=== PATIENT | male | born 1955 | race Caucasian/White ===

== ENCOUNTER → 2024-10-18 | Outpatient (BNVA) | payer OTHER, MEDICAID, SELFPAY | END | disposition home or self-care (01) | PROVIDERS: PCP Family Medicine; Referring Provider Family Medicine; Visit Provider Urology | DX: N40.1 Benign prostatic hyperplasia with lower urinary tract symptoms (principal); N13.8 Other obstructive and reflux uropathy; N20.1 Calculus of ureter; I10 Essential (primary) hypertension; J44.9 Chronic obstructive pulmonary disease, unspecified; F32.A Depression, unspecified; E78.00 Pure hypercholesterolemia, unspecified | CPT/HCPCS: 99212; G0463 ==

== ENCOUNTER → 2024-12-15 | Outpatient (CLI) | payer MEDICARE, MEDICAID, SELFPAY ==
--- NOTE | 2024-12-15 14:06 | XR_ITS ---
Examination: CT chest, without intravenous contrast. Sagittal and coronal 2-D reconstructions. Exam date and time: December 15, 2024 1428 hours INDICATIONS: CT chest January 26, 2024, COPD, bilateral pulmonary nodules including 10 mm pulmonary nodule right lower lobe CTDI:vol (mGy) 1.9 DLP: (mGycm) 439 Technique: Multiple 3.0 mm axial sections of the chest to been obtained. Bone and lung density settings are obtained. Sagittal and coronal 2-D reconstructions have been obtained. Low dose protocols were performed. One or more of the following dose reduction techniques were used; automated exposure control, adjustment of the mA and/or KV according to patient size, use of iterative reconstruction technique. Findings: No thoracic aortic aneurysm dilatation No paratracheal tracheobronchial or bronchopulmonary adenopathy Again noted bilateral pulmonary nodules New soft nodule in the left lower lobe 21 mm No interval pneumonia or pulmonary edema No visualized liver or splenic lesion No gallstones Partial visualization right ureteral stent IMPRESSION: New pulmonary nodule in the left lower lobe, 21 mm, recommend continued 6 month follow-up CT chest without contrast
== END | disposition home or self-care (01) ==
PROVIDERS: PCP Specialist; Referring Provider Specialist; Visit Provider Specialist
DX: R91.1 Solitary pulmonary nodule (principal)
CPT/HCPCS: 71250

== ENCOUNTER → 2024-12-21 | Outpatient (CLI) | payer MEDICARE, MEDICAID, SELFPAY ==
--- NOTE | 2024-12-21 12:40 | XR_ITS ---
Examination: Retroperitoneal ultrasound, complete Technique: Multiple high resolution grayscale images of the retroperitoneum obtained, including kidneys and bladder. Exam date and time:December 21 2024 1356 hours INDICATIONS: History bilateral flank pain 4 months FINDINGS: Right kidney 10.4 x 5.2 x 5.1 cm cortex 1.2 cm Renal calculi, the largest 13 x 8 x 10 mm Left kidney 10.0 x 5.0 x 5.2 cm cortex 1.3 cm Moderate bilateral renal parenchymal scar formation No bladder mass, contracted urinary bladder 26 cc IMPRESSION: Right renal calculi, the largest 13 mm No hydronephrosis
[2024-12-21 14:29] LABS: Collection Type, Urine Clean Catch; Squamous Epithelial Cell,Urine 0 /hpf (0-5)
[2024-12-21 14:55] LABS: Basophils # (Auto) 0.1 Thou/mm3 (0.0-0.2); Basophils % (Auto) 1 % (0-2.5); Eosinophils # (Auto) 0.4 Thou/mm3 (0.0-0.5); Eosinophils % (Auto) 3 % (0-10); Hematocrit 44.6 % (41.0-53.0); Hemoglobin 14.6 g/dL (13.5-16.0); Immature Granulocytes % (Auto) 0 % (0-0); Immature Granulocytes Auto 0.04 Thou/mm3 (0.00-0.00); Lymphocytes # (Auto) 1.6 Thou/mm3 (1.0-4.8); Lymphocytes % (Auto) 14 % (10-50); Mean Corpuscular HGB Conc 32.7 g/dl (31.0-37.0); Mean Corpuscular Hemoglobin 31.7 pg (25.0-35.0); Mean Corpuscular Volume 97 fL (80-100); Monocytes # (Auto) 1.1 Thou/mm3 (0.0-0.8); Monocytes % (Auto) 10 % (0-12); Neutrophils # (Auto) 7.9 Thou/mm3 (1.8-7.7); Neutrophils % (Auto) 72 % (37-80); Nucleated Red Blood Cell % 0 /100 WBC (0); Platelet Count 237 Thou/mm3 (140-440)
[2024-12-21 15:08] LABS: Bilirubin,Urine Negative (Negative); Blood,Urine 3+ (Negative); Clarity,Urine Clear (Clear/Hazy); Color,Urine Lt-Yellow (Lt Yel-Yel); Glucose, Urine Negative (Negative); Ketones,Urine Negative (Negative); Leukocyte Esterase,Urine Positive (Negative); Nitrite,Urine Negative (Negative); PH,Urine 6.5 (5.0-7.0); Protein,Urine Trace (Neg - Trace); RBC,Urine 101 /hpf (0-3); Specific Gravity,Urine 1.011 (1.001-1.035); Urobilinogen,Urine Negative mg/dL (0.0-1.0); WBC,Urine 15 /hpf (0-5)
[2024-12-21 15:19] LABS: Culture Indicated,Urine Yes
[2024-12-21 15:22] LABS: Anion Gap 8 (7-16); BUN/Creatinine Ratio 15 Ratio (12-20); Blood Urea Nitrogen 17 mg/dL (9-23); Calcium 9.3 mg/dL (8.3-10.6); Carbon Dioxide 33.3 mMol/L (20.0-31.0); Chloride 97 mMol/L (98-107); Creatinine (Component) 1.1 mg/dL (0.6-1.3); Glucose 70 mg/dL (74-106); Osmolality,Calculated 275 (275-295); Potassium 4.3 mMol/L (3.4-5.1); Sodium 138 mMol/L (136-145); eGFR > 60 See Note
== END | disposition home or self-care (01) ==
LOC: CDIM 12:25 → COPL 13:49
PROVIDERS: Referring Provider Nurse Practitioner Family; Visit Provider Radiology Diagnostic Radiology
DX: N20.0 Calculus of kidney (principal)
CPT/HCPCS: 36415; 76770; 80048; 80053; 81001; 85025; 87086

== ENCOUNTER 2024-12-25 21:17 | Emergency (ER) | payer MEDICARE, MEDICAID, SELFPAY ==
[2024-12-25 21:24] VITALS: BP 136/87; PULSE 104; RESP 22; TEMP 37; O2SAT 93
--- NOTE | 2024-12-25 21:37 | XR_ITS ---
Examination: PA lateral chest 2 views Technique: Upright PA lateral chest 2 views Exam date and time: December 25, 2024 2137 hrs. Indications: Onset chest pain today. Findings: Bibasilar opacity consistent with pneumonia Significant hyperexpansion Prominent central pulmonary arteries Moderate osteopenia Impression: COPD Pulmonary artery hypertension Bibasilar pneumonia
--- NOTE | 2024-12-25 21:37 | EKG_ITS ---
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) Order Number: [id number] Reading MD: Dino Willson ([facility]) Measurements Intervals [place] Rate: 103 P: 81 DC: 120 QRS: 68 QRSD: 93 T: 61 QT: 315 QTc: 414 Interpretive Statements SINUS TACHYCARDIA ABNORMAL RHYTHM ECG Compared to ECG 02/21/2024 17:19:26 Sinus rhythm no longer present Ventricular premature complex(es) no longer present T-wave abnormality no longer present /store/S0/[id number]/[id number].pdf
--- NOTE | 2024-12-25 21:38 | PD.EDRME ---
Rapid Medical Screening Exam E Arrival date/time: 12/25/24 21:17 69-year-old male past medical history of COPD on 2 L nasal cannula home O2, UTI, and kidney stones presents emergency department complaining of chest pain with shortness of breath. Chief Complaint: Shortness of Breath/Dyspnea Time Seen by Provider: 12/25/24 21:28 Vital signs: Vital Signs Temperature 98.6 F 12/25/24 21:24 Pulse Rate 104 H 12/25/24 21:24 Respiratory Rate 22 H 12/25/24 21:24 Blood Pressure 136/87 H 12/25/24 21:24 Pulse Oximetry (%) 93 L 12/25/24 21:24 Oxygen Delivery Method Nasal Cannula 12/25/24 21:24 Oxygen Flow Rate 4 12/25/24 21:24 Vital signs reviewed by provider: Yes
--- NOTE | 2024-12-25 22:21 | PD.EDSOB ---
ED SOB =RME/HPI General Chief Complaint: Shortness of Breath/Dyspnea Stated Complaint: DIFF BREATHING Time Seen by Provider: 12/25/24 21:28 Arrival date/time: 12/25/24 21:17 RME / HPI RME / HPI Narrative: 12/25/24 21:17 69-year-old male past medical history of COPD on 2 L nasal cannula home O2, UTI, and kidney stones presents emergency department complaining of chest pain with shortness of breath. ----- Dr. Briseno?s Main ED Evaluation: 69yo male with a history of dementia, COPD, HTN, kidney stones s/p right stent placement presents to the ED for a chief complaint of worsening chronic back pain. Patient states he was diagnosed with kidney stones in 08/2024, reporting he's been told he was supposed to have a lithotripsy, but has not been scheduled to have it done. He states his pain has gotten significantly worse over the last 1-2 days, reporting he's had increasing shortness of breath due to the pain, so he came in for evaluation. He has been taking his hydrocodone without any improvement of symptoms. Denies any fever, chills, N/V or any other associated symptoms. No known allergies. Patient states he saw his PCP on Thursday and was prescribed Bactrim for UTI, which he has been taking. Related Data Home Medications ?Medication ?Instructions ?Recorded ?Confirmed losartan 100 mg tablet 50 mg PO QDAY 12/13/19 10/18/24 fluticasone fur. 100 mcg-umeclid 1 ea inhalation QDAY 10/29/23 10/18/24 62.5 mcg-vilant 25 mcg inhalat.powder (Trelegy Ellipta) omeprazole 20 mg capsule,delayed 20 mg PO QDAY 10/29/23 10/18/24 release tamsulosin 0.4 mg capsule 0.4 mg PO QHS 04/05/24 10/18/24 prednisone 10 mg tablets in a dose 5 mg PO QDAY 09/08/24 10/18/24 pack vortioxetine 10 mg tablet 10 mg PO QDAY 09/08/24 10/18/24 (Trintellix) donepezil 10 mg tablet 10 mg PO QDAY 10/18/24 10/18/24 Previous Rx's ?Medication ?Instructions ?Recorded albuterol sulfate 90 mcg/actuation 1 inh inhalation QID PRN shortness 11/24/23 aerosol inhaler of breath or wheezing #6.7 grams albuterol sulfate 90 mcg/actuation 2 puff inhalation QID PRN 12/26/24 aerosol inhaler shortness of breath or wheezing #8.5 grams doxycycline monohydrate 100 mg 100 mg PO BID 10 days #20 caps 12/26/24 capsule prednisone 50 mg tablet 50 mg PO QDAY 5 days #5 tabs 12/26/24 Allergies Allergy/AdvReac Type Severity Reaction Status Date / Time No Known Allergies Allergy Verified 12/25/24 22:40 Review of Systems Review of Systems Systems Reviewed: All systems reviewed, normal except as documented Past Medical History Past Medical History NEUROLOGIC: Positive Neurological Disorders and Dementia (vascular dementia sees Dr Laws); Negative Seizures CARDIAC: Positive Cardiac Disorders, Hypercholesterolemia and Hypertension; Negative Congestive Heart Failure or Edema RESPIRATORY: Positive Chronic Obstructive Pulmonary Disease (COPD), Bronchitis and Pneumonia GASTROINTESTINAL: Positive Hepatitis (was treated); Negative Gastrointestinal Disorders GENITOURINARY: Positive Genitourinary Disorders, Kidney Stones and Benign Prostatic Hyperplasia; Negative Renal Disease MUSCULOSKELETAL: Positive Musculoskeletal Disorders, Arthritis, Degenerative Disk Disease and Degenerative Joint Disease ENT: Positive Macular Degeneration (gets injections in the eyes) ENDOCRINE: Negative Endocrine Disorders, Diabetes Mellitus Type 1 or Diabetes Mellitus Type 2 HEMATOLOGIC: Negative Blood Disorders PSYCHO/SOCIAL: Positive Depression and Anxiety OTHER HISTORY: Positive Hospitalization, Shingles and Chicken Pox; Negative Autoimmune Disease, Blood Transfusions, Blood Transfusion Reaction, Anesthesia Reactions or Cancer Family History FAMILY HISTORY: Positive Family Cardiac Disorders, Family Cancer and Family Surgery; Negative Family Psychiatric Problems, Family Respiratory Disorders, Family Gastrointestinal Problems or Family Anesthesia Reaction Surgical History SURGICAL: Positive Joint Replacement and Arthroscopy (bilateral knees) Social History SMOKING STATUS: Former smoker SECOND HAND EXPOSURE: No SUBSTANCE USE: marijuana ED Exam Narrative Physical exam: GENERAL APPEARANCE: alert and oriented x 4, well-developed, well-nourished, no acute distress VITALS: All vitals were reviewed and the pulse ox is 93% on 4L/NC, which is slightly abnormal according to my interpretation. HEENT: Normocephalic, atraumatic; pupils equal, round, reactive to light; EOMI; mucous membranes pink, moist; oropharynx clear NECK: Supple LUNGS: CTABL; no wheezes, no rales, no rhonchi HEART: Regular rate, regular rhythm; normal S1, S2; no murmurs ABDOMEN: non distended; normal BS; soft, no tenderness, no guarding, no rebound; no masses, no organomegaly, no hernia BACK: no CVA tenderness EXTREMITIES: atraumatic; no edema NEUROLOGIC: awake; alert and oriented x4; cranial nerves II-XII grossly intact; no focal sensory or motor deficits PSYCHIATRIC: appropriate mood and affect SKIN: warm, dry, normal color; no rashes Course Course Course Narrative: CXR ordered for determining the etiology of shortness of breath. 2221: Sepsis alert initiated. Orders made at this time are congruent with ED Adult Sepsis Order List. Re-evaluation is to be completed. No IVF given due to the patient being clinically stable. No indication for IVF hydration at this time. Quality Measures none Orders Category Date Time Status Battery Starter STAT Care 12/25/24 22:21 Completed Continuous Pulse Oximetry STAT Care 12/25/24 22:21 Completed EKG (ED ONLY) *Do not use* NOW Care 12/25/24 21:37 Completed EKG (ED ONLY) *Do not use* NOW Care 12/25/24 22:24 Completed In and Out Catheter X1PRN Care 12/25/24 22:21 Completed Insert IV NOW Care 12/25/24 22:21 Completed NPO STAT Care 12/25/24 22:21 Completed Strict Intake and Output Routine Care 12/25/24 22:[address] abdomen pelvis wo con Stat Exams 12/25/24 22:50 Completed EKG (ED Only) Stat Exams 12/25/24 21:37 Draft EKG (ED Only) Stat Exams 12/25/24 22:24 Draft XR chest 2V Stat Exams 12/25/24 21:37 Completed B-Type Natriuretic Peptide Stat Lab 12/25/24 21:55 Completed Blood Culture (Lab) Stat Lab 12/25/24 23:00 Received CBC Stat Lab 12/25/24 21:55 Completed Comprehensive Metabolic Panel Stat Lab 12/25/24 21:55 Completed Drug Screen,Urine Stat Lab 12/25/24 22:25 Completed LDH (Lactate Dehydrogenase) Stat Lab 12/25/24 23:00 Completed Lactate (Lactic Acid) Stat Lab 12/25/24 23:00 Completed Lipase Stat Lab 12/25/24 23:00 Completed Magnesium Stat Lab 12/25/24 21:55 Completed Partial Thromboplastin Time Stat Lab 12/25/24 23:00 Completed Phosphorous Stat Lab 12/25/24 23:00 Completed Procalcitonin Stat Lab 12/25/24 23:00 Completed Prothrombin Time with INR Stat Lab 12/25/24 23:00 Completed Troponin I Stat Lab 12/25/24 21:55 Completed Urinalysis Stat Lab 12/25/24 22:25 Completed Urine Culture Stat Lab 12/25/24 22:25 Received ALBUTEROL RT 0.5ml [Proventil Rt 0.5ml] Med 12/25/24 21:37 Discontinued 5 mg INH X1 ONE Azithromycin Inj [Zithromax Inj] 500 mg Med 12/25/24 22:25 Discontinued Sodium Chloride 0.9% 250 ml [Ns] 250 ml IV X1 HYDROmorphone INJ [Dilaudid Inj] Med 12/25/24 22:51 Discontinued 0.5 mg IVP X1 ONE Ipratropium Chester Rt Sonia [Atrovent Rt Sonia] Med 12/25/24 21:37 Discontinued 0.5 mg INH X1 ONE Ondansetron Inj [Zofran Inj] Med 12/25/24 22:51 Discontinued 4 mg IV X1 ONE Ondansetron Inj [Zofran Inj] Med 12/25/24 22:51 Discontinued 4 mg IV X1 ONE Sodium Chloride Rt Sonia 0.9% [NS Rt Sonia 0.9%] Med 12/25/24 21:37 Discontinued 3 ml INH PRN PRN cefTRIAXone [Rocephin] 1,000 mg Med 12/25/24 22:21 Discontinued Sodium Chloride 0.9% (P) [Ns 0.9% (P)] 50 ml IV X1 predniSONE Med 12/25/24 21:37 Discontinued 60 mg PO X1 ONE Oxygen Delivery NOW RT 12/25/24 22:21 Completed Reevaluation(s) Reevaluation #1: Patient states he feels significantly better. He notes his resting HR at baseline is between 106-110. Patient is stable to be discharged home. Time: 00:55 Vital Signs Vital signs: Vital Signs Temperature 98.6 F 12/25/24 21:24 Pulse Rate 104 H 12/25/24 21:24 Respiratory Rate 22 H 12/25/24 21:24 Blood Pressure 136/87 H 12/25/24 21:24 Pulse Oximetry (%) 93 L 12/25/24 21:24 Oxygen Delivery Method Nasal Cannula 12/25/24 21:24 Oxygen Flow Rate 4 12/25/24 21:24 Shortness of Breath / Dyspnea MDM Narrative MDM Narrative:: Scribe Attestation: 12/25/24 Marbella Mcclendon am scribing for and in the presence of Dr. Briseno. Patient data External records reviewed:: [facility] previous records (Per chart review, patient was admitted here on 02/15/24 for acute febrile illness.) Clinical information provided by:: patient Social determinants that could affect healthcare access:: none Patient has the following chronic illnesses:: COPD, HTN, HLD, BPH, kidney stones How is presenting disease/condition affected by chronic disease/condition?: exacerbated by Evaluation data The following diagnostics were reviewed and interpreted by me:: lab results, radiology exam(s) and EKG tracing(s) Lab and/or radiology exams considered but not ordered:: none Interpretation Summary: CBC is normal, CMP is normal, Lactic Acid is normal, troponin is normal, BNP is normal, Procalcitonin is within normal limits, UA shows hematuria, according to my interpretation. EKG done at 2142, sinus tachycardia, rate of 103, normal axis, no ectopy, no acute ischemia, according to my interpretation. Repeat EKG done at 2234, sinus tachycardia, rate of 102, left axis deviation, no ectopy, no acute ischemia, according to my interpreatation. ------ [place] [facility] Report Signed Patient: MIRIAN IVORY [facility]. Record#: [id number] Birthdate: 1955 Age/Sex: 69 / M Location: [facility] Attending Dr: Ordering Physician: Ale ROGER)Dino Date of Service: 12/25/24 Procedure(s): XR chest 2V Accession Number(s): [id number] cc: Tk Bedoya MD; Ale ROGER)Dino~ Examination: PA lateral chest 2 views Technique: Upright PA lateral chest 2 views Exam date and time: December 25, 2024 2137 hrs. Indications: Onset chest pain today. Findings: Bibasilar opacity consistent with pneumonia Significant hyperexpansion Prominent central pulmonary arteries Moderate osteopenia Impression: COPD Pulmonary artery hypertension Bibasilar pneumonia Dictated By: Tk Bedoya MD Signed By: <Electronically signed by Tk Bedoya MD in OV> 12/25/24 2259 [place] [facility] Report Signed Patient: MIRIAN IVORY. Record#: [id number] Birthdate: 1955 Age/Sex: 69 / M Location: [facility] Attending Dr: Ordering Physician: Lukasz Briseno MD Date of Service: 12/25/24 Procedure(s): CT abdomen pelvis wo con Accession Number(s): [id number] cc: Tk Bedoya MD; Lukazs Briseno MD~ Examination: CT abdomen and pelvis without contrast. Coronal 3-D reconstructions. Sagittal 2-D reconstructions. Date and time of exam:December 25, 2024 1106 hrs. Indications: Right flank pain today, history kidney stones ureteral stent CTDI: vol (mGy): 8.45 DLP: (mGycm): 508 Technique: Axial images of the abdomen have been obtained, 3 mm slice thickness Intravenous contrast material has not been administered. Low dose protocols were performed. One or more of the following dose reduction techniques were used; automated exposure control, adjustment of the mA and/or KV according to patient size, use of iterative reconstruction technique. Findings: Atelectasis versus mild pneumonia right base No focal liver or splenic lesions No gallstones No pancreatic mass Mild right hydronephrosis with lower pole right renal calculi, the largest 13 mm Bilateral perinephric stranding No bowel obstruction Normal appendix Colonic diverticulosis No bladder calculi Transverse prostate dimension 5.2 cm Prominent osteopenia Transpedicular lumbar stabilization L5-S1 Cortical bone erosions inferior margin L2 sagittal image 120 Impression: Atelectasis versus mild pneumonia right base Right renal calculi Mild right hydronephrosis Right ureteral stent satisfactory position, no right ureteral calculi Moderate prostatomegaly Cortical erosion inferior endplate L2, consider discitis osteomyelitis, recommend elective MRI lumbar spine follow-up pre and postcontrast Dictated By: Tk Bedoya MD Signed By: <Electronically signed by Tk Bedoya MD in OV> 12/25/24 2050 Medications / Prescriptions Medications or Prescriptions considered but not ordered:: none Medication administrations:: Medication Administration History Discontinued Medications Albuterol (Albuterol Rt 2.5 Mg/0.5 Ml Nebu) 5 mg INH X1 ONE Stop: 12/25/24 21:38 Last Admin: 12/26/24 00:11 Dose: 5 mg Documented By: AURELIO Hydromorphone HCl (Hydromorphone Inj 2 Mg/Ml Vial) 0.5 mg IVP X1 ONE Stop: 12/25/24 22:52 Last Admin: 12/25/24 23:23 Dose: 0.5 mg Documented By: VICENTA Ceftriaxone Sodium 1,000 mg/ (Sodium Chloride) 50 mls @ 100 mls/hr IV X1 ONE Stop: 12/25/24 22:50 Last Admin: 12/25/24 23:18 Dose: 100 mls/hr Documented By: VICENTA Azithromycin 500 mg/ Sodium (Chloride) 250 mls @ 250 mls/hr IV X1 ONE Stop: 12/25/24 23:24 Last Admin: 12/25/24 23:25 Dose: 250 mls/hr Documented By: VICENTA Ipratropium [place] (Ipratropium Rt 0.5 Mg/ 2.5 Ml Nebu) 0.5 mg INH X1 ONE Stop: 12/25/24 21:38 Last Admin: 12/26/24 00:10 Dose: 0.5 mg Documented By: AURELIO Ondansetron HCl (Ondansetron Inj 2 Mg/Ml Inj 2 Ml) 4 mg IV X1 ONE; Protocol Stop: 12/25/24 22:52 Last Admin: 12/26/24 00:49 Dose: Not Given Documented By: DOUGLAS Non-Admin Reason: Discontinued Ondansetron HCl (Ondansetron Inj 2 Mg/Ml Inj 2 Ml) 4 mg IV X1 ONE; Protocol Stop: 12/25/24 22:52 Last Admin: 12/25/24 23:23 Dose: 4 mg Documented By: VICENTA Prednisone (Prednisone 20 Mg Tablet) 60 mg PO X1 ONE Stop: 12/25/24 21:38 Last Admin: 12/25/24 22:22 Dose: 60 mg Documented By: NELLY Sodium Chloride (Sodium Chloride Rt Sonia 0.9% 3 Ml Nebu) 3 ml INH PRN PRN PRN Reason: SOLN Stop: 01/24/25 21:36 see above Consultations Consultation(s) initiated? (list below): No Diagnosis Shortness of Breath Differential Diagnosis: other (renal colic, infected renal stone, ureteral stent migration, musculoskeletal strain) Most likely diagnosis given after review of the tests above:: see below Admission Indicated Admission indicated?: not indicated Admission Request Was there a request for admission?: No Disposition Plan Disposition Plan: Discharge Discharge Attestation Discharge Attestation: The patient and all family members were given an opportunity to ask questions and understood the discharge instructions. Discharge instructions specifically effects, indications for sooner follow up or return to the emergency department, and the expected course of current diagnosis. Patient condition: Stable Discharge Plan Plan Patient Disposition: HOME (Self Care) Disposition Comment: Stable for discharge Patient condition on transfer: Stable Prescriptions/Referrals Prescriptions/Med Rec: New doxycycline monohydrate 100 mg capsule 100 mg PO BID 10 Days Qty: 20 0RF prednisone 50 mg tablet 50 mg PO QDAY 5 Days Qty: 5 0RF albuterol sulfate 90 mcg/actuation HFA aerosol inhaler 2 puff inhalation QID PRN (Reason: shortness of breath or wheezing) Qty: 8.5 0RF No Action tamsulosin 0.4 mg capsule 0.4 mg PO QHS donepezil 10 mg tablet 10 mg PO QDAY losartan 100 mg Tablet 50 mg PO QDAY omeprazole 20 mg capsule,delayed release(DR/EC) 20 mg PO QDAY Trelegy Ellipta 100-62.5-25 mcg blister with device 1 ea INHALATION QDAY albuterol sulfate 90 mcg/actuation HFA aerosol inhaler 1 inh inhalation QID PRN (Reason: shortness of breath or wheezing) Qty: 6.7 0RF Trintellix 10 mg Tablet 10 mg PO QDAY prednisone 10 mg tablets,dose pack 5 mg PO QDAY Rx Instructions: 10 more days Referrals: [facility] [Outside] - In 1 week Problem List Clinical Impression: COPD with acute exacerbation, Community acquired pneumonia Patient/Caregiver Discharge Instructions Discharge Activity: activity as tolerated Education Materials: COPD: Chronic Coughing, Asthma and COPD, Chronic Lung Disease Avoiding ..., COPD Meds, ED Pneumonia (Adult) Additional Instructions: Please return to the emergency department for any worsening or any further medical problems. Otherwise you should follow-up with your primary care doctor within the next several days. Print Language: Romansh Stand Alone Forms: Karen Award Info., Patient Portal Info Letter
[2024-12-25] MEDS: predniSONE 20 MG TABLET 60 MG PO (22:22)
[2024-12-25 22:24] LABS: Basophils % (Auto) 0 % (0-2.5); Eosinophils # (Auto) 0.2 Thou/mm3 (0.0-0.5); Eosinophils % (Auto) 3 % (0-10); Hematocrit 42.2 % (41.0-53.0); Hemoglobin 13.4 g/dL (13.5-16.0); Immature Granulocytes % (Auto) 1 % (0-0); Immature Granulocytes Auto 0.05 Thou/mm3 (0.00-0.00); Lymphocytes # (Auto) 0.7 Thou/mm3 (1.0-4.8); Lymphocytes % (Auto) 10 % (10-50); Mean Corpuscular HGB Conc 31.8 g/dl (31.0-37.0); Mean Corpuscular Hemoglobin 31.8 pg (25.0-35.0); Mean Corpuscular Volume 100 fL (80-100); Monocytes # (Auto) 1.1 Thou/mm3 (0.0-0.8); Monocytes % (Auto) 16 % (0-12); Neutrophils # (Auto) 5.1 Thou/mm3 (1.8-7.7); Neutrophils % (Auto) 70 % (37-80); Nucleated Red Blood Cell % 0 /100 WBC (0); Platelet Count 203 Thou/mm3 (140-440); RDW Standard Deviation 50.2 fL (35.1-43.9); Red Blood Count 4.21 Miln/mm3 (4.50-5.90); White Blood Count 7.2 Thou/mm3 (3.8-10.6)
--- NOTE | 2024-12-25 22:24 | EKG_ITS ---
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
[2024-12-25 22:31] LABS: Collection Type, Urine Clean Catch; Squamous Epithelial Cell,Urine 0 /hpf (0-5)
[2024-12-25 22:32] VITALS: BMI 24.5
[2024-12-25 22:36] VITALS: PULSE 105
[2024-12-25 22:43] VITALS: BP 131/85; PULSE 105; RESP 19; TEMP 37.5; O2SAT 95
[2024-12-25 22:48] LABS: Bilirubin,Urine Negative (Negative); Blood,Urine 3+ (Negative); Clarity,Urine Turbid (Clear/Hazy); Glucose, Urine Negative (Negative); Ketones,Urine Trace (Negative); Leukocyte Esterase,Urine Positive (Negative); Nitrite,Urine Negative (Negative); PH,Urine 6.5 (5.0-7.0); Protein,Urine 2+ (Neg - Trace); RBC,Urine 3272 /hpf (0-3); Specific Gravity,Urine 1.028 (1.001-1.035); WBC,Urine 110 /hpf (0-5)
[2024-12-25 22:50] LABS: Color,Urine Amber (Lt Yel-Yel)
--- NOTE | 2024-12-25 22:50 | XR_ITS ---
Examination: CT abdomen and pelvis without contrast. Coronal 3-D reconstructions. Sagittal 2-D reconstructions. Date and time of exam:December 25, 2024 1106 hrs. Indications: Right flank pain today, history kidney stones ureteral stent CTDI: vol (mGy): 8.45 DLP: (mGycm): 508 Technique: Axial images of the abdomen have been obtained, 3 mm slice thickness Intravenous contrast material has not been administered. Low dose protocols were performed. One or more of the following dose reduction techniques were used; automated exposure control, adjustment of the mA and/or KV according to patient size, use of iterative reconstruction technique. Findings: Atelectasis versus mild pneumonia right base No focal liver or splenic lesions No gallstones No pancreatic mass Mild right hydronephrosis with lower pole right renal calculi, the largest 13 mm Bilateral perinephric stranding No bowel obstruction Normal appendix Colonic diverticulosis No bladder calculi Transverse prostate dimension 5.2 cm Prominent osteopenia Transpedicular lumbar stabilization L5-S1 Cortical bone erosions inferior margin L2 sagittal image 120 Impression: Atelectasis versus mild pneumonia right base Right renal calculi Mild right hydronephrosis Right ureteral stent satisfactory position, no right ureteral calculi Moderate prostatomegaly Cortical erosion inferior endplate L2, consider discitis osteomyelitis, recommend elective MRI lumbar spine follow-up pre and postcontrast
[2024-12-25 22:58] LABS: Amphetamine/Methamp Scrn,U Negative (Negative); Barbiturate Screen,Urine Negative (Negative); Benzodiazepines Screen,Urine Negative (Negative); Benzoylecgonine Screen, Ur Negative (Negative); Fentanyl Screen,Urine Negative (Negative); Opiate Screen,Urine Positive (Negative); THC Screen,Urine Negative (Negative)
[2024-12-25 23:02] LABS: B-Type Natriuretic Peptide 56 pg/mL (0-100)
[2024-12-25 23:11] LABS: Alanine Aminotransferase 8 U/L (10-49); Albumin, Serum 4.1 gm/dL (3.4-4.8); Albumin/Globulin Ratio 1.5 (1.2-2.2); Alkaline Phosphatase 176 U/L (46-116); Anion Gap 5 (7-16); Aspartate Amino Transferase 11 U/L (0-34); BUN/Creatinine Ratio 12 Ratio (12-20); Bilirubin,Total 0.2 mg/dL (0.3-1.2); Blood Urea Nitrogen 15 mg/dL (9-23); Calcium 9.4 mg/dL (8.3-10.6); Calcium (Corrected) 9.4 mg/dL (8.5-10.1); Carbon Dioxide 32.9 mMol/L (20.0-31.0); Chloride 100 mMol/L (98-107); Creatinine (Component) 1.3 mg/dL (0.6-1.3); Estimated Creatinine Clearance 56.9 mL/min (>60); Globulin 2.7 gm/dL (2.3-3.5); Glucose 94 mg/dL (74-106); Osmolality,Calculated 276 (275-295); Potassium 4.2 mMol/L (3.4-5.1); Sodium 138 mMol/L (136-145); Total Protein 6.8 gm/dL (5.7-8.2); Troponin I < 0.020 ng/mL (0.0-0.045); eGFR > 60 See Note
[2024-12-25 23:13] LABS: Lactate (Lactic Acid) 1.9 mMol/L (0.4-2.0)
[2024-12-25] MEDS: cefTRIAXone 1,000 MG in SODIUM CHLORIDE 0.9% (P) 50 ML 100 MG IV (23:18)
[2024-12-25] MEDS: ONDANSETRON INJ 2 MG/ML INJ 2 ML 4 MG IV (23:23)
[2024-12-25] MEDS: HYDROmorphone INJ 2 MG/ML VIAL 0.5 MG IVP (23:23)
[2024-12-25] MEDS: AZITHROMYCIN INJ 500 MG in SODIUM CHLORIDE 0.9% 250 ML 250 ML 250 MG IV (23:25)
[2024-12-25 23:47] LABS: Partial Thromboplastin Time 32.6 Seconds (22.0-36.0); Prothrombin Time 10.8 Seconds (9.0-12.2)
[2024-12-25 23:48] LABS: LDH (Lactate Dehydrogenase) 155 U/L (120-246); Lipase 36 U/L (12-53); Phosphorous 2.5 mg/dL (2.4-5.1); Procalcitonin 0.29 ng/ml (0.0-0.49)
[2024-12-26] MEDS: IPRATROPIUM RT 0.5 MG/ 2.5 ML NEBU INH (00:10)
[2024-12-26 00:11] VITALS: PULSE 111
[2024-12-26] MEDS: ALBUTEROL RT 2.5 MG/0.5 ML NEBU 5 MG INH (00:11)
[2024-12-26 00:15] VITALS: PULSE 108; PULSE 120; RESP 18; RESP 22; O2SAT 96
[2024-12-26 00:45] VITALS: BP 121/81; PULSE 121; RESP 17; O2SAT 95
[2024-12-26 01:11] VITALS: BP 125/92; PULSE 111; RESP 22; O2SAT 94
== END 2024-12-26 01:14 | disposition home or self-care (01) ==
PROVIDERS: Emergency Provider Emergency Medicine; PCP Nurse Practitioner Family
DX: J44.1 Chronic obstructive pulmonary disease with (acute) exacerbation (principal); J44.0 Chronic obstructive pulmonary disease with (acute) lower respiratory infection; J18.9 Pneumonia, unspecified organism; Z99.81 Dependence on supplemental oxygen; Z87.442 Personal history of urinary calculi; Z87.440 Personal history of urinary (tract) infections; R07.9 Chest pain, unspecified
CPT/HCPCS: 36415; 71046; 74176; 80053; 80307; 81001; 83605; 83615; 83690; 83735; 83880; 84100; 84145; 84484; 85025; 85610; 85730; 87040; 87086; 93005; 94640; 96374; 96375; 99284; J0456; J0696; J2405; J3490; J7050; J7512

== ENCOUNTER 2025-01-12 07:55 | Day surgery (SDC) | payer OTHER, SELFPAY ==
[2025-01-11 10:51] VITALS: BMI 24.7
[2025-01-11 13:49] LABS: Alanine Aminotransferase 12 U/L (10-49); Albumin, Serum 4.1 gm/dL (3.4-4.8); Albumin/Globulin Ratio 1.4 (1.2-2.2); Alkaline Phosphatase 158 U/L (46-116); Anion Gap 7 (7-16); Aspartate Amino Transferase 17 U/L (0-34); BUN/Creatinine Ratio 17 Ratio (12-20); Bilirubin,Total 0.7 mg/dL (0.3-1.2); Blood Urea Nitrogen 19 mg/dL (9-23); Calcium 9.8 mg/dL (8.3-10.6); Calcium (Corrected) 9.8 mg/dL (8.5-10.1); Carbon Dioxide 34.7 mMol/L (20.0-31.0); Chloride 98 mMol/L (98-107); Creatinine (Component) 1.1 mg/dL (0.6-1.3); Estimated Creatinine Clearance 67.3 mL/min (>60); Globulin 2.9 gm/dL (2.3-3.5); Glucose 88 mg/dL (74-106); Osmolality,Calculated 280 (275-295); Potassium 4.5 mMol/L (3.4-5.1); Sodium 140 mMol/L (136-145); eGFR > 60 See Note
--- NOTE | 2025-01-11 14:50 | SUR.PREOP ---
COPD history reviewed with Dr Roberto. Pt uses O2 ATC at 2L. Cardiac records reviewed with Dr Roberto.
[2025-01-12] VITALS (8 sets, daily range): BP systolic 137–181; BP diastolic 80–112; PULSE 81–90; RESP 12–20; TEMP 36.2–36.8; O2SAT 95–100; BMI 24.3
--- NOTE | 2025-01-12 07:15 | XR_ITS ---
Examination: Right retrograde pyelogram with without KUB Fluoroscopy AP abdomen 3 views Exam date and time: January 12, 2025 1300 hrs. Indications: Right flank pain beginning December 25, 2024 right mild hydronephrosis right ureteral stent satisfactory position on CT stone study December 25, 2024 Technique And Findings: 3 spot fluoroscopic abdomen films Visualization minimally dilated right renal pelvis and calyces Fluoroscopy 1.4 minute radiation dose 4.59 milligray Impression: Right retrograde pyelogram as above
--- NOTE | 2025-01-12 12:50 | SUR.PHASEI ---
1250: Pt. AAOx4, vitals stable, breathing unlabored, no complaint of pain or nausea, no dressing in place, no active bleed noted, report received from MD Barriga and Augusto RAMIREZ.
[2025-01-12] MEDS: fentaNYL CIT INJ 50 mCg/ML AMP 2ML 25 MCG IV ×4 (13:00→13:24)
--- NOTE | 2025-01-12 13:25 | CTCCONSULT_ITS ---
RE: MIRIAN IVORY : 1955 DATE OF CONSULTATION: 01/12/2025 PREPROCEDURE DIAGNOSES: 1. An 18-mm ureteropelvic junction stone, right. 2. An 8 mm and 6 mm lower pole stones, right. 3. Indwelling ureteral stent, right. POSTPROCEDURE DIAGNOSIS: Status post retrograde intrarenal surgery, right. PROCEDURE PERFORMED: Fluoroscopic imaging of upper urinary tract; cystoscopy; retrograde pyelogram under fluoroscopic control, right; retrograde intrarenal surgery with laser stone fragmentation and vaporization, right; stone basketing; and placement of indwelling ureteral stent, right. SURGEON: Dandy Ayala MD TECHNICAL OPERATIONS MANAGER SURGEON: Moni Desai MD ANESTHESIA: General. INDICATIONS: This patient is a 69-year-old gentleman with complex right renal stone disease, maybe 18, 6, and 8 mm stones in the right renal collecting system. The patient previously underwent an attempted stone treatment in a retrograde fashion; however, the ureter was too tight for safe access to the kidney. Therefore, an indwelling ureteral stent was placed to allow for passive dilation of the ureter over time. The patient now comes for a planned second- stage procedure. The indication for treatment along with risks, benefits, and alternatives were discussed with the patient in detail and appropriate consent is obtained. DESCRIPTION OF FINDINGS: Fluoroscopically, a faint stone shadow is seen overlying the medial aspect of the right kidney. The stents in the ureter is incorrect position. Endoscopically, the urethra is unremarkable. Prostate is moderately enlarged. The bladder shows mild bladder trabeculation. The stent is seen protruding from the ureteral orifice. After placement of a safety wire, the stent is removed. Endoscopic surgery is performed in the kidney with laser stone fragmentation and vaporization as the stones vaporize very efficiently. The stones are completely vaporized and some stone material is removed with basketing to allow for chemical analysis. A stent is placed. DESCRIPTION OF PROCEDURE: Prior to initiation of anesthesia, the patient is appropriately identified by the surgeon and operating room personnel. Indications for surgery, site, and scope of surgery are reconfirmed with the patient. The patient received perioperative antibiotics intravenously. After induction of general anesthesia, the patient was positioned on the endoscopy table in lithotomy position. The outer genitalia was prepped and draped in sterile fashion. Cystoscopy was performed using a 21-Guyanese instrument showing the aforementioned findings. A 5-Guyanese angiographic catheter was introduced into the right ureteral orifice over a guidewire under fluoroscopic control. The guidewire can be advanced up into the kidney to serve as a safety wire. At this point, the patient received 20 mg of Lasix intravenously to induce diuresis and reduce the risk of pyelovenous reflux and infectious complications. The indwelling stent was then removed and checked for completeness. Following this, a flexible digital ureteroscope was advanced into the ureter alongside the safety wire. The course of the ureter was traversed under endoscopic control and easy access to the kidney was established. The renal pelvic stone is first identified. Then selective visualization of all calyces is performed, identifying two additional stones in lower calyces measuring 8 and 6 mm respectively. Next, a ureteral access sheath was placed and stone fragmentation and vaporization was performed starting with the larger stone at the renal pelvis. This responds very well to the vaporization energy and can be completely vaporized. Next, the lower pole stones are treated in the same fashion. The lower most stone is repositioned with a basket in a more suitable location for fragmentation and is also fragmented and vaporized. Following this, multiple passages with stone baskets were performed to clear out slightly larger stone pieces to be used for chemical analysis and then all areas of stone materials are continued with the vaporization energy to reduce all stone material to a size smaller than the 1 mm safety wire. To conclude the procedure, a contrast was again injected confirming the integrity of the right upper urinary tract and showing mild to moderate chronic distention of the renal collecting system. An indwelling stent was placed over the safety wire and under fluoroscopic and endoscopic control position correctly in kidney and bladder. Bladder is emptied. The patient is awakened and returned to recovery where he arrived in satisfactory condition. DISPOSITION: The patient will be discharged home from the outpatient surgical area who will return to Dr. Desai's office within two weeks for renal ultrasound examination and possible removal of the indwelling ureteral stent in the office setting under local anesthesia. DT: 12:44:19 TT: 13:25:00 Ref: [id number] - TID: [id number]
--- NOTE | 2025-01-12 13:45 | SUR.PHASEII ---
1345: Pt. AAOx4, vitals stable, breathing unlabored, no complaint of pain or nausea, no dressing in place, pt. voided hematuria, pt. tolerated bites of ice chips well, pt. ambulated to wheelchair with steady gait and no assist, no complications. Gave discharge instructions to the pt. and his ride, both verbalized understanding and had no further questions. Pt. left with all personal belongings.
== END 2025-01-12 13:45 | disposition home or self-care (01) ==
PROVIDERS: Anesthesiology; PCP Family Medicine; Referring Provider Specialist; Visit Provider Urology
PROC: 0TJB8ZZ Inspection of Bladder, Via Natural or Artificial Opening Endoscopic (ICD-10-PCS; CPT 52000; principal; 2025-01-12 10:00)
DX: N20.0 Calculus of kidney (principal); N40.0 Benign prostatic hyperplasia without lower urinary tract symptoms; J44.9 Chronic obstructive pulmonary disease, unspecified; I10 Essential (primary) hypertension
CPT/HCPCS: 52356; 36415; 74420; 80053; 82365; A4217; A4649; C1769; C1889; C1894; C2617; J1100; J1580; J1940; J2250; J2405; J2704; J3010; J3370; J3490; A9270; C1893

== ENCOUNTER → 2025-01-30 | Outpatient (CLI) | payer MEDICARE, SELFPAY ==
--- NOTE | 2025-01-30 15:23 | XR_ITS ---
Examination: PA lateral chest 2 views TECHNIQUE: Upright PA lateral chest 2 views Exam date and time: January 30, 2025 1432 hours INDICATIONS: Coughing shortness of breath beginning one week ago. FINDINGS: Moderate hyperexpansion Pneumonia at the lung bases and in the lingular segment left upper lobe No pulmonary edema Prominent osteopenia IMPRESSION: COPD Bibasilar and lingular segment left upper lobe pneumonia
--- NOTE | 2025-01-30 15:24 | XR_ITS ---
Examination: Lumbar spine, 5 views Technique: Lumbar spine AP, lateral, coned lateral lower lumbar spine, bilateral obliques 5 views Exam date and time: January 30, 2025 1428 hours INDICATIONS: Low back pain several months FINDINGS: Lumbar dextroscoliosis 20 degrees Prominent osteopenia Right ureteral stent satisfactory position Interval transpedicular lumbar fusion L5-S1 compared with April 04, 2010 Moderate lumbar spondylosis Prominent osteopenia Mild to moderate lumbar degenerative disc disease above the fusion site IMPRESSION: Mild to moderate lumbar degenerative disc disease above the fusion site
== END | disposition home or self-care (01) ==
LOC: SDIM 14:58
PROVIDERS: PCP Nurse Practitioner Family; Referring Provider Nurse Practitioner Family; Visit Provider Nurse Practitioner Family
DX: M51.369 Other intervertebral disc degeneration, lumbar region without mention of lumbar back pain or lower extremity pain (principal); M43.26 Fusion of spine, lumbar region; J44.9 Chronic obstructive pulmonary disease, unspecified; J18.9 Pneumonia, unspecified organism
CPT/HCPCS: 71046; 72110

== ENCOUNTER → 2025-02-03 | Outpatient (BNVA) | payer OTHER, SELFPAY | END | disposition home or self-care (01) | PROVIDERS: PCP Family Medicine; Referring Provider Family Medicine; Visit Provider Urology | DX: N32.89 Other specified disorders of bladder (principal); Z96.0 Presence of urogenital implants; N40.1 Benign prostatic hyperplasia with lower urinary tract symptoms; N13.8 Other obstructive and reflux uropathy; I10 Essential (primary) hypertension; E78.00 Pure hypercholesterolemia, unspecified | CPT/HCPCS: 52310; 81003; 96372; A4217; A4649; C1894; J1580; A9270 ==

== ENCOUNTER 2025-02-17 15:17 | Observation (INO) | payer OTHER, MEDICAID, SELFPAY ==
[2025-02-17] VITALS (7 sets, daily range): BP systolic 108–159; BP diastolic 71–113; PULSE 80–103; RESP 18–24; TEMP 36.8–37.1; O2SAT 96–907; BMI 24.5
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
--- NOTE | 2025-02-17 15:56 | PD.EDABDPN ---
ED Abdominal Pain RME/HPI General Chief Complaint: Abdominal Pain Stated complaint: ABDOMINAL PAIN Time seen by provider: 02/17/25 15:50 Arrival date/time: 02/17/25 15:17 RME / HPI RME / HPI narrative: DR. GARCIA MAIN ED EVALUATION: 69 year old male with past medical history significant for dementia, COPD, HTN, kidney stones s/p right stent placement presents to the Emergency Department BIBA with complaint of abdominal pain, diffuse but he states it is mainly in her lower abdominal area. He denies any nausea or vomiting. He states that he had 2 bowel movement today, normal, and has been passing gas. Related Data Home Medications ?Medication ?Instructions ?Recorded ?Confirmed fluticasone fur. 100 mcg-umeclid 1 ea inhalation QDAY 10/29/23 02/03/25 62.5 mcg-vilant 25 mcg inhalat.powder (Trelegy Ellipta) omeprazole 20 mg capsule,delayed 20 mg PO QDAY 10/29/23 02/03/25 release tamsulosin 0.4 mg capsule 0.4 mg PO QHS 04/05/24 02/03/25 donepezil 10 mg tablet 10 mg PO QDAY 10/18/24 02/03/25 hydrocodone 5 mg-acetaminophen 325 1 tab PO Q8H PRN pain 01/11/25 02/03/25 mg tablet ipratropium 0.5 mg-albuterol 3 mg 3 ml inhalation Q4H PRN shortness 01/11/25 02/03/25 (2.5 mg base)/3 mL nebulization of breath soln sertraline 50 mg tablet (Zoloft) 50 mg PO QDAY 01/11/25 02/03/25 tizanidine 2 mg capsule (Zanaflex) 2 mg PO TID PRN muscle spasticity 01/11/25 02/03/25 sodium bicarbonate 325 mg tablet 325 mg PO QDAY 02/03/25 02/03/25 Previous Rx's ?Medication ?Instructions ?Recorded albuterol sulfate 90 mcg/actuation 1 inh inhalation QID PRN shortness 11/24/23 aerosol inhaler of breath or wheezing #6.7 grams hydrocodone 5 mg-acetaminophen 325 1 tab PO Q8H PRN pain #20 tabs 01/12/25 mg tablet Allergies Allergy/AdvReac Type Severity Reaction Status Date / Time levofloxacin (From Levaquin) Allergy Intermediate MUSCLE Verified 02/03/25 14:15 SPASMS Review of Systems Review of Systems Systems Reviewed: All systems reviewed, normal except as documented Past Medical History Past Medical History NEUROLOGIC: Positive Neurological Disorders and Dementia CARDIAC: Positive Cardiac Disorders, Hypercholesterolemia and Hypertension (not taking med per Dr) RESPIRATORY: Positive Chronic Obstructive Pulmonary Disease (COPD), Bronchitis and Pneumonia GASTROINTESTINAL: Positive Hepatitis (C treated) GENITOURINARY: Positive Genitourinary Disorders, Kidney Stones and Benign Prostatic Hyperplasia MUSCULOSKELETAL: Positive Musculoskeletal Disorders, Arthritis, Degenerative Disk Disease and Degenerative Joint Disease ENT: Positive Macular Degeneration PSYCHO/SOCIAL: Positive Depression and Anxiety OTHER HISTORY: Positive Hospitalization, Shingles and Chicken Pox Family History FAMILY HISTORY: Positive Family Cardiac Disorders, Family Cancer and Family Surgery Surgical History SURGICAL: Positive Joint Replacement and Arthroscopy (bilateral knee) Social History SMOKING STATUS: Former smoker SECOND HAND EXPOSURE: No SUBSTANCE USE: marijuana ED Exam Narrative Physical exam: GENERAL APPEARANCE: AxOx4, generally well-appearing, no acute distress. HEENT: NC, AT. MMM. EOMI, clear conjunctiva, oropharynx clear. NECK: Supple without lymphadenopathy. No stiffness or restricted ROM. HEART: Normal rate and regular rhythm, normal S1/S1, no m/r/g LUNGS: CTAB, moving air well. No crackles or wheezes are heard. ABDOMEN: Abdomen is distended, left lower quadrant tenderness and rebound, reducible umbilical hernia; good bowel sounds heard. BACK: No midline C/T/L spine pain or deformity, No CVAT, no obvious deformity. EXTREMITIES: Without cyanosis, clubbing or edema. MUSCULOSKELETAL: FROM of all major joints, no chest tenderness NEUROLOGICAL: Grossly nonfocal. Alert and oriented, moving all 4 extremities. CN not formally tested but appear grossly intact. Observed to ambulate with normal gait. Skin: Warm and dry without any rash. Course Quality Measures none Orders Category Date Time Status CT Screening NOW Care 02/17/25 17:18 Active NPO NOW Care 02/17/25 16:07 Active Diet NPO (NOW) Diet 02/17/25 16:[address] abdomen pelvis w con Stat Exams 02/17/25 17:18 Completed CBC Stat Lab 02/17/25 16:20 Completed CMP [Comprehensive Metabolic Panel] Stat Lab 02/17/25 16:20 Completed Lactate (Lactic Acid) Stat Lab 02/17/25 16:20 Completed Lipase Stat Lab 02/17/25 16:20 Completed Partial Thromboplastin Time Stat Lab 02/17/25 16:20 Completed Prothrombin Time with INR Stat Lab 02/17/25 16:20 Completed HYDROmorphone INJ [Dilaudid Inj] Med 02/17/25 19:43 Discontinued 1 mg IVP X1 ONE Morphine Inj Med 02/17/25 16:05 Discontinued 6 mg IVP X1 ONE Ondansetron Inj [Zofran Inj] Med 02/17/25 19:43 Discontinued 4 mg IV X1 ONE Sodium Chloride 0.9% 1000 ml [Ns] 1,000 ml Med 02/17/25 16:05 Discontinued IV 999 mls/hr Vital Signs Vital signs: Vital Signs Temperature 98.4 F 02/17/25 15:46 Pulse Rate 92 02/17/25 15:46 Respiratory Rate 23 H 02/17/25 15:46 Blood Pressure 159/113 H 02/17/25 15:46 Pulse Oximetry (%) 97 02/17/25 15:46 Oxygen Delivery Method Nasal Cannula 02/17/25 15:46 Oxygen Flow Rate 2 02/17/25 15:46 Abdominal Pain MDM MDM Narrative MDM Narrative:: I, Izabela Stone am scribing for and in the presence of Dr. Garcia. Patient data External records reviewed:: [facility] previous records (Reviewed last urology note by Dr. Desai, dated 02/03/25.) and EMS form Clinical information provided by:: patient and EMS Social determinants that could affect healthcare access:: none Patient has the following chronic illnesses:: dementia, COPD, HTN, kidney stones s/p right stent placement How is presenting disease/condition affected by chronic disease/condition?: exacerbated by Evaluation data The following diagnostics were reviewed and interpreted by me:: lab results Lab and/or radiology exams considered but not ordered:: none Interpretation Summary: Pending diagnostic tests. Medications / Prescriptions Medications or Prescriptions considered but not ordered:: none Medication administrations:: Medication Administration History Discontinued Medications Hydromorphone HCl (Hydromorphone Inj 2 Mg/Ml Vial) 1 mg IVP X1 ONE Stop: 02/17/25 19:44 Sodium Chloride (Ns) 1,000 mls @ 999 mls/hr IV .Q1H1M ONE Stop: 02/17/25 17:05 Last Infusion: 02/17/25 17:54 Dose: Infused Documented By: Admin: 02/17/25 16:53 Dose: 999 mls/hr Documented By: TM Morphine Sulfate (Morphine Sulf Inj 10 Mg/Ml Vial) 6 mg IVP X1 ONE Stop: 02/17/25 16:06 Last Admin: 02/17/25 16:53 Dose: 6 mg Documented By: TM Ondansetron HCl (Ondansetron Inj 2 Mg/Ml Inj 2 Ml) 4 mg IV X1 ONE; Protocol Stop: 02/17/25 19:44 see above Consultations Consultation(s) initiated? (list below): No Diagnosis Differential diagnosis abdominal pain: abdominal pain, acute appendicitis, diverticulitis and other (umbilical hernia) Most likely diagnosis given after review of the tests above:: No official diagnoses at this time, still pending diagnostic tests. Patient signout to the manager shift provider. Admission Indicated Admission indicated?: not indicated Explain why admission is indicated or not indicated:: No final disposition plan at this time, still pending diagnostic tests. Patient signout to the manager shift provider. Admission Request Was there a request for admission?: No Disposition Plan Disposition Plan: other (specify) (Patient signed out to manager shift provider, Dr. Briseno, pending diagnostic tests and final disposition.) Discharge Plan Plan Patient Disposition: Admit Acute Care w/in Hospital Prescriptions/Referrals Prescriptions/Med Rec: No Action sodium bicarbonate 325 mg tablet 325 mg PO QDAY tamsulosin 0.4 mg capsule 0.4 mg PO QHS donepezil 10 mg tablet 10 mg PO QDAY hydrocodone-acetaminophen 5-325 mg tablet 1 tab PO Q8H PRN (Reason: pain) Patient Comments: TAKE 1 TABLET BY MOUTH EVERY 8 HOURS NEEDED FOR SEVERE PAIN FOR 7 DAYS sertraline [Zoloft] 50 mg tablet 50 mg PO QDAY tizanidine [Zanaflex] 2 mg capsule 2 mg PO TID PRN (Reason: muscle spasticity) ipratropium-albuterol 0.5 mg-3 mg(2.5 mg base)/3 mL solution for nebulization 3 ml inhalation Q4H PRN (Reason: shortness of breath) hydrocodone-acetaminophen 5-325 mg tablet 1 tab PO Q8H MDD 3 PRN (Reason: pain) Qty: 20 0RF omeprazole 20 mg capsule,delayed release(DR/EC) 20 mg PO QDAY Trelegy Ellipta 100-62.5-25 mcg blister with device 1 ea INHALATION QDAY albuterol sulfate 90 mcg/actuation HFA aerosol inhaler 1 inh inhalation QID PRN (Reason: shortness of breath or wheezing) Qty: 6.7 0RF Referrals: Kishan Covington MD [Primary Care Provider] - In 1 week Problem List Clinical Impression: Acute diverticulitis Patient/Caregiver Discharge Instructions Print Language: Kenyan Stand Alone Forms: Karen Award Info., Patient Portal Info Letter
[2025-02-17 16:28] LABS: Basophils # (Auto) 0.1 Thou/mm3 (0.0-0.2); Basophils % (Auto) 0 % (0-2.5); Eosinophils # (Auto) 0.2 Thou/mm3 (0.0-0.5); Eosinophils % (Auto) 1 % (0-10); Hematocrit 39.1 % (41.0-53.0); Hemoglobin 12.6 g/dL (13.5-16.0); Immature Granulocytes % (Auto) 0 % (0-0); Immature Granulocytes Auto 0.06 Thou/mm3 (0.00-0.00); Lactate (Lactic Acid) 0.6 mMol/L (0.4-2.0); Lymphocytes # (Auto) 1.2 Thou/mm3 (1.0-4.8); Lymphocytes % (Auto) 8 % (10-50); Mean Corpuscular HGB Conc 32.2 g/dl (31.0-37.0); Mean Corpuscular Hemoglobin 30.9 pg (25.0-35.0); Mean Corpuscular Volume 96 fL (80-100); Monocytes # (Auto) 1.1 Thou/mm3 (0.0-0.8); Monocytes % (Auto) 7 % (0-12); Neutrophils # (Auto) 11.9 Thou/mm3 (1.8-7.7); Neutrophils % (Auto) 83 % (37-80); Nucleated Red Blood Cell % 0 /100 WBC (0); Platelet Count 232 Thou/mm3 (140-440); RDW Standard Deviation 45.6 fL (35.1-43.9); Red Blood Count 4.08 Miln/mm3 (4.50-5.90); White Blood Count 14.4 Thou/mm3 (3.8-10.6)
[2025-02-17 16:46] LABS: Partial Thromboplastin Time 28.6 Seconds (22.0-36.0); Prothrombin Time 10.6 Seconds (9.0-12.2)
[2025-02-17] MEDS: SODIUM CHLORIDE 0.9% 1000 ML 1,000 ML 999 ML IV (16:53)
[2025-02-17] MEDS: MORPHINE SULF INJ 10 MG/ML VIAL 6 MG IVP (16:53)
[2025-02-17 16:55] LABS: Alanine Aminotransferase 12 U/L (10-49); Albumin, Serum 3.9 gm/dL (3.4-4.8); Albumin/Globulin Ratio 1.5 (1.2-2.2); Alkaline Phosphatase 137 U/L (46-116); Anion Gap 4 (7-16); Aspartate Amino Transferase 14 U/L (0-34); BUN/Creatinine Ratio 13 Ratio (12-20); Bilirubin,Total 0.6 mg/dL (0.3-1.2); Blood Urea Nitrogen 13 mg/dL (9-23); Calcium 9.3 mg/dL (8.3-10.6); Calcium (Corrected) 9.4 mg/dL (8.5-10.1); Carbon Dioxide 36.3 mMol/L (20.0-31.0); Chloride 99 mMol/L (98-107); Globulin 2.6 gm/dL (2.3-3.5); Glucose 98 mg/dL (74-106); Lipase 104 U/L (12-53); Osmolality,Calculated 277 (275-295); Potassium 4.5 mMol/L (3.4-5.1); Sodium 139 mMol/L (136-145); Total Protein 6.5 gm/dL (5.7-8.2); eGFR > 60 See Note
--- NOTE | 2025-02-17 17:18 | XR_ITS ---
Examination: CT abdomen with intravenous contrast CT pelvis with intravenous contrast 2-D coronal reconstructions 2-D sagittal reconstructions Date and time of exam:February 17, 2025 1835 hours Comparison December 25, 2024 INDICATIONS: Left lower abdominal pain beginning today. CTDI: vol (mGy) 8.44 DLP: (mGycm) 518 Technique: Multiple axial sections of the abdomen and pelvis have been obtained. 64 slice high-resolution scanner used. 3 mm axial sections have been obtained, post intravenous injection of 60 cc Isovue 370 2-D sagittal, coronal reconstructions obtained. Low dose protocols were performed. One or more of the following dose reduction techniques were used; automated exposure control, adjustment of the mA and/or KV according to patient size, use of iterative reconstruction technique. Findings: No focal liver lesions Spleen is not enlarged No gallstones No pancreatic or adrenal mass. No renal or ureteral calculi Mild perinephric stranding Abdominal aortic calcification no aneurysmal dilatation Normal appendix Colonic diverticulosis Acute diverticulitis sigmoid colon no peridiverticular abscess Urinary bladder wall thickening up to 6 mm Tiny fat-containing above the ngoc is Transverse prostate dimension 4.5 cm Severe osteopenia Transpedicular lumbar fusion L5-S1 Stable cortical erosions inferior endplate L2 superior endplate L3 T11 vertebral body is diffusely mildly sclerotic IMPRESSION: Acute diverticulitis sigmoid colon, no peridiverticular abscess Mildly diffusely sclerotic T11 vertebral body, consider elective MRI lumbar spine follow-up pre and postcontrast
--- NOTE | 2025-02-17 18:02 | PD.EDADDENDU ---
Emergency Room Addendum Addendum Narrative: 1800: Care assumed from Dr. Diaz the previous shift emergency physician. Past medical, surgical, social and family history reviewed. Vitals and home medications reviewed. Results and treatment plan discussed. I will assume the care of the patient at this time and will follow the patient, pending CT abdomen pelvis. Please refer to the emergency department record for history and examination from initial visit. Patient complains of having LLQ pain for the last one day. He states he's been eating popcorn more frequently for the last 2-3 days. He denies any N/V, fever or chills. On exam, patient has LLQ tenderness, no rebound, no rigidity. Discussed results with the patient at bedside. He is agreeable to be admitted. 2014: Discussed case with the resident physician, attending Dr. Rod from Hospitalist service regarding admission. Discussed patients ED course, exam findings, labs, and radiology results. The Hospitalist [agrees] to accept the patient for admission. Diagnoses: acute diverticulitis RADIOLOGY RESULTS: [facility] Report Signed Patient: MIRIAN IVORY [facility]. Record#: [id number] Birthdate: 1955 Age/Sex: 69 / M [facility] Attending Dr: Ordering Physician: Ari Diaz MD Date of Service: 02/17/25 Procedure(s): CT abdomen pelvis w con Accession Number(s): [id number] cc: Ari Diaz MD; Tk Bedoya MD; Kishan Covington MD~ Examination: CT abdomen with intravenous contrast CT pelvis with intravenous contrast 2-D coronal reconstructions 2-D sagittal reconstructions Date and time of exam:February 17, 2025 1835 hours Comparison December 25, 2024 INDICATIONS: Left lower abdominal pain beginning today. CTDI: vol (mGy) 8.44 DLP: (mGycm) 518 Technique: Multiple axial sections of the abdomen and pelvis have been obtained. 64 slice high-resolution scanner used. 3 mm axial sections have been obtained, post intravenous injection of 60 cc Isovue 370 2-D sagittal, coronal reconstructions obtained. Low dose protocols were performed. One or more of the following dose reduction techniques were used; automated exposure control, adjustment of the mA and/or KV according to patient size, use of iterative reconstruction technique. Findings: No focal liver lesions Spleen is not enlarged No gallstones No pancreatic or adrenal mass. No renal or ureteral calculi Mild perinephric stranding Abdominal aortic calcification no aneurysmal dilatation Normal appendix Colonic diverticulosis Acute diverticulitis sigmoid colon no peridiverticular abscess Urinary bladder wall thickening up to 6 mm Tiny fat-containing above the ngoc is Transverse prostate dimension 4.5 cm Severe osteopenia Transpedicular lumbar fusion L5-S1 Stable cortical erosions inferior endplate L2 superior endplate L3 T11 vertebral body is diffusely mildly sclerotic IMPRESSION: Acute diverticulitis sigmoid colon, no peridiverticular abscess Mildly diffusely sclerotic T11 vertebral body, consider elective MRI lumbar spine follow-up pre and postcontrast Dictated By: Tk Bedoya MD Signed By: <Electronically signed by Tk Bedoya MD in [place]> 02/17/25 [id number]
--- NOTE | 2025-02-17 20:05 | PC.NURSE ---
Called pharmacy to verified meds.
[2025-02-17] MEDS: ONDANSETRON INJ 2 MG/ML INJ 2 ML 4 MG IV (20:13)
[2025-02-17] MEDS: HYDROmorphone INJ 2 MG/ML VIAL 1 MG IVP ×2 (20:15→22:23)
[2025-02-17] MEDS: ACETAMINOPHEN IVPB 1,000 MG/100 ML VIAL 250 MG IV (20:45)
[2025-02-17] MEDS: PIPER/TAZO INJ 4.5 GM in SODIUM CHLORIDE 0.9% (POP) 100 ML IV (20:45)
[2025-02-17] MEDS: DOXYCYCLINE INJ 100 MG in SODIUM CHLORIDE 0.9% (POP) 100 ML IV (20:45)
--- NOTE | 2025-02-17 21:06 | PD.RESHP ---
Documentation for date of: 02/17/25 HPI History of Present Illness Chief complaint: Abdominal pain, constipation History of present illness: HPI: Patient is a 69-year-old male with an extensive past medical history including primary hypertension, hyperlipidemia, COPD on 2L home O2, BPH, recurrent nephrolithiasis, macular degeneration and diverticulitis 6 years ago, follows up with Washing Machine Striper Dr. Che, presenting today with a chief complaint of abdominal pain and constipation. Patient stated that his abdominal pain started this morning after waking up. He said it was in his left lower quadrant, described as a 10/10 in intensity, no radiation, aggravated by movement and no relief from hydrocodone 5 Mg. Patient says it was also associated with constipation, although he had 2 bowel movements he described it as having to strain. Denies any nausea, vomiting, fever, change in diet, sick contacts and recent travel. Upon review patient also denies any chest pain/pressure, palpitations, headache, double/blurry vision, syncope and leg swelling. Of note patient states that 2 weeks ago he burned his nose from his home oxygen use and was Prescribed a 2-week course of Augmentin. Approximately 5 days ago patient began to experience diarrhea and went to visit his PCP who told him this was an expected side effect of the antibiotic and to complete the course. Incidentally patient was diagnosed with a 21 mm lung nodule 2 months ago which is still pending further investigation. ED course: BP 159/113, pulse 92, RR 23, T98.4F, SpO2 97% on 2L O2 via NC. Labs significant for WBC 14.4, CO2 36.3, BUN 13, CR 1. Lipase 104, ALP 137. CT abdomen pelvis showed acute sigmoid diverticulitis, no signs of abscess. In the ED patient received morphine 6 Mg IV x 1, hydromorphone 1 Mg IV x 1, acetaminophen 1 g IV x 1, ondansetron 4 Mg IV x 1, doxycycline 200 Mg IV x 1 and Zosyn 4.5 g IV x 1. Patient will be admitted to observation for treatment and management of intractable abdominal pain secondary to acute sigmoid diverticulitis. Review of Systems Review of Systems Narrative Review of Systems: GENERAL: Denies fever/chills or diaphoresis. HEENT: Denies headaches or visual changes. Denies discharge. Neuro: Denies unusual weakness or difficulty speaking. CARDIO: Denies chest pain or palpitations. PULM: Denies SOB, coughing or wheezing. GI: As above URO: Denies burning/itching/pain/urinary changes. MSK/EXT/SKIN: Denies joint/skeletal/muscle pain, issues/changes in upper or lower extremities, itchiness, or superficial pain. PSYCH: Cooperative, pleasant mood & affect. The rest of the review of systems is otherwise negative. Past Medical History Past Medical History Comments PMH COMMENT: Past medical history: Diverticulitis 6 years ago Dementia Depression Anxiety Hyperlipidemia Primary hypertension COPD on 2L home O2 Hepatitis C [treated] BPH History of recurrent nephrolithiasis Macular degeneration of both eyes [right >left] Medication list: Trelegy 1 puff twice daily DuoNebs Q6 hourly daily Tamsulosin 0.4 Mg p.o. at bedtime Donepezil 10 Mg p.o. at bedtime Sertraline 50 Mg p.o. 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 Currently Tobacco use: Quit November 2023. [id number] history ETHO use: Approximately 2 drinks per week. 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 Elderly male on 2L O2 via NC HEENT Vision grossly intact. Patent nares. Trachea midline Respiratory Chest normal on inspection and decreased air entry in all lung mcnulty bilaterally. Cardiovascular S1 and S2 audible, RRR. No murmurs carotid bruit. No gross JVD. Abdominal Mildly distended, umbilical hernia, left lower quadrant pain to light palpation. No signs of rebound tenderness or guarding. BS + Genitourinary No bladder tenderness, no flank pain. Normal to palpation Musculoskeletal Extremities tone within normal limits. No LE edema. Neurological CN II - XII grossly intact. Extremity motor and sensation grossly intact. Skin Warm, dry and intact. No apparent lesions. Psychiatric Patient has good affect, is cooperative Results: Labs 02/18/25 04:29 02/18/25 04:29 Labs: Short CBC 02/17/25 Range/Units 16:20 WBC 14.4 H (3.8-10.6) Thou/mm3 Hgb 12.6 L (13.5-16.0) g/dL Hct 39.1 L (41.0-53.0) % Plt Count 232 (140-440) Thou/mm3 BMP 02/17/25 16:20 Sodium 139 Potassium 4.5 Chloride 99 Carbon Dioxide 36.3 H BUN 13 Creatinine 1.0 Glucose 98 Calcium 9.3 Liver Function 02/17/25 Range/Units 16:20 Total Bilirubin 0.6 (0.3-1.2) mg/dL AST 14 (0-34) U/L ALT 12 (10-49) U/L Alkaline Phosphatase 137 H (46-116) U/L Albumin 3.9 (3.4-4.8) gm/dL Quality Measures Quality Measures none Advance care planning discussed with:: patient Medications Home Medications and Allergies Home Medications ?Medication ?Instructions ?Recorded ?Confirmed ?Type fluticasone fur. 100 mcg-umeclid 1 ea inhalation QDAY 10/29/23 02/17/25 History 62.5 mcg-vilant 25 mcg inhalat.powder (Trelegy Ellipta) omeprazole 20 mg capsule,delayed 20 mg PO QDAY 10/29/23 02/17/25 History release tamsulosin 0.4 mg capsule 0.4 mg PO QHS 04/05/24 02/17/25 History donepezil 10 mg tablet 10 mg PO QDAY 10/18/24 02/17/25 History hydrocodone 5 mg-acetaminophen 325 1 tab PO Q8H PRN pain 01/11/25 02/17/25 History mg tablet ipratropium 0.5 mg-albuterol 3 mg 3 ml inhalation Q4H PRN shortness 01/11/25 02/17/25 History (2.5 mg base)/3 mL nebulization of breath soln sertraline 50 mg tablet (Zoloft) 50 mg PO QDAY 01/11/25 02/17/25 History sodium bicarbonate 325 mg tablet 325 mg PO QDAY 02/03/25 02/17/25 History Held on 02/17/25. Instructions: new order Allergies Allergy/AdvReac Type Severity Reaction Status Date / Time levofloxacin (From [facility]) Allergy Intermediate MUSCLE Verified 02/03/25 14:15 SPASMS Visit Medications Acetaminophen (Acetaminophen 325 Mg Tablet) 650 mg PO Q6H PRN PRN Reason: Fever >100.3 or pain 1-3 Stop: 03/19/25 20:55 Hydrocodone Bitart/Acetaminophen (Hydrocodone/Apap 10/325 Tab) 1 tab PO Q4H PRN PRN Reason: PAIN SCALE 4-6 (Moderate Stop: 02/22/25 21:00 Albuterol/Ipratropium (Albuterol/Ipratropium (Duoneb) Rt Sonia 3 Ml Nebu) 3 ml INH Q6HRRT RACHAEL Stop: 03/19/25 20:59 Enoxaparin Sodium (Enoxaparin Sod Inj 40 Mg/0.4 Ml Syringe) 40 mg SC QDAY RACHAEL Stop: 03/03/25 21:04 Hydromorphone HCl (Hydromorphone Inj 2 Mg/Ml Vial) 0.5 mg IVP Q30MIN PRN PRN Reason: PAIN Hydromorphone HCl (Hydromorphone Inj 2 Mg/Ml Vial) 1 mg IVP Q4H PRN PRN Reason: BREAKTHROUGH PAIN Stop: 02/22/25 21:00 Doxycycline Hyclate 100 mg/ (Sodium Chloride) 100 mls @ 100 mls/hr IV X1 ONE Stop: 02/17/25 21:13 Last Admin: 02/17/25 20:45 Dose: 100 mls/hr Piperacillin/Tazobactam/Dextrose (Zosyn) 50 mls @ 100 mls/hr IV Q6HR RACHAEL Stop: 02/25/25 05:59 Morphine Sulfate (Morphine Sulf Inj 10 Mg/Ml Vial) 2 mg IVP Q4H PRN PRN Reason: PAIN SCALE 7-10 (Severe Stop: 02/22/25 21:00 Ondansetron HCl (Ondansetron Inj 2 Mg/Ml Inj 2 Ml) 4 mg IV Q6H PRN; Protocol PRN Reason: NAUSEA OR VOMITING Stop: 03/19/25 21:00 Pantoprazole Sodium (Pantoprazole Inj 40 Mg Vial) 40 mg IVP QDAY [facility] Stop: 03/19/25 21:04 Fluticasone/Salmeterol (Fluticasone/Salmeterol 100/50 14 Dose Inh) 1 puff INH BIDRT RACHAEL Stop: 03/19/25 20:59 Discontinued Medications Hydromorphone HCl (Hydromorphone Inj 2 Mg/Ml Vial) 1 mg IVP X1 ONE Stop: 02/17/25 19:44 Last Admin: 02/17/25 20:15 Dose: 1 mg Sodium Chloride (Ns) 1,000 mls @ 999 mls/hr IV .Q1H1M ONE Stop: 02/17/25 17:05 Last Infusion: 02/17/25 17:54 Dose: Infused Piperacillin Sod/Tazobactam (Sod 4.5 gm/ Sodium Chloride) 100 mls @ 200 mls/hr IV X1 ONE Stop: 02/17/25 20:43 Last Admin: 02/17/25 20:45 Dose: 200 mls/hr Acetaminophen (Ofirmev Inj) 1,000 mg in 100 mls @ 250 mls/hr IV X1 ONE Stop: 02/17/25 20:42 Last Admin: 02/17/25 20:45 Dose: 250 mls/hr Morphine Sulfate (Morphine Sulf Inj 10 Mg/Ml Vial) 6 mg IVP X1 ONE Stop: 02/17/25 16:06 Last Admin: 02/17/25 16:53 Dose: 6 mg Ondansetron HCl (Ondansetron Inj 2 Mg/Ml Inj 2 Ml) 4 mg IV X1 ONE; Protocol Stop: 02/17/25 19:44 Last Admin: 02/17/25 20:13 Dose: 4 mg Assessment & Plan Plan Patient is a 69-year-old male with an extensive past medical history including primary hypertension, hyperlipidemia, COPD on 2L home O2, BPH, recurrent nephrolithiasis, macular degeneration and diverticulitis 6 years ago presenting today with a chief complaint of abdominal pain and constipation. Patient will be admitted to observation for treatment and management of intractable abdominal pain secondary to acute sigmoid diverticulitis. Intractable abdominal pain Acute diverticulitis This morning patient began to experience 10/10 left lower quadrant pain. On exam patient was tender to palpation left lower quadrant. No guarding or rebound tenderness. CT abdomen pelvis showed acute sigmoid diverticulitis, no signs of abscess or perforation. Plan: ? Clear liquid diet ? Hydrocodone 10 Mg p.o. every 4 hourly as needed for pain 4?6 ? Morphine 2 Mg IV every 4 hourly as needed for pain 7?10 ? Hydromorphone 1 Mg IV every 4 hourly as needed for breakthrough pain ? Zosyn 3.375 g IV Q6 hourly started on [44? Primary hypertension Hyperlipidemia On admission BP 159/113 Patient states that he does not take any home medication for hypertension or cholesterol. Plan: ? Trend blood pressure and the team to decide on initiating antihypertensive. ? Lipid panel ordered COPD Chronic Metabolic Alkalosis Patient is on 2L home O2. Home medication DuoNebs 4 times daily and Trelegy inhaler 1 puff twice daily He can usually mow his lawn and carry out daily activities without any significant impairment while he is using his oxygen On admission bicarb 36.3 Plan: ? DuoNebs every 6 hourly scheduled ? Fluticasone/salmeterol inhaler 1 puff twice daily BPH Recurrent Nephrolithiasis Home medication Flomax 0.4 Mg p.o. daily and sodium bicarbonate 325 mg p.o. daily which is on hold by his urologist. Plan: ? Resume home medication Flomax 0.4 Mg p.o. daily Macular Degeneration Patient follows up with ophthalmology as outpatient Depression Anxiety Dementia Home medication donepezil 10 Mg p.o. at bedtime, sertraline 50 Mg p.o. at bedtime Plan: ? Resume home medication donepezil 10 Mg p.o. at bedtime ? Resume home medication sertraline 50 Mg p.o. at bedtime Lung Nodule for Investigation Patient states that his pusher operator is monitoring him for a 21 mm pulmonary nodule. He still has not scheduled a biopsy date. Plan: ? Continue outpatient follow-up Health maintenance: Disposition: IV pain control Diet: Clear Liquid Lines: pIVs GI Prophylaxis: Pantoprazole IV Thrombo Prophylaxis: Enoxaparin Code status: FULL CODE Plan of care discussed with Attending Dr. Viloa Neal MD PGY 1 Attending Provider Attestation/Addendum I attest that I was physically present for the evaluation, physical examination, lab and imaging review of the patient with the residents. I discussed the case with the residents and agree with the findings and plans of care as documented above. Patient is a 69 years old male with past medical history of hypertension, hyperlipidemia, COPD on home oxygen, BPH, recurrent nephrolithiasis, macular degeneration and diverticulitis who presented to the ED with complaint of abdominal pain. In the ED, was found to have acute sigmoid diverticulitis without abscess on CT abdomen/pelvis. His WBC count is 14.4, CO2 36.3. Saturating well on 2 L nasal cannula. We will admit the patient for management of intractable abdominal pain and acute diverticulitis. We will start him on IV Zosyn and analgesic regimen along with antiemetics as needed. Miri Rod MD
[2025-02-17] MEDS: ALBUTEROL/IPRATROPIUM (Duoneb) RT SOL 3 ML NEBU INH (21:54)
[2025-02-17] MEDS: PANTOPRAZOLE INJ 40 MG VIAL IVP (22:23)
--- NOTE | 2025-02-17 22:23 | PC.NURSE ---
REPORT GIVEN TO ZACHARY BLOUNT AT THIS TIME.
[2025-02-17] MEDS: ENOXAPARIN SOD INJ 40 MG/0.4 ML SYRINGE SC (22:59)
[2025-02-18] VITALS (10 sets, daily range): BP systolic 91–118; BP diastolic 69–86; PULSE 73–88; RESP 18–20; TEMP 36.7–37.2; O2SAT 93–99; BMI 24.6
[2025-02-18] MEDS: ALBUTEROL/IPRATROPIUM (Duoneb) RT SOL 3 ML NEBU INH ×4 (01:33→18:39)
[2025-02-18] MEDS: MORPHINE SULF INJ 10 MG/ML VIAL 2 MG IVP ×3 (04:11→21:43)
[2025-02-18 05:28] LABS: Basophils % (Auto) 0 % (0-2.5); Eosinophils # (Auto) 0.2 Thou/mm3 (0.0-0.5); Eosinophils % (Auto) 2 % (0-10); Hematocrit 37.4 % (41.0-53.0); Hemoglobin 11.7 g/dL (13.5-16.0); Immature Granulocytes % (Auto) 0 % (0-0); Immature Granulocytes Auto 0.05 Thou/mm3 (0.00-0.00); Lymphocytes # (Auto) 1.5 Thou/mm3 (1.0-4.8); Lymphocytes % (Auto) 13 % (10-50); Mean Corpuscular HGB Conc 31.3 g/dl (31.0-37.0); Mean Corpuscular Hemoglobin 30.6 pg (25.0-35.0); Mean Corpuscular Volume 98 fL (80-100); Monocytes # (Auto) 1.2 Thou/mm3 (0.0-0.8); Monocytes % (Auto) 10 % (0-12); Neutrophils # (Auto) 8.6 Thou/mm3 (1.8-7.7); Neutrophils % (Auto) 75 % (37-80); Nucleated Red Blood Cell % 0 /100 WBC (0); Platelet Count 211 Thou/mm3 (140-440); RDW Standard Deviation 46.2 fL (35.1-43.9); Red Blood Count 3.82 Miln/mm3 (4.50-5.90); White Blood Count 11.5 Thou/mm3 (3.8-10.6)
[2025-02-18] MEDS: PIPER/TAZO 3.375 GM PREMIX 3.375 G/50 ML BAG IV ×4 (05:31→23:50)
[2025-02-18 06:36] LABS: Alanine Aminotransferase 12 U/L (10-49); Albumin, Serum 3.8 gm/dL (3.4-4.8); Albumin/Globulin Ratio 1.5 (1.2-2.2); Alkaline Phosphatase 131 U/L (46-116); Anion Gap 5 (7-16); Aspartate Amino Transferase 12 U/L (0-34); BUN/Creatinine Ratio 13 Ratio (12-20); Bilirubin,Total 0.8 mg/dL (0.3-1.2); Blood Urea Nitrogen 15 mg/dL (9-23); Calcium 9.1 mg/dL (8.3-10.6); Calcium (Corrected) 9.3 mg/dL (8.5-10.1); Carbon Dioxide 35.2 mMol/L (20.0-31.0); Cardiac Risk Estimate 2.9 RATIO (4.0-6.7); Chloride 100 mMol/L (98-107); Cholesterol 172 mg/dL (132-200); Creatinine (Component) 1.2 mg/dL (0.6-1.3); Estimated Creatinine Clearance 61.7 mL/min (>60); Globulin 2.5 gm/dL (2.3-3.5); Glucose 96 mg/dL (74-106); HDL Cholesterol 60 mg/dL (40-60); LDL Cholesterol,Calculated 93 mg/dL (0-130); Osmolality,Calculated 280 (275-295); Potassium 4.4 mMol/L (3.4-5.1); Sodium 140 mMol/L (136-145); Thyroid Stimulating Hormone 1.49 uIU/mL (0.55-4.78); Total Protein 6.3 gm/dL (5.7-8.2); Triglycerides 94 mg/dL (30-150); eGFR > 60 See Note
[2025-02-18] MEDS: ENOXAPARIN SOD INJ 40 MG/0.4 ML SYRINGE SC (08:08)
[2025-02-18] MEDS: TAMSULOSIN HCL 0.4 MG CAPSULE PO (08:08)
[2025-02-18] MEDS: PANTOPRAZOLE INJ 40 MG VIAL IVP (08:08)
[2025-02-18] MEDS: HYDROmorphone INJ 2 MG/ML VIAL 1 MG IVP ×3 (08:18→22:46)
--- NOTE | 2025-02-18 10:47 | ESPR_ITS ---
<Statement entered by Stevo Cardenas MD - 02/18/25 12:11> Senior Resident Attestation: I supervised/discussed management plan with internet retailer physician Dr. Lares, and was involved in the care of this patient. I personally saw and examined the patient and discussed the assessment and plan with the entire medicine team, including my attending. I agree with the assessment and plan as documented. Patient's care was discussed with attending physician, Dr. Collins. Stevo Cardenas MD PGY-2. Documentation for date of: 02/18/25 Subjective Subjective Interval history: Seen and examined at bedside, on 3 L nasal cannula states that baseline is 3 L nasal cannula due to COPD history. Patient states that he continues to have significant abdominal pain. Rates it a 10/10 without pain medications and 6/10 with. Currently on clear liquid diet and tolerating well without any abdominal pain, nausea, or vomiting and will advance as tolerated. Denies fever, chills, sweats. Exam Vital Signs Temp Pulse Resp BP Pulse Ox O2 Del Method O2 Flow Rate 98.2 F 88 20 109/84 98 Nasal Cannula 2 02/18/25 07:18 02/18/25 07:19 02/18/25 07:19 02/18/25 07:18 02/18/25 07:19 02/18/25 07:18 02/18/25 07:19 Narrative Exam General: Pleasant, on 3 L NC breathing comfortably, AOx3, no acute distress, able to speak full sentences HEENT: NC/AT, mucous membranes moist, bilateral sclera anicteric Cardiovascular: regular rate and rhythm, S1/S2 present, no murmurs appreciated Pulmonary: Decreased lung sounds bilaterally Abdominal: tender to palpation in epigastrium and left side of abdomen with some guarding, soft, non-distended Musculoskeletal: normal ROM, no peripheral edema Skin: warm and dry, intact, no rashes Neuro: CN II-XII intact, no focal deficits Objective Labs 02/18/25 04:29 02/18/25 04:29 Labs: Laboratory Results - last 24 hr 02/17/25 02/18/25 16:20 04:29 WBC 14.4 H 11.5 H RBC 4.08 L 3.82 L Hgb 12.6 L 11.7 L Hct 39.1 L 37.4 L MCV 96 98 MCH 30.9 30.6 MCHC 32.2 31.3 RDW Std Deviation 45.6 H 46.2 H Plt Count 232 211 Neut % (Auto) 83 H 75 Lymph % (Auto) 8 L 13 [place] % (Auto) 7 10 Eos % (Auto) 1 2 Baso % (Auto) 0 0 Neut # (Auto) 11.9 H 8.6 H Lymph # (Auto) 1.2 1.5 [place] # (Auto) 1.1 H 1.2 H Eos # (Auto) 0.2 0.2 Baso # (Auto) 0.1 0.0 Immature Gran # (Auto) 0.06 H 0.05 H Absolute Nucleated RBC 0.00 0.00 Immature Gran % 0 0 Nucleated RBC % 0 0 PT 10.6 INR 1.0 APTT 28.6 Sodium 139 140 Potassium 4.5 4.4 Chloride 99 100 Carbon Dioxide 36.3 H 35.2 H Anion Gap 4 L 5 L BUN 13 15 Creatinine 1.0 1.2 Estim Creat Clear Calc 74.0 61.7 eGFR > 60 > 60 BUN/Creatinine Ratio 13 13 Glucose 98 96 Calculated Osmolality 277 280 Lactic Acid 0.6 Calcium 9.3 9.1 Corrected Calcium 9.4 9.3 Phosphorus 3.0 Magnesium 2.0 Total Bilirubin 0.6 0.8 AST 14 12 ALT 12 12 Alkaline Phosphatase 137 H 131 H Total Protein 6.5 6.3 Albumin 3.9 3.8 Globulin 2.6 2.5 Albumin/Globulin Ratio 1.5 1.5 Triglycerides 94 Cholesterol 172 LDL Cholesterol, Calc 93 HDL Cholesterol 60 Cholesterol/HDL Ratio 2.9 L Lipase 104 H TSH 1.49 Quality Measures Quality Measures none Advance care planning discussed with:: patient Assessment & Plan Assessment Current Active Medications: Generic Name Dose Route Start Last Admin Trade Name Freq PRN Reason Stop Dose Admin Acetaminophen 650 mg 02/17/25 20:56 Acetaminophen 325 Mg Tablet PO 03/19/25 20:55 Q6H PRN Fever >100.3 or pain 1-3 Hydrocodone Bitart/Acetaminophen 1 tab 02/17/25 21:01 Hydrocodone/Apap 10/325 Tab PO 02/22/25 21:00 Q4H PRN PAIN SCALE 4-6 (Moderate Albuterol/Ipratropium 3 ml 02/17/25 21:00 02/18/25 07:17 Albuterol/Ipratropium (Duoneb) Rt Sonia 3 Ml Nebu INH 03/19/25 20:59 3 ml Q6HRRT RACHAEL Administration Donepezil HCl 10 mg 02/17/25 21:05 02/18/25 00:35 Donepezil Hcl 5 Mg Tablet PO 03/19/25 21:04 Not Given HS RACHAEL Enoxaparin Sodium 40 mg 02/17/25 21:05 02/18/25 08:08 Enoxaparin Sod Inj 40 Mg/0.4 Ml Syringe SC 03/03/25 21:04 40 mg QDAY RACHAEL Administration Hydromorphone HCl 1 mg 02/17/25 21:01 02/18/25 08:18 Hydromorphone Inj 2 Mg/Ml Vial IVP 02/22/25 21:00 1 mg Q4H PRN Administration BREAKTHROUGH PAIN Protocol Piperacillin/Tazobactam/Dextrose 3.375 g in 50 mls @ 100 mls/hr 02/18/25 06:00 02/18/25 05:31 Zosyn IV 02/25/25 05:59 100 mls/hr Q6HR RACHAEL Administration Morphine Sulfate 2 mg 02/17/25 21:01 02/18/25 04:11 Morphine Sulf Inj 10 Mg/Ml Vial IVP 02/22/25 21:00 2 mg Q4H PRN Administration PAIN SCALE 7-10 (Severe Ondansetron HCl 4 mg 02/17/25 21:01 Ondansetron Inj 2 Mg/Ml Inj 2 Ml IV 03/19/25 21:00 Q6H PRN NAUSEA OR VOMITING Protocol Pantoprazole Sodium 40 mg 02/17/25 21:05 02/18/25 08:08 Pantoprazole Inj 40 Mg Vial IVP 03/19/25 21:04 40 mg QDAY RACHAEL Administration Fluticasone/Salmeterol 1 puff 02/17/25 21:00 02/17/25 21:55 Fluticasone/Salmeterol 100/50 14 Dose Inh INH 03/19/25 20:59 Not Given BIDRT RACHAEL Sertraline HCl 50 mg 02/17/25 21:05 02/18/25 00:35 Sertraline Hcl 25 Mg Tablet PO 03/19/25 21:04 Not Given HS RACHAEL Tamsulosin HCl 0.4 mg 02/18/25 09:00 02/18/25 08:08 Tamsulosin Hcl 0.4 Mg Capsule PO 03/20/25 08:59 0.4 mg QDAY RACHAEL Administration Plan Dario Metz is a 69-year-old male with PMHx of primary hypertension, hyperlipidemia, COPD on 2L home O2, BPH, recurrent nephrolithiasis, macular degeneration and diverticulitis 6 years ago who presented on 02/17 with abdominal pain and constipation. Imaging revealed acute sigmoid diverticulitis without abscess formation and admitted for treatment/management of the same. #Acute diverticulitis #Intractable abdominal pain In morning prior to admission, patient began to experience 10/10 left lower quadrant pain. On exam patient was tender to palpation left lower quadrant with some guarding. CT abdomen pelvis showed acute sigmoid diverticulitis, no signs of abscess or perforation. ? Zosyn 3.375 g IV Q6 hourly started on (02/17-) ? Blood culture 02/17: pending ? Clear liquid diet, advance as tolerated ? Pain regimen: hydrocodone 10, morphine 2 mg, dilaudid 1 mg Primary hypertension Hyperlipidemia On admission BP 159/113 States that he does not take any home medication for hypertension or cholesterol. LDL 93, HDL 60, TGL 94. cholesterol 172. ? Trend blood pressure and the team to decide on initiating antihypertensive. ? Recommend starting on statin prior to discharge #COPD #Chronic metabolic alkalosis On home O2 of 2 L. Home DuoNebs QID and Trelegy inhaler 1 puff twice daily. He can usually mow his lawn and carry out daily activities without any significant impairment while he is using his oxygen ? DuoNebs every 6 hourly scheduled ? Fluticasone/salmeterol inhaler 1 puff twice daily #BPH #Recurrent nephrolithiasis Home medication Flomax 0.4 Mg p.o. daily and sodium bicarbonate 325 mg p.o. daily which is on hold by his urologist. ? Resume home Flomax 0.4 mg p.o. daily #Macular Degeneration Patient follows up with ophthalmology as outpatient #Depression #Anxiety #Dementia Home medication donepezil 10 Mg p.o. at bedtime, sertraline 50 Mg p.o. at bedtime ? Resume home medication donepezil 10 mg p.o. at bedtime ? Resume home medication sertraline 50 mg p.o. at bedtime #Lung nodule for investigation Patient states that his design teacher is monitoring him for a 21 mm pulmonary nodule that he follows outpatient design teacher for. ? Continue outpatient follow-up Hospital management: Disposition: pain management for acute diverticulitis, IV antibiotics, cultures Fluids: not indicated Diet: clear liquids, advancing as tolerated Lines: PIV DVT prophylaxis: enoxaprin 40 mg daily GI prophylaxis: pantoprazole 40 mg IV daily CODE STATUS: full code ----- Plan discussed with attending physician Dr. Collins and senior resident physician Dr. Ronald Lares MD PGY-1 Internal Medicine Attending Provider Attestation/Addendum Face to face evaluation was performed by me. I have personally seen and examined the patient. I discussed the assessment and plan with the entire medicine team. I reviewed available medical records, imaging studies, laboratory results. I agree with the above subjective data, objective findings, assessment and plan except as corrected by me or noted below Left lower quadrant abdominal pain, due to below Acute diverticulitis BPH Continue with empiric antibiotics Zosyn, patient is allergic to levofloxacin. Continue to monitor clinical course and cultures closely. Plan to advance diet as well, if continues to improve tomorrow can be discharged with p.o. antibiotic?maybe Augmentin. He says that he had colonoscopy less than 1 year ago and was told by GI Dr. Gonzalez is good for 5 years. He should follow-up with PCP and GI after discharge-to see if he needs another colonoscopy after diverticulitis episode.. - More than > 30 minutes spent on the encounter
--- NOTE | 2025-02-18 10:47 | PC.SS ---
SS met with patient who states he's alert/oriented. He was able to verify demographics. Patient was admitted for abdominal pain. He states he resides with his . Patient has IHSS. His daughter takes those hours and assists in care as needed. Patient PCP: Dr. Sin [place]. Last appointment was last week. Patient follows with: Dr. Che, Dr. Pena, and Dr. Laws (Dementia). Patient plans on discharging home. He is still complaining of abdominal pain. Patient's is alt medical decision maker. Transportation assistance is from family. Pharmacy: [facility]. No further d/c needs. Possible d/c home today or tomorrow. Alt medical decision maker: , Den[place], transportation: family
[2025-02-18] MEDS: FLUTICASONE/SALMETEROL 100/50 14 DOSE INH 1 PUFF INH (18:40)
[2025-02-18] MEDS: DONEPEZIL HCL 5 MG TABLET 10 MG PO (20:21)
[2025-02-18] MEDS: SERTRALINE HCL 25 MG TABLET 50 MG PO (20:21)
[2025-02-19] VITALS (7 sets, daily range): BP systolic 102–118; BP diastolic 63–77; PULSE 72–94; RESP 17–20; TEMP 36.4–37.1; O2SAT 95–99
[2025-02-19] MEDS: ALBUTEROL/IPRATROPIUM (Duoneb) RT SOL 3 ML NEBU INH ×2 (01:07→06:35)
[2025-02-19 05:35] LABS: Basophils % (Auto) 1 % (0-2.5); Eosinophils # (Auto) 0.2 Thou/mm3 (0.0-0.5); Eosinophils % (Auto) 2 % (0-10); Hematocrit 34.5 % (41.0-53.0); Hemoglobin 10.8 g/dL (13.5-16.0); Immature Granulocytes % (Auto) 0 % (0-0); Immature Granulocytes Auto 0.03 Thou/mm3 (0.00-0.00); Lymphocytes # (Auto) 1.5 Thou/mm3 (1.0-4.8); Lymphocytes % (Auto) 18 % (10-50); Mean Corpuscular HGB Conc 31.3 g/dl (31.0-37.0); Mean Corpuscular Hemoglobin 30.9 pg (25.0-35.0); Mean Corpuscular Volume 99 fL (80-100); Monocytes # (Auto) 0.9 Thou/mm3 (0.0-0.8); Monocytes % (Auto) 10 % (0-12); Neutrophils # (Auto) 6.1 Thou/mm3 (1.8-7.7); Neutrophils % (Auto) 69 % (37-80); Nucleated Red Blood Cell % 0 /100 WBC (0); Platelet Count 193 Thou/mm3 (140-440); White Blood Count 8.8 Thou/mm3 (3.8-10.6)
[2025-02-19] MEDS: PIPER/TAZO 3.375 GM PREMIX 3.375 G/50 ML BAG IV ×2 (05:44→12:13)
[2025-02-19 06:08] LABS: Alanine Aminotransferase 9 U/L (10-49); Albumin, Serum 3.5 gm/dL (3.4-4.8); Albumin/Globulin Ratio 1.4 (1.2-2.2); Alkaline Phosphatase 111 U/L (46-116); Anion Gap 9 (7-16); Aspartate Amino Transferase 13 U/L (0-34); BUN/Creatinine Ratio 10 Ratio (12-20); Bilirubin,Total 0.7 mg/dL (0.3-1.2); Blood Urea Nitrogen 13 mg/dL (9-23); Calcium 8.9 mg/dL (8.3-10.6); Calcium (Corrected) 9.3 mg/dL (8.5-10.1); Chloride 99 mMol/L (98-107); Creatinine (Component) 1.3 mg/dL (0.6-1.3); Estimated Creatinine Clearance 56.9 mL/min (>60); Globulin 2.5 gm/dL (2.3-3.5); Glucose 86 mg/dL (74-106); Magnesium 1.8 mg/dL (1.6-2.6); Osmolality,Calculated 276 (275-295); Phosphorous 3.2 mg/dL (2.4-5.1); Potassium 4.1 mMol/L (3.4-5.1); Sodium 139 mMol/L (136-145); eGFR > 60 See Note
[2025-02-19] MEDS: FLUTICASONE/SALMETEROL 100/50 14 DOSE INH 1 PUFF INH (06:57)
[2025-02-19] MEDS: PANTOPRAZOLE INJ 40 MG VIAL IVP (08:07)
[2025-02-19] MEDS: TAMSULOSIN HCL 0.4 MG CAPSULE PO (08:07)
[2025-02-19] MEDS: ENOXAPARIN SOD INJ 40 MG/0.4 ML SYRINGE SC (08:07)
[2025-02-19] MEDS: HYDROmorphone INJ 2 MG/ML VIAL 1 MG IVP (08:14)
--- NOTE | 2025-02-19 12:23 | ESDS_ITS ---
<Statement entered by Sergey Worthington MD - 02/21/25 14:54> Patient seen and examined at bedside with resident, agree with assessment and plan as dictated below. Patient cleared for discharge to complete 7 days of abx. Advised to fu with PCP within 1-2 weeks. Diet modifications discussed. Sergey Worthington MD Planned Discharge Date 02/19/25 DS: Providers Provider Date of admission: 02/17/25 20:56 Primary care physician: Kishan Covington MD Admitting Provider: Miri Rod MD Attending Provider on Admission: Miri Rod MD Attending Provider on DC: Poonam Rowan MD Discharging Provider: Poonam Rowan MD DS: Diagnosis Problem List Completed Was Problem List Reviewed/Reconciled?: Yes Hospital Course Hospital Course Hospital course: Mr. Metz is a 69-year-old male with past medical history significant for hypertension, hyperlipidemia, COPD on 2L home O2, BPH, recurrent nephrolithiasis, macular degeneration and diverticulitis 6 years ago presented to [facility] ED on 02/17/25 complaining of abdominal pain and constipation. CT of abdomen/pelvis revealed Acute diverticulitis sigmoid colon, no peridiverticular abscess. Pt was started on clear liquid diet, pain control and zosyn. Pt is hemodynamically stable, continues to saturate above 92% on 2L oxygen which is his baseline, able to tolerate oral diet and has a regular bowel movement as well as significant improvement of his pain to be discharged home to selfcare. Discharge Recommendations -Follow up with your primary care physician within 1 week -You have been prescribed antibiotics for additional 8 days, please take as prescribed -Take all your medications as prescribed -Continue high fiber diet -If your symptoms return or worsen, return to the ED promptly Hospitalization Diagnosis #Acute diverticulitis #Intractable abdominal pain #Primary hypertension #Hyperlipidemia #COPD #Chronic metabolic alkalosis #BPH #Recurrent nephrolithiasis #Macular Degeneration #Depression #Anxiety #Dementia #Lung nodule for investigation Assessment and plan discussed with my attending physician Dr. Ander Rowan (PGY-1)- Internal medicine resident Time Spent with Patient Time attestation: Total time spent providing and/or coordinating discharge services: Time spent: Greater than 30 minutes Exam Vital Signs Temp Pulse Resp BP Pulse Ox O2 Del Method O2 Flow Rate 97.6 F 94 18 118/66 97 Nasal Cannula 2 02/19/25 11:40 02/19/25 11:40 02/19/25 11:40 02/19/25 11:40 02/19/25 11:40 02/19/25 11:40 02/19/25 11:40 Narrative Exam GENERAL: A&Ox3 . Awake, Not in acute distress NEURO: no focal neurological deficits HEENT: Atraumatic, Normocephalic. mucous membranes moist. Eyes open, symmetrical, & clear HEART: Normal Heart Sounds LUNGS: Clear to auscultation with no wheezing or crackles. ABDOMEN: soft, non-distended, non-tender, bowel sounds heard, no guarding or rebound tenderness SKIN: No Rash or ecchymoses EXTREMITIES: No edema, tenderness, able to move all 4 extremities, pedal pulses palpated Discharge Plan Plan Patient Disposition: HOME (Self Care) Care Plan Goals: -Follow up with your primary care physician within 1 week -You have been prescribed antibiotics for additional 8 days, please take as prescribed -Take all your medications as prescribed -Continue high fiber diet -If your symptoms return or worsen, return to the ED promptly Prescriptions/Referrals Prescriptions/Med Rec: New amoxicillin-pot clavulanate 875-125 mg tablet 1 tab PO BID 8 Days Qty: 16 0RF Continued tamsulosin 0.4 mg capsule 0.4 mg PO QHS donepezil 10 mg tablet 10 mg PO QDAY hydrocodone-acetaminophen 5-325 mg tablet 1 tab PO Q8H PRN (Reason: pain) Patient Comments: TAKE 1 TABLET BY MOUTH EVERY 8 HOURS NEEDED FOR SEVERE PAIN FOR 7 DAYS sertraline [Zoloft] 50 mg tablet 50 mg PO QDAY ipratropium-albuterol 0.5 mg-3 mg(2.5 mg base)/3 mL solution for nebulization 3 ml inhalation Q4H PRN (Reason: shortness of breath) omeprazole 20 mg capsule,delayed release(DR/EC) 20 mg PO QDAY Trelegy Ellipta 100-62.5-25 mcg blister with device 1 ea INHALATION QDAY albuterol sulfate 90 mcg/actuation HFA aerosol inhaler 1 inh inhalation QID PRN (Reason: shortness of breath or wheezing) Qty: 6.7 0RF Discontinued sodium bicarbonate 325 mg tablet 325 mg PO QDAY Referrals: Kishan Covington MD [Primary Care Provider] - Patient/Caregiver Discharge Instructions Education Materials: Diverticulosis Diverticulitis Print Language: Mongolian Stand Alone Forms: Karen Award Info., Patient Portal Info Letter, Work/Release Restrictions Discharge Order Discharge Orders: Discharge (Routine); Ordered 02/19/25 Ordered By: Poonam Rowan Quality Discharge Quality Measures VTE prophylaxis
== END 2025-02-19 13:20 | disposition home or self-care (01) ==
LOC: SERX 20:17 → S3NX 02-19 10:26 → SERHOLD 02-20 10:46
PROVIDERS: Emergency Medicine; Admitting Provider Student in an Organized Health Care Education/Training Program; Emergency Provider Emergency Medicine; PCP Family Medicine; Visit Provider Student in an Organized Health Care Education/Training Program
DX: K57.32 Diverticulitis of large intestine without perforation or abscess without bleeding (principal); J44.9 Chronic obstructive pulmonary disease, unspecified; I10 Essential (primary) hypertension; H35.30 Unspecified macular degeneration; F32.A Depression, unspecified; F03.94 Unspecified dementia, unspecified severity, with anxiety; E87.3 Alkalosis; E78.00 Pure hypercholesterolemia, unspecified; M19.90 Unspecified osteoarthritis, unspecified site; N20.0 Calculus of kidney; N40.0 Benign prostatic hyperplasia without lower urinary tract symptoms; F41.9 Anxiety disorder, unspecified; R91.1 Solitary pulmonary nodule
CPT/HCPCS: 36415; 74177; 80053; 80061; 83605; 83690; 83735; 84100; 84443; 85025; 85610; 85730; 87040; 87811; 94640; 96361; 96365; 96366; 96368; 96372; 96375; 96376; 99285; A4649; A9270; G0378; J0131; J1650; J2270; J2405; J2470; J2543; J3490; J7030; Q9967

== ENCOUNTER 2025-03-10 09:46 | Emergency (ER) | payer OTHER, MEDICAID, SELFPAY ==
[2025-03-10 10:17] VITALS: BP 167/93; PULSE 111; RESP 24; TEMP 37; O2SAT 95
[2025-03-10 10:36] VITALS: PULSE 145; O2SAT 82; BMI 24.3
--- NOTE | 2025-03-10 10:48 | EKG_ITS ---
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
--- NOTE | 2025-03-10 10:49 | XR_ITS ---
Examination: AP chest single view TECHNIQUE: AP portable upright chest single view Exam date and time: March 10, 2025 1123 hours Comparison January 30, 2025 INDICATIONS: Chest pain shortness of breath wheezing beginning one week ago. FINDINGS: Early bibasilar pneumonia Normal heart size Prominent osteopenia IMPRESSION: Early bibasilar pneumonia
[2025-03-10 11:26] LABS: Basophils # (Auto) 0.1 Thou/mm3 (0.0-0.2); Basophils % (Auto) 1 % (0-2.5); Eosinophils # (Auto) 0.3 Thou/mm3 (0.0-0.5); Eosinophils % (Auto) 2 % (0-10); Hematocrit 42.3 % (41.0-53.0); Hemoglobin 13.3 g/dL (13.5-16.0); Immature Granulocytes % (Auto) 1 % (0-0); Immature Granulocytes Auto 0.09 Thou/mm3 (0.00-0.00); Lymphocytes # (Auto) 1.4 Thou/mm3 (1.0-4.8); Lymphocytes % (Auto) 10 % (10-50); Mean Corpuscular HGB Conc 31.4 g/dl (31.0-37.0); Mean Corpuscular Volume 95 fL (80-100); Monocytes # (Auto) 1.4 Thou/mm3 (0.0-0.8); Monocytes % (Auto) 10 % (0-12); Neutrophils # (Auto) 9.9 Thou/mm3 (1.8-7.7); Neutrophils % (Auto) 76 % (37-80); Nucleated Red Blood Cell % 0 /100 WBC (0); Platelet Count 400 Thou/mm3 (140-440); RDW Standard Deviation 46.5 fL (35.1-43.9); Red Blood Count 4.44 Miln/mm3 (4.50-5.90); White Blood Count 13.1 Thou/mm3 (3.8-10.6)
[2025-03-10 11:38] LABS: Partial Thromboplastin Time 25.9 Seconds (22.0-36.0); Prothrombin Time 10.7 Seconds (9.0-12.2)
--- NOTE | 2025-03-10 11:42 | EDNOTE_ITS ---
<Statement entered by Anahi Bae MD - 03/11/25 14:28> As co-signing physician, I was present and available for consult prn. I concur with the plan and care as documented by the midlevel provider. ED SOB =RME/HPI General Chief Complaint: Shortness of Breath/Dyspnea Stated Complaint: SOB Time Seen by Provider: 03/10/25 11:23 Arrival date/time: 03/10/25 09:46 RME / HPI RME / HPI Narrative: 69-year-old male with past medical history significant for hypertension, hyperlipidemia, COPD on 2L home O2, BPH was brought in by EMS for evaluation regarding palpitation. Patient just had albuterol breathing treatment, and noticed heart rate of 130s. Patient is also having shortness of breath. Severity moderate. Patient is worried that he might be having pneumonia again. He was just started on prednisone by his PCP yesterday. Patient was given albuterol on the way to the emergency room by EMS. On my initial evaluation patient is denying any complaints. He denies any chest pain. Related Data Home Medications ?Medication ?Instructions ?Recorded ?Confirmed fluticasone fur. 100 mcg-umeclid 1 ea inhalation QDAY 10/29/23 02/17/25 62.5 mcg-vilant 25 mcg inhalat.powder (Trelegy Ellipta) omeprazole 20 mg capsule,delayed 20 mg PO QDAY 3 02/17/25 release tamsulosin 0.4 mg capsule 0.4 mg PO QHS 04/05/2402/17 donepezil 10 mg tablet 10 mg PO QDAY 10/18/2402/17 hydrocodone 5 mg-acetaminophen 325 1 tab PO Q8H PRN pa in 01/11/25 02/17/25 mg tablet ipratropium 0.5 mg-albuterol 3 mg 3 ml inhalation Q4H PRN shortness 01/11/25 02/17/25 (2.5 mg base)/3 mL nebulization of breath soln sertraline 50 mg tablet (Zoloft) 50 mg PO QDAY 5 02/17/25 Previous Rx's ?Medication ?Instructions ?Recorded albuterol sulfate 90 mcg/actuation 1 inh inhalation QI D PRN shortness 11/24/23 aerosol inhaler of breath or wheezing #6.7 g tonya azithromycin 250 mg tablet 250 mg PO QDAY 4 days #4 ta bs 03/10/25 (Zithromax Z-Singh) cefuroxime axetil 500 mg tablet 500 mg PO BID #14 tabs 03/10/25 Allergies Allergy/AdvReac Type Severity Reaction Status Date / Time levofloxacin (From Levaquin) Allergy Intermediate MUSCLE Verified 02/03/25 14:15 SPASMS Review of Systems Review of Systems Narrative Review of Systems: Review of system reviewed and within normal limits except mentioned in HPI ED Exam Narrative Physical exam: VITAL SIGNS: Reviewed. GENERAL APPEARANCE: Alert and interactive, follows commands, no acute distress, HEAD AND FACE: Non-traumatic. ENT: PERRL, pink conjunctivitis, eyelid no trauma, Mucous membrane moist. NECK: Supple, nontender, no nuchal rigidity. CHEST: No tenderness, no crepitus, no paradoxical movement, no retractions. LUNGS: Clear, well ventilated, symmetric, no rales, no wheezing, no ronchi, no stridor, good breath sounds bilaterally. HEART: Regular rate, regular rhythm, no murmur, no gallops. ABDOMEN: Soft, positive bowel sounds, nondistended, no guarding, nontender, no rebound, no masses, RECTAL: Deferred. GENITAL: Deferred. NEUROLOGICAL: Gross motor function intact sensory function intact, Appropriate for age. MUSCULOSKELETAL: low back nontender, full range of motion. EXTREMITIES: Nontender, full range of motion. SKIN: Color pink, dry, no rash, no lacerations, no abrasions, no contusions. LYMPHATICS: Deferred. Course Quality Measures none Orders Category Date Time Status EKG (ED ONLY) *Do not use* NOW Care 03/10/25 10:48 Completed EKG (ED Only) Stat Exams 03/10/25 10:48 Draft XR chest 1V Stat Exams 03/10/25 10:49 Completed B-Type Natriuretic Peptide Stat Lab 03/10/25 11:11 Completed CBC Stat Lab 03/10/25 11:11 Completed Comprehensive Metabolic Panel Stat Lab 03/10/25 11:11 Completed Magnesium Stat Lab 03/10/25 11:11 Completed Partial Thromboplastin Time Stat Lab 03/10/25 11:11 Completed Prothrombin Time with INR Stat Lab 03/10/25 11:11 Completed Troponin I Stat Lab 03/10/25 11:11 Completed Azithromycin Inj [Zithromax Inj] 500 mg Med 03/10/25 12:13 Discontinued Sodium Chloride 0.9% 250 ml [Ns] 250 ml IV X1 cefTRIAXone/D5w 1gm IV premix [Rocephin/D5w 1gm IV Med 03/10/25 12:13 Discontinued premix] 1 gm in 50 ml IV X1 Vital Signs Vital signs: Vital Signs Temperature 98.6 F 03/10/25 10:17 Pulse Rate 111 H 03/10/25 10:17 Respiratory Rate 24 H 03/10/25 10:17 Blood Pressure 167/93 H 03/10/25 10:17 Pulse Oximetry (%) 95 03/10/25 10:17 Oxygen Delivery Method Nasal Cannula 03/10/25 10:17 Oxygen Flow Rate 4 03/10/25 10:17 Shortness of Breath / Dyspnea MDM Narrative MDM Narrative:: 69-year-old male with past medical history significant for hypertension, hyperlipidemia, COPD on 2L home O2, BPH was brought in by EMS for evaluation regarding palpitation. Patient just had albuterol breathing treatment, and noticed heart rate of 130s. Patient is also having shortness of breath. Severity moderate. Patient is worried that he might be having pneumonia again. He was just started on prednisone by his PCP yesterday. Patient was given albuterol on the way to the emergency room by EMS. On my initial evaluation patient is denying any complaints. He denies any chest pain. EKG as interpreted by me shows sinus rhythm, ventricular rate of 77 bpm, no ST segment elevation depression noted. Patient laboratory workup showed slight leukocytosis of 13.1 the rest of the labs unremarkable. I was highly concerned with the patient's initial history/complaints and presentation, but after multiple re examinations, Normal neurological and localized swelling of the thigh ,fluctuant most likely abscess ready for I and D. I and D done after verbal consent , see procedure notes.Treatments with Bactrim DS and Keflex .Pt showed reassuring clinical improvement and stable vital signs . Stable for D/C. Chest x-ray pneumonia patient was noted to be satting 95% on 2 L nasal cannula. Patient received ceftriaxone IV and Zithromax IV. Plan of care discussed with the patient and family and they are ready to go home. Patient appears nontoxic and hemodynamically stable. Patient discharged home and instructed to follow-up with primary care provider in 24 to 48 hours. Instructed to return to the emergency department immediately if worsening of symptoms Patient data External records reviewed:: None Clinical information provided by:: patient Social determinants that could affect healthcare access:: none Patient has the following chronic illnesses:: COPD How is presenting disease/condition affected by chronic disease/condition?: exacerbated by Evaluation data The following diagnostics were reviewed and interpreted by me:: lab results, radiology exam(s) and EKG tracing(s) Lab and/or radiology exams considered but not ordered:: None Interpretation Summary: See results in [facility] Medications / Prescriptions Medications or Prescriptions considered but not ordered:: None Medication administrations:: Medication Administration History Discontinued Medications Ceftriaxone Sodium/Dextrose (Rocephin/D5w 1gm Iv Premix) 1 gm in 50 mls @ 100 mls/hr IV X1 ONE Stop: 03/10/25 12:42 Last Infusion: 03/10/25 13:00 Dose: Infused Documented By: Admin: 03/10/25 12:25 Dose: 100 mls/hr Documented By: KAREEM Azithromycin 500 mg/ Sodium (Chloride) 250 mls @ 250 mls/hr IV X1 ONE Stop: 03/10/25 13:12 Last Admin: 03/10/25 12:25 Dose: 250 mls/hr Documented By: KAREEM Ceftriaxone and Zithromax Consultations Consultation(s) initiated? (list below): No Diagnosis Shortness of Breath Differential Diagnosis: acute exacerbation of chronic obstructive airways disease, community acquired pneumonia and asthma with exacerbation Most likely diagnosis given after review of the tests above:: COPD, pneumonia Admission Indicated Admission indicated?: not indicated Admission Request Was there a request for admission?: No Disposition Plan Disposition Plan: Discharge Discharge Attestation Discharge Attestation: The patient and all family members were given an opportunity to ask questions and understood the discharge instructions. Discharge instructions specifically effects, indications for sooner follow up or return to the emergency department, and the expected course of current diagnosis. Patient condition: Stable Discharge Plan Plan Patient Disposition: HOME (Self Care) Disposition Comment: stable Prescriptions/Referrals Prescriptions/Med Rec: New azithromycin [Zithromax Z-Singh] 250 mg tablet 250 mg PO QDAY 4 Days Qty: 4 0RF Rx Instructions: start on day 2 of therapy cefuroxime axetil 500 mg tablet 500 mg PO BID Qty: 14 0RF No Action tamsulosin 0.4 mg capsule 0.4 mg PO QHS donepezil 10 mg tablet 10 mg PO QDAY hydrocodone-acetaminophen 5-325 mg tablet 1 tab PO Q8H PRN (Reason: pain) Patient Comments: TAKE 1 TABLET BY MOUTH EVERY 8 HOURS NEEDED FOR SEVERE PAIN FOR 7 DAYS sertraline [Zoloft] 50 mg tablet 50 mg PO QDAY ipratropium-albuterol 0.5 mg-3 mg(2.5 mg base)/3 mL solution for nebulization 3 ml inhalation Q4H PRN (Reason: shortness of breath) omeprazole 20 mg capsule,delayed release(DR/EC) 20 mg PO QDAY Trelegy Ellipta 100-62.5-25 mcg blister with device 1 ea INHALATION QDAY albuterol sulfate 90 mcg/actuation HFA aerosol inhaler 1 inh inhalation QID PRN (Reason: shortness of breath or wheezing) Qty: 6.7 0RF Referrals: William Covington MD [Primary Care Provider] - In 1 week Problem List Clinical Impression: PNA (pneumonia), COPD exacerbation Patient/Caregiver Discharge Instructions Discharge Activity: activity as tolerated Education Materials: Treating Pneumonia Additional Instructions: Thank you for the opportunity for serving you today. You are stable for discharged . You are advised to: Follow-up with your PCP in 1 to 2 days Return to ED for worsening of symptoms Increase oral fluids Take medication as prescribed Print Language: Turkmen Stand Alone Forms: Karen Award Info., Patient Portal Info Letter PA/MARINA Supervising Physician KERI/MARINA Supervising Physician: MD Donita
[2025-03-10 11:53] LABS: Alanine Aminotransferase < 7 U/L (10-49); Albumin, Serum 4.5 gm/dL (3.4-4.8); Albumin/Globulin Ratio 1.6 (1.2-2.2); Alkaline Phosphatase 149 U/L (46-116); Anion Gap 7 (7-16); Aspartate Amino Transferase 15 U/L (0-34); BUN/Creatinine Ratio 14 Ratio (12-20); Bilirubin,Total 0.5 mg/dL (0.3-1.2); Blood Urea Nitrogen 17 mg/dL (9-23); Carbon Dioxide 34.8 mMol/L (20.0-31.0); Chloride 105 mMol/L (98-107); Creatinine (Component) 1.2 mg/dL (0.6-1.3); Estimated Creatinine Clearance 61.7 mL/min (>60); Globulin 2.9 gm/dL (2.3-3.5); Glucose 89 mg/dL (74-106); Magnesium 1.8 mg/dL (1.6-2.6); Osmolality,Calculated 292 (275-295); Potassium 3.7 mMol/L (3.4-5.1); Sodium 147 mMol/L (136-145); Total Protein 7.4 gm/dL (5.7-8.2); Troponin I < 0.020 ng/mL (0.0-0.045); eGFR > 60 See Note
[2025-03-10 12:24] LABS: B-Type Natriuretic Peptide 57 pg/mL (0-100)
[2025-03-10] MEDS: AZITHROMYCIN INJ 500 MG in SODIUM CHLORIDE 0.9% 250 ML 250 ML 250 MG IV (12:25)
[2025-03-10] MEDS: cefTRIAXone/D5w 1gm IV premix 1 GM/50 ML BAG IV (12:25)
[2025-03-10 15:19] VITALS: PULSE 87; RESP 18; O2SAT 100
[2025-03-10] MEDS: ALBUTEROL/IPRATROPIUM (Duoneb) RT SOL 3 ML NEBU INH (15:19)
[2025-03-10] MEDS: DEXAMETHASONE SOD PHOS INJ 10 MG/ML VIAL IM (15:29)
== END 2025-03-10 16:02 | disposition home or self-care (01) ==
PROVIDERS: Emergency Provider Emergency Medicine; PCP Family Medicine
DX: J18.9 Pneumonia, unspecified organism (principal); J44.1 Chronic obstructive pulmonary disease with (acute) exacerbation; J44.0 Chronic obstructive pulmonary disease with (acute) lower respiratory infection; Z99.81 Dependence on supplemental oxygen; I10 Essential (primary) hypertension; E78.5 Hyperlipidemia, unspecified; N40.0 Benign prostatic hyperplasia without lower urinary tract symptoms
CPT/HCPCS: 36415; 71045; 80053; 83735; 83880; 84484; 85025; 85610; 85730; 93005; 94640; 99284; A9270; J0456; J0696; J1100; J7050

== ENCOUNTER 2025-03-13 00:25 | Inpatient (IN) | payer MEDICARE, MEDICAID, SELFPAY ==
[2025-03-13] VITALS (20 sets, daily range): BP systolic 115–199; BP diastolic 76–127; PULSE 71–114; RESP 18–29; TEMP 35.9–36.6; O2SAT 84–100; BMI 24.0
--- NOTE | 2025-03-13 00:28 | EKG_ITS ---
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
--- NOTE | 2025-03-13 00:30 | PD.EDSOB ---
ED SOB =RME/HPI General Chief Complaint: Shortness of Breath/Dyspnea Stated Complaint: SHORTNESS OF BREATH Time Seen by Provider: 03/13/25 00:28 Arrival date/time: 03/13/25 00:25 Limitations: no limitations RME / HPI RME / HPI Narrative: DR. CEBALLOS MAIN ED EVALUATION: 69-year-old male with history of COPD and recent hospitalization for pneumonia presents to the Emergency Department [facility] with complaint of shortness of breath right prior to arrival. The history is obtained from EMS. The patient is brought in from home. By report he had not O2 sat of 86% and placed on 15L. Patient had tight wheezing bilaterally, currently history of COPD on antibiotics. Prior to arrival the patient was given 5 mg of albuterol and placed on CPAP. Related Data Home Medications ?Medication ?Instructions ?Recorded ?Confirmed fluticasone fur. 100 mcg-umeclid 1 ea inhalation QDAY 10/29/23 03/13/25 62.5 mcg-vilant 25 mcg inhalat.powder (Trelegy Ellipta) omeprazole 20 mg capsule,delayed 20 mg PO QDAY 10/29/23 03/13/25 release tamsulosin 0.4 mg capsule 0.4 mg PO QHS 04/05/24 03/13/25 donepezil 10 mg tablet 10 mg PO QDAY 10/18/24 03/13/25 hydrocodone 5 mg-acetaminophen 325 1 tab PO Q8H PRN pain 01/11/25 03/13/25 mg tablet ipratropium 0.5 mg-albuterol 3 mg 3 ml inhalation Q4H PRN shortness 01/11/25 03/13/25 (2.5 mg base)/3 mL nebulization of breath soln sertraline 50 mg tablet (Zoloft) 50 mg PO QDAY 01/11/25 03/13/25 brexpiprazole 0.5 mg tablet 0.5 mg PO QDAY 03/13/25 03/13/25 (Rexulti) Previous Rx's ?Medication ?Instructions ?Recorded albuterol sulfate 90 mcg/actuation 1 inh inhalation QID PRN shortness 11/24/23 aerosol inhaler of breath or wheezing #6.7 grams azithromycin 250 mg tablet 250 mg PO QDAY 4 days #4 tabs 04/25/25 (Zithromax Z-Singh) cefuroxime axetil 500 mg tablet 500 mg PO BID #14 tabs 03/10/25 prednisone 50 mg tablet 50 mg PO QDAY #5 tabs 03/10/25 Allergies Allergy/AdvReac Type Severity Reaction Status Date / Time levofloxacin (From Levaquin) Allergy Intermediate MUSCLE Verified 02/03/25 14:15 SPASMS Review of Systems Review of Systems ROS Unobtainable: unobtainable due to medical condition Past Medical History Past Medical History NEUROLOGIC: Positive Neurological Disorders and Dementia CARDIAC: Positive Hypercholesterolemia and Hypertension RESPIRATORY: Positive Chronic Obstructive Pulmonary Disease (COPD), Asthma, Bronchitis and Pneumonia GASTROINTESTINAL: Positive Gastrointestinal Disorders, Hepatitis and Gastroesophageal Reflux Disease GENITOURINARY: Positive Genitourinary Disorders, Kidney Stones, Inguinal Hernia and Benign Prostatic Hyperplasia MUSCULOSKELETAL: Positive Musculoskeletal Disorders, Arthritis, Degenerative Disk Disease and Degenerative Joint Disease ENT: Positive Macular Degeneration PSYCHO/SOCIAL: Positive Depression and Anxiety OTHER HISTORY: Positive Hospitalization, Shingles and Chicken Pox Family History FAMILY HISTORY: Positive Family Cardiac Disorders, Family Cancer and Family Surgery Surgical History SURGICAL: Positive Joint Replacement and Arthroscopy Social History SMOKING STATUS: Never smoker SECOND HAND EXPOSURE: No SUBSTANCE USE: marijuana ED Exam General Limitations: Present no limitations General appearance: Present alert Head Head exam: Present atraumatic, normocephalic and normal inspection Eye Eye exam: Present normal appearance, PERRL and EOMI ENT ENT exam: Present normal exam, normal oropharynx and mucous membranes moist Neck Neck exam: Present normal inspection, full ROM and trachea midline Chest Chest inspection: Present normal inspection and symmetric chest wall rise Respiratory Respiratory exam: Present respiratory distress, wheezes and other (Crackles throughout the lung field, mild rhonchi throughout the lung field) Cardiovascular Cardiovascular exam: Present regular rate, normal rhythm and normal heart sounds Abdominal Exam Abdominal exam: Present soft and normal bowel sounds Extremities Exam Extremities exam: Present normal inspection and full ROM Back Exam Back exam: Present normal inspection and full ROM Neurological Exam Neurological exam: Present alert, oriented X3 and CN II-XII intact Psychiatric Psychiatric exam: Present normal affect and normal mood Skin Skin exam: Present warm, dry, intact and normal color Course Course Course Narrative: Sepsis alert initiated 0030. Orders made at this time are congruent with ED Adult Sepsis Order List. Re-evaluation is to be completed following the administration of IV fluids and antibiotics. SIRS Criteria: 69 yo male/female w/ PMHX COPD WITH RECENT PNEUMONIA BIBA or presented to ED with c/c with acute respiratory distress.. Sepsis labs ordered after initial CBC showed ()white count. Patient meets the following SIRS criteria; Tachycardic (/min), Tachypnic (RR) and has an elevated white count. Sepsis reassessment performed @ () consisting of lab review, vitals, physical exam including auscultation of heart, lungs, and visual evaluation of capillary refills, mucosal membranes and extremities. Patient has been given 1L normal saline. () Zosyn IV has been ordered and will be administered pending (RADS). Pertinent lab results include; WBC- Lactic- Procalcitonin- < Pt has the following organ dysfunction criteria; Lactate > 2.0 * Blood cultures drawn PRIOR to antibiotic administration. Culture(s) pending. Quality Measures Current suspected stage: sepsis Possible source: pulmonary Blood cultures ordered: yes Antibiotic ordered: Yes Pertinent labs: 03/13/25 00:32 Lactic Acid 1.2 mMol/L (0.4-2.0) Procalcitonin 0.17 ng/ml (0.0-0.49) sepsis Orders Category Date Time Status COVID-19 Screening Questionnaire NOW Care 03/13/25 03:[address] Screening NOW Care 03/13/25 03:18 Completed Vehicle Refinisher STAT Care 03/13/25 00:28 Completed Continuous Pulse Oximetry STAT Care 03/13/25 00:28 Completed Decision to Admit X1 Care 03/13/25 03:19 Completed EKG (ED ONLY) *Do not use* NOW Care 03/13/25 00:28 Completed In and Out Catheter X1PRN Care 03/13/25 00:28 Completed Insert IV NOW Care 03/13/25 00:28 Completed NPO STAT Care 03/13/25 00:28 Completed Strict Intake and Output Routine Care 03/13/25 00:[address] angio chest Stat Exams 03/13/25 03:18 Completed EKG (ED Only) Stat Exams 03/13/25 00:28 Draft XR chest 1V SEPSIS PROTOCOL Stat Exams 03/13/25 00:29 Completed ABG [Arterial Blood Gas] Stat Lab 03/13/25 02:56 Completed Arterial Blood Gas Stat Lab 03/13/25 00:45 Completed B-Type Natriuretic Peptide Stat Lab 03/13/25 00:32 Completed Blood Culture (Lab) Stat Lab 03/13/25 00:30 Results CBC Stat Lab 03/13/25 00:59 Completed Comprehensive Metabolic Panel Stat Lab 03/13/25 00:32 Completed Drug Screen,Urine Stat Lab 03/13/25 04:59 Completed LDH (Lactate Dehydrogenase) Stat Lab 03/13/25 00:32 Completed Lactate (Lactic Acid) Stat Lab 03/13/25 00:32 Completed Lipase Stat Lab 03/13/25 00:32 Completed Magnesium Stat Lab 03/13/25 00:32 Completed Partial Thromboplastin Time Stat Lab 03/13/25 00:32 Completed Phosphorous Stat Lab 03/13/25 00:32 Completed Procalcitonin Stat Lab 03/13/25 00:32 Completed Prothrombin Time with INR Stat Lab 03/13/25 00:32 Completed Troponin I Stat Lab 03/13/25 00:32 Completed Urinalysis Stat Lab 03/13/25 04:59 Completed Urine Culture Stat Lab 03/13/25 04:59 Completed Albuterol/Ipratr Rt Sonia [Duoneb Rt Sonia] Med 03/13/25 00:37 Discontinued 3 ml INH X1 ONE Cefepime Inj [Maxipime Inj] 2 gm Med 03/13/25 06:00 Discontinued SODIUM CHLORIDE 0.9% (Popper) [Ns 0.9% (P)] 50 ml IV Q8H Doxycycline Inj [Vibramycin Inj] 100 mg Med 03/13/25 21:00 Discontinued Sodium Chloride 0.9% (Pop) [NS 0.9% mini bag] 100 ml IV Q12HR Magnesium Sulfate 2 GM Ivpb [Magnesium Sulfate Ivpb] Med 03/13/25 00:29 Discontinued 2 gm in 50 ml IV X1 MethylPREDNISolone. [SoluMEDROL Inj] Med 03/13/25 21:00 Discontinued 40 mg IVP HS MethylPREDNISolone.* [SoluMEDROL Inj] Med 03/13/25 00:29 Discontinued 125 mg IVP X1 ONE Piper/Tazo 3.375 gm Premix [Zosyn] Med 03/13/25 00:28 Discontinued 3.375 gm in 50 ml IV X1 BiPAP / CPAP NOW RT 03/13/25 01:09 Active Oxygen Delivery NOW RT 03/13/25 00:28 Active Vital Signs Vital signs: Vital Signs Temperature 96.7 F L 03/13/25 00:27 Pulse Rate 114 H 03/13/25 00:27 Respiratory Rate 24 H 03/13/25 00:27 Blood Pressure 199/127 H 03/13/25 00:27 Pulse Oximetry (%) 84 L 03/13/25 00:27 Oxygen Delivery Method CPAP 03/13/25 00:27 Procedures -ED EKG Interpretation #1: Date of EK03/15/25 Time of EK:25 Rate: 74 Interpretation: Interpreted by me Additional EKG comment: sinus rhythm, rate 74, QTc 416 Shortness of Breath / Dyspnea MDM Narrative MDM Narrative:: Patient is 72 and placed in room 1 at 0030. 0033: Magnesium and Solu-Medrol are given. The patient is awake without cyanosis however the patient is using accessory muscles to breathe. IV is placed the emergency department since it was not obtained by EMS. EKG is obtained which does not show ST elevation CT. EKG done at 0031 with heart rate of 110 sinus tachycardia. Poor baseline but no ST elevation CT. QTc is 386. Patient data External records reviewed:: EMS form Clinical information provided by:: EMS Social determinants that could affect healthcare access:: other (specify) (Former smoker) Patient has the following chronic illnesses:: COPD and recent hospitalization for pneumonia How is presenting disease/condition affected by chronic disease/condition?: caused by Evaluation data The following diagnostics were reviewed and interpreted by me:: lab results, radiology exam(s) and EKG tracing(s) Lab and/or radiology exams considered but not ordered:: none Interpretation Summary: Procedure(s): XR chest 1V SEPSIS PROTOCOL Accession Number(s): [id number] cc: Ellie Fountain NP; Tk Bedoya MD; Maranda Ceballos MD~ Examination: AP chest single view TECHNIQUE: AP portable upright chest single view Examination time: March 13, 2025 at 0046 hours Comparison March 10, 2025 INDICATIONS: Sepsis alert today FINDINGS: Normal heart size Moderate hyperexpansion Mild central vascular congestion. Accentuation basilar bronchovascular markings No pulmonary edema Prominent osteopenia IMPRESSION: COPD Basilar bronchitis pattern Dictated By: Tk Bedoya MD Procedure(s): CT angio chest Accession Number(s): [id number] cc: Ellie Fountain NP; Tk Bedoya MD; Maranda Ceballos MD~ Examination: CTA chest with intravenous contrast 2-D reconstructions 3-D reconstructions, vascular Date and time of exam: March 13, 2025 0547 hours INDICATIONS: Shortness of breath chest pain beginning 2 days ago CTDI: vol (mGy) 07/05/1998 DLP: (mGycm) 357 Technique: Multiple axial sections of the thorax have been obtained. 3 mm slice thickness, from below the hemidiaphragms to above the apices of the lungs. Mediastinal and lung density settings have been obtained. 2-D sagittal and coronal reconstructions. 3-D angiographic renderings, 3-D volume renderings, 3D post processing, vascular maximum intensity projections obtained. Contrast administered is 100 cc Isovue-370. Low dose protocols were performed. One or more of the following dose reduction techniques were used; automated exposure control, adjustment of the mA and/or KV according to patient size, use of iterative reconstruction technique. Findings: No thoracic aortic aneurysmal dilatation or dissection Main pulmonary artery segment 33 mm No pulmonary artery filling defects Mild enlargement cardiac contour Minor bibasilar atelectasis Mild left base pneumonia with minimal left pleural disease No visualized liver splenic lesion No gallstones No pancreatic or adrenal mass Kidneys partially visualized and no hydronephrosis Visualized abdominal aorta is not enlarged Severe osteopenia with chronic osteoporotic compressions multiple thoracic vertebral bodies IMPRESSION: No thoracic aortic aneurysmal dilatation or dissection Negative for pulmonary artery emboli Mild left base pneumonia Dictated By: Tk Bedoya MD Medications / Prescriptions Medications or Prescriptions considered but not ordered:: none Medication administrations:: Medication Administration History Acetaminophen (Acetaminophen 325 Mg Tablet) 650 mg PO Q6H PRN PRN Reason: Fever >101.5 Stop: 04/12/25 03:57 Last Admin: 03/13/25 11:03 Dose: 650 mg Documented By: KAREEM Acetaminophen (Acetaminophen 325 Mg Tablet) 650 mg PO Q6H PRN PRN Reason: PAIN SCALE 1-3 (mild Stop: 04/12/25 03:57 Hydrocodone Bitart/Acetaminophen (Hydrocodone/Apap 5/325 Tablet) 1 tab PO Q6H PRN PRN Reason: Pain 4-10 Stop: 03/18/25 04:58 Last Admin: 03/15/25 14:07 Dose: 1 tab Documented By: Admin: 03/15/25 07:53 Dose: 1 tab Documented By: Admin: 03/14/25 19:03 Dose: 1 tab Documented By: Admin: 03/14/25 13:17 Dose: 1 tab Documented By: Admin: 03/14/25 04:26 Dose: 1 tab Documented By: Admin: 03/13/25 17:46 Dose: 1 tab Documented By: Admin: 03/13/25 05:13 Dose: 1 tab Documented By: DIYA Albuterol/Ipratropium (Albuterol/Ipratropium (Duoneb) Rt Sonia 3 Ml Nebu) 3 ml INH Q4HRRT RACHAEL Stop: 04/12/25 03:59 Last Admin: 03/15/25 15:10 Dose: 3 ml Documented By: Admin: 03/15/25 10:44 Dose: 3 ml Documented By: Admin: 03/15/25 07:16 Dose: 3 ml Documented By: Admin: 03/15/25 02:51 Dose: 3 ml Documented By: Admin: 03/14/25 22:49 Dose: 3 ml Documented By: Admin: 03/14/25 18:10 Dose: 3 ml Documented By: Admin: 03/14/25 13:47 Dose: 3 ml Documented By: Admin: 03/14/25 10:17 Dose: 3 ml Documented By: Admin: 03/14/25 06:08 Dose: 3 ml Documented By: Admin: 03/14/25 03:20 Dose: 3 ml Documented By: Admin: 03/13/25 22:05 Dose: 3 ml Documented By: Admin: 03/13/25 18:50 Dose: 3 ml Documented By: Admin: 03/13/25 14:52 Dose: 3 ml Documented By: JFreedom Admin: 03/13/25 10:37 Dose: 3 ml Documented By: SinV Admin: 03/13/25 06:18 Dose: 3 ml Documented By: KERA Diphenhydramine HCl (Diphenhydramine 25 Mg Capsule) 25 mg PO HS RACHAEL Stop: 04/13/25 20:59 Last Admin: 03/14/25 23:27 Dose: 25 mg Documented By: Admin: 03/14/25 21:19 Dose: Not Given Documented By: CTF Non-Admin Reason: Patient Asleep Comments: bipap on. Donepezil HCl (Donepezil Hcl 5 Mg Tablet) 10 mg PO QDAY RACHAEL Stop: 04/13/25 08:59 Last Admin: 03/15/25 09:35 Dose: 10 mg Documented By: Admin: 03/14/25 09:22 Dose: 10 mg Documented By: MARIBEL Enoxaparin Sodium (Enoxaparin Sod Inj 40 Mg/0.4 Ml Syringe) 40 mg SC QDAY RACHAEL Stop: 03/27/25 08:59 Last Admin: 03/15/25 09:34 Dose: 40 mg Documented By: Admin: 03/14/25 09:23 Dose: 40 mg Documented By: Admin: 03/13/25 08:30 Dose: Not Given Documented By: KAREEM Non-Admin Reason: Patient Refused Guaifenesin (Guaifenesin Syrup 200 Mg/10 Ml Udc) 100 mg PO QID PRN; Protocol PRN Reason: COUGH Stop: 04/13/25 04:06 Last Admin: 03/15/25 07:52 Dose: 100 mg Documented By: Admin: 03/14/25 17:05 Dose: 100 mg Documented By: Admin: 03/14/25 09:40 Dose: 100 mg Documented By: Admin: 03/14/25 04:20 Dose: 100 mg Documented By: LISA Ceftriaxone Sodium/Dextrose (Rocephin/D5w 1gm Iv Premix) 1 gm in 50 mls @ 100 mls/hr IV QDAY RACHAEL Stop: 03/20/25 11:05 Last Admin: 03/15/25 09:34 Dose: 100 mls/hr Documented By: Infusion: 03/14/25 09:52 Dose: Infused Documented By: Admin: 03/14/25 09:22 Dose: 100 mls/hr Documented By: Infusion: 03/13/25 15:22 Dose: Infused Documented By: Admin: 03/13/25 14:52 Dose: 100 mls/hr Documented By: KAREEM Azithromycin 500 mg/ Sodium (Chloride) 250 mls @ 250 mls/hr IV QDAY RACHAEL Stop: 03/20/25 11:06 Last Admin: 03/15/25 09:34 Dose: 250 mls/hr Documented By: Infusion: 03/14/25 10:22 Dose: Infused Documented By: Admin: 03/14/25 09:22 Dose: 250 mls/hr Documented By: Infusion: 03/13/25 15:52 Dose: Infused Documented By: Admin: 03/13/25 14:52 Dose: 250 mls/hr Documented By: KAREEM Methylprednisolone Sodium Succinate (Methylprednisolone Sod Succ 40 Mg Vial) 60 mg IVP TID RACHAEL Stop: 03/21/25 13:59 Last Admin: 03/15/25 13:16 Dose: 60 mg Documented By: Admin: 03/15/25 05:17 Dose: 60 mg Documented By: Admin: 03/14/25 21:12 Dose: 60 mg Documented By: Admin: 03/14/25 13:05 Dose: 60 mg Documented By: MARIBEL Pantoprazole Sodium (Pantoprazole Inj 40 Mg Vial) 40 mg IVP QDAY RACHAEL Stop: 04/13/25 10:29 Last Admin: 03/15/25 09:35 Dose: 40 mg Documented By: Admin: 03/14/25 10:42 Dose: 40 mg Documented By: MARIBEL Sertraline HCl (Sertraline Hcl 25 Mg Tablet) 50 mg PO QDAY RACHAEL Stop: 04/12/25 08:59 Last Admin: 03/15/25 09:35 Dose: 50 mg Documented By: Admin: 03/14/25 04:20 Dose: 50 mg Documented By: Admin: 03/13/25 08:30 Dose: Not Given Documented By: KAREEM Non-Admin Reason: NPO Tamsulosin HCl (Tamsulosin Hcl 0.4 Mg Capsule) 0.4 mg PO QDAY RACHAEL Stop: 04/12/25 08:59 Last Admin: 03/15/25 09:34 Dose: 0.4 mg Documented By: Admin: 03/14/25 09:23 Dose: 0.4 mg Documented By: Admin: 03/13/25 08:30 Dose: Not Given Documented By: KAREEM Non-Admin Reason: NPO Discontinued Medications Albuterol/Ipratropium (Albuterol/Ipratropium (Duoneb) Rt Sonia 3 Ml Nebu) 3 ml INH X1 ONE Stop: 03/13/25 00:38 Last Admin: 03/13/25 01:08 Dose: 3 ml Documented By: CRAIG Alprazolam (Alprazolam 0.25 Mg Tablet) 0.25 mg PO X1 ONE Stop: 03/13/25 05:00 Last Admin: 03/13/25 05:13 Dose: 0.25 mg Documented By: DIYA Diphenhydramine HCl (Diphenhydramine 25 Mg Capsule) 25 mg PO X1 ONE Stop: 03/14/25 18:50 Last Admin: 03/14/25 19:03 Dose: 25 mg Documented By: MARIBEL Donepezil HCl (Donepezil Hcl 5 Mg Tablet) 10 mg PO QDAY RACHAEL Stop: 04/12/25 08:59 Last Admin: 03/13/25 08:30 Dose: Not Given Documented By: KAREEM Non-Admin Reason: NPO Hydroxyzine HCl (Hydroxyzine Hcl 25 Mg Tablet) 25 mg PO X1 ONE Stop: 03/13/25 10:32 Last Admin: 03/13/25 11:03 Dose: 25 mg Documented By: KAREEM Hydroxyzine HCl (Hydroxyzine Hcl 25 Mg Tablet) 25 mg PO X1 ONE Stop: 03/13/25 23:23 Last Admin: 03/14/25 02:52 Dose: 25 mg Documented By: LISA Piperacillin/Tazobactam/Dextrose (Zosyn) 3.375 gm in 50 mls @ 100 mls/hr IV X1 ONE Stop: 03/13/25 00:57 Last Infusion: 03/13/25 01:37 Dose: Infused Documented By: Admin: 03/13/25 01:01 Dose: 100 mls/hr Documented By: DIYA Magnesium Sulfate (Magnesium Sulfate Ivpb) 2 gm in 50 mls @ 25 mls/hr IV X1 ONE Stop: 03/13/25 02:28 Last Infusion: 03/13/25 02:49 Dose: Infused Documented By: Admin: 03/13/25 01:05 Dose: 25 mls/hr Documented By: DIYA Doxycycline Hyclate 100 mg/ (Sodium Chloride) 100 mls @ 100 mls/hr IV Q12HR RACHAEL Stop: 03/20/25 20:59 Cefepime HCl 2 gm/ Sodium (Chloride) 50 mls @ 100 mls/hr IV Q8H RACHAEL Stop: 03/20/25 05:59 Last Infusion: 03/13/25 06:52 Dose: Infused Documented By: Admin: 03/13/25 06:18 Dose: 100 mls/hr Documented By: DIYA Doxycycline Hyclate 100 mg/ (Sodium Chloride) 100 mls @ 100 mls/hr IV X1 ONE Stop: 03/13/25 04:59 Last Infusion: 03/13/25 05:20 Dose: Infused Documented By: Admin: 03/13/25 04:16 Dose: 100 mls/hr Documented By: DIYA Lactated Ringer's (Lactated Ringers) 1,000 mls @ 999 mls/hr IV .Q1H1M ONE Stop: 03/13/25 05:51 Last Infusion: 03/13/25 06:15 Dose: Infused Documented By: Admin: 03/13/25 05:12 Dose: 999 mls/hr Documented By: DIYA Lorazepam (Lorazepam 0.5 Mg Tablet) 0.25 mg PO X1 ONE Stop: 03/13/25 15:39 Last Admin: 03/13/25 17:45 Dose: 0.25 mg Documented By: KAREEM Lorazepam (Lorazepam 0.5 Mg Tablet) 0.5 mg PO X1 ONE Stop: 03/14/25 10:04 Last Admin: 03/14/25 10:11 Dose: 0.5 mg Documented By: MARIBEL Lorazepam (Lorazepam 2 Mg/Ml Vial) 0.5 mg IVP X1 ONE Stop: 03/14/25 18:50 Last Admin: 03/14/25 19:03 Dose: 0.5 mg Documented By: MARIBEL Lorazepam (Lorazepam 0.5 Mg Tablet) 0.5 mg PO X1 ONE Stop: 03/15/25 14:18 Last Admin: 03/15/25 14:26 Dose: 0.5 mg Documented By: WADE Methylprednisolone Sodium Succinate (Methylprednisolone Sod Succ 62.5 Mg/Ml 2ml Vial) 125 mg IVP X1 ONE Stop: 03/13/25 00:30 Last Admin: 03/13/25 01:01 Dose: 125 mg Documented By: RC Methylprednisolone Sodium Succinate (Methylprednisolone Sod Succ 40 Mg Vial) 40 mg IVP HS RACHAEL Stop: 03/20/25 20:59 Last Admin: 03/13/25 20:43 Dose: 40 mg Documented By: CP Sodium Chloride (Sodium Chloride Rt 10% 15 Ml Nebu) 5 ml INH X1 ONE Stop: 03/13/25 03:59 see above Consultations Consultation(s) initiated? (list below): Yes Consultation #1 (Physician, Specialty, Details): Discussed test HPI, PMHx, lab, radiology results and/or management with hospitalist. Will admit for further evaluation and management. Accepts patient for admission. Time: 03:58 Diagnosis Shortness of Breath Differential Diagnosis: acute exacerbation of chronic obstructive airways disease, congestive heart failure, community acquired pneumonia and pulmonary embolism Most likely diagnosis given after review of the tests above:: Acute hypoxic respiratory failure Admission Indicated Admission indicated?: indicated Admission Request Was there a request for admission?: Yes Admission Attestation Admission request attestation: Discussed case with [] from Hospitalist service regarding admission. Discussed patients ED course, exam findings, labs, and radiology results. The Hospitalist [agrees,declines] to accept the patient for admission. Disposition Plan Disposition Plan: Admit Discharge Plan Plan Patient Disposition: Admit Acute Care w/in Hospital Problem List Clinical Impression: Acute hypoxic respiratory failure
[2025-03-13 00:42] LABS: Lactate (Lactic Acid) 1.2 mMol/L (0.4-2.0)
[2025-03-13 00:49] LABS: Base Excess 5 (-3-3); HCO3 37 mEq/L (20-26); Inspired Oxygen, FIO2 21 %; O2 Saturation 100 % (91-98); PCO2 97 mmHg (32.0-48.0); PO2 154 mmHg (83-108)
[2025-03-13 00:50] LABS: Allen Test Performed/OK; Puncture Site Left Radial
[2025-03-13 00:51] LABS: pH, Arterial 7.19 (7.35-7.45)
--- NOTE | 2025-03-13 01:00 | PC.NURSE ---
pt brought into er by ambulance from home for complaints of shortness of breath that started x1 hour prior to arrival. per ems pt was satting 87% on 15 liters placed by fire on scene. pt recently diagnosed with pna and is taking antibiotics. pt given breathing treatment in route by ems and placed on cpap.
[2025-03-13] MEDS: MethylPREDNISolone SOD SUCC 62.5 MG/ML 2ML VIAL 125 MG IVP (01:01)
[2025-03-13] MEDS: PIPER/TAZO 3.375 GM PREMIX 3.375 GM/50 ML BAG IV (01:01)
[2025-03-13 01:04] LABS: Prothrombin Time 10.6 Seconds (9.0-12.2)
[2025-03-13 01:05] LABS: Basophils % (Auto) 0 % (0-2.5); Eosinophils % (Auto) 0 % (0-10); Hematocrit 41.7 % (41.0-53.0); Hemoglobin 12.7 g/dL (13.5-16.0); Immature Granulocytes % (Auto) 2 % (0-0); Immature Granulocytes Auto 0.18 Thou/mm3 (0.00-0.00); Lymphocytes # (Auto) 0.4 Thou/mm3 (1.0-4.8); Lymphocytes % (Auto) 5 % (10-50); Mean Corpuscular HGB Conc 30.5 g/dl (31.0-37.0); Mean Corpuscular Hemoglobin 30.7 pg (25.0-35.0); Mean Corpuscular Volume 101 fL (80-100); Monocytes # (Auto) 0.4 Thou/mm3 (0.0-0.8); Monocytes % (Auto) 5 % (0-12); Neutrophils # (Auto) 6.8 Thou/mm3 (1.8-7.7); Neutrophils % (Auto) 87 % (37-80); Nucleated Red Blood Cell % 0 /100 WBC (0); Platelet Count 316 Thou/mm3 (140-440); RDW Standard Deviation 48.7 fL (35.1-43.9); Red Blood Count 4.14 Miln/mm3 (4.50-5.90); White Blood Count 7.9 Thou/mm3 (3.8-10.6)
[2025-03-13] MEDS: Magnesium Sulfate 2 GM Ivpb 2 GM/50 ML BAG IV (01:05)
[2025-03-13] MEDS: ALBUTEROL/IPRATROPIUM (Duoneb) RT SOL 3 ML NEBU INH ×6 (01:08→22:05)
[2025-03-13 01:23] LABS: Alanine Aminotransferase 12 U/L (10-49); Albumin, Serum 4.8 gm/dL (3.4-4.8); Albumin/Globulin Ratio 1.7 (1.2-2.2); Alkaline Phosphatase 155 U/L (46-116); Anion Gap 7 (7-16); Aspartate Amino Transferase 21 U/L (0-34); BUN/Creatinine Ratio 18 Ratio (12-20); Bilirubin,Total 0.3 mg/dL (0.3-1.2); Blood Urea Nitrogen 20 mg/dL (9-23); Calcium 9.6 mg/dL (8.3-10.6); Calcium (Corrected) 9.6 mg/dL (8.5-10.1); Carbon Dioxide 31.2 mMol/L (20.0-31.0); Chloride 105 mMol/L (98-107); Creatinine (Component) 1.1 mg/dL (0.6-1.3); Estimated Creatinine Clearance 67.3 mL/min (>60); Globulin 2.9 gm/dL (2.3-3.5); Glucose 171 mg/dL (74-106); LDH (Lactate Dehydrogenase) 263 U/L (120-246); Lipase 28 U/L (12-53); Osmolality,Calculated 291 (275-295); Phosphorous 4.8 mg/dL (2.4-5.1); Potassium 5.1 mMol/L (3.4-5.1); Procalcitonin 0.17 ng/ml (0.0-0.49); Sodium 143 mMol/L (136-145); Total Protein 7.7 gm/dL (5.7-8.2); Troponin I < 0.020 ng/mL (0.0-0.045); eGFR > 60 See Note
[2025-03-13 01:51] LABS: B-Type Natriuretic Peptide 190 pg/mL (0-100)
[2025-03-13 03:02] LABS: Allen Test Performed/OK; Base Excess 8 (-3-3); HCO3 39 mEq/L (20-26); Inspired Oxygen, FIO2 4 %; O2 Saturation 100 % (91-98); PCO2 95 mmHg (32.0-48.0); PO2 133 mmHg (83-108); Puncture Site Right Radial; pH, Arterial 7.22 (7.35-7.45)
--- NOTE | 2025-03-13 03:18 | XR_ITS ---
Examination: CTA chest with intravenous contrast 2-D reconstructions 3-D reconstructions, vascular Date and time of exam: March 13, 2025 0547 hours INDICATIONS: Shortness of breath chest pain beginning 2 days ago CTDI: vol (mGy) 07/05/1998 DLP: (mGycm) 357 Technique: Multiple axial sections of the thorax have been obtained. 3 mm slice thickness, from below the hemidiaphragms to above the apices of the lungs. Mediastinal and lung density settings have been obtained. 2-D sagittal and coronal reconstructions. 3-D angiographic renderings, 3-D volume renderings, 3D post processing, vascular maximum intensity projections obtained. Contrast administered is 100 cc Isovue-370. Low dose protocols were performed. One or more of the following dose reduction techniques were used; automated exposure control, adjustment of the mA and/or KV according to patient size, use of iterative reconstruction technique. Findings: No thoracic aortic aneurysmal dilatation or dissection Main pulmonary artery segment 33 mm No pulmonary artery filling defects Mild enlargement cardiac contour Minor bibasilar atelectasis Mild left base pneumonia with minimal left pleural disease No visualized liver splenic lesion No gallstones No pancreatic or adrenal mass Kidneys partially visualized and no hydronephrosis Visualized abdominal aorta is not enlarged Severe osteopenia with chronic osteoporotic compressions multiple thoracic vertebral bodies IMPRESSION: No thoracic aortic aneurysmal dilatation or dissection Negative for pulmonary artery emboli Mild left base pneumonia
--- NOTE | 2025-03-13 04:15 | ESHP_ITS ---
Documentation for date of: 03/13/25 [facility] History of Present Illness History of present illness: The patient is a 69-year-old male with significant past medical history of COPD on 2 L home oxygen, Hypertension, hyperlipidemia, BPH, recurrent nephrolithiasis, macular degeneration and diverticulitis presented to ED on 03/13/2025 with chief complaint of worsening of SOB for 1 day. The patient reported that he was in [place] area yesterday, had a good time and came back when he was already developing SOB. After waking up in the morning he is SOB was worsening, but again slept and when woke up around 11:30 AM it was really difficult for him to breathe. Later, he decided to come to call EMS. EMS reported that he was not on any O2, and was saturating 86%; and was placed on 15 L of oxygen. EMS placed him on CPAP and 5 mg of albuterol was given. His last ED visit was on 03/10/2025 with COPD exacerbation, and was discharged on cefuroxime and azithromycin from ED. He reported associated mild subjective fever, but denied any headache, lightheadedness, sick contact, chest pain, abdominal pain, any changes in bowel or bladder habits or leg swelling. In the ED his vitals were significant for blood pressure 199/127, pulse 114, RR 24, saturating 84% on CPAP. Labs were significant for hemoglobin 12.7, WBC 7.9, MCV 101, ABG initially revealed pH of 7.19, pCO2 97 and bicarb 37 that slightly improved to pH 7.22, pCO2 97 and bicarb of 39 after about an hour of BiPAP placement. Labs revealed sodium 143, potassium 5.1, bicarb 31.2, blood sugar 171, ALP 155, LDH 263, BNP 190, and chest x-ray as interpreted by me was significant for increased cardiac silhouette. CT angio chest pending, ordered at ED. PMH: As mentioned above SHX: Right ureteric stent placement and ESWL right kidney December 2024, L4 fusion 14 years ago, right shoulder arthroscopy, bilateral knee arthroscopy, left inguinal hernia repair 1979 Social history: Smoked for 50 years, 1 pack/year, denies alcohol or any illicit drug use Medications: Trelegy, sertraline, tamsulosin, prednisone, omeprazole, donepezil, [place], azithromycin and cefuroxime. To be reconciled. Allergies: Levofloxacin; muscle spasm Sepsis alert was called at the ED, and patient received Zosyn 3.375 g IV x 1. Patient was admitted to telemetry unit for further management of acute on chronic hypoxic hypercarbic respiratory failure secondary to COPD exacerbation. Review of Systems Review of Systems Systems Reviewed: All systems reviewed, normal except as documented Exam Vital Signs Temp Pulse Resp BP Pulse Ox O2 Del Method O2 Flow Rate 97.8 F 82 22 H 145/89 H 95 Nasal Cannula 4 03/13/25 02:58 03/13/25 04:09 03/13/25 04:09 03/13/25 02:58 03/13/25 04:09 03/13/25 02:58 03/13/25 02:58 FiO2 30 03/13/25 04:09 Narrative Exam General: Elderly, cooperative, well-nourished gentleman, no acute distress, Alert and Oriented x 3 but somnolent HEENT: Mildly dry mucous membranes, oropharynx clear Neck: Supple, No masses, No JVD CVS: S1S2 Regular rate and rhythm, No murmurs, rubs or gallops Lungs: Crackles and wheezing throughout the lung field, mild rhonchi throughout the lung field Abd: Soft, NT/ND, +BS, no organomegaly Ext: No edema, warm and well perfused Skin: No rash Psych: Somnolent Results: Labs 03/13/25 00:59 03/13/25 00:32 Labs: Short CBC 03/13/25 Range/Units 00:59 WBC 7.9 D (3.8-10.6) Thou/mm3 Hgb 12.7 L (13.5-16.0) g/dL Hct 41.7 (41.0-53.0) % Plt Count 316 D (140-440) Thou/mm3 BMP 03/13/25 00:32 Sodium 143 Potassium 5.1 D Chloride 105 Carbon Dioxide 31.2 H BUN 20 Creatinine 1.1 Glucose 171 H D Calcium 9.6 Cardiac Enzymes 03/13/25 Range/Units 00:32 Troponin I < 0.020 (0.0-0.045) ng/mL Liver Function 03/13/25 Range/Units 00:32 Total Bilirubin 0.3 (0.3-1.2) mg/dL AST 21 (0-34) U/L ALT 12 (10-49) U/L Alkaline Phosphatase 155 H (46-116) U/L Albumin 4.8 (3.4-4.8) gm/dL ABG Interpretation ABG results: 03/13/25 03/13/25 00:45 02:56 ABG pH 7.19 L* 7.22 L ABG pCO2 97 H* 95 H* ABG pO2 154 H 133 H D ABG HCO3 37 H 39 H ABG O2 Saturation 100 H 100 H ABG Base Excess 5 H 8 H Quality Measures Quality Measures none (See MDM ED course.) Advance care planning discussed with:: patient Medications Home Medications and Allergies Home Medications ?Medication ?Instructions ?Recorded ?Confirmed ?Type fluticasone fur. 100 mcg-umeclid 1 ea inhalation QDAY 10/29/23 02/17/25 History 62.5 mcg-vilant 25 mcg inhalat.powder (Trelegy Ellipta) omeprazole 20 mg capsule,delayed 20 mg PO QDAY 3 02/17/25 History release tamsulosin 0.4 mg capsule 0.4 mg PO QHS 04/05/2402/17 History donepezil 10 mg tablet 10 mg PO QDAY 10/18/2402/17 History hydrocodone 5 mg-acetaminophen 325 1 tab PO Q8H PRN pa in 01/11/25 02/17/25 History mg tablet ipratropium 0.5 mg-albuterol 3 mg 3 ml inhalation Q4H PRN shortness 01/11/25 02/17/25 History (2.5 mg base)/3 mL nebulization of breath soln sertraline 50 mg tablet (Zoloft) 50 mg PO QDAY 5 02/17/25 History Allergies Allergy/AdvReac Type Severity Reaction Status Date / Time levofloxacin (From Levaquin) Allergy Intermediate MUSCLE Verified 02/03/25 14:15 SPASMS Visit Medications Acetaminophen (Acetaminophen 325 Mg Tablet) 650 mg PO Q6H PRN PRN Reason: Fever >101.5 Stop: 04/12/25 03:57 Acetaminophen (Acetaminophen 325 Mg Tablet) 650 mg PO Q6H PRN PRN Reason: PAIN SCALE 1-3 (mild Stop: 04/12/25 03:57 Albuterol/Ipratropium (Albuterol/Ipratropium (Duoneb) Rt Sonia 3 Ml Nebu) 3 ml INH Q4HRRT RACHAEL Stop: 04/12/25 03:59 Donepezil HCl (Donepezil Hcl 5 Mg Tablet) 10 mg PO QDAY RACHAEL Stop: 04/12/25 08:59 Enoxaparin Sodium (Enoxaparin Sod Inj 40 Mg/0.4 Ml Syringe) 40 mg SC QDAY RACHAEL Stop: 03/27/25 08:59 Doxycycline Hyclate 100 mg/ (Sodium Chloride) 100 mls @ 100 mls/hr IV Q12H RACHAEL Stop: 03/20/25 03:59 Cefepime HCl 2 gm/ Sodium (Chloride) 50 mls @ 100 mls/hr IV Q8H RACHAEL Stop: 03/20/25 05:59 Doxycycline Hyclate 100 mg/ (Sodium Chloride) 100 mls @ 100 mls/hr IV X1 ONE Stop: 03/13/25 04:59 Methylprednisolone Sodium Succinate (Methylprednisolone Sod Succ 40 Mg Vial) 40 mg IVP HS [facility] Stop: 03/20/25 20:59 Sertraline HCl (Sertraline Hcl 25 Mg Tablet) 50 mg PO QDAY [facility] Stop: 04/12/25 08:59 Tamsulosin HCl (Tamsulosin Hcl 0.4 Mg Capsule) 0.4 mg PO QDAY [facility] Stop: 04/12/25 08:59 Discontinued Medications Albuterol/Ipratropium (Albuterol/Ipratropium (Duoneb) Rt Sonia 3 Ml Nebu) 3 ml INH X1 ONE Stop: 03/13/25 00:38 Last Admin: 03/13/25 01:08 Dose: 3 ml Piperacillin/Tazobactam/Dextrose (Zosyn) 3.375 gm in 50 mls @ 100 mls/hr IV X1 ONE Stop: 03/13/25 00:57 Last Infusion: 03/13/25 01:37 Dose: Infused Magnesium Sulfate (Magnesium Sulfate Ivpb) 2 gm in 50 mls @ 25 mls/hr IV X1 ONE Stop: 03/13/25 02:28 Last Infusion: 03/13/25 02:49 Dose: Infused Methylprednisolone Sodium Succinate (Methylprednisolone Sod Succ 62.5 Mg/Ml 2ml Vial) 125 mg IVP X1 ONE Stop: 03/13/25 00:30 Last Admin: 03/13/25 01:01 Dose: 125 mg Sodium Chloride (Sodium Chloride Rt 10% 15 Ml Nebu) 5 ml INH X1 ONE Stop: 03/13/25 03:59 Assessment & Plan Plan The patient is a 69-year-old male with significant past medical history of COPD on 2 L home oxygen, Hypertension, hyperlipidemia, BPH, recurrent nephrolithiasis, macular degeneration and diverticulitis presented to ED on 03/13/2025 with chief complaint of worsening of SOB for 1 day. Sepsis alert was called at the ED, and patient received Zosyn 3.375 g IV x 1. Patient was admitted to telemetry unit for further management of acute on chronic hypoxic hypercarbic respiratory failure secondary to COPD exacerbation. #Acute on chronic hypoxic hypercapnic respiratory failure #COPD exacerbation #Sepsis secondary to pneumonia #Respiratory acidosis partially compensated by metabolic alkalosis Patient presented with worsening of SOB for 1 day, was recently discharged from ED on 03/10/2025 with cefuroxime and azithromycin, likely failed the oral treatment. Patient met 2/4 SIRS criteria with tachycardia and tachypnea, and possible source of infection pneumonia. Chest x-ray as interpreted by me was only significant for increased cardiac silhouette. CTA chest pending. ABG initially revealed pH of 7.19, pCO2 97 and bicarb 37 - Patient received only 1 L of LR, as patient was having severe crackles, likely respiratory crackles, may assess the patient again and if needed can be given 30 cc/kg bolus IV fluid. - Admitted to telemetry unit - Started on cefepime and doxycycline - Blood, urine and sputum culture ordered - DuoNeb every 4 hourly scheduled - Received 1 dose of methylprednisone 125 Mg IV x 1, and started on methylprednisone 40 Mg IV daily - Currently on BiPAP, and oxygen as needed - Received 2 g magnesium sulfate IV x 1 - Repeat ABG - Daily a.m. labs for CBC, CMP and electrolytes #Hypertensive urgency #History of hypertension DDx hypertensive emergency if we consider acute hypoxic respiratory failure as endorgan failure, but unlikely as patient's current condition is likely secondary to as above. Presented with blood pressure of 199/127, that improved to 145/89 on its own - Continue to monitor for now, and patient is not on any home antihypertensive #BPH - Started on tamsulosin 0.4 Mg daily #Hyperlipidemia - Lipid panel ordered, may consider adding statins Health maintenance: Dispo: Patient admitted to telemetry unit for further management of acute on chronic hypoxic hypercapnic respiratory failure secondary to sepsis and COPD exacerbation secondary to possible pneumonia Diet: N.p.o. for now, currently on BiPAP DVT prophylaxis: Subcu enoxaparin CODE STATUS: Full code The patient's management plan was discussed with my attending physician MD En Rosas MD, PGY2 Attending Provider Attestation/Addendum I attest that I was physically present for the evaluation, physical examination, lab and imaging review of the patient with the residents. I discussed the case with the residents and agree with the findings and plans of care as documented above. Patient is a 69 years old male with past medical history of COPD on home oxygen, hypertension, hyperlipidemia, BPH, recurrent nephrolithiasis, macular degeneration and diverticulitis who presented to the ED with complaint of worsening shortness of breath. Patient was recently here on 03/10/2025 for palpitation and shortness of breath. He was discharged on azithromycin and cefuroxime from the ED. He was feeling better but started having shortness of breath again since yesterday. Patient has been not able to get good sleep and becoming sleepy throughout the day. In the ED, his blood pressure was 199/127, pulse 114, respiratory rate 24, saturating at 84% despite being on 15 L oxygen. Lab results were significant for potassium of 5.1, blood glucose 171, bicarbonate 31.2, ALP 155, LDH 263, BNP 190. ABG was obtained, which shows pH of 7.19, pCO2 97. Chest x-ray shows by basilar pneumonia. On exam, he has bilateral wheezing, he is somnolent but wakes up on calling and able to answer questions and follow commands appropriately. We will admit the patient for management of acute on chronic hypoxic hypercapnic respiratory failure, sepsis secondary to pneumonia, COPD exacerbation. We will start him on broad-spectrum antibiotic with cefepime and doxycycline. We will obtain CTA chest. Patient has been started on BiPAP. We will obtain culture results, received IV fluid bolus. Started on steroids, DuoNebs. We will obtain follow-up labs and ABGs. Patient's blood pressure has improved without intervention for now, we will continue to monitor his blood pressure. Miri Rod MD
[2025-03-13] MEDS: DOXYCYCLINE INJ 100 MG in SODIUM CHLORIDE 0.9% (POP) 100 ML IV (04:16)
[2025-03-13 05:05] LABS: Collection Type, Urine Clean Catch
[2025-03-13] MEDS: RINGERS LACTATED 1000 ML 1,000 ML 999 ML IV (05:12)
[2025-03-13] MEDS: HYDROcodone/APAP 5/325 TABLET 1 TAB PO ×2 (05:13→17:46)
[2025-03-13] MEDS: ALPRazoLAM 0.25 MG TABLET PO (05:13)
[2025-03-13 05:18] LABS: Bilirubin,Urine Negative (Negative); Blood,Urine Negative (Negative); Clarity,Urine Turbid (Clear/Hazy); Color,Urine Lt-Yellow (Lt Yel-Yel); Glucose, Urine Negative (Negative); Hyaline Casts,Urine < 1 /hpf (0-1); Ketones,Urine Negative (Negative); Leukocyte Esterase,Urine Negative (Negative); Nitrite,Urine Negative (Negative); Protein,Urine 1+ (Neg - Trace); RBC,Urine 3 /hpf (0-3); Specific Gravity,Urine 1.028 (1.001-1.035); Squamous Epithelial Cell,Urine < 1 /hpf (0-5); Urobilinogen,Urine Negative mg/dL (0.0-1.0); WBC,Urine 3 /hpf (0-5)
[2025-03-13 05:40] LABS: Basophils % (Auto) 0 % (0-2.5); Eosinophils % (Auto) 0 % (0-10); Hematocrit 39.8 % (41.0-53.0); Hemoglobin 12.2 g/dL (13.5-16.0); Immature Granulocytes % (Auto) 1 % (0-0); Immature Granulocytes Auto 0.11 Thou/mm3 (0.00-0.00); Lymphocytes # (Auto) 0.3 Thou/mm3 (1.0-4.8); Lymphocytes % (Auto) 3 % (10-50); Mean Corpuscular HGB Conc 30.7 g/dl (31.0-37.0); Mean Corpuscular Hemoglobin 30.5 pg (25.0-35.0); Mean Corpuscular Volume 100 fL (80-100); Monocytes # (Auto) 0.2 Thou/mm3 (0.0-0.8); Monocytes % (Auto) 2 % (0-12); Neutrophils # (Auto) 8.2 Thou/mm3 (1.8-7.7); Neutrophils % (Auto) 93 % (37-80); Nucleated Red Blood Cell % 0 /100 WBC (0); Platelet Count 321 Thou/mm3 (140-440); RDW Standard Deviation 47.8 fL (35.1-43.9); White Blood Count 8.8 Thou/mm3 (3.8-10.6)
[2025-03-13 06:05] LABS: Amphetamine/Methamp Scrn,U Negative (Negative); Barbiturate Screen,Urine Negative (Negative); Benzodiazepines Screen,Urine Negative (Negative); Benzoylecgonine Screen, Ur Negative (Negative); Fentanyl Screen,Urine Negative (Negative); Opiate Screen,Urine Positive (Negative); THC Screen,Urine Positive (Negative)
[2025-03-13] MEDS: CEFEPIME INJ 2 GM in SODIUM CHLORIDE 0.9% (Popper) 50 ML IV (06:18)
[2025-03-13 06:22] LABS: Alanine Aminotransferase 11 U/L (10-49); Albumin, Serum 4.2 gm/dL (3.4-4.8); Albumin/Globulin Ratio 1.5 (1.2-2.2); Alkaline Phosphatase 136 U/L (46-116); Anion Gap 5 (7-16); Aspartate Amino Transferase 14 U/L (0-34); BUN/Creatinine Ratio 23 Ratio (12-20); Bilirubin,Total 0.4 mg/dL (0.3-1.2); Blood Urea Nitrogen 23 mg/dL (9-23); Calcium 9.6 mg/dL (8.3-10.6); Calcium (Corrected) 9.6 mg/dL (8.5-10.1); Carbon Dioxide 36.2 mMol/L (20.0-31.0); Cardiac Risk Estimate 2.4 RATIO (4.0-6.7); Chloride 103 mMol/L (98-107); Cholesterol 193 mg/dL (132-200); Globulin 2.8 gm/dL (2.3-3.5); Glucose 140 mg/dL (74-106); HDL Cholesterol 80 mg/dL (40-60); LDL Cholesterol,Calculated 100 mg/dL (0-130); Magnesium 2.3 mg/dL (1.6-2.6); Osmolality,Calculated 292 (275-295); Potassium 4.5 mMol/L (3.4-5.1); Sodium 144 mMol/L (136-145); Triglycerides 65 mg/dL (30-150); eGFR > 60 See Note
[2025-03-13 06:49] LABS: Base Excess 10 (-3-3); HCO3 41 mEq/L (20-26); Inspired Oxygen, FIO2 3 %; PCO2 102 mmHg (32.0-48.0); pH, Arterial 7.21 (7.35-7.45)
[2025-03-13 06:55] LABS: PO2 24 mmHg (83-108)
[2025-03-13 06:56] LABS: Allen Test Performed/OK; O2 Saturation 41 % (91-98); Puncture Site Right Radial
--- NOTE | 2025-03-13 07:35 | PC.NURSE ---
REPORT CALLED TO LEONIE RAMIREZ FOR ROOM #350. PT RESTING COMFORTABLE IN BED. NO SOB, DYSPNEA OR DISTRESS NOTED. PT TALKING W/O DIFFICULTY; VERY PLEASANT AND COOPERATIVE. VSS. PREPARING TO TRANSFER PT VIA GURNEY TO ROOM #350 ON [facility]. TELE BOX ASSIGNED #[id number].
[2025-03-13 09:09] LABS: Base Excess 10 (-3-3); HCO3 40 mEq/L (20-26); Inspired Oxygen, FIO2 3 %; O2 Saturation 99 % (91-98); PCO2 86 mmHg (32.0-48.0); PO2 118 mmHg (83-108); pH, Arterial 7.28 (7.35-7.45)
[2025-03-13 09:10] LABS: Allen Test Performed/OK; Puncture Site Right Radial
[2025-03-13] MEDS: ACETAMINOPHEN 325 MG TABLET 650 MG PO (11:03)
[2025-03-13] MEDS: hydrOXYzine HCL 25 MG TABLET PO (11:03)
[2025-03-13] MEDS: AZITHROMYCIN INJ 500 MG in SODIUM CHLORIDE 0.9% 250 ML 250 ML 250 MG IV (14:52)
[2025-03-13] MEDS: cefTRIAXone/D5w 1gm IV premix 1 GM/50 ML BAG IV (14:52)
--- NOTE | 2025-03-13 16:47 | ESPR_ITS ---
<Statement entered by Jovanni Hollingsworth MD - 03/17/25 08:13> I reviewed above note and agree with findings and plans. I have also personally examined the patient with medicine team and went over assessment and plan with medical team including internal consultant and resident physician. <Statement entered by Vasiliy Castillo MD - 03/14/25 09:54> Patient seen and assessed at bedside. Patient continues on BIPAP, will order ABG and reevaluate O2 demand. Will continue with antibiotics. Case discussed with team. Vasiliy Castillo MD PGY3. Documentation for date of: 03/13/25 Subjective Subjective Interval history: Patient is seen and examined at bedside Admitted overnight. Reported that he is feeling better and denies any other complaints ABG showed severe respiratory acidosis with PCO2 of 102 for which patient was started on BiPAP and continued to 4 PM. Later it was discontinued Labs significant for bicarb 36.2, TSH 0.30 Will continue adjust BiPAP/CPAP and antibiotics for now Exam Vital Signs Temp Pulse Resp BP Pulse Ox O2 Del Method O2 Flow Rate 97.2 F 85 20 152/99 H 99 Nasal Cannula 4 03/13/25 16:00 03/13/25 16:00 03/13/25 16:00 03/13/25 16:00 03/13/25 16:00 03/13/25 16:00 03/13/25 16:00 FiO2 30 03/13/25 10:38 Narrative Exam General: Awake. HEENT: Normocephalic, atraumatic, mucous membranes moist. Heart: Regular rate and rhythm, no murmurs. Lungs: Bilateral diffuse expiratory wheeze heard Abdomen: Soft, nondistended, nontender, positive bowel sounds. ?No guarding or rebound tenderness. Neurologic: Alert and oriented x3, no gross neurological deficit, and patient able to move all 4 extremities. Extremities: No edema. Skin: No rash or ecchymoses. Objective Labs 03/13/25 04:26 03/13/25 04:26 Labs: Laboratory Results - last 24 hr 03/13/25 03/13/25 03/13/25 00:32 00:45 00:59 WBC 7.9 D RBC 4.14 L Hgb 12.7 L Hct 41.7 MCV 101 H MCH 30.7 MCHC 30.5 L RDW Std Deviation 48.7 H Plt Count 316 D Neut % (Auto) 87 H Lymph % (Auto) 5 L [place] % (Auto) 5 Eos % (Auto) 0 Baso % (Auto) 0 Neut # (Auto) 6.8 Lymph # (Auto) 0.4 L [place] # (Auto) 0.4 Eos # (Auto) 0.0 Baso # (Auto) 0.0 Immature Gran # (Auto) 0.18 H Absolute Nucleated RBC 0.00 Immature Gran % 2 H Nucleated RBC % 0 PT 10.6 INR 1.0 APTT 20.0 L Puncture Site Left Radial ABG pH 7.19 L* ABG pCO2 97 H* ABG pO2 154 H ABG HCO3 37 H ABG O2 Saturation 100 H ABG Base Excess 5 H FiO2 21 Sodium 143 Potassium 5.1 D Chloride 105 Carbon Dioxide 31.2 H Anion Gap 7 BUN 20 Creatinine 1.1 Estim Creat Clear Calc 67.3 eGFR > 60 BUN/Creatinine Ratio 18 Glucose 171 H D Calculated Osmolality 291 Lactic Acid 1.2 Calcium 9.6 Corrected Calcium 9.6 Phosphorus 4.8 Magnesium 2.0 Total Bilirubin 0.3 AST 21 ALT 12 Alkaline Phosphatase 155 H Lactate Dehydrogenase 263 H Troponin I < 0.020 B-Natriuretic Peptide 190 H Total Protein 7.7 Albumin 4.8 Globulin 2.9 Albumin/Globulin Ratio 1.7 Triglycerides Cholesterol LDL Cholesterol, Calc HDL Cholesterol Cholesterol/HDL Ratio Lipase 28 Procalcitonin 0.17 TSH Ur Collection Type Urine Color Urine Clarity Urine pH Ur Specific [place] Urine Protein Urine Glucose (UA) Urine Ketones Urine Blood Urine Nitrite Urine Bilirubin Urine Urobilinogen (Auto) Ur Leukocyte Esterase Urine RBC Urine WBC Ur Squamous Epith Cells Urine Bacteria Hyaline Casts Urine Opiates Screen Urine Fentanyl Screen Ur Barbiturates Screen U Amphetamin/Meth Scrn U Benzodiazepines Scrn U Cocaine Metab Screen U Marijuana (THC) Screen 03/13/25 03/13/25 03/13/25 02:56 04:26 04:59 WBC 8.8 RBC 4.00 L Hgb 12.2 L Hct 39.8 L MCV 100 MCH 30.5 MCHC 30.7 L RDW Std Deviation 47.8 H Plt Count 321 Neut % (Auto) 93 H Lymph % (Auto) 3 L [place] % (Auto) 2 Eos % (Auto) 0 Baso % (Auto) 0 Neut # (Auto) 8.2 H Lymph # (Auto) 0.3 L [place] # (Auto) 0.2 Eos # (Auto) 0.0 Baso # (Auto) 0.0 Immature Gran # (Auto) 0.11 H Absolute Nucleated RBC 0.00 Immature Gran % 1 H Nucleated RBC % 0 PT INR APTT Puncture Site Right Radial ABG pH 7.22 L ABG pCO2 95 H* ABG pO2 133 H D ABG HCO3 39 H ABG O2 Saturation 100 H ABG Base Excess 8 H FiO2 4 Sodium 144 Potassium 4.5 D Chloride 103 Carbon Dioxide 36.2 H Anion Gap 5 L BUN 23 Creatinine 1.0 Estim Creat Clear Calc 74.0 eGFR > 60 BUN/Creatinine Ratio 23 H Glucose 140 H Calculated Osmolality 292 Lactic Acid Calcium 9.6 Corrected Calcium 9.6 Phosphorus Magnesium 2.3 Total Bilirubin 0.4 AST 14 ALT 11 Alkaline Phosphatase 136 H Lactate Dehydrogenase Troponin I B-Natriuretic Peptide Total Protein 7.0 Albumin 4.2 D Globulin 2.8 Albumin/Globulin Ratio 1.5 Triglycerides 65 Cholesterol 193 LDL Cholesterol, Calc 100 HDL Cholesterol 80 H Cholesterol/HDL Ratio 2.4 L Lipase Procalcitonin TSH 0.30 L Ur Collection Type Clean Catch Urine Color Lt-Yellow Urine Clarity Turbid A Urine pH 6.0 Ur Specific [place] 1.028 Urine Protein 1+ A Urine Glucose (UA) Negative Urine Ketones Negative Urine Blood Negative Urine Nitrite Negative Urine Bilirubin Negative Urine Urobilinogen (Auto) Negative Ur Leukocyte Esterase Negative Urine RBC 3 Urine WBC 3 Ur Squamous Epith Cells < 1 Urine Bacteria None Hyaline Casts < 1 Urine Opiates Screen Positive A Urine Fentanyl Screen Negative Ur Barbiturates Screen Negative U Amphetamin/Meth Scrn Negative U Benzodiazepines Scrn Negative U Cocaine Metab Screen Negative U Marijuana (THC) Screen Positive A 03/13/25 03/13/25 06:37 09:04 WBC RBC Hgb Hct MCV MCH MCHC RDW Std Deviation Plt Count Neut % (Auto) Lymph % (Auto) [place] % (Auto) Eos % (Auto) Baso % (Auto) Neut # (Auto) Lymph # (Auto) [place] # (Auto) Eos # (Auto) Baso # (Auto) Immature Gran # (Auto) Absolute Nucleated RBC Immature Gran % Nucleated RBC % PT INR APTT Puncture Site Right Radial Right Radial ABG pH 7.21 L 7.28 L ABG pCO2 102 H* 86 H* D ABG pO2 24 L* D 118 H D ABG HCO3 41 H 40 H ABG O2 Saturation 41 L 99 H ABG Base Excess 10 H 10 H FiO2 3 3 Sodium Potassium Chloride Carbon Dioxide Anion Gap BUN Creatinine Estim Creat Clear Calc eGFR BUN/Creatinine Ratio Glucose Calculated Osmolality Lactic Acid Calcium Corrected Calcium Phosphorus Magnesium Total Bilirubin AST ALT Alkaline Phosphatase Lactate Dehydrogenase Troponin I B-Natriuretic Peptide Total Protein Albumin Globulin Albumin/Globulin Ratio Triglycerides Cholesterol LDL Cholesterol, Calc HDL Cholesterol Cholesterol/HDL Ratio Lipase Procalcitonin TSH Ur Collection Type Urine Color Urine Clarity Urine pH Ur Specific [place] Urine Protein Urine Glucose (UA) Urine Ketones Urine Blood Urine Nitrite Urine Bilirubin Urine Urobilinogen (Auto) Ur Leukocyte Esterase Urine RBC Urine WBC Ur Squamous Epith Cells Urine Bacteria Hyaline Casts Urine Opiates Screen Urine Fentanyl Screen Ur Barbiturates Screen U Amphetamin/Meth Scrn U Benzodiazepines Scrn U Cocaine Metab Screen U Marijuana (THC) Screen ABG Interpretation ABG results: 03/13/25 03/13/25 03/13/25 00:45 02:56 06:37 ABG pH 7.19 L* 7.22 L 7.21 L ABG pCO2 97 H* 95 H* 102 H* ABG pO2 154 H 133 H D 24 L* D ABG HCO3 37 H 39 H 41 H ABG O2 Saturation 100 H 100 H 41 L ABG Base Excess 5 H 8 H 10 H 03/13/25 09:04 ABG pH 7.28 L ABG pCO2 86 H* D ABG pO2 118 H D ABG HCO3 40 H ABG O2 Saturation 99 H ABG Base Excess 10 H Quality Measures Quality Measures none (See MDM ED course.) Advance care planning discussed with:: patient Assessment & Plan Assessment Current Active Medications: Generic Name Dose Route Start Last Admin Trade Name Freq PRN Reason Stop Dose Admin Acetaminophen 650 mg 03/13/25 03:58 03/13/25 11:03 Acetaminophen 325 Mg Tablet PO 04/12/25 03:57 650 mg Q6H PRN Administration Fever >101.5 Acetaminophen 650 mg 03/13/25 03:58 Acetaminophen 325 Mg Tablet PO 04/12/25 03:57 Q6H PRN PAIN SCALE 1-3 (mild Hydrocodone Bitart/Acetaminophen 1 tab 03/13/25 04:59 03/13/25 05:13 Hydrocodone/Apap 5/325 Tablet PO 03/18/25 04:58 1 tab Q6H PRN Administration Pain 4-10 Albuterol/Ipratropium 3 ml 03/13/25 04:00 03/13/25 14:52 Albuterol/Ipratropium (Duoneb) Rt Sonia 3 Ml Nebu INH 04/12/25 03:59 3 ml Q4HRRT RACHAEL Administration Donepezil HCl 10 mg 03/13/25 09:00 03/13/25 08:30 Donepezil Hcl 5 Mg Tablet PO 04/12/25 08:59 Not Given QDAY RACHAEL Enoxaparin Sodium 40 mg 03/13/25 09:00 03/13/25 08:30 Enoxaparin Sod Inj 40 Mg/0.4 Ml Syringe SC 03/27/25 08:59 Not Given QDAY RACHAEL Ceftriaxone Sodium/Dextrose 1 gm in 50 mls @ 100 mls/hr 03/13/25 11:06 03/13/25 14:52 Rocephin/D5w 1gm Iv Premix IV 03/20/25 11:05 100 mls/hr QDAY RACHAEL Administration Azithromycin 500 mg/ Sodium 250 mls @ 250 mls/hr 03/13/25 11:07 03/13/25 14:52 Chloride IV 03/20/25 11:06 250 mls/hr QDAY RACHAEL Administration Methylprednisolone Sodium Succinate 40 mg 03/13/25 21:00 Methylprednisolone Sod Succ 40 Mg Vial IVP 03/20/25 20:59 RACHAEL Sertraline HCl 50 mg 03/13/25 09:00 03/13/25 08:30 Sertraline Hcl 25 Mg Tablet PO 04/12/25 08:59 Not Given QDAY RACHAEL Tamsulosin HCl 0.4 mg 03/13/25 09:00 03/13/25 08:30 Tamsulosin Hcl 0.4 Mg Capsule PO 04/12/25 08:59 Not Given QDAY RACHAEL Plan The patient is a 69-year-old male with significant past medical history of COPD on 2 L home oxygen, Hypertension, hyperlipidemia, BPH, recurrent nephrolithiasis, macular degeneration and diverticulitis presented to ED on 03/13/2025 with chief complaint of worsening of SOB for 1 day. Sepsis alert was called at the ED, and patient received Zosyn 3.375 g IV x 1. Patient was admitted to telemetry unit for further management of acute on chronic hypoxic hypercarbic respiratory failure secondary to COPD exacerbation. #Acute on chronic hypoxic hypercapnic respiratory failure #COPD exacerbation #Sepsis secondary to pneumonia #Respiratory acidosis partially compensated by metabolic alkalosis Patient presented with worsening of SOB for 1 day, was recently discharged from ED on 03/10/2025 with cefuroxime and azithromycin, likely failed the oral treatment. Chest x-ray did not show any infiltrates. CT angio chest is negative for pulmonary emboli ABG initially revealed pH of 7.19, pCO2 97 and bicarb 37 - Blood, urine and sputum culture ordered, pending Plan - Admitted to telemetry unit - Started on ceftriaxone and azithromycin [03/13- - DuoNeb every 4 hourly scheduled - Started on methylprednisone 40 Mg IV daily - HS BiPAP/CPAP, and oxygen as needed #History of hypertension Presented with blood pressure of 199/127, that improved to 145/89 on its own Continue to monitor for now, and patient is not on any home antihypertensive #BPH - Started on tamsulosin 0.4 Mg daily #Hyperlipidemia - Lipid panel ordered, Within normal limits Health maintenance: Dispo: Tele Diet: low sodium diet DVT prophylaxis: Subcu enoxaparin CODE STATUS: Full code Patient plan of care was discussed with the attending physician, Dr. Hollingsworth and senior resident Dr. Dr. Jonathan Garcia, PGY1
[2025-03-13] MEDS: LORazepam 0.5 MG TABLET 0.25 MG PO (17:45)
[2025-03-13 18:46] LABS: Base Excess 10 (-3-3); HCO3 39 mEq/L (20-26); Inspired Oxygen, FIO2 21 %; O2 Saturation 99 % (91-98); PCO2 76 mmHg (32.0-48.0); PO2 102 mmHg (83-108); pH, Arterial 7.32 (7.35-7.45)
[2025-03-13 18:49] LABS: Allen Test Performed/OK; Puncture Site Right Radial
[2025-03-14] VITALS (19 sets, daily range): BP systolic 141–155; BP diastolic 84–101; PULSE 69–105; RESP 18–30; TEMP 36.1–36.4; O2SAT 95–100; BMI 24.7
[2025-03-14] MEDS: hydrOXYzine HCL 25 MG TABLET PO (02:52)
[2025-03-14] MEDS: ALBUTEROL/IPRATROPIUM (Duoneb) RT SOL 3 ML NEBU INH ×6 (03:20→22:49)
[2025-03-14 04:05] LABS: Influenza A Ag Negative; Influenza B Ag Negative
[2025-03-14] MEDS: guaiFENesin SYRUP 200 MG/10 ML UDC 100 MG PO ×3 (04:20→17:05)
[2025-03-14] MEDS: SERTRALINE HCL 25 MG TABLET 50 MG PO (04:20)
[2025-03-14] MEDS: HYDROcodone/APAP 5/325 TABLET 1 TAB PO ×3 (04:26→19:03)
[2025-03-14 05:45] LABS: Basophils % (Auto) 0 % (0-2.5); Eosinophils % (Auto) 0 % (0-10); Hematocrit 41.8 % (41.0-53.0); Hemoglobin 12.8 g/dL (13.5-16.0); Immature Granulocytes % (Auto) 1 % (0-0); Immature Granulocytes Auto 0.08 Thou/mm3 (0.00-0.00); Lymphocytes # (Auto) 0.7 Thou/mm3 (1.0-4.8); Lymphocytes % (Auto) 7 % (10-50); Mean Corpuscular HGB Conc 30.6 g/dl (31.0-37.0); Mean Corpuscular Hemoglobin 30.3 pg (25.0-35.0); Mean Corpuscular Volume 99 fL (80-100); Monocytes # (Auto) 0.6 Thou/mm3 (0.0-0.8); Monocytes % (Auto) 6 % (0-12); Neutrophils # (Auto) 8.9 Thou/mm3 (1.8-7.7); Neutrophils % (Auto) 87 % (37-80); Nucleated Red Blood Cell % 0 /100 WBC (0); Platelet Count 272 Thou/mm3 (140-440); RDW Standard Deviation 47.2 fL (35.1-43.9); Red Blood Count 4.23 Miln/mm3 (4.50-5.90); White Blood Count 10.3 Thou/mm3 (3.8-10.6)
[2025-03-14 06:25] LABS: Alanine Aminotransferase 10 U/L (10-49); Albumin, Serum 4.2 gm/dL (3.4-4.8); Albumin/Globulin Ratio 1.6 (1.2-2.2); Alkaline Phosphatase 122 U/L (46-116); Anion Gap 4 (7-16); Aspartate Amino Transferase 16 U/L (0-34); BUN/Creatinine Ratio 22 Ratio (12-20); Bilirubin,Total 0.4 mg/dL (0.3-1.2); Blood Urea Nitrogen 22 mg/dL (9-23); Calcium 9.8 mg/dL (8.3-10.6); Calcium (Corrected) 9.8 mg/dL (8.5-10.1); Carbon Dioxide 37.4 mMol/L (20.0-31.0); Chloride 102 mMol/L (98-107); Globulin 2.6 gm/dL (2.3-3.5); Glucose 111 mg/dL (74-106); Osmolality,Calculated 289 (275-295); Phosphorous 2.9 mg/dL (2.4-5.1); Potassium 5.1 mMol/L (3.4-5.1); Sodium 143 mMol/L (136-145); Total Protein 6.8 gm/dL (5.7-8.2); eGFR > 60 See Note
[2025-03-14 08:57] LABS: Free T4 (Free Thyroxine) 1.47 ng/dL (0.89-1.76)
[2025-03-14 09:03] LABS: Base Excess 13 (-3-3); HCO3 42 mEq/L (20-26); Inspired O2, VO2 Liters 3 L/min; O2 Saturation 99 % (91-98); PCO2 82 mmHg (32.0-48.0); PO2 122 mmHg (83-108); pH, Arterial 7.32 (7.35-7.45)
[2025-03-14 09:05] LABS: Puncture Site Left Radial
[2025-03-14 09:06] LABS: Allen Test Performed/OK
[2025-03-14] MEDS: cefTRIAXone/D5w 1gm IV premix 1 GM/50 ML BAG IV (09:22)
[2025-03-14] MEDS: AZITHROMYCIN INJ 500 MG in SODIUM CHLORIDE 0.9% 250 ML 250 ML 250 MG IV (09:22)
[2025-03-14] MEDS: DONEPEZIL HCL 5 MG TABLET 10 MG PO (09:22)
[2025-03-14] MEDS: ENOXAPARIN SOD INJ 40 MG/0.4 ML SYRINGE SC (09:23)
[2025-03-14] MEDS: TAMSULOSIN HCL 0.4 MG CAPSULE PO (09:23)
[2025-03-14] MEDS: LORazepam 0.5 MG TABLET PO (10:11)
[2025-03-14] MEDS: PANTOPRAZOLE INJ 40 MG VIAL IVP (10:42)
[2025-03-14 12:18] LABS: Cocci Serology, IgM Negative (Negative)
--- NOTE | 2025-03-14 12:37 | PC.NURSE ---
took patient off Bipap. On for 2 hours. Will have lunch. 02 sats 99% on 3 liters pr.
--- NOTE | 2025-03-14 16:03 | PC.SS ---
SS follow up note; SS was informed During rounding that patient will need Trilogy before discharge. SS sent Trilogy referral through [employer].
--- NOTE | 2025-03-14 16:43 | PC.SS ---
AIRAM Brady completed a face to face biopsychosocial assessment with the pt at bedside. Pt was AOX4 , but was on a BiPap so this typewriter assembler could not verbally complete the assessment with the pt; typewriter assembler completed the assessment with the pts daughter named Celeste [phone]. Per Celeste, pts demographics are correct as well as his insurance information. Pt resides with his , Denisse and Celeste is the designated caregiver. Celeste reported that pt does not cook or clean on his own, and reports she cooks and cleans for the pt when the pts spouse is not available. Celeste reported that prior to the pt being admitted, the pt was ambulating with the use of a walker (rollator). Pt does not use any other DME at home besides the walker. Pt is unable to cook on his own. Pt bathes on his own, but requires assistance getting in and out of the shower. Pt currently is on a BiPap and SS will request a BiPap for home, as Attending Dr. Hollingsworth has requested. Elviawinifred reported the pts PCP is Ellie Fountain at Dr. Mary Lou Kilgore's office and pts specialist is Olga treating the vascular dementia dx. Per pts daughter, pt is a Full Code, but limited. Per Celeste, pt is currently suffering from anxiety with the Bipap on and is was refusing the machine. However, pt is now cooperative. Pt's pharmacy is [facility] in [place]. Needs: Pt is needing DME Trilogy. SS has requested via [facility], pending approval. No current SS concerns at this time. Next of Kin: Denisse Metz [phone] Hair Specialist: Celeste Sosa [phone] D/c plan: Plan is to d/c home, per daughter Celeste.
--- NOTE | 2025-03-14 17:21 | ESPR_ITS ---
<Statement entered by Jovanni Hollingsworth MD - 03/19/25 08:35> I reviewed above note and agree with findings and plans. I have also personally examined the patient with medicine team and went over assessment and plan with medical team including internal investigator and resident physician. <Statement entered by Stevo Cardenas MD - 03/19/25 08:32> Senior Resident Attestation: I supervised/discussed management plan with internal investigator physician Dr. Garcia, and was involved in the care of this patient. I personally saw and examined the patient and discussed the assessment and plan with the entire medicine team, including my attending. I agree with the assessment and plan as documented. Patient's care was discussed with attending physician, Dr. Hollingsworth. Stevo Cardenas MD PGY-2. Documentation for date of: 03/14/25 Subjective Subjective Interval history: Patient is seen and examined at bedside. No acute overnight events. Patient did not keep BiPAP overnight but patient is doing well this morning. Vitals are stable. On physical examination, bilateral wheeze heard. ABG done this morning showed pH 7.32, pCO2 82. Increased dose of methylprednisolone from 40mg to 60mg thrice daily Will continue HS CPAP/BiPAP Exam Vital Signs Temp Pulse Resp BP Pulse Ox O2 Del Method O2 Flow Rate 97.1 F 86 19 149/84 H 98 Nasal Cannula 4 03/14/25 15:44 03/14/25 16:00 03/14/25 15:44 03/14/25 15:44 03/14/25 15:44 03/14/25 15:44 03/14/25 15:44 FiO2 30 03/14/25 10:21 Narrative Exam General: Awake. HEENT: Normocephalic, atraumatic, mucous membranes moist. Heart: Regular rate and rhythm, no murmurs. Lungs: B/L diffuse expiratory wheeze heard. Abdomen: Soft, nondistended, nontender, positive bowel sounds. ?No guarding or rebound tenderness. Neurologic: Alert and oriented x3, no gross neurological deficit, and patient able to move all 4 extremities. Extremities: No edema. Skin: No rash or ecchymoses. Objective Labs 03/14/25 05:05 03/14/25 05:05 Labs: Laboratory Results - last 24 hr 03/13/25 03/14/25 03/14/25 18:38 03:00 05:05 WBC 10.3 RBC 4.23 L Hgb 12.8 L Hct 41.8 MCV 99 MCH 30.3 MCHC 30.6 L RDW Std Deviation 47.2 H Plt Count 272 D Neut % (Auto) 87 H Lymph % (Auto) 7 L [place] % (Auto) 6 Eos % (Auto) 0 Baso % (Auto) 0 Neut # (Auto) 8.9 H Lymph # (Auto) 0.7 L [place] # (Auto) 0.6 Eos # (Auto) 0.0 Baso # (Auto) 0.0 Immature Gran # (Auto) 0.08 H Absolute Nucleated RBC 0.00 Immature Gran % 1 H Nucleated RBC % 0 Puncture Site Right Radial ABG pH 7.32 L ABG pCO2 76 H* D ABG pO2 102 ABG HCO3 39 H ABG O2 Saturation 99 H ABG Base Excess 10 H Oxygen Liter Flow FiO2 21 Sodium 143 Potassium 5.1 D Chloride 102 Carbon Dioxide 37.4 H Anion Gap 4 L BUN 22 Creatinine 1.0 Estim Creat Clear Calc 74.0 eGFR > 60 BUN/Creatinine Ratio 22 H Glucose 111 H Calculated Osmolality 289 Calcium 9.8 Corrected Calcium 9.8 Phosphorus 2.9 Magnesium 2.0 Total Bilirubin 0.4 AST 16 ALT 10 Alkaline Phosphatase 122 H Total Protein 6.8 Albumin 4.2 Globulin 2.6 Albumin/Globulin Ratio 1.6 Free T4 1.47 Coccidioides IgM Ab Negative Influenza A (Rapid) Negative Influenza B (Rapid) Negative 03/14/25 08:55 WBC RBC Hgb Hct MCV MCH MCHC RDW Std Deviation Plt Count Neut % (Auto) Lymph % (Auto) [place] % (Auto) Eos % (Auto) Baso % (Auto) Neut # (Auto) Lymph # (Auto) [place] # (Auto) Eos # (Auto) Baso # (Auto) Immature Gran # (Auto) Absolute Nucleated RBC Immature Gran % Nucleated RBC % Puncture Site Left Radial ABG pH 7.32 L ABG pCO2 82 H* ABG pO2 122 H D ABG HCO3 42 H ABG O2 Saturation 99 H ABG Base Excess 13 H Oxygen Liter Flow 3 FiO2 Sodium Potassium Chloride Carbon Dioxide Anion Gap BUN Creatinine Estim Creat Clear Calc eGFR BUN/Creatinine Ratio Glucose Calculated Osmolality Calcium Corrected Calcium Phosphorus Magnesium Total Bilirubin AST ALT Alkaline Phosphatase Total Protein Albumin Globulin Albumin/Globulin Ratio Free T4 Coccidioides IgM Ab Influenza A (Rapid) Influenza B (Rapid) ABG Interpretation ABG results: 03/13/25 03/13/25 03/13/25 00:45 02:56 06:37 ABG pH 7.19 L* 7.22 L 7.21 L ABG pCO2 97 H* 95 H* 102 H* ABG pO2 154 H 133 H D 24 L* D ABG HCO3 37 H 39 H 41 H ABG O2 Saturation 100 H 100 H 41 L ABG Base Excess 5 H 8 H 10 H 03/13/25 03/13/25 03/14/25 09:04 18:38 08:55 ABG pH 7.28 L 7.32 L 7.32 L ABG pCO2 86 H* D 76 H* D 82 H* ABG pO2 118 H D 102 122 H D ABG HCO3 40 H 39 H 42 H ABG O2 Saturation 99 H 99 H 99 H ABG Base Excess 10 H 10 H 13 H Quality Measures Quality Measures none (See MDM ED course.) Advance care planning discussed with:: patient Assessment & Plan Assessment Current Active Medications: Generic Name Dose Route Start Last Admin Trade Name Freq PRN Reason Stop Dose Admin Acetaminophen 650 mg 03/13/25 03:58 03/13/25 11:03 Acetaminophen 325 Mg Tablet PO 04/12/25 03:57 650 mg Q6H PRN Administration Fever >101.5 Acetaminophen 650 mg 03/13/25 03:58 Acetaminophen 325 Mg Tablet PO 04/12/25 03:57 Q6H PRN PAIN SCALE 1-3 (mild Hydrocodone Bitart/Acetaminophen 1 tab 03/13/25 04:59 03/14/25 13:17 Hydrocodone/Apap 5/325 Tablet PO 03/18/25 04:58 1 tab Q6H PRN Administration Pain 4-10 Albuterol/Ipratropium 3 ml 03/13/25 04:00 03/14/25 13:47 Albuterol/Ipratropium (Duoneb) Rt Sonia 3 Ml Nebu INH 04/12/25 03:59 3 ml Q4HRRT RACHAEL Administration Donepezil HCl 10 mg 03/14/25 09:00 03/14/25 09:22 Donepezil Hcl 5 Mg Tablet PO 04/13/25 08:59 10 mg QDAY RACHAEL Administration Enoxaparin Sodium 40 mg 03/13/25 09:00 03/14/25 09:23 Enoxaparin Sod Inj 40 Mg/0.4 Ml Syringe SC 03/27/25 08:59 40 mg QDAY RACHAEL Administration Guaifenesin 100 mg 03/14/25 04:07 03/14/25 17:05 Guaifenesin Syrup 200 Mg/10 Ml Udc PO 04/13/25 04:06 100 mg QID PRN Administration COUGH Protocol Ceftriaxone Sodium/Dextrose 1 gm in 50 mls @ 100 mls/hr 03/13/25 11:06 03/14/25 09:22 Rocephin/D5w 1gm Iv Premix IV 03/20/25 11:05 100 mls/hr QDAY RACHAEL Administration Azithromycin 500 mg/ Sodium 250 mls @ 250 mls/hr 03/13/25 11:07 03/14/25 09:22 Chloride IV 03/20/25 11:06 250 mls/hr QDAY RACHAEL Administration Methylprednisolone Sodium Succinate 60 mg 03/14/25 14:00 03/14/25 13:05 Methylprednisolone Sod Succ 40 Mg Vial IVP 03/21/25 13:59 60 mg TID RACHAEL Administration Pantoprazole Sodium 40 mg 03/14/25 10:30 03/14/25 10:42 Pantoprazole Inj 40 Mg Vial IVP 04/13/25 10:29 40 mg QDAY RACHAEL Administration Sertraline HCl 50 mg 03/13/25 09:00 03/14/25 04:20 Sertraline Hcl 25 Mg Tablet PO 04/12/25 08:59 50 mg QDAY RACHAEL Administration Tamsulosin HCl 0.4 mg 03/13/25 09:00 03/14/25 09:23 Tamsulosin Hcl 0.4 Mg Capsule PO 04/12/25 08:59 0.4 mg QDAY RACHAEL Administration Plan The patient is a 69-year-old male with significant past medical history of COPD on 2 L home oxygen, Hypertension, hyperlipidemia, BPH, recurrent nephrolithiasis, macular degeneration and diverticulitis presented to ED on 03/13/2025 with chief complaint of worsening of SOB for 1 day. Sepsis alert was called at the ED, and patient received Zosyn 3.375 g IV x 1. Patient was admitted to telemetry unit for further management of acute on chronic hypoxic hypercarbic respiratory failure secondary to COPD exacerbation. #Acute on chronic hypoxic hypercapnic respiratory failure #COPD exacerbation #Sepsis secondary to pneumonia #Respiratory acidosis partially compensated by metabolic alkalosis Patient presented with worsening of SOB for 1 day, was recently discharged from ED on 03/10/2025 with cefuroxime and azithromycin, likely failed the oral treatment. Chest x-ray did not show any infiltrates. CT angio chest is negative for pulmonary emboli ABG initially revealed pH of 7.19, pCO2 97 and bicarb 37 - Blood, urine and sputum culture ordered, pending Plan - Admitted to telemetry unit - Started on ceftriaxone and azithromycin [03/13- - DuoNeb every 4 hourly scheduled - Methylprednisolone 60 Mg IV 3 times daily - HS BiPAP/CPAP, and oxygen as needed #History of hypertension Presented with blood pressure of 199/127, that improved to 145/89 on its own Continue to monitor for now, and patient is not on any home antihypertensive #BPH - Started on tamsulosin 0.4 Mg daily #Hyperlipidemia - Lipid panel ordered, Within normal limits Health maintenance: Dispo: Tele Diet: low sodium diet DVT prophylaxis: Subcu enoxaparin CODE STATUS: Full code Patient plan of care was discussed with the attending physician, Dr. Hollingsworth and senior resident Dr. Ronald Garcia, PGY1
--- NOTE | 2025-03-14 18:25 | PC.RT ---
sputum obtained at 18:22, pt expectorated thin yellow sent to lab at this time.
--- NOTE | 2025-03-14 18:53 | PC.NURSE ---
Notified Dr. Garcia of patients condition. Patient anxious, flushed 02 sats 83% on 4 liters nc. Notified Daughter Celeste per patient request. On oximask at 7liters.
[2025-03-14] MEDS: LORazepam 2 MG/ML VIAL 0.5 MG IVP (19:03)
[2025-03-14] MEDS: DiphenhydrAMINE 25 MG CAPSULE PO ×2 (19:03→23:27)
--- NOTE | 2025-03-14 23:55 | PC.NURSE ---
pt request to remove bipap and switched to nasal cannula- Removed bipap and applied O2 inh at 3L/min/nc. RT made aware.
[2025-03-15] VITALS (15 sets, daily range): BP systolic 130–166; BP diastolic 80–105; PULSE 71–94; RESP 13–21; TEMP 36.3–36.9; O2SAT 95–100; BMI 24.7
[2025-03-15] MEDS: ALBUTEROL/IPRATROPIUM (Duoneb) RT SOL 3 ML NEBU INH ×6 (02:51→22:09)
[2025-03-15 05:32] LABS: Basophils % (Auto) 0 % (0-2.5); Eosinophils % (Auto) 0 % (0-10); Hemoglobin 12.5 g/dL (13.5-16.0); Immature Granulocytes % (Auto) 1 % (0-0); Immature Granulocytes Auto 0.04 Thou/mm3 (0.00-0.00); Nucleated Red Blood Cell % 0 /100 WBC (0)
[2025-03-15 05:37] LABS: Hematocrit 39.8 % (41.0-53.0); Lymphocytes # (Auto) 0.5 Thou/mm3 (1.0-4.8); Lymphocytes % (Auto) 8 % (10-50); Mean Corpuscular HGB Conc 31.4 g/dl (31.0-37.0); Mean Corpuscular Hemoglobin 30.4 pg (25.0-35.0); Mean Corpuscular Volume 97 fL (80-100); Monocytes # (Auto) 0.3 Thou/mm3 (0.0-0.8); Monocytes % (Auto) 5 % (0-12); Neutrophils # (Auto) 5.3 Thou/mm3 (1.8-7.7); Neutrophils % (Auto) 86 % (37-80); Platelet Count 313 Thou/mm3 (140-440); RDW Standard Deviation 46.4 fL (35.1-43.9); Red Blood Count 4.11 Miln/mm3 (4.50-5.90); White Blood Count 6.2 Thou/mm3 (3.8-10.6)
[2025-03-15 06:04] LABS: Alanine Aminotransferase 8 U/L (10-49); Albumin, Serum 3.9 gm/dL (3.4-4.8); Albumin/Globulin Ratio 1.5 (1.2-2.2); Alkaline Phosphatase 111 U/L (46-116); Anion Gap 4 (7-16); Aspartate Amino Transferase 10 U/L (0-34); BUN/Creatinine Ratio 26 Ratio (12-20); Bilirubin,Total 0.5 mg/dL (0.3-1.2); Blood Urea Nitrogen 26 mg/dL (9-23); Calcium 9.4 mg/dL (8.3-10.6); Calcium (Corrected) 9.5 mg/dL (8.5-10.1); Carbon Dioxide 39.6 mMol/L (20.0-31.0); Chloride 98 mMol/L (98-107); Globulin 2.6 gm/dL (2.3-3.5); Glucose 121 mg/dL (74-106); Magnesium 1.9 mg/dL (1.6-2.6); Osmolality,Calculated 288 (275-295); Phosphorous 2.6 mg/dL (2.4-5.1); Potassium 4.7 mMol/L (3.4-5.1); Sodium 142 mMol/L (136-145); Total Protein 6.5 gm/dL (5.7-8.2); eGFR > 60 See Note
[2025-03-15] MEDS: guaiFENesin SYRUP 200 MG/10 ML UDC 100 MG PO ×2 (07:52→18:23)
[2025-03-15] MEDS: HYDROcodone/APAP 5/325 TABLET 1 TAB PO ×3 (07:53→22:04)
[2025-03-15] MEDS: ENOXAPARIN SOD INJ 40 MG/0.4 ML SYRINGE SC (09:34)
[2025-03-15] MEDS: TAMSULOSIN HCL 0.4 MG CAPSULE PO (09:34)
[2025-03-15] MEDS: cefTRIAXone/D5w 1gm IV premix 1 GM/50 ML BAG IV (09:34)
[2025-03-15] MEDS: AZITHROMYCIN INJ 500 MG in SODIUM CHLORIDE 0.9% 250 ML 250 ML 250 MG IV (09:34)
[2025-03-15] MEDS: SERTRALINE HCL 25 MG TABLET 50 MG PO (09:35)
[2025-03-15] MEDS: PANTOPRAZOLE INJ 40 MG VIAL IVP (09:35)
[2025-03-15] MEDS: DONEPEZIL HCL 5 MG TABLET 10 MG PO (09:35)
--- NOTE | 2025-03-15 10:02 | PC.SS ---
Trilogy Machine A Trilogy Machine has been ordered due to, Chronic Respiratory Failure, (J96.10), and for COPD (J44.9). Pt needs Mechanical ventilator due to chronic respiratory failure due to severe COPD. Patient needs to keep the tidal volume to prevent CO2 retention. A Ventilator is required to improve the pts pulmonary status. Without this respiratory support in the home it could lead to serious harm or . The BiPAP therapy did not improve the pts respiratory status and failed. BiPAP has been considered and ruled out.
[2025-03-15 10:57] LABS: Cocci Serology, IgG Negative (Negative)
--- NOTE | 2025-03-15 12:42 | PC.SS ---
NIV Therapy document his CRF due to COPD and they need to state exactly what the home vent will provide that the bipap will not or the INS will deny it ?MD can indicate something like: ventilator is needed to provide dual settings of NIV and high flow therapy which can't be obtained through bipap or avaps. Patient will benefit from NIV therapy to prevent future hospitalizations and keep CO2 out of the lungs which will increase the patient?s quality of life. This is a recommendation for the physician, however their own words need to be used to complete chart note and need for NIV therapy
[2025-03-15] MEDS: LORazepam 0.5 MG TABLET PO ×2 (14:26→22:04)
--- NOTE | 2025-03-15 14:31 | PC.SS ---
SS follow up note; Patient is still wheezing. Trilogy pending, Patient will discharge home tomorrow.
--- NOTE | 2025-03-15 14:55 | PC.RT ---
SS follow up note; SS working with [facility] for Trilogy delivery. SS was faxed prescription and obtained Dr. Hollingsworth's signature. Pending Trilogy delivery, patient not medically cleared.
--- NOTE | 2025-03-15 15:48 | ESPR_ITS ---
<Statement entered by Jovanni Hollingsworth MD - 03/17/25 08:14> I reviewed above note and agree with findings and plans. I have also personally examined the patient with medicine team and went over assessment and plan with medical team including tax services intern and resident physician. <Statement entered by Vasiliy Castillo MD - 03/16/25 06:18> patient is seen and assessed at bedside. Patient very anxious when wearing BiPAP. Patient states a lot of family members have recently passed.patient keeps asking for anxiolytic to help when using the in BiPAP. patient breathing well on nasal cannula, but ABG shows still CO2 retention. Case discussed with team. Vasiliy Castillo [id number] Documentation for date of: 03/15/25 Subjective Subjective Interval history: Patient is seen and examined at bedside No acute overnight events. Denies any other complaints but complaining of anxiety. Patient tolerated BiPAP well last night. Vitals are stable. On physical examination, bilateral diffuse expiratory wheeze heard Labs are significant for bicarb 39.6 Will continue at bedtime BiPAP and plan to discharge tomorrow if the patient overall condition improves Exam Vital Signs Temp Pulse Resp BP Pulse Ox O2 Del Method O2 Flow Rate 97.3 F 94 18 130/88 H 99 Nasal Cannula 3 03/15/25 11:53 03/15/25 15:11 03/15/25 15:11 03/15/25 11:53 03/15/25 15:11 03/15/25 11:53 03/15/25 15:11 FiO2 30 03/15/25 00:00 Narrative Exam General: Awake. HEENT: Normocephalic, atraumatic, mucous membranes moist. Heart: Regular rate and rhythm, no murmurs. Lungs: B/L diffuse expiratory wheeze heard. Abdomen: Soft, nondistended, nontender, positive bowel sounds. ?No guarding or rebound tenderness. Neurologic: Alert and oriented x3, no gross neurological deficit, and patient able to move all 4 extremities. Extremities: No edema. Skin: No rash or ecchymoses. Objective Labs 03/15/25 04:40 03/15/25 04:40 Labs: Laboratory Results - last 24 hr 03/14/25 03/15/25 05:05 04:40 WBC 6.2 RBC 4.11 L Hgb 12.5 L Hct 39.8 L MCV 97 MCH 30.4 MCHC 31.4 RDW Std Deviation 46.4 H Plt Count 313 D Neut % (Auto) 86 H Lymph % (Auto) 8 L [place] % (Auto) 5 Eos % (Auto) 0 Baso % (Auto) 0 Neut # (Auto) 5.3 Lymph # (Auto) 0.5 L [place] # (Auto) 0.3 Eos # (Auto) 0.0 Baso # (Auto) 0.0 Immature Gran # (Auto) 0.04 H Absolute Nucleated RBC 0.00 Immature Gran % 1 H Nucleated RBC % 0 Sodium 142 Potassium 4.7 Chloride 98 Carbon Dioxide 39.6 H Anion Gap 4 L BUN 26 H Creatinine 1.0 Estim Creat Clear Calc 74.0 eGFR > 60 BUN/Creatinine Ratio 26 H Glucose 121 H Calculated Osmolality 288 Calcium 9.4 Corrected Calcium 9.5 Phosphorus 2.6 Magnesium 1.9 Total Bilirubin 0.5 AST 10 ALT 8 L Alkaline Phosphatase 111 Total Protein 6.5 Albumin 3.9 Globulin 2.6 Albumin/Globulin Ratio 1.5 Coccidioides IgG Ab Negative ABG Interpretation ABG results: 03/13/25 03/13/25 03/13/25 00:45 02:56 06:37 ABG pH 7.19 L* 7.22 L 7.21 L ABG pCO2 97 H* 95 H* 102 H* ABG pO2 154 H 133 H D 24 L* D ABG HCO3 37 H 39 H 41 H ABG O2 Saturation 100 H 100 H 41 L ABG Base Excess 5 H 8 H 10 H 03/13/25 03/13/25 03/14/25 09:04 18:38 08:55 ABG pH 7.28 L 7.32 L 7.32 L ABG pCO2 86 H* D 76 H* D 82 H* ABG pO2 118 H D 102 122 H D ABG HCO3 40 H 39 H 42 H ABG O2 Saturation 99 H 99 H 99 H ABG Base Excess 10 H 10 H 13 H Quality Measures Quality Measures sepsis Current suspected stage: ruled out Possible source: pulmonary Blood cultures ordered: yes Antibiotic ordered: Yes Advance care planning discussed with:: patient Assessment & Plan Assessment Current Active Medications: Generic Name Dose Route Start Last Admin Trade Name Freq PRN Reason Stop Dose Admin Acetaminophen 650 mg 03/13/25 03:58 03/13/25 11:03 Acetaminophen 325 Mg Tablet PO 05/28/25 03:57 650 mg Q6H PRN Administration Fever >101.5 Acetaminophen 650 mg 03/13/25 03:58 Acetaminophen 325 Mg Tablet PO 04/12/25 03:57 Q6H PRN PAIN SCALE 1-3 (mild Hydrocodone Bitart/Acetaminophen 1 tab 03/13/25 04:59 03/15/25 14:07 Hydrocodone/Apap 5/325 Tablet PO 03/18/25 04:58 1 tab Q6H PRN Administration Pain 4-10 Albuterol/Ipratropium 3 ml 03/13/25 04:00 03/15/25 15:10 Albuterol/Ipratropium (Duoneb) Rt Sonia 3 Ml Nebu INH 04/12/25 03:59 3 ml Q4HRRT RACHAEL Administration Diphenhydramine HCl 25 mg 03/14/25 21:00 03/14/25 23:27 Diphenhydramine 25 Mg Capsule PO 04/13/25 20:59 25 mg HS RACHAEL Administration Donepezil HCl 10 mg 03/14/25 09:00 03/15/25 09:35 Donepezil Hcl 5 Mg Tablet PO 04/13/25 08:59 10 mg QDAY RACHAEL Administration Enoxaparin Sodium 40 mg 03/13/25 09:00 03/15/25 09:34 Enoxaparin Sod Inj 40 Mg/0.4 Ml Syringe SC 03/27/25 08:59 40 mg QDAY RACHAEL Administration Guaifenesin 100 mg 03/14/25 04:07 03/15/25 07:52 Guaifenesin Syrup 200 Mg/10 Ml Udc PO 04/13/25 04:06 100 mg QID PRN Administration COUGH Protocol Ceftriaxone Sodium/Dextrose 1 gm in 50 mls @ 100 mls/hr 03/13/25 11:06 03/15/25 09:34 Rocephin/D5w 1gm Iv Premix IV 03/20/25 11:05 100 mls/hr QDAY RACHAEL Administration Azithromycin 500 mg/ Sodium 250 mls @ 250 mls/hr 03/13/25 11:07 03/15/25 09:34 Chloride IV 03/20/25 11:06 250 mls/hr QDAY RACHAEL Administration Methylprednisolone Sodium Succinate 60 mg 03/14/25 14:00 03/15/25 13:16 Methylprednisolone Sod Succ 40 Mg Vial IVP 03/21/25 13:59 60 mg TID RACHAEL Administration Pantoprazole Sodium 40 mg 03/14/25 10:30 03/15/25 09:35 Pantoprazole Inj 40 Mg Vial IVP 04/13/25 10:29 40 mg QDAY RACHAEL Administration Sertraline HCl 50 mg 03/13/25 09:00 03/15/25 09:35 Sertraline Hcl 25 Mg Tablet PO 04/12/25 08:59 50 mg QDAY RACHAEL Administration Tamsulosin HCl 0.4 mg 03/13/25 09:00 03/15/25 09:34 Tamsulosin Hcl 0.4 Mg Capsule PO 04/12/25 08:59 0.4 mg QDAY RACHAEL Administration Plan The patient is a 69-year-old male with significant past medical history of COPD on 2 L home oxygen, Hypertension, hyperlipidemia, BPH, recurrent nephrolithiasis, macular degeneration and diverticulitis presented to ED on 03/13/2025 with chief complaint of worsening of SOB for 1 day. Sepsis alert was called at the ED, and patient received Zosyn 3.375 g IV x 1. Patient was admitted to telemetry unit for further management of acute on chronic hypoxic hypercarbic respiratory failure secondary to COPD exacerbation. #Acute on chronic hypoxic hypercapnic respiratory failure, resolving #COPD exacerbation #Respiratory acidosis partially compensated by metabolic alkalosis Patient presented with worsening of SOB for 1 day, was recently discharged from ED on 03/10/2025 with cefuroxime and azithromycin, likely failed the oral treatment. Chest x-ray did not show any infiltrates. CT angio chest is negative for pulmonary emboli ABG initially revealed pH of 7.19, pCO2 97 and bicarb 37 - Blood, urine and sputum culture ordered, pending Plan - Admitted to telemetry unit - Started on ceftriaxone and azithromycin [03/13- - DuoNeb every 4 hourly scheduled - Methylprednisolone 60 Mg IV 3 times daily - HS BiPAP/CPAP, and oxygen as needed, receiving Ativan as needed in view of anxiety due to BiPAP #History of hypertension #Anxiety Presented with blood pressure of 199/127, that improved to 145/89 on its own Continue to monitor for now, and patient is not on any home antihypertensive Patient is having severe anxiety in view of recent personal losses, hospitalisations and due to BiPaP which could be causing elevated blood pressures Started on Buspirone 5mg p.o BID #BPH - Started on tamsulosin 0.4 Mg daily #Hyperlipidemia - Lipid panel ordered, Within normal limits Health maintenance: Dispo: Tele Diet: low sodium diet DVT prophylaxis: Subcu enoxaparin CODE STATUS: Full code Patient plan of care was discussed with the attending physician, Dr. Hollingsworth and senior resident Dr. Jonathan Garcia, PGY1
--- NOTE | 2025-03-15 16:12 | PC.SS ---
SS follow up note; SS was informed by [facility] that auth has been submitted, however could take up to 72 hours for delivery.
[2025-03-15] MEDS: BusPIRone HCL 5 MG TABLET PO (22:04)
[2025-03-16] VITALS (15 sets, daily range): BP systolic 141–176; BP diastolic 78–115; PULSE 72–101; RESP 14–24; TEMP 36.1–36.9; O2SAT 92–99; BMI 24.7
[2025-03-16] MEDS: DiphenhydrAMINE 25 MG CAPSULE PO ×2 (01:02→20:21)
[2025-03-16] MEDS: ALBUTEROL/IPRATROPIUM (Duoneb) RT SOL 3 ML NEBU INH ×6 (02:51→21:52)
[2025-03-16 06:17] LABS: Basophils % (Auto) 0 % (0-2.5); Eosinophils % (Auto) 0 % (0-10); Hematocrit 39.7 % (41.0-53.0); Hemoglobin 12.8 g/dL (13.5-16.0); Immature Granulocytes % (Auto) 1 % (0-0); Immature Granulocytes Auto 0.04 Thou/mm3 (0.00-0.00); Lymphocytes # (Auto) 0.5 Thou/mm3 (1.0-4.8); Lymphocytes % (Auto) 6 % (10-50); Mean Corpuscular HGB Conc 32.2 g/dl (31.0-37.0); Mean Corpuscular Hemoglobin 30.5 pg (25.0-35.0); Mean Corpuscular Volume 95 fL (80-100); Monocytes # (Auto) 0.4 Thou/mm3 (0.0-0.8); Monocytes % (Auto) 5 % (0-12); Neutrophils # (Auto) 7.1 Thou/mm3 (1.8-7.7); Neutrophils % (Auto) 88 % (37-80); Nucleated Red Blood Cell % 0 /100 WBC (0); Platelet Count 291 Thou/mm3 (140-440); RDW Standard Deviation 44.9 fL (35.1-43.9); Red Blood Count 4.19 Miln/mm3 (4.50-5.90)
[2025-03-16 06:34] LABS: Alanine Aminotransferase < 7 U/L (10-49); Albumin/Globulin Ratio 1.6 (1.2-2.2); Alkaline Phosphatase 102 U/L (46-116); Anion Gap 6 (7-16); Aspartate Amino Transferase 10 U/L (0-34); BUN/Creatinine Ratio 24 Ratio (12-20); Bilirubin,Total 0.5 mg/dL (0.3-1.2); Blood Urea Nitrogen 26 mg/dL (9-23); Calcium 9.4 mg/dL (8.3-10.6); Calcium (Corrected) 9.4 mg/dL (8.5-10.1); Carbon Dioxide 38.4 mMol/L (20.0-31.0); Chloride 95 mMol/L (98-107); Creatinine (Component) 1.1 mg/dL (0.6-1.3); Estimated Creatinine Clearance 67.3 mL/min (>60); Globulin 2.5 gm/dL (2.3-3.5); Glucose 124 mg/dL (74-106); Magnesium 1.9 mg/dL (1.6-2.6); Osmolality,Calculated 283 (275-295); Phosphorous 2.7 mg/dL (2.4-5.1); Potassium 3.9 mMol/L (3.4-5.1); Sodium 139 mMol/L (136-145); Total Protein 6.5 gm/dL (5.7-8.2); eGFR > 60 See Note
[2025-03-16] MEDS: SERTRALINE HCL 25 MG TABLET 50 MG PO (08:29)
[2025-03-16] MEDS: cefTRIAXone/D5w 1gm IV premix 1 GM/50 ML BAG IV (08:29)
[2025-03-16] MEDS: BusPIRone HCL 5 MG TABLET PO ×2 (08:29→20:21)
[2025-03-16] MEDS: ENOXAPARIN SOD INJ 40 MG/0.4 ML SYRINGE SC (08:29)
[2025-03-16] MEDS: HYDROcodone/APAP 5/325 TABLET 1 TAB PO ×3 (08:29→21:09)
[2025-03-16] MEDS: DONEPEZIL HCL 5 MG TABLET 10 MG PO (08:29)
[2025-03-16] MEDS: PANTOPRAZOLE INJ 40 MG VIAL IVP (08:30)
[2025-03-16] MEDS: AZITHROMYCIN INJ 500 MG in SODIUM CHLORIDE 0.9% 250 ML 250 ML 250 MG IV (08:30)
[2025-03-16] MEDS: TAMSULOSIN HCL 0.4 MG CAPSULE PO (08:30)
--- NOTE | 2025-03-16 10:09 | ECHO_ITS ---
Transthoracic Echo Report Ht (in): 70 Wt (lb): 175 Exam Location: [facility] Status: Inpatient [employer]obile [employer] Estimator: KOMAL Hagen^^^^ Indications: Procedure Performed: BP: / HR: Technical Quality: Technically difficult study MEASUREMENTS (Male / Female) Normal Values 2D ECHO LV Diastolic Diameter PLAX 3.9 cm 4.2 - 5.9 / 3.9 - 5.3 cm LV Systolic Diameter PLAX 2.7 cm IVS Diastolic Thickness 1.2 cm 0.6 - 1.0 / 0.6 - 0.9 cm LVPW Diastolic Thickness 0.9 cm 0.6 - 1.0 / 0.6 - 0.9 cm LV Relative Wall Thickness 0.5 LVOT Diameter 2.0 cm Aortic Root Diameter 3.7 cm LA Systolic Diameter LX 3.4 cm 3.0 - 4.0 / 2.7 - 3.8 cm Ascending Aorta Diameter 3.0 cm DOPPLER AV Peak Velocity 151.0 cm/s AV Peak Gradient 9.1 mmHg AV Mean Gradient 6.0 mmHg AV Velocity Time Integral 32.8 cm LVOT Peak Velocity 104.0 cm/s LVOT Peak Gradient 4.3 mmHg LVOT Velocity Time Integral 23.8 cm AV Area Cont Eq vti 2.3 cm? AV Area Cont Eq pk 2.2 cm? MV Area PHT 4.3 cm? Mitral E Point Velocity 57.0 cm/s Mitral A Point Velocity 70.4 cm/s Mitral E to A Ratio 0.8 LV E' Lateral Velocity 11.0 cm/s Mitral E to LV E' Lateral Ratio 5.2 LV E' Septal Velocity 7.3 cm/s Mitral E to LV E' Septal Ratio 7.8 TR Peak Velocity 211.5 cm/s TR Peak Gradient 17.9 mmHg PV Peak Velocity 113.0 cm/s PV Peak Gradient 5.1 mmHg RVOT Peak Velocity 79.1 cm/s FINDINGS Left Ventricle Normal left ventricular size, wall thickness, systolic function with no obvious regional wall motion abnormalities. There is grade I diastolic dysfunction of the left ventricle (impaired relaxation pattern).the left ventricular ejection fraction is normal, estimated at 55-60%. Right Ventricle The right ventricle is normal in size and systolic function. The estimated right ventricular systolic pressure, 25 mmHg. Left Atrium The left atrium is normal by two-dimensional, color flow and Doppler imaging with no structural abnormalities, no thrombus formation present. Right Atrium The right atrium is normal by two-dimensional imaging, color flow and Doppler imaging with no structural abnormalities, no thrombus formation present. Atrial Septum The interatrial septum appears normal with no evidence of a shunt. Aorta The aorta is normal by two-dimensional, color flow and Doppler interrogation. Mitral Valve Mild mitral regurgitation. Mild mitral annular calcification. Mild thickening of the mitral valve leaflets. Aortic Valve Aortic valve sclerosis. Tricuspid Valve There is mild tricuspid valve regurgitation. Pulmonic Valve Trivial pulmonic valve regurgitation. Vessels The pulmonary artery appears normal. The inferior vena cava pulmonary and hepatic veins appear normal. Pericardium The pericardium is normal by two-dimensional imaging. There is no significant pericardial effusion. CONCLUSIONS Indication: SOB Normal LV size and function with an estimated EF of 55 to 60%. Diastolic function indeterminate. Normal RV size and function. Normal RVSP. Mild MR and TR with trivial PI. Mild MAC Mild aortic valve sclerosis without stenosis. Jimbo Sanchez (Electronically Signed) Final Date: 16 Mar 2025 17:15
[2025-03-16] MEDS: LORazepam 0.5 MG TABLET PO ×2 (10:11→21:18)
--- NOTE | 2025-03-16 11:33 | CHAP ---
Patient was visited by the Spiritual Care Volunteer who prayed for them. (Volunteer was in the hospital from 10:15-11:33).
--- NOTE | 2025-03-16 11:40 | PD.RESPRO ---
Documentation for date of: 03/16/25 Subjective Subjective Interval history: No acute overnight events noted. Seen and examined at bedside and patient endorses feeling anxious about being discharged home with new machine (Trilogy). Spoke to patient and told him that there will be personnel to explain to him and any caregiver(s) how to use the machine and that we will monitor him for one more day. Patient agreed to plan. Otherwise, states that his breathing is improved with CPAP at night. Exam Vital Signs Temp Pulse Resp BP Pulse Ox O2 Del Method O2 Flow Rate 97.6 F 89 20 176/115 H 99 Nasal Cannula 3 03/16/25 08:00 03/16/25 10:44 03/16/25 10:44 03/16/25 08:00 03/16/25 10:44 03/16/25 08:00 03/16/25 10:44 FiO2 3 03/16/25 10:44 Narrative Exam General: AOx3, mildly anxious, able to speak full sentences on 3 L NC HEENT: NC/AT, mucous membranes moist, bilateral sclera anicteric Cardiovascular: regular rate and rhythm, S1/S2 present, no murmurs appreciated Pulmonary: mild wheezing in right lung, but overall decreased lung sounds 2/2 COPD Abdominal: soft, non-tender, non-distended, no rebound/guarding, normal bowel sounds present Musculoskeletal: normal ROM, no peripheral edema Skin: warm and dry, intact, no rashes Neuro: CN II-XII intact, no focal deficits Objective Labs 03/17/25 05:13 03/17/25 05:13 Labs: Laboratory Results - last 24 hr 03/16/25 04:15 WBC 8.0 RBC 4.19 L Hgb 12.8 L Hct 39.7 L MCV 95 MCH 30.5 MCHC 32.2 RDW Std Deviation 44.9 H Plt Count 291 Neut % (Auto) 88 H Lymph % (Auto) 6 L [place] % (Auto) 5 Eos % (Auto) 0 Baso % (Auto) 0 Neut # (Auto) 7.1 Lymph # (Auto) 0.5 L [place] # (Auto) 0.4 Eos # (Auto) 0.0 Baso # (Auto) 0.0 Immature Gran # (Auto) 0.04 H Absolute Nucleated RBC 0.00 Immature Gran % 1 H Nucleated RBC % 0 Sodium 139 Potassium 3.9 D Chloride 95 L Carbon Dioxide 38.4 H Anion Gap 6 L BUN 26 H Creatinine 1.1 Estim Creat Clear Calc 67.3 eGFR > 60 BUN/Creatinine Ratio 24 H Glucose 124 H Calculated Osmolality 283 Calcium 9.4 Corrected Calcium 9.4 Phosphorus 2.7 Magnesium 1.9 Total Bilirubin 0.5 AST 10 ALT < 7 L Alkaline Phosphatase 102 Total Protein 6.5 Albumin 4.0 Globulin 2.5 Albumin/Globulin Ratio 1.6 ABG Interpretation ABG results: 03/13/25 03/13/25 03/13/25 00:45 02:56 06:37 ABG pH 7.19 L* 7.22 L 7.21 L ABG pCO2 97 H* 95 H* 102 H* ABG pO2 154 H 133 H D 24 L* D ABG HCO3 37 H 39 H 41 H ABG O2 Saturation 100 H 100 H 41 L ABG Base Excess 5 H 8 H 10 H 03/13/25 03/13/25 03/14/25 09:04 18:38 08:55 ABG pH 7.28 L 7.32 L 7.32 L ABG pCO2 86 H* D 76 H* D 82 H* ABG pO2 118 H D 102 122 H D ABG HCO3 40 H 39 H 42 H ABG O2 Saturation 99 H 99 H 99 H ABG Base Excess 10 H 10 H 13 H Quality Measures Quality Measures sepsis Current suspected stage: ruled out Possible source: pulmonary Blood cultures ordered: yes Antibiotic ordered: Yes Advance care planning discussed with:: patient Assessment & Plan Assessment Current Active Medications: Generic Name Dose Route Start Last Admin Trade Name Freq PRN Reason Stop Dose Admin Acetaminophen 650 mg 03/13/25 03:58 03/13/25 11:03 Acetaminophen 325 Mg Tablet PO 04/12/25 03:57 650 mg Q6H PRN Administration Fever >101.5 Acetaminophen 650 mg 03/13/25 03:58 Acetaminophen 325 Mg Tablet PO 04/12/25 03:57 Q6H PRN PAIN SCALE 1-3 (mild Hydrocodone Bitart/Acetaminophen 1 tab 03/13/25 04:59 03/16/25 08:29 Hydrocodone/Apap 5/325 Tablet PO 03/18/25 04:58 1 tab Q6H PRN Administration Pain 4-10 Albuterol/Ipratropium 3 ml 03/13/25 04:00 03/16/25 10:41 Albuterol/Ipratropium (Duoneb) Rt Sonia 3 Ml Nebu INH 04/12/25 03:59 3 ml Q4HRRT RACHAEL Administration Buspirone HCl 5 mg 03/15/25 21:00 03/16/25 08:29 Buspirone Hcl 5 Mg Tablet PO 04/14/25 20:59 5 mg BID RACHAEL Administration Diphenhydramine HCl 25 mg 03/14/25 21:00 03/16/25 01:02 Diphenhydramine 25 Mg Capsule PO 04/13/25 20:59 25 mg HS RACHAEL Administration Donepezil HCl 10 mg 03/14/25 09:00 03/16/25 08:29 Donepezil Hcl 5 Mg Tablet PO 04/13/25 08:59 10 mg QDAY RACHAEL Administration Enoxaparin Sodium 40 mg 03/13/25 09:00 03/16/25 08:29 Enoxaparin Sod Inj 40 Mg/0.4 Ml Syringe SC 03/27/25 08:59 40 mg QDAY RACHAEL Administration Guaifenesin 100 mg 03/14/25 04:07 03/15/25 18:23 Guaifenesin Syrup 200 Mg/10 Ml Udc PO 04/13/25 04:06 100 mg QID PRN Administration COUGH Protocol Ceftriaxone Sodium/Dextrose 1 gm in 50 mls @ 100 mls/hr 03/13/25 11:06 03/16/25 08:29 Rocephin/D5w 1gm Iv Premix IV 03/20/25 11:05 100 mls/hr QDAY RACHAEL Administration Azithromycin 500 mg/ Sodium 250 mls @ 250 mls/hr 03/13/25 11:07 03/16/25 08:30 Chloride IV 03/20/25 11:06 250 mls/hr QDAY RACHAEL Administration Lorazepam 0.5 mg 03/15/25 18:01 03/16/25 10:11 Lorazepam 0.5 Mg Tablet PO 03/20/25 18:00 0.5 mg Q8HR PRN Administration ANXIETY Methylprednisolone Sodium Succinate 60 mg 03/14/25 14:00 03/16/25 06:08 Methylprednisolone Sod Succ 40 Mg Vial IVP 03/21/25 13:59 60 mg TID RACHAEL Administration Pantoprazole Sodium 40 mg 03/14/25 10:30 03/16/25 08:30 Pantoprazole Inj 40 Mg Vial IVP 04/13/25 10:29 40 mg QDAY RACHAEL Administration Sertraline HCl 50 mg 03/13/25 09:00 03/16/25 08:29 Sertraline Hcl 25 Mg Tablet PO 04/12/25 08:59 50 mg QDAY RACHAEL Administration Tamsulosin HCl 0.4 mg 03/13/25 09:00 03/16/25 08:30 Tamsulosin Hcl 0.4 Mg Capsule PO 04/12/25 08:59 0.4 mg QDAY RACHAEL Administration Plan Dario Metz is a 69-year-old male with PMHx of COPD on 2 L O2, hypertension, hyperlipidemia, BPH, recurrent nephrolithiasis, macular degeneration, and diverticulitis who presented on 03/13 with shortness of breath for 1 day. Noted to be recently discharged on 03/10 for diverticulitis of sigmoid colon and discharged with antibiotics. #Acute on chronic hypoxic-hypercapnic respiratory failure #COPD exacerbation #Respiratory acidosis partially compensated by metabolic alkalosis CXR without any filtrates, basilar bronchitis pattern. CTA chest negative for PE, mild left base pneumonia. Initial ABG: pH of 7.19, pCO2 97. Blood cultures 03/13: NGTD Sputum culture : Gram stain showed occasional GPC, culture pending ? Ceftriaxone and azithromycin (03/13-) ? DuoNeb every 4 hourly scheduled ? Methylprednisolone 60 mg IV 3 times daily ? Guaifenesin 100 mg p.o. 4 times daily as needed ? HS BiPAP/CPAP, and oxygen as needed, receiving Ativan as needed in view of anxiety due to BiPAP #History of hypertension #Hypertensive crisis Presented with blood pressure of 199/127, that improved to 145/89 without intervention. Not on any home antihypertensives. Experiencing severe anxiety in view of recent personal losses, hospitalisations and BiPAP which could be contributing to elevated blood pressures ? Started on lisinopril 5 mg #Anxiety ? Buspirone 5 mg p.o. twice daily ? Sertraline 50 mg PO daily ? Lorazepam 0.5 mg q8hr prn #BPH ? Tamsulosin 0.4 mg daily #Hyperlipidemia Lipid panel wnl #Dementia ? Donepezil Hospital management: Disposition: anticipate discharge within next 24 hours Diet: low sodium Lines: PIV DVT prophylaxis: enoxaparin 40 mg SC daily GI prophylaxis: pantoprazole 40 mg IV daily CODE STATUS: full code ----- Plan discussed with attending physician Dr. Diego Lares MD PGY-1 Internal Medicine Attending Provider Attestation/Addendum I reviewed labs, imaging, EKG, home medications and prior available records. Face to face evaluation was performed by me. I have personally examined the patient and discussed assessment and plan with the IM team. I reviewed the resident note and agree with the plan with exceptions as below. COPD exacerbation Chronic hypoxic respiratory failure Anxiety Dementia, mild Continue DuoNebs Continue corticosteroids Continue oxygen. Discussed with hospice social worker: Will arrange for home oxygen machine Continue Zoloft. Continue benzodiazepine as needed for anxiety episodes
--- NOTE | 2025-03-16 13:19 | PC.SS ---
SS follow up note; SS was contacted by Anay from [facility] and informed SS that auth was approved with [facility]. SS contacted [facility] and they informed SS they would fax RX to have Sign form.
[2025-03-16] MEDS: guaiFENesin SYRUP 200 MG/10 ML UDC 100 MG PO (20:20)
[2025-03-17] VITALS (10 sets, daily range): BP systolic 139–161; BP diastolic 80–107; PULSE 74–95; RESP 13–28; TEMP 36.2; O2SAT 93–100; BMI 24.3
[2025-03-17] MEDS: PANTOPRAZOLE INJ 40 MG VIAL IV (01:46)
[2025-03-17] MEDS: ALBUTEROL/IPRATROPIUM (Duoneb) RT SOL 3 ML NEBU INH ×2 (02:08→10:36)
[2025-03-17] MEDS: HYDROcodone/APAP 5/325 TABLET 1 TAB PO (05:28)
[2025-03-17 05:54] LABS: Basophils % (Auto) 0 % (0-2.5); Eosinophils % (Auto) 0 % (0-10); Hematocrit 38.5 % (41.0-53.0); Hemoglobin 12.4 g/dL (13.5-16.0); Immature Granulocytes % (Auto) 1 % (0-0); Immature Granulocytes Auto 0.07 Thou/mm3 (0.00-0.00); Lymphocytes # (Auto) 0.5 Thou/mm3 (1.0-4.8); Lymphocytes % (Auto) 5 % (10-50); Mean Corpuscular HGB Conc 32.2 g/dl (31.0-37.0); Mean Corpuscular Hemoglobin 30.1 pg (25.0-35.0); Mean Corpuscular Volume 93 fL (80-100); Monocytes # (Auto) 0.6 Thou/mm3 (0.0-0.8); Monocytes % (Auto) 7 % (0-12); Neutrophils # (Auto) 8.5 Thou/mm3 (1.8-7.7); Neutrophils % (Auto) 88 % (37-80); Nucleated Red Blood Cell % 0 /100 WBC (0); Platelet Count 253 Thou/mm3 (140-440); Red Blood Count 4.12 Miln/mm3 (4.50-5.90); White Blood Count 9.7 Thou/mm3 (3.8-10.6)
[2025-03-17 06:54] LABS: Alanine Aminotransferase < 7 U/L (10-49); Albumin, Serum 3.8 gm/dL (3.4-4.8); Albumin/Globulin Ratio 1.7 (1.2-2.2); Alkaline Phosphatase 94 U/L (46-116); Anion Gap 6 (7-16); Aspartate Amino Transferase < 10 U/L (0-34); BUN/Creatinine Ratio 26 Ratio (12-20); Bilirubin,Total 0.5 mg/dL (0.3-1.2); Blood Urea Nitrogen 31 mg/dL (9-23); Calcium 9.2 mg/dL (8.3-10.6); Calcium (Corrected) 9.4 mg/dL (8.5-10.1); Carbon Dioxide > 40.0 mMol/L (20.0-31.0); Chloride 98 mMol/L (98-107); Creatinine (Component) 1.2 mg/dL (0.6-1.3); Estimated Creatinine Clearance 61.7 mL/min (>60); Globulin 2.3 gm/dL (2.3-3.5); Glucose 127 mg/dL (74-106); Osmolality,Calculated 295 (275-295); Potassium 4.1 mMol/L (3.4-5.1); Sodium 144 mMol/L (136-145); Total Protein 6.1 gm/dL (5.7-8.2); eGFR > 60 See Note
[2025-03-17] MEDS: ENOXAPARIN SOD INJ 40 MG/0.4 ML SYRINGE SC (08:39)
[2025-03-17] MEDS: SERTRALINE HCL 25 MG TABLET 50 MG PO (08:39)
[2025-03-17] MEDS: PANTOPRAZOLE INJ 40 MG VIAL IVP (08:39)
[2025-03-17] MEDS: DONEPEZIL HCL 5 MG TABLET 10 MG PO (08:40)
[2025-03-17] MEDS: cefTRIAXone/D5w 1gm IV premix 1 GM/50 ML BAG IV (08:40)
[2025-03-17] MEDS: BusPIRone HCL 5 MG TABLET PO (08:40)
[2025-03-17] MEDS: TAMSULOSIN HCL 0.4 MG CAPSULE PO (08:40)
[2025-03-17] MEDS: Lisinopril 2.5 MG TABLET 5 MG PO (08:40)
[2025-03-17] MEDS: LORazepam 0.5 MG TABLET PO (08:51)
[2025-03-17] MEDS: AZITHROMYCIN INJ 500 MG in SODIUM CHLORIDE 0.9% 250 ML 250 ML 250 MG IV (10:16)
--- NOTE | 2025-03-17 10:26 | PC.SS ---
SS follow up note; SS was contacted by DR. Ortega informing SS that patient was requesting 3 in 1 Commode SS submitted DME referral through [employer] to [facility]. [employer] will contact patient in regards to Com[employer]. SS was also contacted by Janelle from [facility] and she informed SS that Triology will get delivered today once patient discharges. She informed SS that it would be delivered this afternoon at home. SS will updated patient as well.
--- NOTE | 2025-03-17 10:59 | ESDS_ITS ---
Planned Discharge Date 03/17/25 DS: Providers Provider Date of admission: 03/13/25 03:58 Primary care physician: Ellie Fountain NP Admitting Provider: Miri Rod MD Attending Provider on Admission: Paco Cortez MD Consults: 03/14/25 00:28 Referral Renetta Routine Comment: Attending Provider on DC: Anup Lares MD Discharging Provider: Anup Lares MD DS: Diagnosis Problem List Completed Was Problem List Reviewed/Reconciled?: Yes Hospital Course Hospital Course Hospital course: Dario Metz is a 69-year-old male with a past medical history of liters on imaging, hypertension, recurrent hide degeneration, diverticulitis, and anxiety who presented to the on 03/13 for shortness of breath x 1 day. Upon presentation, saturating 84% on CPAP, RR 24, HR 114, BP 199/127. ABG showed pH 7.19, pCO2 of 97, PO2 154. On admission he was started on DuoNebs scheduled every 4 hours, methylprednisolone 40 mg IV daily that was increased to 60 mg IV TID, IV antibiotics for CAP coverage, as well as BiPAP/CPAP at night. Throughout hospital course, patient states that his shortness of breath had improved and ABG obtained following day showed pH of 7.32, PCO2 82, PO2 122 and was eventually able to breathe relatively comfortably on 3 L nasal cannula. He was able to finish his antibiotic course here in the hospital with a total of 5 days, did not spike any fevers, no leukocytosis, and blood/urine/sputum cultures negative or no growth to date. Of note, patient states that he had been experiencing a lot of stress and anxiety in his personal life and was started on 0.5 mg of Ativan as needed. Given that patient was just about back to his baseline oxygen requirements in sinus of breath and improved, no wheezing on exam, labs stable, then deemed stable for discharge. Ordered Trilogy device for patient that he was also anxious about learning how to use and assured patient that the respiratory therapists will show him how to use it once it is delivered to his home. Diagnoses during admission: #Acute on chronic hypoxic-hypercapnic respiratory failure #COPD exacerbation #Respiratory acidosis partially compensated by metabolic alkalosis #History of hypertension #Hypertensive crisis #Anxiety #BPH #Hyperlipidemia #Dementia Discharge instructions: ? You were started in a blood pressure medication, lisinopril 10 mg daily ? Take lorazepam 0.5 mg tablets as needed, at most twice per day, for anxiety ? May follow-up with PCP regarding refills ? You will be discharged on steroids for your COPD exacerbation, please see instructions from pharmacy and follow closely ? Continue taking all other home medications as prescribed ? Follow-up with PCP within 1-2 weeks of discharge and discuss addition of lisinopril, continuation of lorazepam if necessary, and steroids for COPD ? Return to ED if symptoms worsen or recur Time Spent with Patient Time attestation: Total time spent providing and/or coordinating discharge services: Time spent: Greater than 30 minutes Exam Vital Signs Temp Pulse Resp BP Pulse Ox O2 Del Method O2 Flow Rate 97.1 F 83 14 161/107 H 97 Nasal Cannula 3 03/17/25 08:00 03/17/25 10:36 03/17/25 10:36 03/17/25 08:40 03/17/25 10:36 03/17/25 08:00 03/17/25 10:36 FiO2 30 03/17/25 04:00 Narrative Exam General: AOx3, mildly anxious, able to speak full sentences on 3 L NC HEENT: NC/AT, mucous membranes moist, bilateral sclera anicteric Cardiovascular: regular rate and rhythm, S1/S2 present, no murmurs appreciated Pulmonary: overall decreased lung sounds 2/2 COPD but no wheezing appreciated Abdominal: soft, non-tender, non-distended, no rebound/guarding, normal bowel sounds present Musculoskeletal: normal ROM, no peripheral edema Skin: warm and dry, intact, no rashes Neuro: CN II-XII intact, no focal deficits Discharge Plan Plan Patient Disposition: HOME (Self Care) Care Plan Goals: ? You were started in a blood pressure medication, lisinopril 10 mg daily ? Take lorazepam 0.5 mg tablets as needed, at most twice per day, for anxiety ? May follow-up with PCP regarding refills ? You will be discharged on steroids for your COPD exacerbation, please see instructions from pharmacy and follow closely ? Continue taking all other home medications as prescribed ? Follow-up with PCP within 1-2 weeks of discharge and discuss addition of lisinopril, continuation of lorazepam if necessary, and steroids for COPD ? Return to ED if symptoms worsen or recur Prescriptions/Referrals Prescriptions/Med Rec: New buspirone 5 mg Tablet 5 mg PO BID 30 Days Qty: 60 0RF lorazepam 0.5 mg Tablet 0.5 mg PO BID PRN (Reason: Anxiety) Qty: 10 0RF lisinopril 10 mg tablet 10 mg PO QDAY 30 Days Qty: 30 0RF methylprednisolone 4 mg tablets,dose pack See Rx Instructions .ROUTE .COMPLEX Qty: 21 0RF Rx Instructions: Follow package directions Continued tamsulosin 0.4 mg capsule 0.4 mg PO QHS donepezil 10 mg tablet 10 mg PO QDAY hydrocodone-acetaminophen 5-325 mg tablet 1 tab PO Q8H PRN (Reason: pain) Patient Comments: TAKE 1 TABLET BY MOUTH EVERY 8 HOURS NEEDED FOR SEVERE PAIN FOR 7 DAYS sertraline [Zoloft] 50 mg tablet 50 mg PO QDAY ipratropium-albuterol 0.5 mg-3 mg(2.5 mg base)/3 mL solution for nebulization 3 ml inhalation Q4H PRN (Reason: shortness of breath) omeprazole 20 mg capsule,delayed release(DR/EC) 20 mg PO QDAY Trelegy Ellipta 100-62.5-25 mcg blister with device 1 ea INHALATION QDAY albuterol sulfate 90 mcg/actuation HFA aerosol inhaler 1 inh inhalation QID PRN (Reason: shortness of breath or wheezing) Qty: 6.7 0RF Rexulti 0.5 mg tablet 0.5 mg PO QDAY Held prednisone 50 mg tablet 50 mg PO QDAY Qty: 5 0RF Hold Instructions: Resume on 03/31/25. Hold at least until you follow-up with your PCP Discontinued azithromycin [Zithromax Z-Singh] 250 mg tablet 250 mg PO QDAY 4 Days Qty: 4 0RF Rx Instructions: start on day 2 of therapy cefuroxime axetil 500 mg tablet 500 mg PO BID Qty: 14 0RF Referrals: Ellie Fountain [employer] [Primary Care Provider] - Patient/Caregiver Discharge Instructions Education Materials: Discharge Instructions: COPD Print Language: Wallisian Stand Alone Forms: Karen Award Info., Patient Portal Info Letter Discharge Order Discharge Orders: Discharge (Routine); Ordered 03/17/25 Ordered By: Anup Ortega Camichelle Quality Discharge Quality Measures VTE prophylaxis Attestestation MD Thierry Batista reviewed labs, imaging, EKG, home medications and prior available records. Face to face evaluation was performed by me. I have personally examined the patient and discussed assessment and plan with the IM team. I reviewed the resident note and agree with the plan with exceptions as below. COPD exacerbation Chronic hypoxic respiratory failure Anxiety Dementia, mild Essential hypertension Continue home COPD inhalers Will discharge on a steroid taper Started lisinopril 10 mg. Monitor BP Continue oxygen. He got his home oxygen machine Continue Zoloft. Continue benzodiazepine as needed for anxiety episodes Time spent is 40 minutes. More than 50% of the time was spent on patient education and coordination of care.
== END 2025-03-17 14:20 | disposition home or self-care (01) | DRG 871 ==
LOC: SERX 00:46 → SERHOLD 04:18 → S3NX 10:17 → S2NX 03-16 18:14
PROVIDERS: Student in an Organized Health Care Education/Training Program; Admitting Provider Student in an Organized Health Care Education/Training Program; Emergency Provider Emergency Medicine; PCP Nurse Practitioner Family; Visit Provider Student in an Organized Health Care Education/Training Program
DX: A41.9 Sepsis, unspecified organism (principal); J18.9 Pneumonia, unspecified organism; J96.21 Acute and chronic respiratory failure with hypoxia; J96.22 Acute and chronic respiratory failure with hypercapnia; J44.1 Chronic obstructive pulmonary disease with (acute) exacerbation; J44.0 Chronic obstructive pulmonary disease with (acute) lower respiratory infection; E87.4 Mixed disorder of acid-base balance; F03.A4 Unspecified dementia, mild, with anxiety; I10 Essential (primary) hypertension; E78.5 Hyperlipidemia, unspecified; N40.0 Benign prostatic hyperplasia without lower urinary tract symptoms; I16.0 Hypertensive urgency; K40.90 Unilateral inguinal hernia, without obstruction or gangrene, not specified as recurrent; Z87.891 Personal history of nicotine dependence; Z99.81 Dependence on supplemental oxygen; Z79.899 Other long term (current) drug therapy; Z87.442 Personal history of urinary calculi
CPT/HCPCS: 36415; 36600; 71045; 71275; 80053; 80061; 80307; 81001; 82803; 83605; 83615; 83690; 83735; 83880; 84100; 84145; 84439; 84443; 84484; 85025; 85610; 85730; 86331; 86635; 87040; 87086; 87205; 87502; 87811; 93005; 93225; 93306; 94640; 94660; 96361; 96365; 96366; 96367; 99285; A4649; A9270; J0456; J0692; J0696; J1650; J2060; J2470; J2543; J2919; J3475; J3490; J7030; J7050; J7120; Q9967

== ENCOUNTER → 2025-04-11 | Outpatient (CLI) | payer MEDICARE, MEDICAID, SELFPAY ==
--- NOTE | 2025-04-11 13:00 | XR_ITS ---
Examination: Retroperitoneal ultrasound, complete Technique: Multiple high resolution grayscale images of the retroperitoneum obtained, including kidneys and bladder. Exam date and time:April 11, 2025 1258 hours INDICATIONS: History kidney stones flank pain months FINDINGS: Right kidney 11.9 cm cortex 2.1 cm Left kidney 11.7 cm cortex 1.2 cm Moderate renal parenchymal scar formation Lower pole right renal cyst 15 x 12 x 12 mm No bladder mass or bladder calculi, bladder wall is thickened 8mm Prostate 4.8 x 3.6 x 5.8 cm 0.50 2.3 cc no prostate nodules IMPRESSION: Moderate bilateral renal parenchymal scar formation Cystitis pattern Significant prostatomegaly
== END | disposition home or self-care (01) ==
LOC: CDIM 12:41
PROVIDERS: PCP Family Medicine; Referring Provider Urology; Visit Provider Urology
DX: N28.89 Other specified disorders of kidney and ureter (principal); N40.0 Benign prostatic hyperplasia without lower urinary tract symptoms
CPT/HCPCS: 76770

== ENCOUNTER → 2025-04-28 | Outpatient (CLI) | payer MEDICARE, MEDICAID, SELFPAY ==
--- NOTE | 2025-04-28 15:00 | XR_ITS ---
Examination: MRI lumbar spine without contrast Date and time of exam: April 28, 2025 1524 hours Comparison 07/26/2011 INDICATIONS: Low back pain 2 years, history chronic low back pain with lumbar surgery 2011 Technique: Multiple MRI axial and sagittal sections lumbar spine. Sagittal T2-weighted images, TR 3500, TE 118 T1 weighted transverse sections, TR 688 T8.5, T2-weighted sagittal sections T1 weighted sagittal sections TR 621, TE 30 T2 axial sections, TR 4, 190, TE 84. Findings: Status post transpedicular fusion L5-S1, anterolisthesis L5 on S1 5 mm Chronic wedging L1 T12 Acute subacute fracture L4, depression inferior endplate with increased signal on the STIR images L5-S1 no disc protrusion L4-L5 no disc protrusion L3-L4 2 mm central lumbar disc bulge L2-L3 no disc protrusion L1-L2 no disc protrusion IMPRESSION: Acute/subacute L4 fracture with depression inferior endplate, reduction in height vertebral body percent Recommend CT scan lumbar spine follow-up to assess stability of this fracture
== END | disposition home or self-care (01) ==
PROVIDERS: Referring Provider Nurse Practitioner Family; Visit Provider Nurse Practitioner Family
DX: S32.049A Unspecified fracture of fourth lumbar vertebra, initial encounter for closed fracture (principal); X58.XXXA Exposure to other specified factors, initial encounter
CPT/HCPCS: 72148

== ENCOUNTER 2025-04-29 14:45 | Inpatient (IN) | payer MEDICARE, MEDICAID, SELFPAY ==
[2025-04-29 14:52] VITALS: PULSE 98; O2SAT 94; BMI 25.0
--- NOTE | 2025-04-29 14:57 | PD.EDADULT ---
ED General RME/HPI General Chief complaint: Weakness Stated complaint: WEAKNESS Time Seen by Provider: 04/29/25 14:56 Arrival date/time: 04/29/25 14:45 Limitations: no limitations RME / HPI RME / HPI narrative: DR. PATINO MAIN ED EVALUATION: 69 year old male presents to the Emergency Department with complaints of generalized weakness and diarrhea. He was currently being treated with antibiotics for an infection; then developed diarrhea. Now has been generally weak since yesterday. Patient states that his had to help him to the couch from how weak he was feeling. No other complaints. PMHx: COPD, diabetes, and hypertension. Social Hx: No tobacco, alcohol, or substance use. Related Data Home Medications ?Medication ?Instructions ?Recorded ?Confirmed fluticasone fur. 100 mcg-umeclid 1 ea inhalation QDAY 10/29/23 03/13/25 62.5 mcg-vilant 25 mcg inhalat.powder (Trelegy Ellipta) omeprazole 20 mg capsule,delayed 20 mg PO QDAY 10/29/23 03/13/25 release tamsulosin 0.4 mg capsule 0.4 mg PO QHS 04/05/24 03/13/25 donepezil 10 mg tablet 10 mg PO QDAY 10/18/24 03/13/25 hydrocodone 5 mg-acetaminophen 325 1 tab PO Q8H PRN pain 01/11/25 03/13/25 mg tablet ipratropium 0.5 mg-albuterol 3 mg 3 ml inhalation Q4H PRN shortness 01/11/25 03/13/25 (2.5 mg base)/3 mL nebulization of breath soln sertraline 50 mg tablet (Zoloft) 50 mg PO QDAY 01/11/25 03/13/25 brexpiprazole 0.5 mg tablet 0.5 mg PO QDAY 03/13/25 03/13/25 (Rexulti) Previous Rx's ?Medication ?Instructions ?Recorded albuterol sulfate 90 mcg/actuation 1 inh inhalation QID PRN shortness 11/24/23 aerosol inhaler of breath or wheezing #6.7 grams prednisone 50 mg tablet 50 mg PO QDAY #5 tabs 03/10/25 Held on 03/17/25. Instructions: Resume on 03/31/25. Hold at least until you follow-up with your PCP lorazepam 0.5 mg tablet 0.5 mg PO BID PRN Anxiety #10 tabs 03/17/25 methylprednisolone 4 mg tablets in See Rx Instructions .Route 03/17/25 a dose pack .COMPLEX #21 tabs Allergies Allergy/AdvReac Type Severity Reaction Status Date / Time levofloxacin (From Levaquin) Allergy Intermediate MUSCLE Verified 02/03/25 14:15 SPASMS Review of Systems Review of Systems Systems Reviewed: All systems reviewed, normal except as documented Past Medical History Past Medical History NEUROLOGIC: Positive Neurological Disorders and Dementia CARDIAC: Positive Hypercholesterolemia and Hypertension RESPIRATORY: Positive Chronic Obstructive Pulmonary Disease (COPD), Asthma, Bronchitis and Pneumonia GASTROINTESTINAL: Positive Gastrointestinal Disorders, Hepatitis and Gastroesophageal Reflux Disease GENITOURINARY: Positive Genitourinary Disorders, Kidney Stones, Inguinal Hernia and Benign Prostatic Hyperplasia MUSCULOSKELETAL: Positive Musculoskeletal Disorders, Arthritis, Degenerative Disk Disease and Degenerative Joint Disease ENT: Positive Macular Degeneration PSYCHO/SOCIAL: Positive Depression and Anxiety OTHER HISTORY: Positive Hospitalization, Shingles and Chicken Pox Family History FAMILY HISTORY: Positive Family Cardiac Disorders, Family Cancer and Family Surgery Surgical History SURGICAL: Positive Joint Replacement and Arthroscopy Social History SMOKING STATUS: Never smoker SECOND HAND EXPOSURE: No SUBSTANCE USE: marijuana ED Exam General Limitations: Present no limitations General appearance: Present alert and in no apparent distress Head Head exam: Present atraumatic, normocephalic and normal inspection Eye Eye exam: Present normal appearance, PERRL and EOMI ENT ENT exam: Present normal exam, normal oropharynx and mucous membranes moist Neck Neck exam: Present normal inspection, full ROM and trachea midline Chest Chest inspection: Present normal inspection and symmetric chest wall rise Respiratory Respiratory exam: Present normal lung sounds bilaterally Cardiovascular Cardiovascular exam: Present regular rate, normal rhythm and normal heart sounds Abdominal Exam Abdominal exam: Present soft and hyperactive bowel sounds Extremities Exam Extremities exam: Present normal inspection and full ROM Back Exam Back exam: Present normal inspection and full ROM Neurological Exam Neurological exam: Present alert, oriented X3 and CN II-XII intact Psychiatric Psychiatric exam: Present normal affect and normal mood Skin Skin exam: Present warm, dry, intact and normal color Course Quality Measures none Orders Category Date Time Status CT abdomen pelvis wo con Stat Exams 04/29/25 17:29 Ordered US abdomen Stat Exams 04/29/25 17:30 Ordered CBC [CBC] Stat Lab 04/29/25 15:25 Completed CMP [Comprehensive Metabolic Panel] Stat Lab 04/29/25 15:25 Completed Mag [Magnesium] Stat Lab 04/29/25 15:25 Completed Troponin I Stat Lab 04/29/25 15:25 Completed Urinalysis Stat Lab 04/29/25 16:54 Received Ringers Lactated 1000 ml [Lactated Ringers] 1,000 ml Med 04/29/25 15:05 Discontinued IV 999 mls/hr Vital Signs Vital signs: Vital Signs Temperature 98.2 F 04/29/25 15:22 Pulse Rate 85 04/29/25 15:22 Respiratory Rate 18 04/29/25 15:22 Blood Pressure 80/56 L 04/29/25 15:22 Pulse Oximetry (%) 95 04/29/25 15:22 Oxygen Delivery Method Nasal Cannula 04/29/25 15:22 Oxygen Flow Rate 2 04/29/25 15:22 Discharge Plan Prescriptions/Referrals Prescriptions/Med Rec: No Action tamsulosin 0.4 mg capsule 0.4 mg PO QHS donepezil 10 mg tablet 10 mg PO QDAY hydrocodone-acetaminophen 5-325 mg tablet 1 tab PO Q8H PRN (Reason: pain) Patient Comments: TAKE 1 TABLET BY MOUTH EVERY 8 HOURS NEEDED FOR SEVERE PAIN FOR 7 DAYS sertraline [Zoloft] 50 mg tablet 50 mg PO QDAY ipratropium-albuterol 0.5 mg-3 mg(2.5 mg base)/3 mL solution for nebulization 3 ml inhalation Q4H PRN (Reason: shortness of breath) omeprazole 20 mg capsule,delayed release(DR/EC) 20 mg PO QDAY Trelegy Ellipta 100-62.5-25 mcg blister with device 1 ea INHALATION QDAY albuterol sulfate 90 mcg/actuation HFA aerosol inhaler 1 inh inhalation QID PRN (Reason: shortness of breath or wheezing) Qty: 6.7 0RF prednisone 50 mg tablet 50 mg PO QDAY Qty: 5 0RF Rexulti 0.5 mg tablet 0.5 mg PO QDAY lorazepam 0.5 mg Tablet 0.5 mg PO BID PRN (Reason: Anxiety) Qty: 10 0RF methylprednisolone 4 mg tablets,dose pack See Rx Instructions .ROUTE .COMPLEX Qty: 21 0RF Rx Instructions: Follow package directions Referrals: Kishan Covington MD [Primary Care Provider] - In 1 week Patient/Caregiver Discharge Instructions Print Language: Telugu MDM Clinical Information Provided by patient Medical Records Reviewed [facility] Meds/Rx Considered, not Ordered None Labs/Rad/Tests considered, not Ordered None Chronic Illness/Social Conditions Add or document further as needed: COPD, diabetes, and hypertension. Medication Administration(s) Medication Administration History Discontinued Medications Lactated Ringer's (Lactated Ringers) 1,000 mls @ 999 mls/hr IV .Q1H1M ONE Stop: 04/29/25 16:05 Last Infusion: 04/29/25 16:38 Dose: Infused Documented By: Admin: 04/29/25 15:00 Dose: 999 mls/hr Documented By: CHANEL Consultations/Discussions re: Management Consult #1: Date/time: 04/29/25 5:31 pm Physician, specialty, service, details: Discussed test HPI, PMHx, lab, radiology results and/or management with Dr. Gonzalez. Recommends abdomen/pelvis CT and abdomen US. Diagnosis Differential diagnosis: Dehydration, electrolyte imbalance, UTI Most likely dx, and/or detailed dx discussion: No official diagnoses at this time, still pending diagnostic tests. Patient signout to the commutator undercutter provider. Dispositon Disposition: other (Patient signout to the commutator undercutter provider. ) Disposition comments: No final disposition plan at this time, still pending abdomen/pelvis CT, abdomen US, and final disposition.
[2025-04-29] MEDS: RINGERS LACTATED 1000 ML 1,000 ML 999 ML IV (15:00)
[2025-04-29 15:22] VITALS: BP 80/56; PULSE 85; RESP 18; TEMP 36.8; O2SAT 95
[2025-04-29 16:40] LABS: Basophils # (Auto) 0.1 Thou/mm3 (0.0-0.2); Basophils % (Auto) 1 % (0-2.5); Eosinophils # (Auto) 0.1 Thou/mm3 (0.0-0.5); Eosinophils % (Auto) 3 % (0-10); Hematocrit 34.5 % (41.0-53.0); Hemoglobin 11.5 g/dL (13.5-16.0); Immature Granulocytes % (Auto) 1 % (0-0); Immature Granulocytes Auto 0.03 Thou/mm3 (0.00-0.00); Lymphocytes # (Auto) 0.9 Thou/mm3 (1.0-4.8); Lymphocytes % (Auto) 17 % (10-50); Mean Corpuscular HGB Conc 33.3 g/dl (31.0-37.0); Mean Corpuscular Hemoglobin 29.9 pg (25.0-35.0); Mean Corpuscular Volume 90 fL (80-100); Monocytes # (Auto) 0.8 Thou/mm3 (0.0-0.8); Monocytes % (Auto) 15 % (0-12); Neutrophils # (Auto) 3.5 Thou/mm3 (1.8-7.7); Neutrophils % (Auto) 64 % (37-80); Nucleated Red Blood Cell % 0 /100 WBC (0); Platelet Count 233 Thou/mm3 (140-440); RDW Standard Deviation 45.5 fL (35.1-43.9); Red Blood Count 3.85 Miln/mm3 (4.50-5.90); White Blood Count 5.5 Thou/mm3 (3.8-10.6)
[2025-04-29 16:51] LABS: Alanine Aminotransferase 281 U/L (10-49); Albumin/Globulin Ratio 1.6 (1.2-2.2); Alkaline Phosphatase 185 U/L (46-116); Anion Gap 12 (7-16); Aspartate Amino Transferase 478 U/L (0-34); BUN/Creatinine Ratio 22 Ratio (12-20); Bilirubin,Total 0.5 mg/dL (0.3-1.2); Blood Urea Nitrogen 42 mg/dL (9-23); Calcium 8.1 mg/dL (8.3-10.6); Calcium (Corrected) 8.9 mg/dL (8.5-10.1); Carbon Dioxide 23.9 mMol/L (20.0-31.0); Chloride 105 mMol/L (98-107); Creatinine (Component) 1.9 mg/dL (0.6-1.3); Globulin 1.9 gm/dL (2.3-3.5); Glucose 101 mg/dL (74-106); Magnesium 1.7 mg/dL (1.6-2.6); Osmolality,Calculated 291 (275-295); Potassium 4.4 mMol/L (3.4-5.1); Sodium 141 mMol/L (136-145); Total Protein 4.9 gm/dL (5.7-8.2); Troponin I < 0.020 ng/mL (0.0-0.045); eGFR 38 See Note
[2025-04-29 17:02] LABS: Collection Type, Urine Clean Catch
[2025-04-29 17:10] LABS: Bacteria,Urine Rare; Bilirubin,Urine Negative (Negative); Blood,Urine Negative (Negative); Clarity,Urine Clear (Clear/Hazy); Color,Urine Yellow (Lt Yel-Yel); Glucose, Urine Negative (Negative); Hyaline Casts,Urine 1 /hpf (0-1); Ketones,Urine Negative (Negative); Leukocyte Esterase,Urine Negative (Negative); Nitrite,Urine Negative (Negative); PH,Urine 5.5 (5.0-7.0); Protein,Urine Negative (Neg - Trace); RBC,Urine 2 /hpf (0-3); Specific Gravity,Urine 1.022 (1.001-1.035); Squamous Epithelial Cell,Urine 1 /hpf (0-5); Urobilinogen,Urine Negative mg/dL (0.0-1.0); WBC,Urine 2 /hpf (0-5)
--- NOTE | 2025-04-29 17:29 | XR_ITS ---
Examination: CT abdomen and pelvis without contrast. Coronal 3-D reconstructions. Sagittal 2-D reconstructions. Date and time of exam:April 29, 2025 1820 hours Comparison February 17, 2025 INDICATIONS: Elevated liver enzymes and acute renal insufficiency on laboratory examination today, history acute sigmoid diverticulitis CTDI: vol (mGy): 9.2 DLP: (mGycm): 458 Technique: Axial images of the abdomen have been obtained, 3 mm slice thickness Intravenous contrast material has not been administered. Low dose protocols were performed. One or more of the following dose reduction techniques were used; automated exposure control, adjustment of the mA and/or KV according to patient size, use of iterative reconstruction technique. Findings: Atelectasis versus mild pneumonia left base image 55 Diffuse fatty infiltration throughout the liver no focal liver lesions no intrahepatic biliary tract dilatation Spleen is not enlarged No gallstones depicted No extrahepatic biliary tract dilatation. No pancreatic edema No renal or ureteral calculi, no hydronephrosis Minimal perinephric stranding Colonic diverticulosis, no diverticulitis No bladder mass or bladder calculi Transverse prostate dimension 5 cm Severe osteopenia, fusion L5-S1 with chronic osteoporotic compressions lumbar vertebral bodies IMPRESSION: Recommend PA lateral chest follow-up to exclude pneumonia left base No focal liver lesions or intrahepatic biliary tract dilatation No gallstones or extrahepatic biliary tract dilatation, follow-up hepatobiliary sonography is still recommended Perinephric stranding, differential would include nephritis, urinary tract infection No hydronephrosis or ureteral calculi Colonic diverticulosis, no diverticulitis
--- NOTE | 2025-04-29 17:30 | XR_ITS ---
Examination: Abdomen sonogram, complete Date and time of exam: April 29, 2025 1909 hours INDICATIONS: Elevated liver function tests and renal insufficiency on laboratory examination today. Technique: Multiple real-time grayscale transabdominal sonographic images of the abdomen have been obtained. Findings: Normal gallbladder Common bile duct 0.3 cm no stones Pancreatic head 3.2 cm Proximal mid aorta visualized not enlarged Mild hepatomegaly 16.9 cm fatty infiltration Normal hepatopedal portal venous O Patent IVC Right kidney 11.5 cm cortex 1.0 cm Left kidney 9.3 cm and a cortical 1.2 cm Moderate bilateral renal parenchymal scar formation Screening 0.7 cm IMPRESSION: Normal gallbladder No common bile duct stones Mild hepatomegaly fatty infiltration Moderate bilateral renal parenchymal scar formation
--- NOTE | 2025-04-29 18:07 | EDNOTE_ITS ---
Emergency Room Addendum <Bernadine Granado - Last Filed: 04/29/25 22:37> Addendum Narrative: I took over the care from previous shift physician at 6 PM on 04/29/2025. See previous notes for complete H & P and ED course. I reviewed all diagnostic test results. My interpretation of the chest x-ray is: Basilar bronchitis pattern. My review of the Head/Brain CT report is study is severely limited by patient motion. No gross hemorrhage or mass effect. My review of the Chest CT report is Pulmonary nodules as above, with this study as baseline recommend 6 month follow-up CT chest without contrast. No pneumonia or pulmonary edema. Osteomyelitis discitis L2-L3 level, recommend elective MRI lumbar spine follow-up pre and postcontrast. My review of the Abdomen/Pelvis CT report is recommend PA lateral chest follow- up to exclude pneumonia left base. No focal liver lesions or intrahepatic biliary tract dilatation. No gallstones or extrahepatic biliary tract dilatation, follow-up hepatobiliary sonography is still recommended. Perinephric stranding, differential would include nephritis, urinary tract infection. No hydronephrosis or ureteral calculi. Colonic diverticulosis, no diverticulitis. Blood tests and urine tests: ethyl alcohol 62.8, urine opiates positive. Diagnoses include: Osteomyelitits. Treatment here included Albuterol/Ipratroprium Duoneb, SoluMedrol, Ringer's Lactated, IV fluid, Vancomycin. I discussed the case with our hospitalist. About the presentation and exam and diagnostics and treatments here. And need of further care in the hospital. Will accept the patient. Kristofer Mesa MD <Kristofer Mesa MD - Last Filed: 04/30/25 00:34> Addendum Narrative: I took over the care from previous shift physician at 6 PM on 04/29/2025. See previous notes for complete H & P and ED course. I reviewed all diagnostic test results. My interpretation of the chest x-ray is: Increased bronchial markings. My review of the Head/Brain CT report is NAD. My review of the Chest CT report is: Osteomyelitis discitis L2-L3 level. My review of the Abdomen/Pelvis CT report is no acute findings. Blood tests and urine tests remarkable for serum alcohol 62.8, Cr 1.9, AST 478, ALT 281, and alk phos 185. COVID/influenza negative. Diagnoses include: Osteomyelitits, COPD exacerbation, hypotension, RAMON, and LFT elevation. Treatment here included IV fluid, Solu-Medrol, DuoNeb, cefepime, and vancomycin. I discussed the case with our hospitalist. About the presentation and exam and diagnostics and treatments here. And need of further care in the hospital. Will accept the patient. Kristofer Mesa MD
[2025-04-29 18:37] VITALS: BP 119/77; PULSE 101; RESP 18; TEMP 37; O2SAT 95
--- NOTE | 2025-04-29 19:09 | XR_ITS ---
Examination: AP chest single view TECHNIQUE: AP upright portable chest single view Date and time: April 29, 20252002 hours Comparison March 13, 2025 INDICATIONS: Shortness of breath and weakness today. FINDINGS: Accentuation of basilar bronchovascular markings. Normal heart size No pneumonia or pulmonary edema IMPRESSION: Basilar bronchitis pattern
--- NOTE | 2025-04-29 19:09 | EKG_ITS ---
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
--- NOTE | 2025-04-29 19:09 | XR_ITS ---
Examination: CT brain head without contrast. 2-D sagittal coronal reconstructions Date and time of exam:April 29, 20252053 hours Comparison February 21, 2024 INDICATIONS: Altered mental status today CTDI: vol (mGy):50 DLP: (mGycm):1 Technique: Multiple CT axial sections of the brain have been obtained, 5 mm slice thickness. Contrast has not been administered. 2-D sagittal, coronal reconstructions have been obtained Low dose protocols were performed. One or more of the following dose reduction techniques were used; automated exposure control, adjustment of the mA and/or KV according to patient size, use of iterative reconstruction technique. Findings: Although the images are significantly degraded by continual patient motion Ventricles are not enlarged No gross hemorrhage or mass effect IMPRESSION: Study is severely limited by patient motion No gross hemorrhage or mass effect
--- NOTE | 2025-04-29 19:09 | XR_ITS ---
Examination: CT chest, without intravenous contrast. Sagittal and coronal 2-D reconstructions. Exam date and time: April 29, 2025 2054 hours INDICATIONS: Shortness of breath today CTDI:vol (mGy) 17 DLP: (mGycm) 761 Technique: Multiple 3.0 mm axial sections of the chest to been obtained. Bone and lung density settings are obtained. Sagittal and coronal 2-D reconstructions have been obtained. Low dose protocols were performed. One or more of the following dose reduction techniques were used; automated exposure control, adjustment of the mA and/or KV according to patient size, use of iterative reconstruction technique. Findings: No thoracic aortic aneurysmal dilatation Pulmonary artery segments are not enlarged. No paratracheal tracheobronchial or bronchopulmonary adenopathy 8 mm soft pulmonary nodule posterior left lung image 202 4 mm pulmonary nodule left lower lobe image 253 consolidation left base consistent with early pneumonia No pulmonary edema No visualized liver or splenic lesion No gallstones No pancreatic mass Severe osteopenia with chronic osteoporotic compressions dorsal and lumbar vertebral bodies Cortical bone destruction inferior endplate L2, image 135 IMPRESSION: Pulmonary nodules as above, with this study as baseline recommend 6 month follow-up CT chest without contrast No pneumonia or pulmonary edema Osteomyelitis discitis L2-L3 level, recommend elective MRI lumbar spine follow-up pre and postcontrast
[2025-04-29 19:28] LABS: Lactate (Lactic Acid) 1.4 mMol/L (0.4-2.0)
[2025-04-29] MEDS: MethylPREDNISolone SOD SUCC 62.5 MG/ML 2ML VIAL 125 MG IVP (19:33)
[2025-04-29 19:36] LABS: INR 1.4 (0.9-1.3); Partial Thromboplastin Time 38.4 Seconds (22.0-36.0); Prothrombin Time 14.6 Seconds (9.0-12.2); Sed Rate (ESR) 3 mm/hr (0-20)
[2025-04-29] MEDS: ALBUTEROL/IPRATROPIUM (Duoneb) RT SOL 3 ML NEBU INH (19:46)
[2025-04-29 19:52] VITALS: PULSE 88; RESP 18; O2SAT 96
[2025-04-29 20:00] LABS: Ammonia 11 uMol/L (11-32); B-Type Natriuretic Peptide 20 pg/mL (0-100)
[2025-04-29 20:06] LABS: Base Excess 0 (-3-3); HCO3 26 mEq/L (20-26); Inspired Oxygen, FIO2 32 %; O2 Saturation 100 % (91-98); PCO2 49 mmHg (32.0-48.0); PO2 129 mmHg (83-108); pH, Arterial 7.34 (7.35-7.45)
[2025-04-29 20:07] LABS: Alcohol, Blood Medical 62.8 mg/dL (0-10.0); Amylase 84 U/L (30-118); Bilirubin,Direct 0.3 mg/dL (0.0-0.3); Lipase 36 U/L (12-53); Thyroid Stimulating Hormone 0.81 uIU/mL (0.55-4.78); Troponin I < 0.020 ng/mL (0.0-0.045)
[2025-04-29 20:10] LABS: Procalcitonin 0.37 ng/ml (0.0-0.49)
[2025-04-29 20:11] LABS: Allen Test Performed/OK; Puncture Site Right Radial
[2025-04-29 20:12] LABS: C-Reactive Protein < 0.5 mg/dL (0.0-0.9)
[2025-04-29 21:32] LABS: Amphetamine/Methamp Scrn,U Negative (Negative); Barbiturate Screen,Urine Negative (Negative); Benzodiazepines Screen,Urine Negative (Negative); Benzoylecgonine Screen, Ur Negative (Negative); Fentanyl Screen,Urine Negative (Negative); Opiate Screen,Urine Positive (Negative); THC Screen,Urine Negative (Negative)
[2025-04-29] MEDS: CEFEPIME INJ 2 GM in SODIUM CHLORIDE 0.9% (Popper) 50 ML IV (22:16)
[2025-04-29 22:19] VITALS: BP 159/116; PULSE 94; RESP 20; TEMP 37.2; O2SAT 94
[2025-04-29] MEDS: Vancomycin Inj 2,000 MG in SODIUM CHLORIDE 0.9% 500 ML 500 ML 150 MG IV (22:56)
--- NOTE | 2025-04-29 23:06 | PD.RESHP ---
Documentation for date of: 04/29/25 HPI History of Present Illness Chief complaint: Back pain History of present illness: 69-year-old male with past medical history of COPD, dementia, hypertension, BPH who was brought to the ED after being found with low blood pressure. Patient states that he checks his blood pressure at home found to be 60/40 had his check the blood pressure 2 more times and was found around that range so they called 911. EMS also confirmed blood pressure en route. Patient has chronic back pain takes Marathon's at home however he states that his back pain has gotten worse for the past 2 months even while taking the Marathon. Patient had an MRI done on 04/28/2025 PCP call the patient tell him to go to [facility] however patient did not attend as he had a family members at that time. Patient also states that patient recently had antibiotic therapy for pneumonia and developed diarrhea however finished course and diarrhea subsided. At this time patient denies fever, chills, shortness of breath, chest pain, nausea, vomiting, recent travel, sick contacts, decreased sensation or motor strength in lower extremities or upper extremities. ED course: ED vitals: BP 80/56, HR 85, saturating 95% on 2 L nasal cannula ED labs: Normocytic anemia, BUN 42, creatinine 1.9, lactic acid normal, AST 478, ALT 281, alk phos 185 UA negative, U tox positive for urine opiates and alcohol, chest x-ray shows bronchitis pattern, Chest CT report is Pulmonary nodules as above, with this study as baseline recommend 6 month follow-up CT chest without contrast. No pneumonia or pulmonary edema. Osteomyelitis discitis L2-L3 level, recommend elective MRI lumbar spine follow-up pre and postcontrast. Abdomen/Pelvis CT report is recommend PA lateral chest follow-up to exclude pneumonia left base. No focal liver lesions or intrahepatic biliary tract dilatation. No gallstones or extrahepatic biliary tract dilatation, follow-up hepatobiliary sonography is still recommended. Perinephric stranding, differential would include nephritis, urinary tract infection. No hydronephrosis or ureteral calculi. Colonic diverticulosis, no diverticulitis. In the ED patient received LR 1 L bolus, cefepime, vancomycin, DuoNebs, Solu-Medrol 125mg PMHx: As above SX Hx: L4-L5 spinal surgery, right shoulder surgery, bilateral knee repair, hernia repair Social Hx: Former smoker, denies alcohol use only on special occasions, denies illicit substances including THC FH X: Unknown Review of Systems Review of Systems Systems Reviewed: All systems reviewed, normal except as documented Narrative Review of Systems: All 12 systems reviewed and found negative unless otherwise stated in the HPI. Exam Vital Signs Temp Pulse Resp BP Pulse Ox O2 Del Method O2 Flow Rate 98.9 F 94 20 159/116 H 94 L Nasal Cannula 2 04/29/25 22:19 04/29/25 22:19 04/29/25 22:19 04/29/25 22:19 04/29/25 22:19 04/29/25 22:19 04/29/25 22:19 Narrative Exam Physical Exam GENERAL: NAD, AAOx3 HEENT: Moist mucosa. Eyes open, symmetrical, & clear CARDIO: Heart RRR, no obvious murmurs PULM: No noted coughing/dyspnea CTA B/L, no R/W/R GI: Abdomen soft, nondistended, no pain on palpation. BSx4 SKIN/MSK/EXT: No wounds/rashes/edema/amputations, tenderness to palpation in lumbar area. Pedal pulses present B/L NEURO: AAOx3, no focal neuro deficits, able to move all 4 extremities Results: Labs 04/29/25 15:25 04/29/25 15:25 Labs: Short CBC 04/29/25 Range/Units 15:25 WBC 5.5 (3.8-10.6) Thou/mm3 Hgb 11.5 L (13.5-16.0) g/dL Hct 34.5 L (41.0-53.0) % Plt Count 233 (140-440) Thou/mm3 BMP 04/29/25 15:25 Sodium 141 Potassium 4.4 Chloride 105 Carbon Dioxide 23.9 BUN 42 H Creatinine 1.9 H Glucose 101 Calcium 8.1 L Cardiac Enzymes 04/29/25 04/29/25 Range/Units 15:25 19:24 Troponin I < 0.020 < 0.020 (0.0-0.045) ng/mL Liver Function 04/29/25 04/29/25 Range/Units 15:25 19:24 Total Bilirubin 0.5 (0.3-1.2) mg/dL Direct Bilirubin 0.3 (0.0-0.3) mg/dL AST 478 H (0-34) U/L ALT 281 H (10-49) U/L Alkaline Phosphatase 185 H (46-116) U/L Albumin 3.0 L (3.4-4.8) gm/dL Urine 04/29/25 Range/Units 16:54 Urine Color Yellow (Lt Yel-Yel) Urine Clarity Clear (Clear/Hazy) Urine pH 5.5 (5.0-7.0) Ur Specific [place] 1.022 (1.001-1.035) Urine Protein Negative (Neg - Trace) Urine Glucose (UA) Negative (Negative) ABG Interpretation ABG results: 04/29/25 20:00 ABG pH 7.34 L ABG pCO2 49 H ABG pO2 129 H ABG HCO3 26 ABG O2 Saturation 100 H ABG Base Excess 0 Quality Measures Quality Measures none Advance care planning discussed with:: patient Medications Home Medications and Allergies Home Medications ?Medication ?Instructions ?Recorded ?Confirmed ?Type fluticasone fur. 100 mcg-umeclid 1 ea inhalation QDAY 10/29/23 04/30/25 History 62.5 mcg-vilant 25 mcg inhalat.powder (Trelegy Ellipta) omeprazole 20 mg capsule,delayed 20 mg PO QDAY 10/29/23 03/13/25 History release tamsulosin 0.4 mg capsule 0.4 mg PO DAILY 04/05/24 04/30/25 History donepezil 10 mg tablet 10 mg PO HS 10/18/24 04/30/25 History hydrocodone 5 mg-acetaminophen 325 1 tab PO BID PRN pain 01/11/25 04/30/25 History mg tablet ipratropium 0.5 mg-albuterol 3 mg 3 ml inhalation Q4H PRN shortness 01/11/25 03/13/25 History (2.5 mg base)/3 mL nebulization of breath soln sertraline 50 mg tablet (Zoloft) 50 mg PO DAILY 01/11/25 04/30/25 History brexpiprazole 0.5 mg tablet 0.5 mg PO QDAY 03/13/25 04/30/25 History (Rexulti) brexpiprazole 1 mg tablet (Rexulti) 1 mg PO QDAY 04/30/25 04/30/25 History losartan 25 mg tablet 25 mg PO DAILY 04/30/25 04/30/25 History omeprazole 40 mg capsule,delayed 40 mg PO DAILY 04/30/25 04/30/25 History release Allergies Allergy/AdvReac Type Severity Reaction Status Date / Time levofloxacin (From [facility]) Allergy Intermediate MUSCLE Verified 02/03/25 14:15 SPASMS Visit Medications Acetaminophen (Acetaminophen 325 Mg Tablet) 650 mg PO Q6H PRN PRN Reason: Fever >99.5 Stop: 05/29/25 22:47 Albuterol/Ipratropium (Albuterol/Ipratropium (Duoneb) Rt Sonia 3 Ml Nebu) 3 ml INH Q2HR PRN PRN Reason: SHORTNESS OF BREATH OR WHEEZE Stop: 05/29/25 22:47 Vancomycin HCl 2,000 mg/ (Sodium Chloride) 500 mls @ 150 mls/hr IV X1 ONE Stop: 04/30/25 00:59 Last Admin: 04/29/25 22:56 Dose: 150 mls/hr Sodium Chloride (Ns) 1,000 mls @ 75 mls/hr IV .[id number] RACHAEL Stop: 05/29/25 22:59 Discontinued Medications Albuterol/Ipratropium (Albuterol/Ipratropium (Duoneb) Rt Sonia 3 Ml Nebu) 3 ml INH X1 ONE Stop: 04/29/25 19:09 Last Admin: 04/29/25 19:46 Dose: 3 ml Lactated Ringer's (Lactated Ringers) 1,000 mls @ 999 mls/hr IV .[id number] ONE Stop: 04/29/25 16:05 Last Infusion: 04/29/25 16:38 Dose: Infused Cefepime HCl 2 gm/ Sodium (Chloride) 50 mls @ 100 mls/hr IV X1 ONE Stop: 04/29/25 22:09 Last Admin: 04/29/25 22:16 Dose: 100 mls/hr Methylprednisolone Sodium Succinate (Methylprednisolone Sod Succ 62.5 Mg/Ml 2ml Vial) 125 mg IVP X1 ONE Stop: 04/29/25 19:09 Last Admin: 04/29/25 19:33 Dose: 125 mg Assessment & Plan Plan 69-year-old male with as above past medical history who presented to the ED due to low blood pressure and back pain. Patient will be admitted for intractable pain. #Acute/subacute L4 fracture Patient has chronic back pain and history of spinal surgeries however states his back pain has gotten worse for the past 2 months Patient at home takes Marathon Patient with no focal neuro symptoms, equal sensation and strength on all 4 extremities, mild tenderness in lumbar area 04/28/2025 lumbar MRI shows: Acute/subacute L4 fracture with depression inferior endplate, reduction in height vertebral body percent Chest CT shows: Osteomyelitis discitis L2-L3 level, recommend elective MRI lumbar spine follow-up pre and postcontrast ? Pain control: Tylenol (1-3), Marathon (4-10), morphine breakthrough pain ? Back brace ? Physical therapy ordered #Acute hypotension #Acute Kidney injury Likely prerenal azotemia in the setting of dehydration due to diarrhea and alcohol use Diarrhea has resolved after completing abx therapy a few days ago. Patient was drinking heavily last night due to family members , patient is not a daily drinker drinks only on special occasions ? on IVF ? Avoid nephrotoxins ? Renally dose medications ? Monitor CMP #Elevated liver enzymes Likely secondary to acute alcohol use ? Monitor CMP #COPD Not in acute exacerbation ? DuoNebs as needed #BPH ? Resume tamsulosin as taken at home when appropriate #Hypertension Patient states he takes losartan at home ? Hold REJI ARB due to RAMON #Pulmonary Nodules Finding on Chest CT Pulmonary nodules as above, with this study as baseline ?Recommend 6 month follow-up CT chest without contrast Health Maintenance: Disposition: MedSurg Fluids: NS Feeding: Low-sodium Thrombo prophylaxis: Lovenox Gastric Ulcer prophylaxis: Pantoprazole CODE STATUS: Full code Case discussed with my attending Dr. Diego Mckeon MD PGY-1 Disclaimer: Despite multiple revisions, due to the dictation software being used, the document bellow may not be free of grammatical errors including phonetic/typographic errors. However, this does not deter from our commitment to providing health care in the patient's best interest in mind. Attending Provider Attestation/Addendum I reviewed labs, imaging, EKG, home medications and prior available records. Face to face evaluation was performed by me. I have personally examined the patient and discussed assessment and plan with the IM team. I reviewed the resident note and agree with the plan with exceptions as below. Acute hypotension Acute diarrhea Acute L4 fracture Frequent falls Acute low back pain Transaminitis RAMON Acute diarrhea is likely secondary to antibiotic use, improved after stopping the antibiotics BP improved after IV fluid resuscitation, likely in setting of hypovolemia from diarrhea Continue IV maintenance fluids Monitor kidney function. Avoid nephrotoxins. Renally dosed medications Trend LFTs Management of pain with IV morphine as needed PT/OT evaluation
[2025-04-29 23:22] VITALS: PULSE 86; RESP 18; O2SAT 94; O2SAT 95
[2025-04-30] VITALS (11 sets, daily range): BP systolic 135–162; BP diastolic 83–98; PULSE 74–92; RESP 17–20; TEMP 36.1–37.2; O2SAT 94–99; BMI 24.8
[2025-04-30] MEDS: MORPHINE SULF INJ 10 MG/ML VIAL 2 MG IVP ×3 (00:11→11:29)
[2025-04-30] MEDS: SODIUM CHLORIDE 0.9% 1000 ML 1,000 ML 75 ML IV ×2 (00:12→16:12)
--- NOTE | 2025-04-30 02:20 | PC.NURSE ---
Contacted RT. Patient requested breathing treatment.
[2025-04-30] MEDS: ALBUTEROL/IPRATROPIUM (Duoneb) RT SOL 3 ML NEBU INH ×3 (02:26→19:10)
[2025-04-30] MEDS: HYDROcodone/APAP 5/325 TABLET 1 TAB PO ×3 (03:20→16:11)
[2025-04-30 06:20] LABS: Basophils % (Auto) 1 % (0-2.5); Eosinophils % (Auto) 0 % (0-10); Hematocrit 37.5 % (41.0-53.0); Hemoglobin 12.4 g/dL (13.5-16.0); Immature Granulocytes % (Auto) 1 % (0-0); Immature Granulocytes Auto 0.03 Thou/mm3 (0.00-0.00); Lymphocytes # (Auto) 0.5 Thou/mm3 (1.0-4.8); Lymphocytes % (Auto) 15 % (10-50); Mean Corpuscular HGB Conc 33.1 g/dl (31.0-37.0); Mean Corpuscular Hemoglobin 29.9 pg (25.0-35.0); Mean Corpuscular Volume 90 fL (80-100); Monocytes # (Auto) 0.1 Thou/mm3 (0.0-0.8); Monocytes % (Auto) 2 % (0-12); Neutrophils # (Auto) 2.5 Thou/mm3 (1.8-7.7); Neutrophils % (Auto) 81 % (37-80); Nucleated Red Blood Cell % 0 /100 WBC (0); Platelet Count 222 Thou/mm3 (140-440); RDW Standard Deviation 46.2 fL (35.1-43.9); Red Blood Count 4.15 Miln/mm3 (4.50-5.90); White Blood Count 3.1 Thou/mm3 (3.8-10.6)
[2025-04-30 07:02] LABS: Alanine Aminotransferase 272 U/L (10-49); Albumin, Serum 3.3 gm/dL (3.4-4.8); Albumin/Globulin Ratio 1.3 (1.2-2.2); Alkaline Phosphatase 204 U/L (46-116); Anion Gap 10 (7-16); Aspartate Amino Transferase 351 U/L (0-34); BUN/Creatinine Ratio 20 Ratio (12-20); Bilirubin,Total 0.9 mg/dL (0.3-1.2); Blood Urea Nitrogen 30 mg/dL (9-23); Calcium 8.3 mg/dL (8.3-10.6); Calcium (Corrected) 8.9 mg/dL (8.5-10.1); Chloride 104 mMol/L (98-107); Creatinine (Component) 1.5 mg/dL (0.6-1.3); Estimated Creatinine Clearance 49.3 mL/min (>60); Globulin 2.5 gm/dL (2.3-3.5); Glucose 151 mg/dL (74-106); Magnesium 1.6 mg/dL (1.6-2.6); Osmolality,Calculated 284 (275-295); Phosphorous 2.9 mg/dL (2.4-5.1); Sodium 138 mMol/L (136-145); Total Protein 5.8 gm/dL (5.7-8.2); eGFR 51 See Note
[2025-04-30] MEDS: ENOXAPARIN SOD INJ 40 MG/0.4 ML SYRINGE SC (08:48)
[2025-04-30] MEDS: SENNA TABLET 1 TAB PO (08:48)
[2025-04-30] MEDS: PANTOPRAZOLE INJ 40 MG VIAL IVP (08:48)
[2025-04-30] MEDS: cefTRIAXone/D5w 2gm 2 GM/50 ML BAG IV (11:34)
[2025-04-30] MEDS: HYDROmorphone INJ 2 MG/ML VIAL 0.5 MG IVP ×2 (17:01→21:20)
--- NOTE | 2025-04-30 19:15 | ESPR_ITS ---
Documentation for date of: 04/30/25 Subjective Subjective Interval history: No acute overnight events. Complains of back pain, we added ANALGESICS. Denies fever, chills, headaches, chest pain, sob, cough, GI or urinary symptoms. Vitals are stable. CBC stable. RAMON improving, LFTs are downtrending, remainder CMP stable. Exam Vital Signs Temp Pulse Resp BP Pulse Ox O2 Del Method O2 Flow Rate 98.9 F 86 20 138/88 H 99 Nasal Cannula 2 04/30/25 16:00 04/30/25 19:12 04/30/25 19:12 04/30/25 16:00 04/30/25 19:12 04/30/25 11:50 04/30/25 19:12 Narrative Exam GENERAL: Normal appearing adult male, NAD, AAOx3 HEENT: Moist mucosa. Eyes open, symmetrical, & clear CARDIO: Heart RRR, no obvious murmurs PULM: No noted coughing/dyspnea CTA B/L, no R/W/R GI: Abdomen soft, nondistended, no pain on palpation. BSx4 SKIN/MSK/EXT: No wounds/rashes/edema/amputations, tenderness to palpation in lumbar area. Pedal pulses present B/L NEURO: AAOx3, no focal neuro deficits, able to move all 4 extremities Objective Labs 05/01/25 04:42 05/01/25 04:42 Labs: Laboratory Results - last 24 hr 04/29/25 04/29/25 04/29/25 15:25 19:24 20:00 WBC RBC Hgb Hct MCV MCH MCHC RDW Std Deviation Plt Count Neut % (Auto) Lymph % (Auto) [place] % (Auto) Eos % (Auto) Baso % (Auto) Neut # (Auto) Lymph # (Auto) [place] # (Auto) Eos # (Auto) Baso # (Auto) Immature Gran # (Auto) Absolute Nucleated RBC Immature Gran % Nucleated RBC % ESR 3 PT 14.6 H INR 1.4 H APTT 38.4 H Puncture Site Right Radial ABG pH 7.34 L ABG pCO2 49 H ABG pO2 129 H ABG HCO3 26 ABG O2 Saturation 100 H ABG Base Excess 0 FiO2 32 Sodium Potassium Chloride Carbon Dioxide Anion Gap BUN Creatinine Estim Creat Clear Calc eGFR BUN/Creatinine Ratio Glucose Calculated Osmolality Lactic Acid 1.4 Calcium Corrected Calcium Phosphorus Magnesium Total Bilirubin Direct Bilirubin 0.3 AST ALT Alkaline Phosphatase Ammonia 11 Troponin I < 0.020 C-Reactive Prot, Quant < 0.5 B-Natriuretic Peptide 20 Total Protein Albumin Globulin Albumin/Globulin Ratio Amylase 84 Lipase 36 Procalcitonin 0.37 TSH 0.81 Free T4 1.30 Urine Opiates Screen Urine Fentanyl Screen Ur Barbiturates Screen U Amphetamin/Meth Scrn U Benzodiazepines Scrn U Cocaine Metab Screen U Marijuana (THC) Screen Ethyl Alcohol 62.8 H 04/29/25 04/30/25 20:23 05:17 WBC 3.1 L D RBC 4.15 L Hgb 12.4 L Hct 37.5 L MCV 90 MCH 29.9 MCHC 33.1 RDW Std Deviation 46.2 H Plt Count 222 Neut % (Auto) 81 H Lymph % (Auto) 15 [place] % (Auto) 2 Eos % (Auto) 0 Baso % (Auto) 1 Neut # (Auto) 2.5 Lymph # (Auto) 0.5 L [place] # (Auto) 0.1 Eos # (Auto) 0.0 Baso # (Auto) 0.0 Immature Gran # (Auto) 0.03 H Absolute Nucleated RBC 0.00 Immature Gran % 1 H Nucleated RBC % 0 ESR PT INR APTT Puncture Site ABG pH ABG pCO2 ABG pO2 ABG HCO3 ABG O2 Saturation ABG Base Excess FiO2 Sodium 138 Potassium 5.0 D Chloride 104 Carbon Dioxide 24.0 Anion Gap 10 BUN 30 H Creatinine 1.5 H Estim Creat Clear Calc 49.3 L eGFR 51 L BUN/Creatinine Ratio 20 Glucose 151 H D Calculated Osmolality 284 Lactic Acid Calcium 8.3 Corrected Calcium 8.9 Phosphorus 2.9 Magnesium 1.6 Total Bilirubin 0.9 Direct Bilirubin AST 351 H ALT 272 H Alkaline Phosphatase 204 H Ammonia Troponin I C-Reactive Prot, Quant B-Natriuretic Peptide Total Protein 5.8 Albumin 3.3 L Globulin 2.5 Albumin/Globulin Ratio 1.3 Amylase Lipase Procalcitonin TSH Free T4 Urine Opiates Screen Positive A Urine Fentanyl Screen Negative Ur Barbiturates Screen Negative U Amphetamin/Meth Scrn Negative U Benzodiazepines Scrn Negative U Cocaine Metab Screen Negative U Marijuana (THC) Screen Negative Ethyl Alcohol ABG Interpretation ABG results: 04/29/25 20:00 ABG pH 7.34 L ABG pCO2 49 H ABG pO2 129 H ABG HCO3 26 ABG O2 Saturation 100 H ABG Base Excess 0 Quality Measures Quality Measures none Advance care planning discussed with:: patient Assessment & Plan Assessment Current Active Medications: Generic Name Dose Route Start Last Admin Trade Name Freq PRN Reason Stop Dose Admin Acetaminophen 650 mg 04/29/25 22:48 Acetaminophen 325 Mg Tablet PO 05/29/25 22:47 Q6H PRN Fever >99.5 Acetaminophen 1,000 mg 04/29/25 23:24 Acetaminophen 500 Mg Tablet PO 05/29/25 23:23 Q6H PRN PAIN SCALE 1-3 (mild Hydrocodone Bitart/Acetaminophen 1 tab 04/29/25 23:04 04/30/25 16:11 Hydrocodone/Apap 5/325 Tablet PO 05/04/25 23:03 1 tab Q6HR PRN Administration PAIN SCALE 4-10(Mod-Sev Albuterol/Ipratropium 3 ml 04/29/25 22:48 04/30/25 19:10 Albuterol/Ipratropium (Duoneb) Rt Sonia 3 Ml Nebu INH 05/29/25 22:47 3 ml Q2HR PRN Administration SHORTNESS OF BREATH OR WHEEZE Doxycycline Hyclate 100 mg 04/30/25 21:00 Doxycycline 100 Mg Tablet PO 05/07/25 20:59 BID RACHAEL Enoxaparin Sodium 40 mg 04/30/25 09:00 04/30/25 08:48 Enoxaparin Sod Inj 40 Mg/0.4 Ml Syringe SC 05/14/25 08:59 40 mg QDAY RACHAEL Administration Hydromorphone HCl 0.5 mg 04/30/25 11:28 04/30/25 17:01 Hydromorphone Inj 2 Mg/Ml Vial IVP 05/05/25 11:27 0.5 mg Q4HR PRN Administration breakthru pain Sodium Chloride 1,000 mls @ 75 mls/hr 04/29/25 23:00 04/30/25 16:12 Ns IV 05/29/25 22:59 75 mls/hr .[id number] RACHAEL Administration Ceftriaxone Sodium/Dextrose 2 gm in 50 mls @ 100 mls/hr 04/30/25 10:30 04/30/25 11:34 Rocephin/D5w 2gm IV 05/07/25 10:23 100 mls/hr QDAY RACHAEL Administration Ondansetron HCl 4 mg 04/29/25 22:48 Ondansetron Inj 2 Mg/Ml Inj 2 Ml IVP 05/29/25 22:47 Q6H PRN NAUSEA OR VOMITING Protocol Pantoprazole Sodium 40 mg 04/30/25 09:00 04/30/25 08:48 Pantoprazole Inj 40 Mg Vial IVP 05/30/25 08:59 40 mg QDAY RACHAEL Administration Sennosides 1 tab 04/30/25 09:00 04/30/25 08:48 Senna Tablet PO 05/30/25 08:59 1 tab QDAY RACHAEL Administration Protocol Plan This is a 69-year-old male with PMHx of COPD, dementia, HTN, BPH presenting to ED with low blood pressure and back pain. Admitted for subacute L4 fracture and bar osteomyelitis. Appreciate recommendations from ID and orthopedics team. 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 However over the last 2 months he has complained of low back pain, but does not recall injury or fall. His PCP had ordered an MRI which was done 04/18 showing acute/subacute L4 fracture. He was scheduled to see orthopedics at next week, however decided to come into the ED 2/2 worsening back pain and hypotension. Otherwise neurologically intact, sensation and motor function symmetrical and intact bilaterally. ? Pain control ? Back brace ordered ? Started CEFTRIAXONE 2 g daily ? Started DOXYCYCLINE 100 mg BID ? Pending physical therapy ? Pending orthopedics recommendations Hypotension RAMON, pre-renal azotemia Acute transaminitis HTN Presenting with BP 80/56, HR 85, RAMON with CR 1.9, AST 478, ALT 281. Likely 2/2 dehydration, reports decreased oral intake 2/2 back pain. Improving with fluids. Adequate urine output. ? Continue IVF at 75 cc/H ? Holding REJI/ARBS in settings of RAMON, currently normotensive. ? Renally dose meds, avoid overdiuresis and NEPHROTOXINS ? Daily CMP COPD Not in acute exacerbation ? DuoNebs as needed BPH ? Resume TAMSULOSIN as taken at home when appropriate Pulmonary Nodules Finding on Chest CT Pulmonary nodules as above, with this study as baseline ? Recommend 6 month follow-up CT chest without contrast Health maintenance Diet: Low sodium diet GI prophylaxis: PROTONIX DVT prophylaxis: HEPARIN SUBQ Antibiotics: CTX, DOXYCYCLINE CODE STATUS: FULL CODE Disposition: Pending ID and ORTHO recs. Case was discussed with attending physician and senior resident. Amber Morris DO PGYI Attending Provider Attestation/Addendum I have discussed and was present for the essential components of the history, physical examination, diagnosis, and treatment plan with the resident. I agree with the patient's care as documented by the resident and amended herein by me. Tim Shook DO. Although this document has been carefully reviewed, there may still be some phonetic and other typographical errors. These errors are purely grammatical due to imperfections in the software program and should not be construed in any way to compromise the substance of the patient's medical care during this visit.
[2025-04-30] MEDS: DOXYCYCLINE 100 MG TABLET PO (20:38)
[2025-05-01] VITALS (14 sets, daily range): BP systolic 128–157; BP diastolic 77–97; PULSE 66–93; RESP 12–22; TEMP 36.1–37.1; O2SAT 92–100
[2025-05-01] MEDS: HYDROcodone/APAP 5/325 TABLET 1 TAB PO ×3 (00:08→16:25)
[2025-05-01] MEDS: HYDROmorphone INJ 2 MG/ML VIAL 0.5 MG IVP ×4 (03:58→22:39)
--- NOTE | 2025-05-01 04:49 | PC.NURSE ---
Resumed pt care, report received from Keith RAMIREZ.
[2025-05-01 06:12] LABS: Basophils % (Auto) 0 % (0-2.5); Eosinophils % (Auto) 0 % (0-10); Hemoglobin 11.5 g/dL (13.5-16.0); Immature Granulocytes % (Auto) 1 % (0-0); Immature Granulocytes Auto 0.05 Thou/mm3 (0.00-0.00); Lymphocytes # (Auto) 0.9 Thou/mm3 (1.0-4.8); Lymphocytes % (Auto) 14 % (10-50); Mean Corpuscular HGB Conc 32.9 g/dl (31.0-37.0); Mean Corpuscular Volume 91 fL (80-100); Monocytes # (Auto) 0.6 Thou/mm3 (0.0-0.8); Monocytes % (Auto) 11 % (0-12); Neutrophils # (Auto) 4.4 Thou/mm3 (1.8-7.7); Neutrophils % (Auto) 74 % (37-80); Nucleated Red Blood Cell % 0 /100 WBC (0); Platelet Count 185 Thou/mm3 (140-440); RDW Standard Deviation 46.8 fL (35.1-43.9); Red Blood Count 3.83 Miln/mm3 (4.50-5.90); White Blood Count 5.9 Thou/mm3 (3.8-10.6)
[2025-05-01 06:32] LABS: Alanine Aminotransferase 184 U/L (10-49); Albumin, Serum 3.1 gm/dL (3.4-4.8); Albumin/Globulin Ratio 1.3 (1.2-2.2); Alkaline Phosphatase 174 U/L (46-116); Anion Gap 8 (7-16); Aspartate Amino Transferase 157 U/L (0-34); BUN/Creatinine Ratio 21 Ratio (12-20); Bilirubin,Total 0.7 mg/dL (0.3-1.2); Blood Urea Nitrogen 27 mg/dL (9-23); Calcium 8.4 mg/dL (8.3-10.6); Calcium (Corrected) 9.1 mg/dL (8.5-10.1); Carbon Dioxide 25.6 mMol/L (20.0-31.0); Chloride 105 mMol/L (98-107); Creatinine (Component) 1.3 mg/dL (0.6-1.3); Estimated Creatinine Clearance 56.9 mL/min (>60); Globulin 2.4 gm/dL (2.3-3.5); Glucose 107 mg/dL (74-106); Magnesium 1.8 mg/dL (1.6-2.6); Osmolality,Calculated 282 (275-295); Phosphorous 3.1 mg/dL (2.4-5.1); Sodium 139 mMol/L (136-145); Total Protein 5.5 gm/dL (5.7-8.2); eGFR > 60 See Note
[2025-05-01] MEDS: ALBUTEROL/IPRATROPIUM (Duoneb) RT SOL 3 ML NEBU INH ×3 (07:07→22:05)
[2025-05-01] MEDS: PANTOPRAZOLE INJ 40 MG VIAL IVP (08:09)
[2025-05-01] MEDS: cefTRIAXone/D5w 2gm 2 GM/50 ML BAG IV (08:10)
[2025-05-01] MEDS: HEPARIN SOD INJ 5000 UNIT/ML VIAL SC ×2 (08:10→14:06)
[2025-05-01] MEDS: DOXYCYCLINE 100 MG TABLET PO (08:10)
[2025-05-01] MEDS: SENNA TABLET 1 TAB PO (08:10)
[2025-05-01] MEDS: SODIUM CHLORIDE 0.9% 1000 ML 1,000 ML 75 ML IV (08:11)
--- NOTE | 2025-05-01 09:09 | ESPR_ITS ---
Subjective Subjective Interval history: asked to see this 69 y/o man today. here for back pain with abnormal imaging. no pos bc noted, so need bx to guide rx. pmh noted Exam Vital Signs Temp Pulse Resp BP Pulse Ox O2 Del Method O2 Flow Rate 98.4 F 81 17 151/97 H 97 Nasal Cannula 2 05/01/25 07:55 05/01/25 07:55 05/01/25 07:55 05/01/25 07:55 05/01/25 07:55 05/01/25 04:00 05/01/25 07:08 Narrative Exam benign exam. on O2 but is on 2 lpm at home. back sl tender near area of prior surgery in the LS spine region. rest of exam benign Objective - Internal Medicine Labs 05/01/25 04:42 05/01/25 04:42 Labs: Laboratory Results - last 24 hr 05/01/25 04:42 WBC 5.9 D RBC 3.83 L Hgb 11.5 L Hct 35.0 L MCV 91 MCH 30.0 MCHC 32.9 RDW Std Deviation 46.8 H Plt Count 185 D Neut % (Auto) 74 Lymph % (Auto) 14 [place] % (Auto) 11 Eos % (Auto) 0 Baso % (Auto) 0 Neut # (Auto) 4.4 Lymph # (Auto) 0.9 L [place] # (Auto) 0.6 Eos # (Auto) 0.0 Baso # (Auto) 0.0 Immature Gran # (Auto) 0.05 H Absolute Nucleated RBC 0.00 Immature Gran % 1 H Nucleated RBC % 0 Sodium 139 Potassium 5.0 Chloride 105 Carbon Dioxide 25.6 Anion Gap 8 BUN 27 H Creatinine 1.3 Estim Creat Clear Calc 56.9 L eGFR > 60 BUN/Creatinine Ratio 21 H Glucose 107 H Calculated Osmolality 282 Calcium 8.4 Corrected Calcium 9.1 Phosphorus 3.1 Magnesium 1.8 Total Bilirubin 0.7 AST 157 H ALT 184 H Alkaline Phosphatase 174 H D Total Protein 5.5 L Albumin 3.1 L Globulin 2.4 Albumin/Globulin Ratio 1.3 ABG Interpretation ABG results: 04/29/25 20:00 ABG pH 7.34 L ABG pCO2 49 H ABG pO2 129 H ABG HCO3 26 ABG O2 Saturation 100 H ABG Base Excess 0 Assessment & Plan A&P Narrative back pain with possible infection associated with back hardware but normal esr and crp htn bph dementia stated copd. on 2lpm at home for this with a long smoking hx ideally a bx is done to direct rx as bc are neg so far, but so are inflammatory makers if no bx then vanco and rocephin ok for 8 weeks. 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 Time Spent With Patient Time: Total time spent is greater than 50% in coordination of care (as documented) at patient's floor/unit and/or counseling patient:
[2025-05-01] MEDS: LOSARTAN POTASSIUM 25 MG TABLET PO (10:05)
--- NOTE | 2025-05-01 11:58 | ESCONSULT_ITS ---
RE: MIRIAN IVORY : 1955 DATE OF CONSULTATION: 05/01/2025 REFERRING PHYSICIAN: Paco Cortez MD and Megan Covington MD REASON FOR CONSULTATION: Back pain with abnormal imaging, history of renal stones and stenting that was later removed. MEDICAL PROBLEMS: Include dementia which is at baseline, based on medication and his own statement, BPH, occasional acute kidney injury, just mild renal stone disease, hypertension for which he has been on a variety of medications. Currently, he is on losartan regularly. SURGICAL HISTORY: Includes lumbar spinal fusion in 2012 in [place], fusion at L5-S1, and right renal stent in the past removed after placing it in 12/2023. He had bilateral arthroscopic knee surgery in the past and hernia on the left a number of years ago as well. ALLERGIES: AUGMENTIN CAUSING DIARRHEA AND LEVAQUIN, WHICH I DID NOT PURSUE. IMMUNIZATIONS: Last tetanus was less than 10 years. He does take flu shot every year. He has had three COVID vaccines and has had pneumococcal vaccines as well. FAMILY HISTORY: Positive for a sister with cancer. SOCIAL HISTORY: He lives at home with his . He quit smoking in late 2022 about a year and a half ago and apparently used to drink alcohol as well, but has ceased that also. REVIEW OF SYSTEMS: Otherwise unremarkable. PHYSICAL EXAMINATION: The patient is a pleasant gentleman. He is on oxygen at home about 2 liters and here as well. He was apparently diagnosed with COPD. He uses an inhaler at home. The patient has a hoarse voice. There is no change in his weight. Rest of exam is benign. He does have some back pain to palpation over the lumbosacral region that is consistent with the imaging findings. 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 RECOMMENDATIONS: The patient had initially a good response to surgery. It lasted for several years and he has been having more trouble since he retired. Ideally, we have a biopsy of the area performed, but if you want to just treat him, we need a biopsy to verify the germ, partiularly if the bc are positive Please check CBC, renal panel, and sed rate while on treatment on a weekly basis and remove his line at the end of treatment. There is no need for me to see him in followup. Please have him see the surgeons in [place] at some point especially if you do not do a biopsy. DT: 09:33:31 TT: 10:37:00 Ref: [id number] - TID: [id number] MTDD
--- NOTE | 2025-05-01 14:06 | XR_ITS ---
Examination: Ultrasound-guided needle placement left brachial vein. Dual-lumen central line placement (PICC line). Fluoroscopy AP chest, portable, single view Exam date and time:May 01 2025 2:00 PM INDICATIONS: Need for long-term intravenous antibiotic therapy for osteomyelitis A timeout was completed verifying correct patient, procedure, site, positioning Informed consent provided Technique: The patient's site was prepped and draped in sterile fashion. Maximum Sterile Barrier Technique used including cap, mask, sterile gown, sterile gloves, and sterile full body drape. If ultrasound technique used: sterile gel and sterile probe covers. Hand Hygiene performed using proper scrub, soap and water, or alcohol-based hand rub. Ultrasound utilized to confirm patency of the left brachial vein Utilizing ultrasonographic guidance successful 21-gauge needle puncture into the left brachial vein Ultrasound images recorded and stored. 5 cc 1% lidocaine administered for local anesthetic. Successful micropuncture with a 21-gauge needle is performed. 0.18 wire guide is then introduced into the SVC under fluoroscopic guidance. Dual-lumen catheter dilator is then introduced, followed by the catheter in the SVC and proper position under fluoroscopic guidance. Successful aspiration of blood and flushing with heparinized saline is then performed in the 2 venous limbs. The catheter sutured in place. Findings: Under fluoroscopy, the tip of the catheter is in good position in the vena cava. Portable chest x-ray, post line placement is ordered. Estimated blood loss 3 cc The patient tolerated the procedure well and was in stable and satisfactory condition at completion of the procedure Impression: Successful ultrasound-guided needle placement left brachial vein Successful placement of dual lumen central line, percutaneous Fluoroscopy 1.3 minute radiation dose 3.73 milligray 1 spot fluoroscopic chest film. AP chest completion procedure demonstrates satisfactory position central line. May use central line.
--- NOTE | 2025-05-01 14:44 | PC.PT ---
Patient is xI with bed mobility, transfers, and ambulation. Patient will be D/C from PT at this time. RN made aware.
[2025-05-01] MEDS: LIDOCAINE INJ PF 1% 30 ML VIAL 4 ML INFL (15:05)
[2025-05-01] MEDS: HEPARIN SOD LOCK SYR 100 UNIT/ML 500 UNIT STFIELD (15:08)
--- NOTE | 2025-05-01 15:21 | ESPR_ITS ---
Documentation for date of: 05/01/25 Subjective Subjective Interval history: No acute overnight events. Reports feeling well this morning. Denies fever, chills, headaches, chest pain, sob, cough, GI or urinary symptoms. Vitals relatively stable. Kidney function improving. LFTs downtrending. CBC at baseline without leukocytosis. No new culture, 24H blood culture negative. ID recommended 6 weeks of VANCOMYCIN and CEFTRIAXONE, PICC line ordered. However, we ordered a bone biopsy to narrow down ANTIBIOTIC choice, avoid using VANCOMYCIN long-term if possible. Pending recommendation from orthopedics, Dr. Altman, who was notified via text message today. Exam Vital Signs Temp Pulse Resp BP Pulse Ox O2 Del Method O2 Flow Rate 98.7 F 73 12 145/94 H 100 Nasal Cannula 2 05/01/25 11:58 05/01/25 15:15 05/01/25 15:15 05/01/25 15:15 05/01/25 15:15 05/01/25 15:15 05/01/25 15:15 Narrative Exam GENERAL: Normal appearing adult male, NAD, AAOx3 HEENT: Moist mucosa. Eyes open, symmetrical, & clear CARDIO: Heart RRR, no obvious murmurs PULM: No noted coughing/dyspnea CTA B/L, no R/W/R GI: Abdomen soft, nondistended, no pain on palpation. BSx4 SKIN/MSK/EXT: No wounds/rashes/edema/amputations, tenderness to palpation in lumbar area. Pedal pulses present B/L NEURO: AAOx3, no focal neuro deficits, able to move all 4 extremities Objective Labs 05/01/25 04:42 05/01/25 04:42 Labs: Laboratory Results - last 24 hr 05/01/25 04:42 WBC 5.9 D RBC 3.83 L Hgb 11.5 L Hct 35.0 L MCV 91 MCH 30.0 MCHC 32.9 RDW Std Deviation 46.8 H Plt Count 185 D Neut % (Auto) 74 Lymph % (Auto) 14 [place] % (Auto) 11 Eos % (Auto) 0 Baso % (Auto) 0 Neut # (Auto) 4.4 Lymph # (Auto) 0.9 L [place] # (Auto) 0.6 Eos # (Auto) 0.0 Baso # (Auto) 0.0 Immature Gran # (Auto) 0.05 H Absolute Nucleated RBC 0.00 Immature Gran % 1 H Nucleated RBC % 0 Sodium 139 Potassium 5.0 Chloride 105 Carbon Dioxide 25.6 Anion Gap 8 BUN 27 H Creatinine 1.3 Estim Creat Clear Calc 56.9 L eGFR > 60 BUN/Creatinine Ratio 21 H Glucose 107 H Calculated Osmolality 282 Calcium 8.4 Corrected Calcium 9.1 Phosphorus 3.1 Magnesium 1.8 Total Bilirubin 0.7 AST 157 H ALT 184 H Alkaline Phosphatase 174 H D Total Protein 5.5 L Albumin 3.1 L Globulin 2.4 Albumin/Globulin Ratio 1.3 ABG Interpretation ABG results: 04/29/25 20:00 ABG pH 7.34 L ABG pCO2 49 H ABG pO2 129 H ABG HCO3 26 ABG O2 Saturation 100 H ABG Base Excess 0 Quality Measures Quality Measures none Advance care planning discussed with:: patient Assessment & Plan Assessment Current Active Medications: Generic Name Dose Route Start Last Admin Trade Name Freq PRN Reason Stop Dose Admin Acetaminophen 650 mg 04/29/25 22:48 Acetaminophen 325 Mg Tablet PO 05/29/25 22:47 Q6H PRN Fever >99.5 Acetaminophen 1,000 mg 04/29/25 23:24 Acetaminophen 500 Mg Tablet PO 05/29/25 23:23 Q6H PRN PAIN SCALE 1-3 (mild Hydrocodone Bitart/Acetaminophen 1 tab 04/29/25 23:04 05/01/25 08:24 Hydrocodone/Apap 5/325 Tablet PO 05/04/25 23:03 1 tab Q6HR PRN Administration PAIN SCALE 4-10(Mod-Sev Albuterol/Ipratropium 3 ml 04/29/25 22:48 05/01/25 07:07 Albuterol/Ipratropium (Duoneb) Rt Sonia 3 Ml Nebu INH 05/29/25 22:47 3 ml Q2HR PRN Administration SHORTNESS OF BREATH OR WHEEZE Heparin Sodium (Porcine) 5,000 unit 05/01/25 09:00 05/01/25 14:06 Heparin Sod Inj 5000 Unit/Ml Vial SC 05/15/25 08:59 5,000 unit Q8HR RACHAEL Administration Hydromorphone HCl 0.5 mg 04/30/25 11:28 05/01/25 10:50 Hydromorphone Inj 2 Mg/Ml Vial IVP 05/05/25 11:27 0.5 mg Q4HR PRN Administration breakthru pain Sodium Chloride 1,000 mls @ 75 mls/hr 04/29/25 23:00 05/01/25 08:11 Ns IV 05/29/25 22:59 75 mls/hr .[id number] RACHAEL Administration Ceftriaxone Sodium/Dextrose 2 gm in 50 mls @ 100 mls/hr 04/30/25 10:30 05/01/25 08:10 Rocephin/D5w 2gm IV 05/07/25 10:23 100 mls/hr QDAY RACHAEL Administration Vancomycin HCl 1,500 mg/ 500 mls @ 200 mls/hr 05/01/25 16:00 Sodium Chloride IV 05/01/25 18:29 X1 ONE Losartan Potassium 25 mg 05/01/25 09:00 05/01/25 10:05 Losartan Potassium 25 Mg Tablet PO 05/31/25 08:59 25 mg DAILY RACHAEL Administration Ondansetron HCl 4 mg 04/29/25 22:48 Ondansetron Inj 2 Mg/Ml Inj 2 Ml IVP 05/29/25 22:47 Q6H PRN NAUSEA OR VOMITING Protocol Pantoprazole Sodium 40 mg 05/02/25 09:00 Pantoprazole 40 Mg Tablet PO 05/30/25 08:59 QDAY [facility] Pharmacy Consult 1 each 05/01/25 15:30 Vancomycin Pharmacy To Dose 1 Each Each IV 05/31/25 15:29 QDAY RACHAEL Sennosides 1 tab 04/30/25 09:00 05/01/25 08:10 Senna Tablet PO 05/30/25 08:59 1 tab QDAY RACHAEL Administration Protocol Plan This is a 69-year-old male with PMHx of COPD, dementia, HTN, BPH presenting to ED with low blood pressure and back pain. Admitted for subacute L4 fracture and bar osteomyelitis. Appreciate recommendations from ID and orthopedics team. 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 However over the last 2 months he has complained of low back pain, but does not recall injury or fall. His PCP had ordered an MRI which was done 04/18 showing acute/subacute L4 fracture. He was scheduled to see orthopedics at next week, however decided to come into the ED 2/2 worsening back pain and hypotension. Otherwise neurologically intact, sensation and motor function symmetrical and intact bilaterally. ID recommended 8 weeks of VANCOMYCIN and ROCEPHIN; with weekly renal panel, CBC, ESR while on ANTIBIOTICS. PICC line ordered. Ordered CT-guided bone biopsy to narrow down ANTIBIOTIC choice, try to avoid long-term VANCOMYCIN if possible. Aseptic, afebrile and no leukocytosis. 24-hour blood culture negative ? Pain control ? Back brace ordered ? Continue CEFTRIAXONE 2 g daily (04/30 to 06/25) ? Started VANCOMYCIN pharmacy dose (05/01 to 06/26) ? Pending physical therapy ? Pending orthopedics recommendations ? Pending CT-guided bone biopsy ? NPO at midnight, holding HEPARIN Hypotension RAMON, pre-renal azotemia Acute transaminitis HTN Presenting with BP 80/56, HR 85, RAMON with CR 1.9, AST 478, ALT 281. Likely 2/2 dehydration, reports decreased oral intake 2/2 back pain. Improving with fluids. Adequate urine output. ? Continue IVF at 75 cc/H ? Holding REJI/ARBS in settings of RAMON, currently normotensive. ? Renally dose meds, avoid overdiuresis and NEPHROTOXINS ? Daily CMP COPD Not in acute exacerbation ? DuoNebs as needed BPH ? Resume TAMSULOSIN as taken at home when appropriate Pulmonary Nodules Finding on Chest CT Pulmonary nodules as above, with this study as baseline ? Recommend 6 month follow-up CT chest without contrast Health maintenance Diet: Low sodium diet n.p.o. midnight 05/02 GI prophylaxis: PROTONIX DVT prophylaxis: HEPARIN SUBQ holding for biopsy 05/02 Antibiotics: CTX, DOXYCYCLINE CODE STATUS: FULL CODE Disposition: Pending ID and ORTHO recs. Case was discussed with attending physician and senior resident. Amber Morris DO PGYI Attending Provider Attestation/Addendum I have discussed and was present for the essential components of the history, physical examination, diagnosis, and treatment plan with the resident. I agree with the patient's care as documented by the resident and amended herein by me. Tim Shook DO. Patient seen and evaluated this AM. WBC within normal limits, creatinine 1.3, blood cultures on 04/29 negative. We will see if IR can do a biopsy of the L2 and 3 vertebrae for his osteomyelitis likely secondary to previous surgeries and hardware. Would like to tailor antibiotics as much as possible. Per infectious disease can do vancomycin and Rocephin for 8 weeks if no biopsy performed however the vancomycin will be difficult. Orthopedic surgery also consulted, appreciate recommendations. Although this document has been carefully reviewed, there may still be some phonetic and other typographical errors. These errors are purely grammatical due to imperfections in the software program and should not be construed in any way to compromise the substance of the patient's medical care during this visit.
--- NOTE | 2025-05-01 15:47 | PC.SS ---
SS met with patient who is alert/oriented. Patient was able to verify demographics. Patient's and daughter at bedside. Patient back pain. Patient has hx: COPD, Dementia. Patient resides with his . Patient uses 02 ([facility]), walker, nebulizer, bsc, and bipap (apria). Patient states his daughter, Celeste, is his [facility] care provider. Patient's daughter provides transportation. Patient will return home. Patient will need 8 weeks of i.v. antibiotics. He prefers Home health with [facility] as he has had them before. Patient PCP: Dr. Covington. Last appt. . Pharmacy: [facility]. Gloria medical decision maker: Celeste, daughter, d/c plan: w/I.v. antibiotics.
[2025-05-01] MEDS: Vancomycin Inj 1,500 MG in SODIUM CHLORIDE 0.9% 500 ML 500 ML 200 MG IV (17:14)
[2025-05-01 18:09] LABS: Partial Thromboplastin Time 25.2 Seconds (22.0-36.0); Prothrombin Time 11.4 Seconds (9.0-12.2)
[2025-05-02] VITALS (17 sets, daily range): BP systolic 115–177; BP diastolic 77–108; PULSE 68–90; RESP 14–99; TEMP 36.1–36.4; O2SAT 95–100
[2025-05-02] MEDS: HYDROcodone/APAP 5/325 TABLET 1 TAB PO ×3 (00:20→22:23)
[2025-05-02] MEDS: SODIUM CHLORIDE 0.9% 1000 ML 1,000 ML 75 ML IV (03:47)
[2025-05-02] MEDS: HYDROmorphone INJ 2 MG/ML VIAL 0.5 MG IVP ×4 (03:55→20:46)
[2025-05-02] MEDS: ALBUTEROL/IPRATROPIUM (Duoneb) RT SOL 3 ML NEBU INH ×3 (05:02→19:00)
[2025-05-02 06:41] LABS: Quantiferon-TB* See Sep Rpt
[2025-05-02 06:50] LABS: Basophils % (Auto) 0 % (0-2.5); Eosinophils # (Auto) 0.1 Thou/mm3 (0.0-0.5); Eosinophils % (Auto) 2 % (0-10); Hematocrit 32.5 % (41.0-53.0); Hemoglobin 10.4 g/dL (13.5-16.0); Immature Granulocytes % (Auto) 1 % (0-0); Immature Granulocytes Auto 0.05 Thou/mm3 (0.00-0.00); Lymphocytes # (Auto) 1.5 Thou/mm3 (1.0-4.8); Lymphocytes % (Auto) 26 % (10-50); Mean Corpuscular Hemoglobin 29.7 pg (25.0-35.0); Mean Corpuscular Volume 93 fL (80-100); Monocytes # (Auto) 0.6 Thou/mm3 (0.0-0.8); Monocytes % (Auto) 10 % (0-12); Neutrophils # (Auto) 3.5 Thou/mm3 (1.8-7.7); Neutrophils % (Auto) 60 % (37-80); Nucleated Red Blood Cell % 0 /100 WBC (0); Platelet Count 148 Thou/mm3 (140-440); RDW Standard Deviation 48.8 fL (35.1-43.9); White Blood Count 5.7 Thou/mm3 (3.8-10.6)
[2025-05-02 06:59] LABS: Partial Thromboplastin Time 25.6 Seconds (22.0-36.0); Prothrombin Time 11.2 Seconds (9.0-12.2)
[2025-05-02 07:04] LABS: Alanine Aminotransferase 127 U/L (10-49); Albumin, Serum 2.9 gm/dL (3.4-4.8); Albumin/Globulin Ratio 1.4 (1.2-2.2); Alkaline Phosphatase 133 U/L (46-116); Anion Gap 6 (7-16); Aspartate Amino Transferase 75 U/L (0-34); BUN/Creatinine Ratio 22 Ratio (12-20); Bilirubin,Total 0.7 mg/dL (0.3-1.2); Blood Urea Nitrogen 26 mg/dL (9-23); C-Reactive Protein 0.6 mg/dL (0.0-0.9); Calcium 8.4 mg/dL (8.3-10.6); Calcium (Corrected) 9.3 mg/dL (8.5-10.1); Carbon Dioxide 26.7 mMol/L (20.0-31.0); Chloride 108 mMol/L (98-107); Creatinine (Component) 1.2 mg/dL (0.6-1.3); Estimated Creatinine Clearance 61.7 mL/min (>60); Globulin 2.1 gm/dL (2.3-3.5); Glucose 86 mg/dL (74-106); Magnesium 1.8 mg/dL (1.6-2.6); Osmolality,Calculated 284 (275-295); Phosphorous 3.2 mg/dL (2.4-5.1); Potassium 4.4 mMol/L (3.4-5.1); Sodium 141 mMol/L (136-145); eGFR > 60 See Note
[2025-05-02 08:18] LABS: Sed Rate (ESR) 4 mm/hr (0-20)
[2025-05-02] MEDS: BusPIRone HCL 5 MG TABLET 10 MG PO ×2 (09:07→20:45)
[2025-05-02] MEDS: PANTOPRAZOLE 40 MG TABLET PO (09:07)
[2025-05-02] MEDS: SENNA TABLET 1 TAB PO (09:07)
[2025-05-02] MEDS: SERTRALINE HCL 25 MG TABLET 50 MG PO (09:08)
[2025-05-02] MEDS: LOSARTAN POTASSIUM 25 MG TABLET PO (09:08)
[2025-05-02] MEDS: cefTRIAXone/D5w 2gm 2 GM/50 ML BAG IV (09:08)
[2025-05-02] MEDS: VANCOMYCIN/NS 750 MG IVPB 750 MG/150 ML BAG 120 MG IV ×2 (09:50→22:27)
--- NOTE | 2025-05-02 12:40 | PC.SS ---
Follow up note: Patient already has picc line. Pending d/c to home health with [facility]. SS contacted to verify if they can accommodate i.v. antibiotics with rocephin and labs. Spoke to their field care manager and they agreed depending on insurance coverage.
[2025-05-02 12:44] LABS: Cocci Serology, IgM Negative (Negative)
--- NOTE | 2025-05-02 15:16 | PC.CC ---
Addendum entered by Aaron Thorpe RN 05/02/25 17:52: called and informed Dr. Shook that pt can be discharged tomorrow after morning dose. But HH don't go out to see new patient after 1400, so it have to be before that time. Addendum entered by Aaron Thorpe RN 05/02/25 17:50: [facility] pharmacy accepted the pt. Booked both. Start of care date with [facility] is 05/03/25 and [facility] pharmacy will deliver the medication tomorrow by 1230. Addendum entered by Aaron Thorpe RN 05/02/25 15:46: spoke to Dr. Shook and he stated he spoke to pharmacy and we will do weekly vanco trough. Addendum entered by Aaron Thorpe RN 05/02/25 15:44: spoke to Dr. Shook and updated. He stated he will speak to pharmacy and call me back. Spoke to Patsy at [facility], she stated the minimum they can do trough is ever 3 days. Spoke to Ludmila at [facility]. She stated they can't do daily trough, also no agency can do daily labs. Addendum entered by Aaron Thorpe RN 05/02/25 15:23: HH referral sent to [facility] on [address]. Awaiting responses. Pending start of care date. Addendum entered by Aaron Thorpe RN 05/02/25 15:22: Called and spoke to Elizabeth at [facility]. She stated they are unable to accept right now and she is OK with me to send the referral to [facility]. Original Note: pt has [facility] todd. HH referral sent to [facility] infusion pharmacy and [facility] on [address]. Awaiting responses. Pending start of care date. 1512 spoke to Yuliana at [facility], she stated they have done 2 abx in the past and to send over the referral to review. [address] Shook, pt needs HH for two IV abx vanco and rocephin. Pt needs CBC, RP, ESR weekly and Vanco trough daily.
--- NOTE | 2025-05-02 15:54 | ESPR_ITS ---
<Statement entered by Steve Connolyl MD - 05/03/25 00:20> Renal function and LFTs improving, BCx negative growth at 48 hours. Patient did not undergo CT-guided spinal bone biopsy as it was too close to the aorta. Patient to be discharged to home with home health on PICC line and to complete 6 weeks course of IV antibiotics Vanco and Rocephin through [facility] with daily Vanco trough and weekly labs as recommended by infectious disease. I discussed with and supervised the general internist and physician leader physician involved in the care of this patient. Patient assessment and plan was discussed with entire medicine team, including my attending. I agree with the assessment and plan as documented by general internist and physician leader doctor. Patient care was discussed with my attending physician Dr. Bouchra Connolly, PGY-2 Documentation for date of: 05/02/25 Subjective Subjective Interval history: No acute overnight events. Reports feeling better today. Denies fever, chills, headaches, chest pain, sob, cough, GI or urinary symptoms. Vitals are stable. Renal function and LFTs continue to improve. 48-hour blood cultures negative. Completed PICC line yesterday for IV ANTIBIOTICS for lumbar osteomyelitis. CT spinal bone biopsy was successful today, risky, aorta to close to biopsy site. Was evaluated by ORTHO who is currently not planning on inpatient intervention. Otherwise cleared for discharge, disposition depends on placement facilities keeping with doing IV ANTIBIOTICS, daily, VANCOMYCIN trough, and weekly labs. Exam Vital Signs Temp Pulse Resp BP Pulse Ox O2 Del Method O2 Flow Rate 97.1 F 80 22 H 155/108 H 97 Nasal Cannula 2 05/02/25 08:00 05/02/25 13:31 05/02/25 13:31 05/02/25 11:20 05/02/25 13:31 05/02/25 11:20 05/02/25 13:31 Narrative Exam GENERAL: Normal appearing adult male, NAD, AAOx3 HEENT: Moist mucosa. Eyes open, symmetrical, & clear CARDIO: Heart RRR, no obvious murmurs PULM: No noted coughing/dyspnea CTA B/L, no R/W/R GI: Abdomen soft, nondistended, no pain on palpation. BSx4 SKIN/MSK/EXT: No wounds/rashes/edema/amputations, tenderness to palpation in lumbar area. Pedal pulses present B/L NEURO: AAOx3, no focal neuro deficits, able to move all 4 extremities Objective Labs 05/02/25 06:12 05/02/25 06:12 Labs: Laboratory Results - last 24 hr 05/01/25 05/02/25 17:45 06:12 WBC 5.7 RBC 3.50 L Hgb 10.4 L Hct 32.5 L MCV 93 MCH 29.7 MCHC 32.0 RDW Std Deviation 48.8 H Plt Count 148 D Neut % (Auto) 60 Lymph % (Auto) 26 [place] % (Auto) 10 Eos % (Auto) 2 Baso % (Auto) 0 Neut # (Auto) 3.5 Lymph # (Auto) 1.5 [place] # (Auto) 0.6 Eos # (Auto) 0.1 Baso # (Auto) 0.0 Immature Gran # (Auto) 0.05 H Absolute Nucleated RBC 0.00 Immature Gran % 1 H Nucleated RBC % 0 ESR 4 PT 11.4 D 11.2 INR 1.0 1.0 APTT 25.2 D 25.6 Sodium 141 Potassium 4.4 D Chloride 108 H Carbon Dioxide 26.7 Anion Gap 6 L BUN 26 H Creatinine 1.2 Estim Creat Clear Calc 61.7 eGFR > 60 BUN/Creatinine Ratio 22 H Glucose 86 Calculated Osmolality 284 Calcium 8.4 Corrected Calcium 9.3 Phosphorus 3.2 Magnesium 1.8 Total Bilirubin 0.7 AST 75 H ALT 127 H Alkaline Phosphatase 133 H D C-Reactive Prot, Quant 0.6 Total Protein 5.0 L Albumin 2.9 L Globulin 2.1 L Albumin/Globulin Ratio 1.4 Coccidioides IgM Ab Negative ABG Interpretation ABG results: 04/29/25 20:00 ABG pH 7.34 L ABG pCO2 49 H ABG pO2 129 H ABG HCO3 26 ABG O2 Saturation 100 H ABG Base Excess 0 Quality Measures Quality Measures none Advance care planning discussed with:: patient Assessment & Plan Assessment Current Active Medications: Generic Name Dose Route Start Last Admin Trade Name Freq PRN Reason Stop Dose Admin Acetaminophen 650 mg 04/29/25 22:48 Acetaminophen 325 Mg Tablet PO 05/29/25 22:47 Q6H PRN Fever >99.5 Acetaminophen 1,000 mg 04/29/25 23:24 Acetaminophen 500 Mg Tablet PO 05/29/25 23:23 Q6H PRN PAIN SCALE 1-3 (mild Hydrocodone Bitart/Acetaminophen 1 tab 04/29/25 23:04 05/02/25 15:14 Hydrocodone/Apap 5/325 Tablet PO 05/04/25 23:03 1 tab Q6HR PRN Administration PAIN SCALE 4-10(Mod-Sev Albuterol/Ipratropium 3 ml 04/29/25 22:48 05/02/25 13:30 Albuterol/Ipratropium (Duoneb) Rt Sonia 3 Ml Nebu INH 05/29/25 22:47 3 ml Q2HR PRN Administration SHORTNESS OF BREATH OR WHEEZE Buspirone HCl 10 mg 05/02/25 09:00 05/02/25 09:07 Buspirone Hcl 5 Mg Tablet PO 06/01/25 08:59 10 mg BID RACHAEL Administration Donepezil HCl 10 mg 05/02/25 21:00 Donepezil Hcl 5 Mg Tablet PO 06/01/25 20:59 HS RACHAEL Heparin Sodium (Porcine) 5,000 unit 05/01/25 09:00 05/01/25 21:36 Heparin Sod Inj 5000 Unit/Ml Vial SC 05/15/25 08:59 Not Given Q8HR RACHAEL Hydromorphone HCl 0.5 mg 04/30/25 11:28 05/02/25 11:58 Hydromorphone Inj 2 Mg/Ml Vial IVP 05/05/25 11:27 0.5 mg Q4HR PRN Administration breakthru pain Sodium Chloride 1,000 mls @ 75 mls/hr 04/29/25 23:00 05/02/25 03:47 Ns IV 05/29/25 22:59 75 mls/hr .[id number] RACHAEL Administration Ceftriaxone Sodium/Dextrose 2 gm in 50 mls @ 100 mls/hr 04/30/25 10:30 05/02/25 09:45 Rocephin/D5w 2gm IV 06/25/25 10:29 Infused QDAY RACHAEL Infusion Vancomycin/Sodium Chloride 750 mg in 150 mls @ 120 mls/hr 05/02/25 10:00 05/02/25 11:07 Vancomycin/Ns 750 Mg Ivpb IV 05/09/25 09:59 Infused Q12H RACHAEL Infusion Losartan Potassium 25 mg 05/01/25 09:00 05/02/25 09:08 Losartan Potassium 25 Mg Tablet PO 05/31/25 08:59 25 mg DAILY RACHAEL Administration Home Medication- 1 mg 05/02/25 09:00 05/02/25 09:12 Please Speak With PO 06/01/25 08:59 Not Given Patient Caregiver To QDAY RACHAEL Have Rx Brought To [facility] Ondansetron HCl 4 mg 04/29/25 22:48 Ondansetron Inj 2 Mg/Ml Inj 2 Ml IVP 05/29/25 22:47 Q6H PRN NAUSEA OR VOMITING Protocol Pantoprazole Sodium 40 mg 05/02/25 09:00 05/02/25 09:07 Pantoprazole 40 Mg Tablet PO 05/30/25 08:59 40 mg QDAY RACHAEL Administration Pharmacy Consult 1 each 05/01/25 15:30 05/02/25 11:53 Vancomycin Pharmacy To Dose 1 Each Each IV 06/26/25 15:29 Not Given QDAY RACHAEL Sennosides 1 tab 04/30/25 09:00 05/02/25 09:07 Senna Tablet PO 05/30/25 08:59 1 tab QDAY RACHAEL Administration Protocol Sertraline HCl 50 mg 05/02/25 09:00 05/02/25 09:08 Sertraline Hcl 25 Mg Tablet PO 06/01/25 08:59 50 mg DAILY RACHAEL Administration Plan This is a 69-year-old male with PMHx of COPD, dementia, HTN, BPH presenting to ED with low blood pressure and back pain. Admitted for subacute L4 fracture and bar osteomyelitis. Appreciate recommendations from ID and orthopedics team. 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 However over the last 2 months he has complained of low back pain, but does not recall injury or fall. His PCP had ordered an MRI which was done 04/18 showing acute/subacute L4 fracture. He was scheduled to see orthopedics at next week, however decided to come into the ED 2/2 worsening back pain and hypotension. Otherwise neurologically intact, sensation and motor function symmetrical and intact bilaterally. ID recommended 8 weeks of VANCOMYCIN and ROCEPHIN; with weekly renal panel, CBC, ESR while on ANTIBIOTICS. PICC line ordered. Ordered CT-guided bone biopsy to narrow down ANTIBIOTIC choice, try to avoid long-term VANCOMYCIN if possible. Aseptic, afebrile and no leukocytosis. 48-hour blood culture negative. Evaluated by ORTHO, no intervention needed at this time. CT-guided bone biopsy unsuccessful, risky, due to aorta being close to biopsy site. ? Pain control ? Back brace ordered ? Continue CEFTRIAXONE 2 g daily (04/30 to 06/25) ? Started VANCOMYCIN pharmacy dose (05/01 to 06/26) ? Pending accepting facility was capable of performing VANCOMYCIN trough, ANTIBIOTICS and labs. Hypotension (resolved) RAMON, pre-renal azotemia (improving) Acute transaminitis (improving) HTN Presenting with BP 80/56, HR 85, RAMON with CR 1.9, AST 478, ALT 281. Likely 2/2 dehydration, reports decreased oral intake 2/2 back pain. Improving with fluids. Adequate urine output. ? Continue IVF at 75 cc/H ? Holding REJI/ARBS in settings of RAMON, currently normotensive. ? Renally dose meds, avoid overdiuresis and NEPHROTOXINS ? Daily CMP COPD Not in acute exacerbation ? DuoNebs as needed BPH ? Resume TAMSULOSIN as taken at home when appropriate Pulmonary Nodules Finding on Chest CT Pulmonary nodules as above, with this study as baseline ? Recommend 6 month follow-up CT chest without contrast Health maintenance Diet: Low sodium diet GI prophylaxis: PROTONIX DVT prophylaxis: HEPARIN SUBQ Antibiotics: CTX, DOXYCYCLINE CODE STATUS: FULL CODE Disposition: Pending ID and ORTHO recs. Case was discussed with attending physician and senior resident. Amber Morris DO PGYI Attending Provider Attestation/Addendum I have discussed and was present for the essential components of the history, physical examination, diagnosis, and treatment plan with the resident. I agree with the patient's care as documented by the resident and amended herein by me. Tim Shook DO. Although this document has been carefully reviewed, there may still be some phonetic and other typographical errors. These errors are purely grammatical due to imperfections in the software program and should not be construed in any way to compromise the substance of the patient's medical care during this visit.
[2025-05-02] MEDS: DONEPEZIL HCL 5 MG TABLET 10 MG PO (20:45)
[2025-05-02] MEDS: HEPARIN SOD INJ 5000 UNIT/ML VIAL SC (22:23)
[2025-05-03] VITALS (10 sets, daily range): BP systolic 118–139; BP diastolic 68–88; PULSE 70–90; RESP 18–97; TEMP 36.1–36.8; O2SAT 94–100; BMI 24.7
[2025-05-03] MEDS: ALBUTEROL/IPRATROPIUM (Duoneb) RT SOL 3 ML NEBU INH ×3 (00:07→13:22)
[2025-05-03] MEDS: HYDROmorphone INJ 2 MG/ML VIAL 0.5 MG IVP ×3 (02:15→16:32)
[2025-05-03] MEDS: HEPARIN SOD INJ 5000 UNIT/ML VIAL SC ×2 (05:07→14:40)
--- NOTE | 2025-05-03 08:34 | PC.CC ---
Addendum entered by Ashley Connell RN 05/03/25 16:44: 1643: dc summary and instructions sent to [facility] Addendum entered by Ashley Connell RN 05/03/25 10:16: 1007: updated order to [facility]. Vanco trough result sent to [facility] as requested by Pats[facility]. Addendum entered by Ashley Connell RN 05/03/25 10:03: 0940: spoke to Dr. Shook, he informed me dose and frequency change. New order received. I spoke to Ludmila cooper/ [facility] and Patsy cooper/ [facility]. Per Dr. Shook pt will receive vanco dose tonight at 1700 and will dc after infusion today. [facility] will open tomorrow at 1300. [facility] will deliver medication tomorrow morning. Addendum entered by Ashley Connell RN 05/03/25 09:30: 0922: Received call from Rachel BEASLEY, she stated she spoke to Dr. Shook and he agreed. Reminded Rachel to have Dr. Shook enter order. 917: spoke to Rachel BEASLEY, informed her of situation below. she stated she will talk to Dr. Shook. Addendum entered by Ashley Connell RN 05/03/25 09:17: 0908: received call from Ludmila cooper/ [facility] , she stated they will not be able to open patient today because the next dose of Vanco will be 2200. They are unable to see pt at that time. Ludmila suggested that the last dose be given earlier, dc after last infusion and they will open tomorrow morning for the morning dose of vanco. I spoke to Dr. Connolly, made aware of the situation. he stated he will discuss with Dr. Shook. Original Note: 0832: spoke to JAMES Yin, informed her that pt will need to be d/c'd by noon d/t HH will not see patient after 1400. 0828: received call from Patsy / [facility], she confirmed medication will be delivered by 1230 today
[2025-05-03] MEDS: HYDROcodone/APAP 5/325 TABLET 1 TAB PO ×2 (08:49→14:40)
[2025-05-03] MEDS: cefTRIAXone/D5w 2gm 2 GM/50 ML BAG IV (08:49)
[2025-05-03] MEDS: SERTRALINE HCL 25 MG TABLET 50 MG PO (08:49)
[2025-05-03] MEDS: BusPIRone HCL 5 MG TABLET 10 MG PO (08:50)
[2025-05-03] MEDS: LOSARTAN POTASSIUM 25 MG TABLET PO (08:50)
[2025-05-03] MEDS: SENNA TABLET 1 TAB PO (08:50)
[2025-05-03] MEDS: PANTOPRAZOLE 40 MG TABLET PO (08:50)
--- NOTE | 2025-05-03 09:47 | PC.SS ---
Follow up note: SS spoke to transfer nurse and physician team that [facility] will follow patient. Patient will need his last dose of i.v. antibiotic earlier than the scheduled time for this evening and then can be d/c'd. HH will follow for morning dose tomorrow. SS updated patient's daughter, Celeste. She will be transporting patient home tonight.
--- NOTE | 2025-05-03 13:05 | ESPR_ITS ---
Subjective Subjective Interval history: cx neg . no biopsy. inflammatory markers normal Exam Vital Signs Temp Pulse Resp BP Pulse Ox O2 Del Method O2 Flow Rate 97.7 F 77 18 118/68 98 Room Air 2 05/03/25 12:00 05/03/25 12:00 05/03/25 12:00 05/03/25 12:00 05/03/25 12:00 05/03/25 12:00 05/03/25 09:00 Narrative Exam limited visit Objective - Internal Medicine Labs 05/02/25 06:12 05/02/25 06:12 Labs: Laboratory Results - last 24 hr 05/03/25 08:25 Vancomycin Trough 22.0 H* ABG Interpretation ABG results: 04/29/25 20:00 ABG pH 7.34 L ABG pCO2 49 H ABG pO2 129 H ABG HCO3 26 ABG O2 Saturation 100 H ABG Base Excess 0 Assessment & Plan A&P Narrative back pain with possible infection associated with back hardware but normal esr and crp htn bph dementia stated copd. on 2lpm at home for this with a long smoking hx ideally a bx is done to direct rx as bc are neg so far, but so are inflammatory makers if no bx then vanco and rocephin ok for 8 weeks. or stop rx and re eval as outpt weekly renal panel, cbc, esr while on iv rx remove line at end of rx please if treated will not plan to see again unless a biopsy performed as inpt. I can not see him as outpt.clinics too full.wait times average 4 months I can not f/u as outpt as wait times average 4 mo at all the clinics where I work if pain worse then try to get esr and crp as outpt and refer to surgeon in [place] if more rx felt indicated. Time Spent With Patient Time: Total time spent is greater than 50% in coordination of care (as documented) at patient's floor/unit and/or counseling patient:
[2025-05-03 13:25] LABS: Cocci Serology, IgG Negative (Negative)
--- NOTE | 2025-05-03 13:42 | ESDS_ITS ---
<Statement entered by Steve Connolly MD - 05/04/25 07:44> I discussed with and supervised the industrial engineering intern physician involved in the care of this patient. Patient assessment and plan was discussed with entire medicine team, including my attending. I agree with the assessment and plan as documented by industrial engineering intern doctor. Patient care was discussed with my attending physician Dr. Bouchra Connolly, PGY-2 Planned Discharge Date 05/03/25 DS: Providers Provider Date of admission: 04/29/25 22:48 Primary care physician: Kishan Covington MD Admitting Provider: Paco Cortez MD Attending Provider on Admission: Jonatan Shook DO Consults: 04/29/25 23:05 Referral Physical Therapy Stat Comment: Physician Instructions: 04/30/25 10:25 Consult to Infectious Diseases Routine Comment: Osteo L3-L4 Consulting Provider: Jona Davidson 04/30/25 10:26 Consult to Orthopedic Routine Comment: L2-L3 osteo Consulting Provider: Bryaan Altman Attending Provider on DC: Jonatan Shook DO Discharging Provider: Jonatan Shook DO DS: Diagnosis Problem List Completed Was Problem List Reviewed/Reconciled?: Yes Hospital Course Hospital Course Hospital course: This is a 69-year-old male with PMHx of COPD, dementia, HTN, BPH presenting to ED with low blood pressure and back pain. Admitted for subacute L4 fracture and lumbar osteomyelitis. He has history of lumbar fusion in 2011, with hardware in place. Presented with back pain ongoing for 2 months. He had an MRI prior to coming to the hospital showing acute/subacute fracture of L4. CT scan during this admission showed osteomyelitis involving L2-L3. He was evaluated by orthopedics, however no intervention was indicated at this time given lack of neurological symptoms, recommended treating osteomyelitis. ID was consulted, patient started on VANCOMYCIN and CEFTRIAXONE, and will continue on these medications for 6-8 weeks. We've attempted bone biopsy and culture, however was unsuccessful given close proximity of biopsy site to be ordered. He remained aseptic, afebrile, no leukocytosis. Vitals and labs are stable on discharge. PICC line was completed. He was discharged to home with home health, will continue with IV ABX infusions with [facility]. IMAGE FINDINGS: * MRI lumbar spine showed acute/subacute L4 fracture with depression inferior endplate, reduction in height vertebral body percent. * CT AP showed no focal liver lesions or intrahepatic biliary tract dilatation, no gallstones or extrahepatic biliary tract dilatation, perinephric stranding, differential would include nephritis, urinary tract infection, no hydronephrosis or ureteral calculi, colonic diverticulosis, no diverticulitis. * Abdominal ultrasound showed normal gallbladder and bile duct, no stones, mild hepatomegaly with fatty infiltrate, moderate bilateral renal parenchymal scarring. * Chest CT showed 2 pulmonary nodules (8 mm and 4 mm), no pneumonia, pulmonary edema, osteomyelitis and discitis L2-3. * CXR showed bibasilar bronchitis pattern. * Head CT with poor due to patient motion, however showed no gross hemorrhage or mass effect. PATIENT INSTRUCTIONS: * Follow-up with PCP within 1-2 weeks of discharge. * Follow-up with infectious disease within 1-2 weeks of discharge. * Continue taking CEFTRIAXONE 2 g daily until June 13. * Continue taking VANCOMYCIN 1 g daily until June 15. * Repeat weekly labs (renal panel, VANCOMYCIN trough, CBC, and ESR) while on IV ANTIBIOTICS. * Return to Emergency Room if symptoms persist, worsen, or new symptoms develop. * Recommended repeat chest CT for pulmonary nodules as per report above. * Recommended nephrology workup for bilateral parenchymal scarring. * Recommended GI workup for hepatomegaly and liver fatty infiltrate. * Continue taking medications as prescribed below. ADMISSION DIAGNOSES: Acute/subacute L4 fracture L2-L3 osteomyelitis/discitis Hypotension RAMON, pre-renal azotemia Acute transaminitis HTN COPD BPH Case was discussed with attending physician and senior resident. Amber Morris DO PGYI Time Spent with Patient Time attestation: Total time spent providing and/or coordinating discharge services: Time spent: Greater than 30 minutes Home Health Home Health Referral Orders: 05/02/25 13:51 Home Health Referral Routine Reason For Exam: IV abx Home-Bound The patient must either because of illness or injury, need the aid of supportive devices such as crutches, canes, wheelchairs, and walkers; the use of special transportation; or the assistance of another person in order to leave their place of residence; OR have a condition such that leaving his or her home is medically contraindicated. In addition, the patient also meets the following criteria: patient is normally unable to leave the home and leaving home requires considerable taxing effort. Addendum to Home Health Certification Practitioner's Certification: I certify that the patient has been under my care in the hospital and the care of attending physician (see below). We had a cnfl-uc-upki encounter on (see date below). My clinical findings indicate that the patient is home bound per the above criteria and the Home Health Services noted in these orders are medically necessary. The primary reason for the awqv-bf-leet encounter is related to the fact that the patient requires home health services. Date Certifying Hgos-ss-Hwzm Physician Encounter: 05/02/25 Physician's Name who will Assume Oversight for Services: Kishan Covington Physician's Phone No.who will Assume Oversight for Service: GALV[employer]ING [employer]NER - Community Resources: No PT to Evaluate: No PT to evaluate and provide a treatmnet plan to increase patient's mobility and strength. Wound Care: No Home Health RN - Wound Care Order: Patient needs labs CBC, RP, ESR and vanco trough weekly IV Therapy: Yes IV Medication: Ceftriaxone IV Dose: 2Gm IV Frequency: daily IV Stop Date: 06/13/25 Discontinue PICC Line Once Treatment Complete: No: DC after vancomycin ends on May RN Safety Evaluation: Yes RN to evaluate and create a plan of care that will produce positive outcomes. Palliative Treatment: No Palliative treatment and evaluate the need for hospice. Home Health Aide - Personal Care: No Home Health Aide to assist with any ADL's. 05/02/25 13:57 Home Health Referral Routine Reason For Exam: IV Abx Home-Bound The patient must either because of illness or injury, need the aid of supportive devices such as crutches, canes, wheelchairs, and walkers; the use of special transportation; or the assistance of another person in order to leave their place of residence; OR have a condition such that leaving his or her home is medically contraindicated. In addition, the patient also meets the following criteria: patient is normally unable to leave the home and leaving home requires considerable taxing effort. Addendum to Home Health Certification Practitioner's Certification: I certify that the patient has been under my care in the hospital and the care of attending physician (see below). We had a itre-ng-gazr encounter on (see date below). My clinical findings indicate that the patient is home bound per the above criteria and the Home Health Services noted in these orders are medically necessary. The primary reason for the evaa-ex-tuhr encounter is related to the fact that the patient requires home health services. Date Certifying Jbfu-ap-Ujpy Physician Encounter: 04/29/25 Physician's Name who will Assume Oversight for Services: Kishan Covington Physician's Phone No.who will Assume Oversight for Service: G[employer]ING [employer] RUNNER - Community Resources: No PT to Evaluate: No PT to evaluate and provide a treatmnet plan to increase patient's mobility and strength. Wound Care: No Home Health RN - Wound Care Order: Patient needs labs CBC, RP, ESR and vanco trough weekly IV Therapy: Yes: Vancomycin dosing based on Vancomycin trough IV Medication: Vancomycin IV Dose: 1Gm IV Frequency: daily IV Stop Date: 06/15/25 Discontinue PICC Line Once Treatment Complete: Yes RN Safety Evaluation: Yes RN to evaluate and create a plan of care that will produce positive outcomes. Palliative Treatment: No Palliative treatment and evaluate the need for hospice. Home Health Aide - Personal Care: No Home Health Aide to assist with any ADL's. Exam Vital Signs Temp Pulse Resp BP Pulse Ox O2 Del Method O2 Flow Rate 97.7 F 77 18 118/68 99 Room Air 2 05/03/25 12:00 05/03/25 13:22 05/03/25 13:22 05/03/25 12:00 05/03/25 13:22 05/03/25 12:00 05/03/25 13:22 Narrative Exam GENERAL: Normal appearing adult male, NAD, AAOx3 HEENT: Moist mucosa. Eyes open, symmetrical, & clear CARDIO: Heart RRR, no obvious murmurs PULM: No noted coughing/dyspnea CTA B/L, no R/W/R GI: Abdomen soft, nondistended, no pain on palpation. BSx4 SKIN/MSK/EXT: No wounds/rashes/edema/amputations, tenderness to palpation in joshua mbar area. Pedal pulses present B/L NEURO: AAOx3, no focal neuro deficits, able to move all 4 extremities Discharge Plan Plan Patient Disposition: Home w/HOME HEALTH Care Plan Goals: * Follow-up with PCP within 1-2 weeks of discharge. * Follow-up with infectious disease within 1-2 weeks of discharge. * Continue taking CEFTRIAXONE 2 g daily until June 13. * Continue taking VANCOMYCIN 1 g daily until June 15. * Repeat weekly labs (renal panel, VANCOMYCIN trough, CBC, and ESR) while on IV ANTIBIOTICS. * Return to Emergency Room if symptoms persist, worsen, or new symptoms develop. * Recommended repeat chest CT for pulmonary nodules as per report above. * Recommended nephrology workup for bilateral parenchymal scarring. * Recommended GI workup for hepatomegaly and liver fatty infiltrate. * Continue taking medications as prescribed below. Prescriptions/Referrals Prescriptions/Med Rec: Continued tamsulosin 0.4 mg capsule 0.4 mg PO DAILY donepezil 10 mg tablet 10 mg PO HS hydrocodone-acetaminophen 5-325 mg tablet 1 tab PO BID PRN (Reason: pain) Patient Comments: TAKE 1 TABLET BY MOUTH EVERY 8 HOURS NEEDED FOR SEVERE PAIN FOR 7 DAYS sertraline [Zoloft] 50 mg tablet 50 mg PO DAILY ipratropium-albuterol 0.5 mg-3 mg(2.5 mg base)/3 mL solution for nebulization 3 ml inhalation Q4H PRN (Reason: shortness of breath) Trelegy Ellipta 100-62.5-25 mcg blister with device 1 ea INHALATION QDAY lorazepam 0.5 mg Tablet 0.5 mg PO BID PRN (Reason: Anxiety) Qty: 10 0RF Rexulti 1 mg tablet 1 mg PO QDAY Patient Comments: Take 1 tablet by mouth once daily omeprazole 40 mg capsule,delayed release(DR/EC) 40 mg PO DAILY Patient Comments: TAKE 1 CAPSULE BY MOUTH ONCE DAILY 30 MINUTES TO ONE HOUR BEFORE MORNING MEAL losartan 25 mg tablet 25 mg PO DAILY Patient Comments: TAKE 1 TABLET BY MOUTH ONCE DAILY buspirone 10 mg tablet 10 mg PO BID Patient Comments: TAKE 1 TABLET BY MOUTH TWICE DAILY Discontinued Rexulti 0.5 mg tablet 1 mg PO QDAY Referrals: Kishan Covington MD [Primary Care Provider] - Patient/Caregiver Discharge Instructions Other Discharge Activity Instructions:: Continue taking Rocephin IV 2 gram Qday until June 13 Continue taking Vancomycin IV 1 gram Qday until June 15 Print Language: Maldivian Stand Alone Forms: Karen Award Info., Patient Portal Info Letter Discharge Order Discharge Orders: Discharge (Routine); Ordered 05/03/25 Ordered By: Steve Connolly Quality Discharge Quality Measures VTE prophylaxis Attestestation Attestation I have discussed and was present for the essential components of the discharge history, physical examination, diagnosis, and discharge treatment plan with the resident. I agree with the patient's discharge care as documented by the resident and amended herein by me. Tim Shook DO. Patient will be discharged on IV antibiotics for osteomyelitis/discitis in the L2/L3 vertebrae likely secondary to previous placed hardware and/or surgery. Bone biopsy attempted by interventional radiology however could not be performed due to proximity to aorta. Hence the patient will be on IV ceftriaxone through 06/13/2025 and IV vancomycin which will end on 06/15. Home health orders have been placed, the agency will draw weekly vancomycin trough and weekly CRP, renal panel and ESR. We did advise the patient to follow-up with his original orthopedic surgeon which apparently is down in [place] after completion of the antibiotic course for further evaluation. The patient and his family who was at bedside, understood, all questions were answered satisfactorily. The patient was stable, afebrile, tolerating p.o. intake and ambulatory at time of discharge home. The patient understood all discharge instructions, all questions were answered satisfactorily. The patient was instructed to return to the Emergency Department is symptoms worsened or persisted. Although this document has been carefully reviewed, there may still be some phonetic and other typographical errors. These errors are purely grammatical due to imperfections in the software program and should not be construed in any way to compromise the substance of the patient's medical care during this visit.
[2025-05-03] MEDS: VANCOMYCIN/NS 1 GM IVPB 200 ML IV (16:54)
--- NOTE | 2025-05-03 18:35 | PC.RT ---
pt discharged. no tx given. pt still in system
== END 2025-05-03 18:43 | disposition home health service (06) | DRG 552 ==
LOC: SERX 22:06 → SERHOLD 04-30 00:05 → S3NX 04-30 01:11
PROVIDERS: Emergency Medicine; Internal Medicine Infectious Disease; Radiology Diagnostic Radiology; Student in an Organized Health Care Education/Training Program; Admitting Provider Student in an Organized Health Care Education/Training Program; Emergency Provider Emergency Medicine; PCP Family Medicine; Visit Provider Student in an Organized Health Care Education/Training Program
DX: S32.049A Unspecified fracture of fourth lumbar vertebra, initial encounter for closed fracture (principal); M46.26 Osteomyelitis of vertebra, lumbar region; N17.9 Acute kidney failure, unspecified; F03.90 Unspecified dementia, unspecified severity, without behavioral disturbance, psychotic disturbance, mood disturbance, and anxiety; I10 Essential (primary) hypertension; N40.0 Benign prostatic hyperplasia without lower urinary tract symptoms; G89.29 Other chronic pain; M46.46 Discitis, unspecified, lumbar region; Z87.891 Personal history of nicotine dependence; I95.9 Hypotension, unspecified; E86.0 Dehydration; R74.8 Abnormal levels of other serum enzymes; R74.01 Elevation of levels of liver transaminase levels; E11.69 Type 2 diabetes mellitus with other specified complication; S32.029A Unspecified fracture of second lumbar vertebra, initial encounter for closed fracture; Z87.442 Personal history of urinary calculi; Z98.1 Arthrodesis status; K57.30 Diverticulosis of large intestine without perforation or abscess without bleeding; Z88.8 Allergy status to other drugs, medicaments and biological substances
CPT/HCPCS: 36415; 36600; 70450; 71045; 71250; 74176; 76700; 80053; 80202; 80307; 80320; 81001; 82140; 82150; 82248; 82803; 83605; 83690; 83735; 83880; 84100; 84145; 84439; 84443; 84484; 85025; 85610; 85652; 85730; 86140; 86331; 86480; 86635; 87040; 87400; 87811; 93005; 94640; 96360; 96361; 96365; 96375; 97162; 99285; A9270; C1894; J0692; J0696; J1171; J1642; J1644; J1650; J2270; J2470; J2919; J3370; J3490; J7030; J7050; J7120; J7999; G0480

== ENCOUNTER → 2025-05-09 | Outpatient (CLI) | payer MEDICARE, MEDICAID, SELFPAY ==
[2025-05-09 16:13] LABS: Basophils # (Auto) 0.1 Thou/mm3 (0.0-0.2); Basophils % (Auto) 1 % (0-2.5); Eosinophils # (Auto) 0.5 Thou/mm3 (0.0-0.5); Eosinophils % (Auto) 7 % (0-10); Hematocrit 33.4 % (41.0-53.0); Hemoglobin 10.7 g/dL (13.5-16.0); Immature Granulocytes % (Auto) 0 % (0-0); Immature Granulocytes Auto 0.03 Thou/mm3 (0.00-0.00); Lymphocytes # (Auto) 1.4 Thou/mm3 (1.0-4.8); Lymphocytes % (Auto) 19 % (10-50); Mean Corpuscular Volume 94 fL (80-100); Monocytes # (Auto) 1.3 Thou/mm3 (0.0-0.8); Monocytes % (Auto) 18 % (0-12); Neutrophils # (Auto) 4.1 Thou/mm3 (1.8-7.7); Neutrophils % (Auto) 56 % (37-80); Nucleated Red Blood Cell % 0 /100 WBC (0); Platelet Count 270 Thou/mm3 (140-440); RDW Standard Deviation 49.1 fL (35.1-43.9); Red Blood Count 3.57 Miln/mm3 (4.50-5.90); White Blood Count 7.2 Thou/mm3 (3.8-10.6)
[2025-05-09 16:44] LABS: Alanine Aminotransferase 128 U/L (10-49); Albumin, Serum 3.3 gm/dL (3.4-4.8); Albumin/Globulin Ratio 1.6 (1.2-2.2); Alkaline Phosphatase 169 U/L (46-116); Anion Gap 10 (7-16); Aspartate Amino Transferase 165 U/L (0-34); BUN/Creatinine Ratio 20 Ratio (12-20); Bilirubin,Total 0.3 mg/dL (0.3-1.2); Blood Urea Nitrogen 24 mg/dL (9-23); Calcium 8.2 mg/dL (8.3-10.6); Calcium (Corrected) 8.8 mg/dL (8.5-10.1); Carbon Dioxide 32.7 mMol/L (20.0-31.0); Chloride 98 mMol/L (98-107); Creatinine (Component) 1.2 mg/dL (0.6-1.3); Globulin 2.1 gm/dL (2.3-3.5); Glucose 102 mg/dL (74-106); Osmolality,Calculated 285 (275-295); Potassium 4.4 mMol/L (3.4-5.1); Sodium 141 mMol/L (136-145); Total Protein 5.4 gm/dL (5.7-8.2); Vancomycin,Trough 10.5 mcg/mL (5.0-10.0); eGFR > 60 See Note
[2025-05-09 17:41] LABS: Sed Rate (ESR) 7 mm/hr (0-20)
== END | disposition home or self-care (01) ==
LOC: SLDO 15:26
PROVIDERS: PCP Family Medicine; Referring Provider Family Medicine; Visit Provider Family Medicine
DX: Z01.89 Encounter for other specified special examinations (principal)
CPT/HCPCS: 36415; 80053; 80202; 85025; 85652

== ENCOUNTER → 2025-05-16 | Outpatient (CLI) | payer MEDICARE, MEDICAID, SELFPAY ==
[2025-05-16 13:53] LABS: Basophils # (Auto) 0.1 Thou/mm3 (0.0-0.2); Basophils % (Auto) 1 % (0-2.5); Eosinophils # (Auto) 0.3 Thou/mm3 (0.0-0.5); Eosinophils % (Auto) 4 % (0-10); Hematocrit 30.5 % (41.0-53.0); Hemoglobin 10.0 g/dL (13.5-16.0); Immature Granulocytes Auto 0.02 Thou/mm3 (0.00-0.00); Lymphocytes # (Auto) 1.7 Thou/mm3 (1.0-4.8); Lymphocytes % (Auto) 25 % (10-50); Mean Corpuscular HGB Conc 32.8 g/dl (31.0-37.0); Mean Corpuscular Hemoglobin 29.4 pg (25.0-35.0); Mean Corpuscular Volume 90 fL (80-100); Monocytes # (Auto) 0.7 Thou/mm3 (0.0-0.8); Monocytes % (Auto) 10 % (0-12); Neutrophils # (Auto) 4.0 Thou/mm3 (1.8-7.7); Neutrophils % (Auto) 60 % (37-80); Nucleated Red Blood Cell # 0.00 Thou/mm3 (0.00-0.00); Nucleated Red Blood Cell % 0 /100 WBC (0); Platelet Count 166 Thou/mm3 (140-440); RDW Standard Deviation 49.0 fL (35.1-43.9); Red Blood Count 3.40 Miln/mm3 (4.50-5.90); White Blood Count 6.6 Thou/mm3 (3.8-10.6)
[2025-05-16 14:07] LABS: Alanine Aminotransferase 138 U/L (10-49); Albumin, Serum 3.1 gm/dL (3.4-4.8); Albumin/Globulin Ratio 1.4 (1.2-2.2); Alkaline Phosphatase 223 U/L (46-116); Anion Gap 4 (7-16); Aspartate Amino Transferase 63 U/L (0-34); BUN/Creatinine Ratio 21 Ratio (12-20); Bilirubin,Total 0.3 mg/dL (0.3-1.2); Blood Urea Nitrogen 25 mg/dL (9-23); Calcium 8.5 mg/dL (8.3-10.6); Calcium (Corrected) 9.2 mg/dL (8.5-10.1); Carbon Dioxide 35.2 mMol/L (20.0-31.0); Chloride 105 mMol/L (98-107); Creatinine (Component) 1.2 mg/dL (0.6-1.3); Globulin 2.2 gm/dL (2.3-3.5); Glucose 93 mg/dL (74-106); Osmolality,Calculated 291 (275-295); Potassium 4.0 mMol/L (3.4-5.1); Sodium 144 mMol/L (136-145); Total Protein 5.3 gm/dL (5.7-8.2); Vancomycin,Trough 11.0 mcg/mL (5.0-10.0); eGFR > 60 See Note
[2025-05-16 14:24] LABS: Sed Rate (ESR) 2 mm/hr (0-20)
[2025-05-16 14:48] LABS: B-Type Natriuretic Peptide 159 pg/mL (0-100)
== END | disposition home or self-care (01) ==
LOC: SLDO 12:19
PROVIDERS: PCP Family Medicine; Referring Provider Family Medicine; Visit Provider Family Medicine
DX: Z01.89 Encounter for other specified special examinations (principal)
CPT/HCPCS: 36415; 80053; 80202; 83880; 85025; 85652

== ENCOUNTER → 2025-05-25 | Outpatient (CLI) | payer MEDICARE, MEDICAID, SELFPAY ==
[2025-05-25 13:13] LABS: Basophils # (Auto) 0.0 Thou/mm3 (0.0-0.2); Basophils % (Auto) 1 % (0-2.5); Eosinophils # (Auto) 0.2 Thou/mm3 (0.0-0.5); Eosinophils % (Auto) 4 % (0-10); Hematocrit 32.1 % (41.0-53.0); Hemoglobin 11.0 g/dL (13.5-16.0); Immature Granulocytes Auto 0.02 Thou/mm3 (0.00-0.00); Lymphocytes # (Auto) 1.4 Thou/mm3 (1.0-4.8); Lymphocytes % (Auto) 24 % (10-50); Mean Corpuscular HGB Conc 34.3 g/dl (31.0-37.0); Mean Corpuscular Hemoglobin 29.6 pg (25.0-35.0); Mean Corpuscular Volume 86 fL (80-100); Monocytes # (Auto) 0.6 Thou/mm3 (0.0-0.8); Monocytes % (Auto) 10 % (0-12); Neutrophils # (Auto) 3.7 Thou/mm3 (1.8-7.7); Neutrophils % (Auto) 62 % (37-80); Nucleated Red Blood Cell # 0.00 Thou/mm3 (0.00-0.00); Nucleated Red Blood Cell % 0 /100 WBC (0); Platelet Count 122 Thou/mm3 (140-440); RDW Standard Deviation 51.4 fL (35.1-43.9); Red Blood Count 3.72 Miln/mm3 (4.50-5.90); White Blood Count 6.1 Thou/mm3 (3.8-10.6)
[2025-05-25 13:25] LABS: Albumin, Serum 3.0 gm/dL (3.4-4.8); Anion Gap 9 (7-16); BUN/Creatinine Ratio 20 Ratio (12-20); Blood Urea Nitrogen 24 mg/dL (9-23); Calcium 8.4 mg/dL (8.3-10.6); Calcium (Corrected) 9.2 mg/dL (8.5-10.1); Carbon Dioxide 31.9 mMol/L (20.0-31.0); Chloride 100 mMol/L (98-107); Creatinine (Component) 1.2 mg/dL (0.6-1.3); Glucose 123 mg/dL (74-106); Osmolality,Calculated 286 (275-295); Phosphorous 1.5 mg/dL (2.4-5.1); Potassium 3.7 mMol/L (3.4-5.1); Sodium 141 mMol/L (136-145); eGFR > 60 See Note
[2025-05-25 13:47] LABS: Sed Rate (ESR) 1 mm/hr (0-20)
== END | disposition home or self-care (01) ==
PROVIDERS: PCP Family Medicine; Referring Provider Family Medicine; Visit Provider Family Medicine
DX: M46.26 Osteomyelitis of vertebra, lumbar region (principal)
CPT/HCPCS: 36415; 80069; 85025; 85652

== ENCOUNTER → 2025-05-26 | Outpatient (CLI) | payer MEDICARE, MEDICAID, SELFPAY ==
[2025-05-26 12:30] LABS: Vancomycin,Trough 13.8 mcg/mL (5.0-10.0)
== END | disposition home or self-care (01) ==
LOC: SLDO 11:49
PROVIDERS: PCP Family Medicine; Referring Provider Family Medicine; Visit Provider Family Medicine
DX: Z01.89 Encounter for other specified special examinations (principal)
CPT/HCPCS: 36415; 80202

== ENCOUNTER → 2025-06-01 | Outpatient (CLI) | payer MEDICARE, MEDICAID, SELFPAY ==
[2025-06-01 14:45] LABS: Basophils # (Auto) 0.0 Thou/mm3 (0.0-0.2); Basophils % (Auto) 1 % (0-2.5); Eosinophils # (Auto) 0.1 Thou/mm3 (0.0-0.5); Eosinophils % (Auto) 3 % (0-10); Hematocrit 33.2 % (41.0-53.0); Hemoglobin 10.5 g/dL (13.5-16.0); Immature Granulocytes Auto 0.02 Thou/mm3 (0.00-0.00); Lymphocytes # (Auto) 1.0 Thou/mm3 (1.0-4.8); Lymphocytes % (Auto) 19 % (10-50); Mean Corpuscular HGB Conc 31.6 g/dl (31.0-37.0); Mean Corpuscular Hemoglobin 29.2 pg (25.0-35.0); Mean Corpuscular Volume 93 fL (80-100); Monocytes # (Auto) 0.6 Thou/mm3 (0.0-0.8); Monocytes % (Auto) 12 % (0-12); Neutrophils # (Auto) 3.4 Thou/mm3 (1.8-7.7); Neutrophils % (Auto) 66 % (37-80); Nucleated Red Blood Cell # 0.00 Thou/mm3 (0.00-0.00); Nucleated Red Blood Cell % 0 /100 WBC (0); Platelet Count 94 Thou/mm3 (140-440); RDW Standard Deviation 61.8 fL (35.1-43.9); Red Blood Count 3.59 Miln/mm3 (4.50-5.90); White Blood Count 5.1 Thou/mm3 (3.8-10.6)
[2025-06-01 14:54] LABS: Alanine Aminotransferase 125 U/L (10-49); Albumin, Serum 2.8 gm/dL (3.4-4.8); Albumin/Globulin Ratio 1.1 (1.2-2.2); Alkaline Phosphatase 478 U/L (46-116); Anion Gap 7 (7-16); Aspartate Amino Transferase 173 U/L (0-34); BUN/Creatinine Ratio 22 Ratio (12-20); Bilirubin,Total 2.4 mg/dL (0.3-1.2); Blood Urea Nitrogen 31 mg/dL (9-23); Calcium 8.4 mg/dL (8.3-10.6); Calcium (Corrected) 9.4 mg/dL (8.5-10.1); Carbon Dioxide 29.6 mMol/L (20.0-31.0); Chloride 104 mMol/L (98-107); Creatinine (Component) 1.4 mg/dL (0.6-1.3); Globulin 2.5 gm/dL (2.3-3.5); Glucose 118 mg/dL (74-106); Osmolality,Calculated 288 (275-295); Potassium 4.4 mMol/L (3.4-5.1); Sodium 141 mMol/L (136-145); Total Protein 5.3 gm/dL (5.7-8.2); Vancomycin,Trough 19.3 mcg/mL (5.0-10.0); eGFR 55 See Note
[2025-06-01 15:31] LABS: Sed Rate (ESR) 1 mm/hr (0-20)
[2025-06-01 15:32] LABS: B-Type Natriuretic Peptide 85 pg/mL (0-100)
== END | disposition home or self-care (01) ==
LOC: SLDO 13:09
PROVIDERS: Referring Provider Family Medicine; Visit Provider Family Medicine
DX: Z01.89 Encounter for other specified special examinations (principal)
CPT/HCPCS: 36415; 80053; 80202; 83880; 85025; 85652

== ENCOUNTER → 2025-06-05 | Outpatient (BNVA) | payer MEDICARE, MEDICAID, SELFPAY | END | disposition home or self-care (01) | PROVIDERS: PCP Family Medicine; Referring Provider Family Medicine; Visit Provider Urology | DX: N40.1 Benign prostatic hyperplasia with lower urinary tract symptoms (principal); N13.8 Other obstructive and reflux uropathy; I10 Essential (primary) hypertension; J44.9 Chronic obstructive pulmonary disease, unspecified; Z99.3 Dependence on wheelchair; F32.A Depression, unspecified; E78.00 Pure hypercholesterolemia, unspecified; K21.9 Gastro-esophageal reflux disease without esophagitis; Z87.442 Personal history of urinary calculi | CPT/HCPCS: 81003; 99212; G0463 ==

== ENCOUNTER → 2025-06-08 | Outpatient (CLI) | payer MEDICARE, MEDICAID, SELFPAY ==
[2025-06-08 13:19] LABS: Basophils # (Auto) 0.1 Thou/mm3 (0.0-0.2); Basophils % (Auto) 1 % (0-2.5); Eosinophils # (Auto) 0.1 Thou/mm3 (0.0-0.5); Eosinophils % (Auto) 2 % (0-10); Hematocrit 31.6 % (41.0-53.0); Hemoglobin 9.4 g/dL (13.5-16.0); Immature Granulocytes Auto 0.08 Thou/mm3 (0.00-0.00); Lymphocytes # (Auto) 1.1 Thou/mm3 (1.0-4.8); Lymphocytes % (Auto) 15 % (10-50); Mean Corpuscular HGB Conc 29.7 g/dl (31.0-37.0); Mean Corpuscular Hemoglobin 29.0 pg (25.0-35.0); Mean Corpuscular Volume 98 fL (80-100); Monocytes # (Auto) 0.7 Thou/mm3 (0.0-0.8); Monocytes % (Auto) 10 % (0-12); Neutrophils # (Auto) 5.1 Thou/mm3 (1.8-7.7); Neutrophils % (Auto) 71 % (37-80); Nucleated Red Blood Cell # 0.02 Thou/mm3 (0.00-0.00); Nucleated Red Blood Cell % 0 /100 WBC (0); Platelet Count 94 Thou/mm3 (140-440); RDW Standard Deviation 58.1 fL (35.1-43.9); Red Blood Count 3.24 Miln/mm3 (4.50-5.90); White Blood Count 7.1 Thou/mm3 (3.8-10.6)
[2025-06-08 13:29] LABS: Alanine Aminotransferase 77 U/L (10-49); Albumin, Serum 2.8 gm/dL (3.4-4.8); Albumin/Globulin Ratio 1.1 (1.2-2.2); Alkaline Phosphatase 819 U/L (46-116); Anion Gap 8 (7-16); Aspartate Amino Transferase 108 U/L (0-34); BUN/Creatinine Ratio 14 Ratio (12-20); Bilirubin,Total 2.4 mg/dL (0.3-1.2); Blood Urea Nitrogen 17 mg/dL (9-23); Calcium 8.5 mg/dL (8.3-10.6); Calcium (Corrected) 9.5 mg/dL (8.5-10.1); Carbon Dioxide 29.6 mMol/L (20.0-31.0); Chloride 102 mMol/L (98-107); Creatinine (Component) 1.2 mg/dL (0.6-1.3); Globulin 2.6 gm/dL (2.3-3.5); Glucose 110 mg/dL (74-106); Osmolality,Calculated 281 (275-295); Potassium 4.0 mMol/L (3.4-5.1); Sodium 140 mMol/L (136-145); Total Protein 5.4 gm/dL (5.7-8.2); Vancomycin,Trough 17.1 mcg/mL (5.0-10.0); eGFR > 60 See Note
[2025-06-08 13:34] LABS: Sed Rate (ESR) 3 mm/hr (0-20)
== END | disposition home or self-care (01) ==
LOC: SLDO 11:53
PROVIDERS: Referring Provider Family Medicine; Visit Provider Family Medicine
DX: Z01.89 Encounter for other specified special examinations (principal)
CPT/HCPCS: 36415; 80053; 80202; 85025; 85652

== ENCOUNTER 2025-06-15 14:17 | Emergency (ER) | payer MEDICAID, SELFPAY ==
[2025-06-15 14:41] VITALS: BP 88/53; PULSE 81; RESP 22; TEMP 36.6; O2SAT 99; BMI 24.3
--- NOTE | 2025-06-15 14:49 | PD.EDRME ---
Rapid Medical Screening Exam RME Arrival date/time: 06/15/25 14:17 Chief Complaint: Shortness of Breath/Dyspnea Vital signs: Vital Signs Temperature 97.9 F 06/15/25 14:41 Pulse Rate 81 06/15/25 14:41 Respiratory Rate 22 H 06/15/25 14:41 Blood Pressure 88/53 L 06/15/25 14:41 Pulse Oximetry (%) 99 06/15/25 14:41 Oxygen Delivery Method Nasal Cannula 06/15/25 14:41 Oxygen Flow Rate 3 06/15/25 14:41 Pulse ox is 99% room air RME Narrative: 69-year-old male presents to the ED with complaint of a decrease in blood pressure noticed yesterday described as being in the mid 40s and then today he has home health care nurse was not able to hear lung sounds, notices that his legs are swollen, denies chest pain or pressure. Note that the patient is being treated for a vertebral fracture with vancomycin. As per patient today was the last dose.
[2025-06-15 14:56] VITALS: BP 90/53; PULSE 84; RESP 19; TEMP 36.8; O2SAT 95
--- NOTE | 2025-06-15 15:07 | XR_ITS ---
Examination: AP chest single view Technique one AP portable upright chest single view Date and time: 06/15/2025 1522 hours INDICATIONS: Coughing fever chest pain beginning today. FINDINGS: The lung bases. Heart size Mildly prominent central pulmonary arteries Prominent osteopenia IMPRESSION: Early pneumonia at the lung bases
--- NOTE | 2025-06-15 15:07 | EKG_ITS ---
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
[2025-06-15 15:10] VITALS: PULSE 80
[2025-06-15 15:31] LABS: Basophils # (Auto) 0.1 Thou/mm3 (0.0-0.2); Basophils % (Auto) 1 % (0-2.5); Eosinophils # (Auto) 0.2 Thou/mm3 (0.0-0.5); Eosinophils % (Auto) 2 % (0-10); Hematocrit 28.3 % (41.0-53.0); Immature Granulocytes Auto 0.37 Thou/mm3 (0.00-0.00); Lymphocytes # (Auto) 1.6 Thou/mm3 (1.0-4.8); Lymphocytes % (Auto) 14 % (10-50); Mean Corpuscular HGB Conc 30.7 g/dl (31.0-37.0); Mean Corpuscular Hemoglobin 30.1 pg (25.0-35.0); Mean Corpuscular Volume 98 fL (80-100); Monocytes # (Auto) 1.1 Thou/mm3 (0.0-0.8); Monocytes % (Auto) 10 % (0-12); Neutrophils # (Auto) 7.7 Thou/mm3 (1.8-7.7); Neutrophils % (Auto) 70 % (37-80); Nucleated Red Blood Cell # 0.00 Thou/mm3 (0.00-0.00); Nucleated Red Blood Cell % 0 /100 WBC (0); Platelet Count 247 Thou/mm3 (140-440); RDW Standard Deviation 57.2 fL (35.1-43.9); Red Blood Count 2.89 Miln/mm3 (4.50-5.90); White Blood Count 11.1 Thou/mm3 (3.8-10.6)
[2025-06-15] MEDS: SODIUM CHLORIDE 0.9% 500 ML 500 ML 999 ML IV (15:32)
[2025-06-15 15:35] LABS: Hemoglobin 8.7 g/dL (13.5-16.0)
[2025-06-15 15:45] LABS: INR 1.0 (0.9-1.3); Prothrombin Time 10.9 Seconds (9.0-12.2)
[2025-06-15 15:55] LABS: Alanine Aminotransferase 68 U/L (10-49); Albumin, Serum 2.9 gm/dL (3.4-4.8); Albumin/Globulin Ratio 1.0 (1.2-2.2); Alkaline Phosphatase 785 U/L (46-116); Anion Gap 4 (7-16); Aspartate Amino Transferase 114 U/L (0-34); BUN/Creatinine Ratio 15 Ratio (12-20); Bilirubin,Total 2.2 mg/dL (0.3-1.2); Blood Urea Nitrogen 38 mg/dL (9-23); Calcium 8.5 mg/dL (8.3-10.6); Calcium (Corrected) 9.4 mg/dL (8.5-10.1); Carbon Dioxide 29.8 mMol/L (20.0-31.0); Chloride 104 mMol/L (98-107); Creatinine (Component) 2.6 mg/dL (0.6-1.3); Estimated Creatinine Clearance 28.5 mL/min (>60); Globulin 2.8 gm/dL (2.3-3.5); Glucose 83 mg/dL (74-106); LDH (Lactate Dehydrogenase) 240 U/L (120-246); Magnesium 1.4 mg/dL (1.6-2.6); Osmolality,Calculated 283 (275-295); Potassium 4.6 mMol/L (3.4-5.1); Procalcitonin 2.33 ng/ml (0.0-0.49); Sodium 138 mMol/L (136-145); Total Protein 5.7 gm/dL (5.7-8.2); Troponin I < 0.020 ng/mL (0.0-0.045); eGFR 26 See Note
[2025-06-15 16:08] VITALS: BP 103/72
[2025-06-15] MEDS: SODIUM CHLORIDE 0.9% 1000 ML 1,000 ML 999 ML IV (17:10)
--- NOTE | 2025-06-15 17:20 | PD.EDSOB ---
ED SOB =RME/HPI General Chief Complaint: Shortness of Breath/Dyspnea Stated Complaint: BILAT LEG SWELLING, SOB, LOW BP Time Seen by Provider: 06/15/25 14:52 Arrival date/time: 06/15/25 14:17 Limitations: no limitations RME / HPI RME / HPI Narrative: 69-year-old male presents to the ED with complaint of a decrease in blood pressure noticed yesterday described as being in the mid 40s and then today he has home health care nurse was not able to hear lung sounds, notices that his legs are swollen, denies chest pain or pressure. Note that the patient is being treated for a vertebral fracture with vancomycin. As per patient today was the last dose. DR. SCHULTZ MAIN ED EVALUATION: 69 year old male with history of dementia, COPD, hypertension, BPH presents to the ED for evaluation of shortness of breath today. Patient states today he received his last dose of a 6-week Vancomycin treatment for infection in L2. Reports while the home health nurse was there today, she noted he appeared short of breath and had decreased breath sounds on the left. Also noted patient to be hypotensive and was advised to come to the ED. Patient states he feels mildly weak otherwise well and has no other complaints. Denies dizziness, fevers, chills, chest pain, cough, abdominal pain, vomiting, change in bowel habits, or urinary symptoms. Patient mentioned he is aware of the chronic edema in his legs and had been drinking less fluids with intentions of decreasing the swelling. Related Data Home Medications ?Medication ?Instructions ?Recorded ?Confirmed fluticasone fur. 100 mcg-umeclid 1 ea inhalation QDAY 10/29/23 06/05/25 62.5 mcg-vilant 25 mcg inhalat.powder (Trelegy Ellipta) tamsulosin 0.4 mg capsule 0.4 mg PO DAILY 04/05/24 06/05/25 donepezil 10 mg tablet 10 mg PO HS 10/18/24 06/05/25 hydrocodone 5 mg-acetaminophen 325 1 tab PO BID PRN pain 01/11/25 06/05/25 mg tablet ipratropium 0.5 mg-albuterol 3 mg 3 ml inhalation Q4H PRN shortness 01/11/25 06/05/25 (2.5 mg base)/3 mL nebulization of breath soln sertraline 50 mg tablet (Zoloft) 50 mg PO DAILY 01/11/25 06/05/25 brexpiprazole 1 mg tablet (Rexulti) 1 mg PO QDAY 04/30/25 06/05/25 buspirone 10 mg tablet 10 mg PO BID 04/30/25 06/05/25 losartan 25 mg tablet 25 mg PO DAILY 04/30/25 06/05/25 omeprazole 40 mg capsule,delayed 40 mg PO DAILY 04/30/25 06/05/25 release Previous Rx's ?Medication ?Instructions ?Recorded lorazepam 0.5 mg tablet 0.5 mg PO BID PRN Anxiety #10 tabs 03/17/25 Allergies Allergy/AdvReac Type Severity Reaction Status Date / Time levofloxacin (From [employer]) Allergy Intermediate MUSCLE Verified 06/05/25 13:57 SPASMS Review of Systems Review of Systems Systems Reviewed: All systems reviewed, normal except as documented Past Medical History Past Medical History NEUROLOGIC: Positive Neurological Disorders and Dementia CARDIAC: Positive Hypercholesterolemia and Hypertension RESPIRATORY: Positive Chronic Obstructive Pulmonary Disease (COPD), Asthma, Bronchitis and Pneumonia GASTROINTESTINAL: Positive Gastrointestinal Disorders, Hepatitis and Gastroesophageal Reflux Disease GENITOURINARY: Positive Genitourinary Disorders, Kidney Stones, Inguinal Hernia and Benign Prostatic Hyperplasia MUSCULOSKELETAL: Positive Musculoskeletal Disorders, Arthritis, Degenerative Disk Disease and Degenerative Joint Disease ENT: Positive Macular Degeneration ENDOCRINE: Negative Endocrine Disorders, Diabetes Mellitus Type 1 or Diabetes Mellitus Type 2 HEMATOLOGIC: Negative Blood Disorders or Sickle Cell Disease PSYCHO/SOCIAL: Positive Depression and Anxiety OTHER HISTORY: Positive Hospitalization, Shingles and Chicken Pox Family History FAMILY HISTORY: Positive Family Cardiac Disorders, Family Cancer and Family Surgery Surgical History SURGICAL: Positive Joint Replacement and Arthroscopy Social History SMOKING STATUS: Current every day smoker SECOND HAND EXPOSURE: No SUBSTANCE USE: marijuana ED Exam General Limitations: Present no limitations General appearance: Present alert and in no apparent distress Head Head exam: Present atraumatic, normocephalic and normal inspection Eye Eye exam: Present normal appearance, PERRL and EOMI ENT ENT exam: Present normal exam, normal oropharynx and mucous membranes dry Neck Neck exam: Present normal inspection, full ROM and trachea midline Chest Chest inspection: Present normal inspection and symmetric chest wall rise Respiratory Respiratory exam: Present other (Diminished breath sounds with very slight expiratory wheezing on the left ) Cardiovascular Cardiovascular exam: Present regular rate, normal rhythm and normal heart sounds Abdominal Exam Abdominal exam: Present soft and normal bowel sounds Extremities Exam Extremities exam: Present full ROM and other (3+ pitting edema of the bilateral lower extremity, negative higinio's sign, no palpable cords, no tenderness to palpation, mild venous stasis erythema, no cellulitis ) Back Exam Back exam: Present normal inspection and full ROM Neurological Exam Neurological exam: Present alert, oriented X3 and CN II-XII intact Psychiatric Psychiatric exam: Present normal affect and normal mood Skin Skin exam: Present warm, dry, intact and normal color Course Quality Measures none Orders Category Date Time Status Joint Machine Operator NOW Care 06/15/25 15:07 Active Continuous Pulse Oximetry NOW Care 06/15/25 15:07 Completed EKG (ED ONLY) *Do not use* NOW Care 06/15/25 15:07 Completed Insert IV NOW Care 06/15/25 15:07 Active EKG (ED Only) Stat Exams 06/15/25 15:07 Draft XR chest 1V portable Stat Exams 06/15/25 15:07 Completed CBC Stat Lab 06/15/25 15:18 Completed Comprehensive Metabolic Panel Stat Lab 06/15/25 15:18 Completed LDH (Lactate Dehydrogenase) Stat Lab 06/15/25 15:18 Completed Magnesium Stat Lab 06/15/25 15:18 Completed Procalcitonin Stat Lab 06/15/25 15:18 Completed Prothrombin Time with INR Stat Lab 06/15/25 15:18 Completed Troponin I Stat Lab 06/15/25 15:18 Completed Sodium Chloride 0.9% 1000 ml [Ns] 1,000 ml Med 06/15/25 17:04 Active IV 999 mls/hr Sodium Chloride 0.9% 500 ml [Ns] 500 ml Med 06/15/25 15:10 Discontinued IV 999 mls/hr Oxygen Delivery NOW RT 06/15/25 15:07 Active Reevaluation(s) Reevaluation #1: We reviewed all the results, analysis, and treatment plans. Patient is amenable to discharge. Strict return precautions were outlined. Time: 17:15 Vital Signs Vital signs: Vital Signs Temperature 97.9 F 06/15/25 14:41 Pulse Rate 81 06/15/25 14:41 Respiratory Rate 22 H 06/15/25 14:41 Blood Pressure 88/53 L 06/15/25 14:41 Pulse Oximetry (%) 99 06/15/25 14:41 Oxygen Delivery Method Nasal Cannula 06/15/25 14:41 Oxygen Flow Rate 3 06/15/25 14:41 Shortness of Breath / Dyspnea MDM Narrative MDM Narrative:: I, Savita Bird, am scribing for and in the presence of Dr. Schultz. Patient reports he became dehydrated because he is conscious of the venous insufficiency. I advised the patient to stay for more fluids and he declined however did agree to receive 1 more liter of IVF. States he will drink more fluids at home. Patient was recommended to raise legs above heart level and wear compression stockings for the swelling. Patient was instructed to follow up with PCP to have repeat labs to reassess acute kidney injury. Patient data External records reviewed:: [facility] previous records (I reviewed admission from 04/29/2025 through 05/03/2025) Clinical information provided by:: patient Social determinants that could affect healthcare access:: none Patient has the following chronic illnesses:: dementia, COPD, hypertension, BPH How is presenting disease/condition affected by chronic disease/condition?: exacerbated by Evaluation data The following diagnostics were reviewed and interpreted by me:: lab results, radiology exam(s) and EKG tracing(s) (06/15/2025 @ 15:13. Sinsu rhythm, rate 72, no acute ischemic changes, no STEMI. ) Lab and/or radiology exams considered but not ordered:: None Interpretation Summary: Ordering Physician: Sunil Schultz MD Date of Service: 06/15/25 Procedure(s): XR chest 1V portable Accession Number(s): [id number] cc: Sunil Schultz MD; Tk Bedoya MD; Kishan Covington MD~ Examination: AP chest single view Technique one AP portable upright chest single view Date and time: 06/15/2025 1522 hours INDICATIONS: Coughing fever chest pain beginning today. FINDINGS: The lung bases. Heart size Mildly prominent central pulmonary arteries Prominent osteopenia IMPRESSION: Early pneumonia at the lung bases Dictated By: Tk Bedoya MD Signed By: <Electronically signed by Tk Bedoya MD in OV> 06/15/25 1538 Medications / Prescriptions Medications or Prescriptions considered but not ordered:: None Medication administrations:: Medication Administration History Sodium Chloride (Ns) 1,000 mls @ 999 mls/hr IV .Q1H1M ONE Stop: 06/15/25 18:04 Last Admin: 06/15/25 17:10 Dose: 999 mls/hr Documented By: QUYNH Discontinued Medications Sodium Chloride (Ns) 500 mls @ 999 mls/hr IV .Q31M ONE Stop: 06/15/25 15:40 Last Infusion: 06/15/25 16:03 Dose: Infused Documented By: Admin: 06/15/25 15:32 Dose: 999 mls/hr Documented By: QUYNH See above Consultations Consultation(s) initiated? (list below): No Diagnosis Shortness of Breath Differential Diagnosis: acute exacerbation of chronic obstructive airways disease, congestive heart failure and community acquired pneumonia Most likely diagnosis given after review of the tests above:: RAMON dehydration hypotension, resolved venous insufficiency Admission Indicated Admission indicated?: not indicated Admission Request Was there a request for admission?: No Disposition Plan Disposition Plan: Discharge Discharge Attestation Discharge Attestation: The patient and all family members were given an opportunity to ask questions and understood the discharge instructions. Discharge instructions specifically effects, indications for sooner follow up or return to the emergency department, and the expected course of current diagnosis. Patient condition: Stable Discharge Plan Plan Patient Disposition: HOME (Self Care) Prescriptions/Referrals Prescriptions/Med Rec: No Action tamsulosin 0.4 mg capsule 0.4 mg PO DAILY donepezil 10 mg tablet 10 mg PO HS hydrocodone-acetaminophen 5-325 mg tablet 1 tab PO BID PRN (Reason: pain) Patient Comments: TAKE 1 TABLET BY MOUTH EVERY 8 HOURS NEEDED FOR SEVERE PAIN FOR 7 DAYS sertraline [Zoloft] 50 mg tablet 50 mg PO DAILY ipratropium-albuterol 0.5 mg-3 mg(2.5 mg base)/3 mL solution for nebulization 3 ml inhalation Q4H PRN (Reason: shortness of breath) Trelegy Ellipta 100-62.5-25 mcg blister with device 1 ea INHALATION QDAY lorazepam 0.5 mg Tablet 0.5 mg PO BID PRN (Reason: Anxiety) Qty: 10 0RF Rexulti 1 mg tablet 1 mg PO QDAY Patient Comments: Take 1 tablet by mouth once daily omeprazole 40 mg capsule,delayed release(DR/EC) 40 mg PO DAILY Patient Comments: TAKE 1 CAPSULE BY MOUTH ONCE DAILY 30 MINUTES TO ONE HOUR BEFORE MORNING MEAL losartan 25 mg tablet 25 mg PO DAILY Patient Comments: TAKE 1 TABLET BY MOUTH ONCE DAILY buspirone 10 mg tablet 10 mg PO BID Patient Comments: TAKE 1 TABLET BY MOUTH TWICE DAILY Referrals: Kishan Covington MD [Primary Care Provider] - In 1 week Problem List Clinical Impression: RAMON (acute kidney injury), Dehydration, Hypotension, Venous insufficiency Patient/Caregiver Discharge Instructions Education Materials: Acute Kidney Failure Dc, Hypotension Dc, ED Dehydration (Adult) Additional Instructions: To help your leg swelling: Drink plenty of fluids. Elevate your legs above heart level Wear compression stockings Follow-up with your primary care doctor in 1-2 days for repeat labs to evaluate acute kidney injury. You can return to the emergency department sooner if symptoms worsen or if you notice any new, concerning issues. Print Language: Chinese Stand Alone Forms: Karen Award Info., Patient Portal Info Letter
[2025-06-15 18:20] VITALS: BP 115/71; PULSE 88; RESP 20; TEMP 36.7; O2SAT 95
== END 2025-06-15 18:20 | disposition home or self-care (01) ==
PROVIDERS: Physician Assistant; Emergency Provider Family Medicine; PCP Family Medicine
DX: I87.2 Venous insufficiency (chronic) (peripheral) (principal); E86.0 Dehydration; N17.9 Acute kidney failure, unspecified; I95.9 Hypotension, unspecified; J18.9 Pneumonia, unspecified organism; J44.0 Chronic obstructive pulmonary disease with (acute) lower respiratory infection; I10 Essential (primary) hypertension; I49.8 Other specified cardiac arrhythmias; E78.00 Pure hypercholesterolemia, unspecified; F17.210 Nicotine dependence, cigarettes, uncomplicated
CPT/HCPCS: 36415; 71045; 80053; 81001; 83615; 83735; 84145; 84484; 85025; 85610; 93005; 96360; 96361; 99283; J7030; J7999

== ENCOUNTER → 2025-07-03 | Outpatient (CLI) | payer MEDICARE, MEDICAID, SELFPAY ==
[2025-07-03 10:19] LABS: Basophils # (Auto) 0.1 Thou/mm3 (0.0-0.2); Basophils % (Auto) 1 % (0-2.5); Eosinophils # (Auto) 0.2 Thou/mm3 (0.0-0.5); Eosinophils % (Auto) 2 % (0-10); Hematocrit 26.5 % (41.0-53.0); Immature Granulocytes Auto 0.19 Thou/mm3 (0.00-0.00); Lymphocytes # (Auto) 1.3 Thou/mm3 (1.0-4.8); Lymphocytes % (Auto) 12 % (10-50); Mean Corpuscular HGB Conc 31.7 g/dl (31.0-37.0); Mean Corpuscular Hemoglobin 35.3 pg (25.0-35.0); Mean Corpuscular Volume 111 fL (80-100); Monocytes # (Auto) 1.1 Thou/mm3 (0.0-0.8); Monocytes % (Auto) 10 % (0-12); Neutrophils # (Auto) 8.2 Thou/mm3 (1.8-7.7); Neutrophils % (Auto) 74 % (37-80); Nucleated Red Blood Cell # 0.03 Thou/mm3 (0.00-0.00); Nucleated Red Blood Cell % 0 /100 WBC (0); Platelet Count 379 Thou/mm3 (140-440); RDW Standard Deviation 88.2 fL (35.1-43.9); Red Blood Count 2.38 Miln/mm3 (4.50-5.90); White Blood Count 11.0 Thou/mm3 (3.8-10.6)
[2025-07-03 10:26] LABS: Hemoglobin 8.4 g/dL (13.5-16.0)
[2025-07-03 10:32] LABS: INR 1.0 (0.9-1.3); Prothrombin Time 10.5 Seconds (9.0-12.2)
[2025-07-03 10:42] LABS: Alanine Aminotransferase 27 U/L (10-49); Albumin, Serum 4.3 gm/dL (3.4-4.8); Albumin/Globulin Ratio 1.5 (1.2-2.2); Alkaline Phosphatase 382 U/L (46-116); Anion Gap 11 (7-16); Aspartate Amino Transferase 34 U/L (0-34); BUN/Creatinine Ratio 10 Ratio (12-20); Bilirubin,Direct 0.5 mg/dL (0.0-0.3); Bilirubin,Total 1.0 mg/dL (0.3-1.2); Blood Urea Nitrogen 15 mg/dL (9-23); Calcium 10.2 mg/dL (8.3-10.6); Calcium (Corrected) 10.2 mg/dL (8.5-10.1); Carbon Dioxide 31.7 mMol/L (20.0-31.0); Chloride 99 mMol/L (98-107); Creatinine (Component) 1.5 mg/dL (0.6-1.3); Globulin 2.9 gm/dL (2.3-3.5); Glucose 95 mg/dL (74-106); Osmolality,Calculated 283 (275-295); Potassium 3.8 mMol/L (3.4-5.1); Sodium 142 mMol/L (136-145); Total Protein 7.2 gm/dL (5.7-8.2); eGFR 51 See Note
[2025-07-03 10:48] LABS: Ferritin 1179 ng/mL (10.5-307.3); Iron 178 mcg/dL (65-175); Total Iron Binding Capacity 319 mcg/dL (250-425)
[2025-07-03 11:24] LABS: AFP Non-Pregnant 3.30 ng/mL (<8.10); Hepatitis A Antibody IgM Non Reactive (Non React); Hepatitis B Core Antibody IgM Non Reactive (Non React); Hepatitis B Surface Antigen Non Reactive (Non React); Hepatitis C Antibody Reactive (Non React)
[2025-07-08 17:48] LABS: HCV RNA, PCR <15 NOT DETECTED IU/mL
[2025-07-10 06:58] LABS: ANA Screen, IFA NEGATIVE (NEGATIVE); Alpha-1-Antitrypsin* 214 mg/dL (83-199); Ceruloplasmin* 37 mg/dL (14-30); Copper* 178 mcg/dL (70-175); HCV RNA, PCR Log IU <1.18 NOT DETECTED Log IU/mL; Mitochondrial Ab NEGATIVE (NEGATIVE); Sm Antibody* <1.0 NEG AI (<1.0 NEGATIVE)
== END | disposition home or self-care (01) ==
LOC: COPL 09:40
PROVIDERS: PCP Nurse Practitioner Family; Referring Provider Specialist; Visit Provider Specialist
DX: E78.9 Disorder of lipoprotein metabolism, unspecified (principal); D63.8 Anemia in other chronic diseases classified elsewhere; R74.01 Elevation of levels of liver transaminase levels; R94.5 Abnormal results of liver function studies
CPT/HCPCS: 36415; 80053; 80074; 80076; 82103; 82105; 82390; 82525; 82728; 83540; 83550; 85025; 85610; 86038; 86235; 86255; 87522

== ENCOUNTER → 2025-08-23 | Outpatient (CLI) | payer MEDICARE, MEDICAID, SELFPAY ==
[2025-08-23 11:52] LABS: Iron 123 mcg/dL (65-175)
[2025-08-23 11:56] LABS: Vitamin B12 1256 pg/mL (211-911)
[2025-08-28 06:31] LABS: Fecal Globin Result NOT DETECTED (NOT DETECTED)
== END | disposition home or self-care (01) ==
LOC: COPL 10:07
PROVIDERS: PCP Family Medicine; Referring Provider Nurse Practitioner Family; Visit Provider Nurse Practitioner Family
DX: D64.9 Anemia, unspecified (principal)
CPT/HCPCS: 36415; 82274; 82607; 83540; G0328

== ENCOUNTER 2025-08-25 20:05 | Inpatient (IN) | payer MEDICARE, MEDICAID, SELFPAY ==
[2025-08-25 20:10] VITALS: BMI 25.1
[2025-08-25 20:11] VITALS: PULSE 103; RESP 22; O2SAT 96
[2025-08-25 20:20] VITALS: BP 112/70; PULSE 126; RESP 28; TEMP 36.4; O2SAT 93
--- NOTE | 2025-08-25 20:26 | EKG_ITS ---
[facility] Test Date: 2025-08-25 Pat Name: MIRIAN IVORY Department: Room: - Gender: Male Private Duty Nurse: : 1955 Requested By: Jose Reynolds Order Number: [id number] Reading MD: Jose Reynolds Measurements Intervals [place] Rate: 99 P: 82 TN: 131 QRS: 71 QRSD: 98 T: 77 QT: 288 QTc: 370 Interpretive Statements SINUS RHYTHM NONSPECIFIC ST & T-WAVE ABNORMALITY Compared to ECG 06/15/2025 15:13:28 T-wave abnormality now present Sinus arrhythmia no longer present /store/[id number].pdf
--- NOTE | 2025-08-25 20:28 | XR_ITS ---
EXAMINATION: AP chest single view TECHNIQUE: AP portable upright chest single view Date and time: August 25, 2025, 2031 hours, comparison June 15, 2025 INDICATIONS: Shortness of breath today FINDINGS: Accentuation of basilar bronchovascular markings. Normal heart size Prominent osteopenia. IMPRESSION: Basilar bronchitis pattern
--- NOTE | 2025-08-25 20:46 | PD.EDSOB ---
ED SOB =RME/HPI General Chief Complaint: Shortness of Breath/Dyspnea Stated Complaint: SOB Time Seen by Provider: 08/25/25 20:25 Arrival date/time: 08/25/25 20:05 RME / HPI RME / HPI Narrative: DR. PHILIPPE MAIN ED EVALUATION: Patient with COPD and home 02 on 2L/min presents with progressively worsening dyspnea for approximately 24 hours duration despite increasing O2 concentration to 4L/min, also reports productive cough with white-clear phlegm. No fever, but reports diaphoresis. No chills, vomiting, or diarrhea. Reports fluctuating LE edema. Denies BA or ST. PMH: COPD, Diastolic CHF EF 63%, Osteomyelitis, Chronic back pain PSH: Lumbar surgery, Hernia repair. Allergies: Floroquienolones Social: Long-standing tobacco use down to 2 cigarettes per day, daily alcohol consumption, marijuana use, no illicit drug abuse Related Data Home Medications ?Medication ?Instructions ?Recorded ?Confirmed fluticasone fur. 100 mcg-umeclid 1 ea inhalation QDAY 10/29/23 06/05/25 62.5 mcg-vilant 25 mcg inhalat.powder (Trelegy Ellipta) tamsulosin 0.4 mg capsule 0.4 mg PO DAILY 04/05/24 06/05/25 donepezil 10 mg tablet 10 mg PO HS 10/18/24 06/05/25 hydrocodone 5 mg-acetaminophen 325 1 tab PO BID PRN pain 01/11/25 06/05/25 mg tablet ipratropium 0.5 mg-albuterol 3 mg 3 ml inhalation Q4H PRN shortness 01/11/25 06/05/25 (2.5 mg base)/3 mL nebulization of breath soln sertraline 50 mg tablet (Zoloft) 50 mg PO DAILY 01/11/25 06/05/25 brexpiprazole 1 mg tablet (Rexulti) 1 mg PO QDAY 04/30/25 06/05/25 buspirone 10 mg tablet 10 mg PO BID 04/30/25 06/05/25 losartan 25 mg tablet 25 mg PO DAILY 04/30/25 06/05/25 omeprazole 40 mg capsule,delayed 40 mg PO DAILY 04/30/25 06/05/25 release Previous Rx's ?Medication ?Instructions ?Recorded lorazepam 0.5 mg tablet 0.5 mg PO BID PRN Anxiety #10 tabs 03/17/25 Allergies Allergy/AdvReac Type Severity Reaction Status Date / Time levofloxacin (From Levaquin) Allergy Intermediate MUSCLE Verified 06/05/25 13:57 SPASMS Review of Systems Review of Systems Systems Reviewed: All systems reviewed, normal except as documented Past Medical History Past Medical History NEUROLOGIC: Positive Neurological Disorders and Dementia RESPIRATORY: Positive Chronic Obstructive Pulmonary Disease (COPD), Asthma, Bronchitis and Pneumonia GASTROINTESTINAL: Positive Hepatitis (HEP C) and Gastroesophageal Reflux Disease GENITOURINARY: Positive Kidney Stones, Inguinal Hernia and Benign Prostatic Hyperplasia MUSCULOSKELETAL: Positive Musculoskeletal Disorders, Arthritis, Degenerative Disk Disease and Degenerative Joint Disease PSYCHO/SOCIAL: Positive Depression and Anxiety OTHER HISTORY: Positive Shingles Family History FAMILY HISTORY: Positive Family Cardiac Disorders, Family Cancer and Family Surgery Surgical History SURGICAL: Positive Joint Replacement, Arthroscopy and of Back Surgery (OSTEOMYLITIS L2) Social History SMOKING STATUS: Current every day smoker SUBSTANCE USE: marijuana ALCOHOL: Current ALCOHOL FREQUENCY: 3 or More Drinks per Day ED Exam Narrative Physical exam: GEN. APPEARANCE: The patient is alert awake oriented X-3 in no distress, lying down comfortably, does not look ill/toxic. Patient has good eye contact. Patient is cooperative. Deep seated moist cough. VITALS: All vitals were reviewed and the pulse ox is 93% on 4L/min via nasal cannula which is low according to my interpretation. HEENT: Normocephalic, atraumatic. Pupils are equal and reactive. Oral mucosa is moist. Patent Nares NECK: Supple, nontender, no thyromegaly, no meningismus, no JVD, no step offs CHEST: Symmetrical, atraumatic, and with equal expansion , Nontender on palpation no deformity and no crepitus. CARDIOVASCULAR: Heart regular rhythm no murmur or gallop rub or extra beats. LUNGS: Symmetrical chest rise. No laboring tachypnea or wheezing. No intercostal subcostal retraction. Diffuse scattered rales and rhonchi. ABDOMEN: Soft, flat, nontender to palpation, no guarding or rebound tenderness. There are no abnormal masses palpated. Active and normal bowel sounds. EXTREMITIES: Nontender. Trace edema. No cyanosis. Patient is able to move all 4 extremities well, with full ROM and good CSM. SKIN: Warm and dry, no jaundice or rashes noted. MUSCULOSKELETAL: No lubar or midline bony tenderness. There is no CVA tenderness. No paraspinal muscle spasm or tenderness. NEURO: Patient is BERTRAND x 4, Cranial nerves II through XII grossly intact. There is no focal neurologic deficits noted. GCS is 15, PNS and [employer] appear grossly intact. PSYCHIATRIC: Patient is in normal mood and affect, cooperative, no SI or HI or hallucinations. Course Quality Measures none Orders Category Date Time Status Bedside COVID-19 Antigen Test NOW Care 08/25/25 21:56 Active EKG (ED ONLY) *Do not use* NOW Care 08/25/25 20:26 Completed EKG (ED Only) Stat Exams 08/25/25 20:26 Draft XR chest 1V Stat Exams 08/25/25 20:28 Completed B-Type Natriuretic Peptide Stat Lab 08/25/25 20:49 Completed CBC Stat Lab 08/25/25 20:49 Completed Comprehensive Metabolic Panel Stat Lab 08/25/25 20:49 Completed Drug Screen,Urine Stat Lab 08/25/25 21:41 Completed Magnesium Stat Lab 08/25/25 20:49 Completed Troponin I Stat Lab 08/25/25 20:49 Completed Urinalysis, C/S if Indicated Stat Lab 08/25/25 21:41 Completed Albuterol/Ipratr Rt Sonia [Duoneb Rt Sonia] Med 08/25/25 21:56 Discontinued 3 ml INH X1 ONE Dexamethasone Inj [Decadron Inj] 10 mg Med 08/25/25 21:56 Discontinued Sodium Chloride 0.9% [Ns] 100 ml IV X1 HYDROcodone*/APAP 5/325 [[place] 5/325] Med 08/25/25 23:03 Discontinued 1 tab PO X1 ONE Vital Signs Vital signs: Vital Signs Temperature 97.6 F 08/25/25 20:20 Pulse Rate 126 H 08/25/25 20:20 Respiratory Rate 28 H 08/25/25 20:20 Blood Pressure 112/70 08/25/25 20:20 Pulse Oximetry (%) 93 L 08/25/25 20:20 Oxygen Delivery Method Nasal Cannula 08/25/25 20:20 Oxygen Flow Rate 4 08/25/25 20:20 Shortness of Breath / Dyspnea MDM Narrative MDM Narrative:: Scribe Attestation: I, Bernadinegeoff Granado, am scribing for and in the presence of Dr. Philippe. Provider Notation: Although this document has been carefully reviewed, there may still be some phonetic and other typographical errors. These errors are purely grammatical due to imperfections in the software program and should not be construed in any way to compromise the substance of the patient's medical care during this visit. Patient with COPD and home 02 on 2L/min presents with progressively worsening dyspnea for approximately 24 hours duration despite increasing O2 concentration to 4L/min, also reports productive cough with white-clear phlegm. No fever, but reports diaphoresis. No chills, vomiting, or diarrhea. Please see PE findings. Laboratory markers demonstrate a WBC of 13.2, Hemoglobin of 8.7, and normal platelet count. There's no left shift or associated bandemia. Serum chemistries demonstrate mildly elevated creatinine of 1.4, GFR of 55, elevated transaminase, alkaline phosphatase, and normal bilirubin. Troponin I undetected. Routine CXR demonstrates basillar bronchitits pattern. Patient was placed on bus driver/monitor, maintained on 4L/min nasal cannula and tereated with seral nebulizer treatments, IV steroids and ABX. On seral evaluation, marginal change, patient appears grossly diaphoretic consider admission for observation, will contact hospitalist. Final diagnosis includes acute exacerbation of COPD. Patient data External records reviewed:: [facility] previous records (Reviewed prior ED records from 06/15/25. Patient was seen for RAMON (acute kidney injury).) Clinical information provided by:: patient Social determinants that could affect healthcare access:: substance use (Marijuana, Alcohol) Patient has the following chronic illnesses:: Dementia, Chronic Obstructive Pulmonary Disease (COPD), Asthma, Hepatitis (C), Gastroesophageal Reflux Disease, Kidney Stones, Inguinal Hernia, Benign Prostatic Hyperplasia, Arthritis, Degenerative Disk Disease, Degenerative Joint Disease, Depression and Anxiety How is presenting disease/condition affected by chronic disease/condition?: exacerbated by Evaluation data The following diagnostics were reviewed and interpreted by me:: lab results, radiology exam(s) and EKG tracing(s) (EKG demonstrates sinus rhythm with rate of 99 bpm, no acute ST segment changes, no ventricular ectopy, axis slightly rightward, per my interpretation.) Lab and/or radiology exams considered but not ordered:: None Interpretation Summary: RADIOLOGY Chest X-Ray: FINDINGS: Accentuation of basilar bronchovascular markings. Normal heart size Prominent osteopenia. IMPRESSION: Basilar bronchitis pattern Medications / Prescriptions Medications or Prescriptions considered but not ordered:: None Medication administrations:: Medication Administration History Discontinued Medications Hydrocodone Bitart/Acetaminophen (Hydrocodone/Apap 5/325 Tablet) 1 tab PO X1 ONE Stop: 08/25/25 23:04 Last Admin: 08/25/25 23:40 Dose: 1 tab Documented By: CARINA Albuterol/Ipratropium (Albuterol/Ipratropium (Duoneb) Rt Sonia 3 Ml Nebu) 3 ml INH X1 ONE Stop: 08/25/25 21:57 Last Admin: 08/25/25 22:30 Dose: 3 ml Documented By: CAREY Dexamethasone Sodium Phosphate (10 mg/ Sodium Chloride) 101 mls @ 101 mls/hr IV X1 ONE Stop: 08/25/25 21:57 Last Infusion: 08/25/25 23:47 Dose: Infused Documented By: Admin: 08/25/25 22:48 Dose: 101 mls/hr Documented By: CARINA See above if any Consultations Consultation(s) initiated? (list below): Yes Consultation #1 (Physician, Specialty, Details): Discussed with Dr. Stanford for admission. Reviewed the patient?s HPI, PMHx, lab and/or radiology results. Discussed treatment plan. Will consult an admission to the hospitalist. Time: 03:04 Diagnosis Shortness of Breath Differential Diagnosis: acute exacerbation of chronic obstructive airways disease, congestive heart failure, community acquired pneumonia and pulmonary embolism Most likely diagnosis given after review of the tests above:: Acute exacerbation of COPD Admission Indicated Admission indicated?: indicated Explain why admission is indicated or not indicated:: Acute exacerbation of COPD Admission Request Was there a request for admission?: Yes Admission Attestation Admission request attestation: Discussed case with [] from Hospitalist service regarding admission. Discussed patients ED course, exam findings, labs, and radiology results. The Hospitalist [agrees,declines] to accept the patient for admission. Disposition Plan Disposition Plan: Admit Discharge Plan Plan Patient Disposition: Admit Acute Care w/in Hospital Prescriptions/Referrals Prescriptions/Med Rec: No Action tamsulosin 0.4 mg capsule 0.4 mg PO DAILY donepezil 10 mg tablet 10 mg PO HS hydrocodone-acetaminophen 5-325 mg tablet 1 tab PO BID PRN (Reason: pain) Patient Comments: TAKE 1 TABLET BY MOUTH EVERY 8 HOURS NEEDED FOR SEVERE PAIN FOR 7 DAYS sertraline [Zoloft] 50 mg tablet 50 mg PO DAILY ipratropium-albuterol 0.5 mg-3 mg(2.5 mg base)/3 mL solution for nebulization 3 ml inhalation Q4H PRN (Reason: shortness of breath) Trelegy Ellipta 100-62.5-25 mcg blister with device 1 ea INHALATION QDAY lorazepam 0.5 mg Tablet 0.5 mg PO BID PRN (Reason: Anxiety) Qty: 10 0RF Rexulti 1 mg tablet 1 mg PO QDAY Patient Comments: Take 1 tablet by mouth once daily omeprazole 40 mg capsule,delayed release(DR/EC) 40 mg PO DAILY Patient Comments: TAKE 1 CAPSULE BY MOUTH ONCE DAILY 30 MINUTES TO ONE HOUR BEFORE MORNING MEAL losartan 25 mg tablet 25 mg PO DAILY Patient Comments: TAKE 1 TABLET BY MOUTH ONCE DAILY buspirone 10 mg tablet 10 mg PO BID Patient Comments: TAKE 1 TABLET BY MOUTH TWICE DAILY Referrals: Kishan Covington MD [Primary Care Provider, Family Practice] - In 1 week Problem List Clinical Impression: Acute exacerbation of chronic obstructive pulmonary disease Patient/Caregiver Discharge Instructions Print Language: Frisian Stand Alone Forms: Karen Award Info., Patient Portal Info Letter
[2025-08-25 21:05] LABS: Collection Type, Urine Clean Catch
[2025-08-25 21:13] LABS: Basophils # (Auto) 0.1 Thou/mm3 (0.0-0.2); Basophils % (Auto) 0 % (0-2.5); Eosinophils # (Auto) 0.1 Thou/mm3 (0.0-0.5); Eosinophils % (Auto) 1 % (0-10); Hematocrit 26.7 % (41.0-53.0); Immature Granulocytes Auto 0.20 Thou/mm3 (0.00-0.00); Lymphocytes # (Auto) 1.8 Thou/mm3 (1.0-4.8); Lymphocytes % (Auto) 14 % (10-50); Mean Corpuscular HGB Conc 32.6 g/dl (31.0-37.0); Mean Corpuscular Hemoglobin 32.8 pg (25.0-35.0); Mean Corpuscular Volume 101 fL (80-100); Monocytes # (Auto) 1.4 Thou/mm3 (0.0-0.8); Monocytes % (Auto) 10 % (0-12); Neutrophils # (Auto) 9.7 Thou/mm3 (1.8-7.7); Neutrophils % (Auto) 73 % (37-80); Nucleated Red Blood Cell # 0.03 Thou/mm3 (0.00-0.00); Nucleated Red Blood Cell % 0 /100 WBC (0); Platelet Count 149 Thou/mm3 (140-440); RDW Standard Deviation 58.9 fL (35.1-43.9); Red Blood Count 2.65 Miln/mm3 (4.50-5.90); White Blood Count 13.2 Thou/mm3 (3.8-10.6)
[2025-08-25 21:18] LABS: Hemoglobin 8.7 g/dL (13.5-16.0)
[2025-08-25 21:28] LABS: B-Type Natriuretic Peptide 267 pg/mL (0-100)
[2025-08-25 21:30] LABS: Alanine Aminotransferase 79 U/L (10-49); Albumin, Serum 3.2 gm/dL (3.4-4.8); Albumin/Globulin Ratio 0.9 (1.2-2.2); Alkaline Phosphatase 639 U/L (46-116); Anion Gap 8 (7-16); Aspartate Amino Transferase 140 U/L (0-34); BUN/Creatinine Ratio 11 Ratio (12-20); Bilirubin,Total 2.0 mg/dL (0.3-1.2); Blood Urea Nitrogen 15 mg/dL (9-23); Calcium 8.9 mg/dL (8.3-10.6); Calcium (Corrected) 9.5 mg/dL (8.5-10.1); Carbon Dioxide 35.8 mMol/L (20.0-31.0); Chloride 99 mMol/L (98-107); Creatinine (Component) 1.4 mg/dL (0.6-1.3); Estimated Creatinine Clearance 52.9 mL/min (>60); Globulin 3.7 gm/dL (2.3-3.5); Glucose 111 mg/dL (74-106); Magnesium 1.6 mg/dL (1.6-2.6); Osmolality,Calculated 286 (275-295); Potassium 3.8 mMol/L (3.4-5.1); Sodium 143 mMol/L (136-145); Total Protein 6.9 gm/dL (5.7-8.2); Troponin I < 0.020 ng/mL (0.0-0.045); eGFR 55 See Note
[2025-08-25 22:04] LABS: Amorphous Crystals,Urine Present (Absent); Bacteria,Urine Rare; Bilirubin,Urine Negative (Negative); Blood,Urine Trace (Negative); Clarity,Urine Turbid (Clear/Hazy); Color,Urine Yellow (Lt Yel-Yel); Culture Indicated,Urine Not Indicated; Glucose, Urine Negative (Negative); Hyaline Casts,Urine < 1 /hpf (0-1); Ketones,Urine Negative (Negative); Leukocyte Esterase,Urine Negative (Negative); Nitrite,Urine Negative (Negative); PH,Urine 6.0 (5.0-7.0); Protein,Urine Trace (Neg - Trace); RBC,Urine 21 /hpf (0-3); Specific Gravity,Urine 1.022 (1.001-1.035); Squamous Epithelial Cell,Urine 1 /hpf (0-5); Urobilinogen,Urine 6.0 mg/dL (0.0-1.0); WBC,Urine 4 /hpf (0-5)
[2025-08-25 22:13] VITALS: BP 117/65; PULSE 100; RESP 16; TEMP 37.2; O2SAT 99
[2025-08-25 22:30] VITALS: PULSE 106; RESP 20; O2SAT 100
[2025-08-25] MEDS: ALBUTEROL/IPRATROPIUM (Duoneb) RT SOL 3 ML NEBU INH (22:30)
[2025-08-25 22:41] LABS: Amphetamine/Methamp Scrn,U Negative (Negative); Barbiturate Screen,Urine Negative (Negative); Benzodiazepines Screen,Urine Negative (Negative); Benzoylecgonine Screen, Ur Negative (Negative); Fentanyl Screen,Urine Negative (Negative); Opiate Screen,Urine Positive (Negative); THC Screen,Urine Negative (Negative)
[2025-08-25] MEDS: DEXAMETHASONE INJ 10 MG in SODIUM CHLORIDE 0.9% 100 ML 101 MG IV (22:48)
[2025-08-25] MEDS: HYDROcodone/APAP 5/325 TABLET 1 TAB PO (23:40)
[2025-08-26] VITALS (14 sets, daily range): BP systolic 103–130; BP diastolic 65–82; PULSE 81–107; RESP 14–27; TEMP 36.1–37.7; O2SAT 96–100
[2025-08-26] MEDS: ALBUTEROL/IPRATROPIUM (Duoneb) RT SOL 3 ML NEBU INH ×6 (03:28→22:37)
[2025-08-26] MEDS: cefTRIAXone/D5w 1gm IV premix 1 GM/50 ML BAG IV ×2 (03:30→09:11)
--- NOTE | 2025-08-26 03:32 | ESHP_ITS ---
<Statement entered by Karl Stanford MD - 08/26/25 05:07> Patient was seen and examined at bedside. I agree on the assessment and plan on this note as documented by resident Thierry Rothman PGY1. Mr. Edwards is a 69-year-old male with past medical history of COPD on 2 L home O2 (follows Dr. Che), HFpEF EF 55 to 60%, 03/2025 (follows Dr. Nicole) history of hepatitis C (follows Dr. Gonzalez) BPH, recurrent nephrolithiasis (follows Dr. Desai), macular degeneration, hypertension, lumbar spine osteomyelitis and depression/anxiety who presented to [facility] ED 08/25/25 with chief complaint shortness of breath, fevers and chills. Patient reported that his symptoms started 24-48 hours ago, he increased his home oxygen to 4 L, had fevers and was diaphoretic, used nebulizer treatment every 4 hours however had no improvement in symptoms and decided to come to ED for further evaluation. On evaluation patient has bilateral wheezing, requiring 4 L to maintain optimal SpO2. ED workup significant for elevated white count 13.2, patient noted to be tachycardic and tachypneic, SIRS +3/4 with chest x-ray suggestive of basilar bronchitis pattern. Otherwise elevated BNP and bilateral lower extremity edema noted. Transaminitis elevated alk phos and hyperbilirubinemia noted as well. #Acute on chronic hypoxic respiratory failure, COPD exacerbation, community- acquired pneumonia Supplemental oxygen as needed, DuoNebs every 4 hours scheduled and every 2 hours as needed, methylprednisolone 40 mg IV daily, IV ceftriaxone and azithromycin, guaifenesin as needed, daily chest PT, bedside COVID-negative, pending influenza, sputum culture, MRSA nasal screen ordered. Blood cultures deferred patient received IV antibiotics in ED. #Acute decompensated heart failure, HFpEF EF 55 to 60% Lasix 40 mg IV x 1, Daily weight, strict XI, fluid restriction 1500 cc, monitor urine output and renal panel, will keep potassium more than 4 and magnesium more than 2, established with cardiology outpatient #History of hep C, transaminitis Will obtain liver ultrasound, trend LFTs, suspicion of liver congestion #RAMON, suspicion of CKD Ordered Lasix 40 mg IV x 1, trend renal panel, avoid nephrotoxic agents, renally dose medications #BPH Will resume home dose tamsulosin, med rec pending #Macrocytic anemia Outpatient anemia workup Case discussed with attending Dr. Rodney Stanford MD PGY-2 Documentation for date of: 08/26/25 HPI History of Present Illness Chief complaint: Back pain History of present illness: 69-year-old male with past medical history of COPD, dementia, depression/anxiety, BPH who BIBA worsening shortness of breath of less than 24- hour duration. Patient reports chronic oxygen dependence 2 L via nasal canula, but to 4 L as he was having difficulty breathing, wheezing, and cough productive of white phlegm. He also uses Trelegy once a day and DuoNebs every 6 hour that he had to use more frequently every 4 hours due to SOB. Admits to fever last night, nausea, denies chills, vomiting, diarrhea. He states that previously his COPD was well-controlled. Patient had smoked 1 pack/day for 50 years, he before he quit 1 year ago, but resumed with 2 to 3 cigarettes daily few months ago. 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 Che, with a follow-up appointment on the once the CT imaging of his chest was completed for a nodule on the left side. Patient saw Dr. Cruz for bilateral lower leg edema and was placed on Lasix 20 mg daily. EF 63%. he also sees Dr. Gonzalez for 4 evaluation of liver disease with history of hepatitis C. Dr Vang graphics manager for history of kidney stones, and ureteral stent which was removed a couple months later in December 2024. Patient was diagnosed with osteomyelitis of L2, and completed full 8-week course of antibiotics on June 15. Patient able to ambulate independently, may occasionally use a walker. At this time patient denies chest pain, recent travel, sick contacts, decreased sensation or motor strength in lower extremities or upper extremities. Admits to tingling in his toes. ED course: VSS: BP 112/70, HR 126, RR 28, T97.6, O2 93% on 4 L via NC Notable labs WBC 13.5, Hgb 8.7, HCT 27.5, MCV 102, BNP 267 CXR showed accentuation of basilar bronchovascular markings, EKG revealed sinus rhythm patient received treatment with DuoNeb 3 mL x 1, and 10 mg dexamethasone in ED. Allergies/adverse drug reaction: Levofloxacin muscle ache, and Augmentin gives diarrhea Meds: Omeprazole, tamsulosin, Trelegy, DuoNeb, Lasix 20 mg, BuSpar SR, Rexulti [place] 5-325 4 times a day for back pain, Zoloft, donepezil PMHx: As above PSHx: L4-L5 spinal surgery, right shoulder surgery, bilateral knee repair, Lt hernia repair FHx: Emphysema in mother, father at young age, sister from cancer young age Social Hx: Former smoke 1ppd for 50y, drinks alcohol couple shots daily, denies illicit substances including THC Review of Systems Review of Systems Systems Reviewed: All systems reviewed, normal except as documented Narrative Review of Systems: All 12 systems reviewed and found negative unless otherwise stated in the HPI. Exam Vital Signs Temp Pulse Resp BP Pulse Ox O2 Del Method O2 Flow Rate 98.8 F 96 18 103/67 96 Humidified Nasal Cannula 4 08/26/25 02:17 08/26/25 02:17 08/26/25 02:17 08/26/25 02:17 08/26/25 02:17 08/26/25 02:17 08/26/25 02:17 Narrative Exam Physical Exam GENERAL: NAD, AAOx3 HEENT: Moist mucosa. Eyes open, symmetrical, & clear CARDIO: Heart RRR, no obvious murmurs PULM: Course inspiratory crackles b/l and prolonged expiratory wheezing GI: Abdomen soft, nondistended, no pain on palpation. BSx4 SKIN/MSK/EXT: No wounds/rashes/edema/amputations. Pedal pulses present B/L. B/L pedal edema 1+ on Lt and 2+ on Rt. NEURO: AAOx3, no focal neuro deficits, able to move all 4 extremities Results: Labs 08/26/25 04:55 08/26/25 04:55 Labs: Short CBC 08/25/25 Range/Units 20:49 WBC 13.2 H (3.8-10.6) Thou/mm3 Hgb 8.7 L (13.5-16.0) g/dL Hct 26.7 L (41.0-53.0) % Plt Count 149 (140-440) Thou/mm3 BMP 08/25/25 20:49 Sodium 143 Potassium 3.8 Chloride 99 Carbon Dioxide 35.8 H BUN 15 Creatinine 1.4 H Glucose 111 H Calcium 8.9 Cardiac Enzymes 08/25/25 Range/Units 20:49 Troponin I < 0.020 (0.0-0.045) ng/mL Liver Function 08/25/25 Range/Units 20:49 Total Bilirubin 2.0 H (0.3-1.2) mg/dL AST 140 H (0-34) U/L ALT 79 H (10-49) U/L Alkaline Phosphatase 639 H (46-116) U/L Albumin 3.2 L (3.4-4.8) gm/dL Urine 08/25/25 Range/Units 21:41 Urine Color Yellow (Lt Yel-Yel) Urine Clarity Turbid A (Clear/Hazy) Urine pH 6.0 (5.0-7.0) Ur Specific [place] 1.022 (1.001-1.035) Urine Protein Trace (Neg - Trace) Urine Glucose (UA) Negative (Negative) ABG Interpretation ABG results: 04/29/25 20:00 ABG pH 7.34 L ABG pCO2 49 H ABG pO2 129 H ABG HCO3 26 ABG O2 Saturation 100 H ABG Base Excess 0 Quality Measures Quality Measures none Advance care planning discussed with:: patient Medications Home Medications and Allergies Home Medications ?Medication ?Instructions ?Recorded ?Confirmed ?Type fluticasone fur. 100 mcg-umeclid 1 ea inhalation QDAY 10/29/23 08/26/25 History 62.5 mcg-vilant 25 mcg inhalat.powder (Trelegy Ellipta) tamsulosin 0.4 mg capsule 0.4 mg PO DAILY 04/05/2410/10 History donepezil 10 mg tablet 10 mg PO HS 10/18/24 5 History hydrocodone 5 mg-acetaminophen 325 1 tab PO Q6H PRN pa in 01/11/25 08/26/25 History mg tablet ipratropium 0.5 mg-albuterol 3 mg 3 ml inhalation Q4H PRN shortness 01/11/25 08/26/25 History (2.5 mg base)/3 mL nebulization of breath soln sertraline 50 mg tablet (Zoloft) 50 mg PO DAILY 08/26/25 History brexpiprazole 1 mg tablet (Rexulti) 0.5 mg PO QDAY 08/26/25 History buspirone 10 mg tablet 15 mg PO BID 04/30/25 History omeprazole 40 mg capsule,delayed 40 mg PO DAILY 08/26/25 History release furosemide 20 mg tablet 20 mg PO .QD 08/26/25 History spironolactone 25 mg tablet 25 mg PO .QD 08/26/2508/16 History Allergies Allergy/AdvReac Type Severity Reaction Status Date / Time [facility] ([facility] Allergy Intermediate MUSCLE Verified 06/05/25 13:57 SPASMS Visit Medications Discontinued Medications Hydrocodone Bitart/Acetaminophen (Hydrocodone/Apap 5/325 Tablet) 1 tab PO X1 ONE Stop: 08/25/25 23:04 Last Admin: 08/25/25 23:40 Dose: 1 tab Albuterol/Ipratropium (Albuterol/Ipratropium (Duoneb) Rt Sonia 3 Ml Nebu) 3 ml INH X1 ONE Stop: 08/25/25 21:57 Last Admin: 08/25/25 22:30 Dose: 3 ml Albuterol/Ipratropium (Albuterol/Ipratropium (Duoneb) Rt Sonia 3 Ml Nebu) 3 ml INH X1 ONE Stop: 08/26/25 03:01 Last Admin: 08/26/25 03:28 Dose: 3 ml Dexamethasone Sodium Phosphate (10 mg/ Sodium Chloride) 101 mls @ 101 mls/hr IV X1 ONE Stop: 08/25/25 21:57 Last Infusion: 08/25/25 23:47 Dose: Infused Ceftriaxone Sodium/Dextrose (Rocephin/D5w 1gm Iv Premix) 1 gm in 50 mls @ 100 mls/hr IV X1 ONE Stop: 08/26/25 03:31 Last Admin: 08/26/25 03:30 Dose: 100 mls/hr Assessment & Plan Plan 69-year-old male with past medical history of COPD, dementia, depression/anxiety, BPH who BIBA worsening shortness of breath of less than 24- hour duration. Patient will be admitted for in-hospital treatment of COPD exacerbation, acute decompensated heart failure, and pneumonia #Acute on chronic hypoxic respiratory failure #COPD exacerbation #Community-acquired pneumonia Patient came in with worsening shortness of breath for the past 24 hours, increased oxygen requirement up to 4 L via NC above baseline of 2 L, and DuoNeb treatments more frequently at every 4 hour above baseline of every 6 hours. Admited to fevers and profuse sweating. Pt noted to be tachycardic and tachypnic with leukocytosis (SIRS 3/4) On physical exam, patient had bilateral coarse inspiratory breath sounds and prolonged expiratory wheezing. Bedside COVID19 negative. WBC 13.2. ABG pH 7.34, pCO2 49, bicarb 26, O2 sat 100%. Plan: -Duonebs Q4h -Methylprednisolone 40mg QD ? Pantoprazole IV 40 mg daily -Guaifenecin PO 200mg QID PRN, ordered without dextromethorphan to sustain tussive reflex beneficial for airway clearance. -Azithromycin 500mg for three days (08/26 -) -ceftriaxone IV 1g (08/26 -09/02) -Chest physiotherapy daily -ordered MRSA nasal screen, and influenza #Acute decompensated heart failure #HFpEF (EF 55-60%) #Diastolic heart failure On physical exam, patient had bilateral pedal edema, 1+ on the left and 2+ on the right. BNP 267H. Pt follows Dr Cruz outpatient. EKG showed NSR Echocardiogram (16 Mar 2025) showed Normal LV and RV size and function with an estimated EF of 55 to 60%. Mild aortic valve sclerosis, MR, and TR and MAC gave K+ 20meq and Mg 4mg Plan: Lasix IV 40 mg x1 Fluid restriction 1500 mL liter daily strict XI, monitor urine output and renal panel Daily weights -pending TSH, Hgb A1c, and lipid panel -keep K+ >4 and Mg >2 #Transaminitis #Fatty Liver #hx of hepitits C AST 140, ALT 79, alk phos 639, possibly due to liver congestion. Abdominal ultrasound on 04/29/2025 showed mild hepatomegaly with fatty infiltration -trend LFT's -ordered liver ultrasound #Chronic pain Patient reported chronic low back pain ?Resume home [place] 5-325 every 6 hours #RAMON #Suspicion of CKD Creatinine 1.4 elevated above baseline Cr 1.2 BUN 15, BUNs/CR 11, eGFR 55. Renal ultrasound 04/11/2025 showed moderate bilateral renal parenchymal scar formation. ?consider renal ultrasound if renal function test does not improve with inpatient treatment ?Renally dose meds, avoid overdiuresis, or nephrotoxins #Anemia, macrocytic Hgb 8.7, HCT 26.7, MCV 101. Patient with history of chronic heavy alcohol use. Consider folate and/or B12 deficiency -outpatient anemia workup #Dementia -Resume donepazil as taken at home after med rec #BPH ? Resume tamsulosin as taken at home after med rec #Anxiety/Depression - Resume home Zoloft after med rec. Health Maintenance: Disposition: Telemetry, treating COPD exacerbation, ADHF, and pneumonia with aim of return to baseline O2 requirements. Feeding: cardiac Thrombo prophylaxis: heparin Q12h Gastric Ulcer prophylaxis: Pantoprazole IV 40mg CODE STATUS: Full code This case was discussed with my attending physician, Dr. Stevens, and senior resident, Dr Stanford. Thierry Rothman DO PGY I Attending Provider Attestation/Addendum Gricel Batista DO, attest that I was physically present for the mathis portions of the service and evaluated the patient with the resident and I reviewed and discussed the case with the resident and agree with the resident's findings and plans of care as documented above Patient is a 69-year-old male with past medical history of BPH, nephrolithiasis HFpEF, COPD, chronic tobacco use, hepatitis C s/p treatment, hypertension, osteomyelitis who presented to the ED with worsening shortness of breath, increased productive sputum and cough for the past 24 hours.? Patient at baseline uses about 2 L nasal cannula.? However, he noted that he had worsening shortness of breath that did not resolve with use of his nebulizer treatments every 4 hours versus his usual every 6 hours.? He also increased his O2 demand to 4 L nasal cannula with no improvement of his respiratory status, prompting him to come into the ED.? Upon evaluation in the ED, chest x-ray was done showing bibasilar bronchitis pattern. Patient reported subjective fever.? Diminished breath sounds in bilateral lung mcnulty expiratory wheezing.? Patient also noted to be congested with some breaks in sentences while speaking.? He is also noted to have 1+ pitting edema in bilateral feet.? Patient reported some improvement after receiving steroids and breathing treatment in ED.? Will admit patient to med/telemetry for further workup and medical management of acute COPD exacerbation.? Patient states that he takes 20 mg of Lasix at home due to bilateral lower extremity edema.? However, it was discontinued shortly due to improvement, but patient states that it is getting worse.? Will give patient 40 mg IV Lasix x 1.? Will give steroids and breathing treatments every [address] as needed breathing treatments every [address] on azithromycin for anti-inflammatory and empiric antibiotic coverage. LFTs appear mildly elevated, similar to previous visits. Will obtain US liver. Suspect congestive hepatopathy. Pt denies any pain in abdomen
--- NOTE | 2025-08-26 04:31 | XR_ITS ---
Examination: Abdomen sonogram, Limited Date and time of exam: August 26, 2025, 0812 hours INDICATIONS: Elevated liver function tests and laboratory examination yesterday. Technique: Real-time gillette scale transabdominal sonographic images of the upper abdomen obtained. Findings: Negative for gallstones. Gallbladder wall is thickened 0.5 cm Normal pancreas 2.7 cm Liver 19.4 cm irregular contour fatty infiltration no focal liver lesions Normal hepatopetal portal venous flow Patent IVC IMPRESSION: Abnormally thickened gallbladder wall, consider HIDA scan or MRCP follow-up to exclude cholecystitis
[2025-08-26 05:05] LABS: Basophils # (Auto) 0.1 Thou/mm3 (0.0-0.2); Basophils % (Auto) 0 % (0-2.5); Eosinophils # (Auto) 0.0 Thou/mm3 (0.0-0.5); Eosinophils % (Auto) 0 % (0-10); Hematocrit 27.5 % (41.0-53.0); Immature Granulocytes Auto 0.29 Thou/mm3 (0.00-0.00); Lymphocytes # (Auto) 0.7 Thou/mm3 (1.0-4.8); Lymphocytes % (Auto) 5 % (10-50); Mean Corpuscular HGB Conc 31.6 g/dl (31.0-37.0); Mean Corpuscular Hemoglobin 32.2 pg (25.0-35.0); Mean Corpuscular Volume 102 fL (80-100); Monocytes # (Auto) 0.7 Thou/mm3 (0.0-0.8); Monocytes % (Auto) 5 % (0-12); Neutrophils # (Auto) 11.6 Thou/mm3 (1.8-7.7); Neutrophils % (Auto) 86 % (37-80); Nucleated Red Blood Cell # 0.03 Thou/mm3 (0.00-0.00); Nucleated Red Blood Cell % 0 /100 WBC (0); Platelet Count 155 Thou/mm3 (140-440); RDW Standard Deviation 59.3 fL (35.1-43.9); Red Blood Count 2.70 Miln/mm3 (4.50-5.90); White Blood Count 13.5 Thou/mm3 (3.8-10.6)
--- NOTE | 2025-08-26 05:05 | PC.RT ---
Sputum sent to lab, patient able to cough up sputum without hypertonic saline.
[2025-08-26 05:07] LABS: Hemoglobin 8.7 g/dL (13.5-16.0)
--- NOTE | 2025-08-26 05:12 | PC.NURSE ---
REPORT GIVEN TO FLOOR RN MARY
[2025-08-26] MEDS: FUROSEMIDE INJ 10 MG/ML 4ML VIAL 40 MG IVP (05:40)
[2025-08-26] MEDS: AZITHROMYCIN INJ 500 MG in SODIUM CHLORIDE 0.9% 250 ML 250 ML 250 MG IV (05:55)
[2025-08-26] MEDS: Magnesium Sulfate 4 GM Ivpb 4 GM/50 ML BAG IV (06:00)
[2025-08-26 06:11] LABS: Alanine Aminotransferase 80 U/L (10-49); Albumin, Serum 3.1 gm/dL (3.4-4.8); Albumin/Globulin Ratio 1.0 (1.2-2.2); Alkaline Phosphatase 647 U/L (46-116); Anion Gap 11 (7-16); Aspartate Amino Transferase 130 U/L (0-34); BUN/Creatinine Ratio 14 Ratio (12-20); Bilirubin,Total 2.2 mg/dL (0.3-1.2); Blood Urea Nitrogen 20 mg/dL (9-23); Calcium 8.4 mg/dL (8.3-10.6); Calcium (Corrected) 9.1 mg/dL (8.5-10.1); Carbon Dioxide 34.3 mMol/L (20.0-31.0); Cardiac Risk Estimate 10.6 RATIO (4.0-6.7); Chloride 96 mMol/L (98-107); Cholesterol 255 mg/dL (132-200); Creatinine (Component) 1.4 mg/dL (0.6-1.3); Estimated Creatinine Clearance 52.9 mL/min (>60); Globulin 3.1 gm/dL (2.3-3.5); Glucose 165 mg/dL (74-106); HDL Cholesterol 24 mg/dL (40-60); LDL Cholesterol,Calculated 204 mg/dL (0-130); Magnesium 1.6 mg/dL (1.6-2.6); Osmolality,Calculated 287 (275-295); Phosphorous 3.1 mg/dL (2.4-5.1); Potassium 4.7 mMol/L (3.4-5.1); Sodium 141 mMol/L (136-145); Total Protein 6.2 gm/dL (5.7-8.2); Triglycerides 137 mg/dL (30-150); eGFR 55 See Note
[2025-08-26 07:03] LABS: Free T4 (Free Thyroxine) 0.96 ng/dL (0.89-1.76); Thyroid Stimulating Hormone 1.28 uIU/mL (0.55-4.78)
[2025-08-26] MEDS: POTASSIUM CHL 10 mEq IVPB 10 MEQ/100 ML BAG 50 MEQ IV (07:31)
--- NOTE | 2025-08-26 07:33 | ESPR_ITS ---
<Statement entered by Jovanni Hollingsworth MD - 09/08/25 17:16> I reviewed above note and agree with findings and plans. I have also personally examined the patient with medicine team and went over assessment and plan with medical team including internet researcher and resident physician. Documentation for date of: 08/26/25 Subjective Subjective Interval history: Interval history: Is a 69-year-old male with a past medical history of hypertension, CHF HFpEF 55 to 60%- intermediate diastolic function, GERD, BPH, history of chronic hepatitis C, history of recurrent nephrolithiasis, history of macular degeneration, history of depression. Patient was an overnight admission on 11/26/2024 secondary to acute hypoxic respiratory failure requiring 6 L of oxygen in the emergency room, likely secondary to COPD exacerbation. Per patient history, smoking history of [id number] and recently resumed smoking about 3 months ago. Smoking cessation counseling. Chest x-ray hyperinflated. Influenza and COVID- negative. Patient has a past medical history of HFpEF 55 to 60% intermediate diastolic heart failure. On fluid restricted. Resume patient's Lasix p.o. once daily. Continue scheduled duonebs and Budesonide. Continue IV steriods 40 mg TID, inez down after 72 hours of clinical improvement. On patient's morning labs creatinine 1.4 BUN of 20 GFR 55. At 14. Given patient's trend since July of this year concerning for CKD given renal ultrasound noted for bilateral parenchymal scarring. Considered RAMON on CKD. Patient is on Lasix and dehydration may be due to patient's RAMON-prerenal. If creatinine does not improve by tomorrow consider repeat renal ultrasound to rule out obstructive causes given history of prostate enlargement.. AST's and ALT is likely secondary to history of hepatitis and fatty liver disease as noted on abdominal ultrasound. Macrocytic anemia likely in the setting of liver disease. Previous iron panel noted for iron 178 thus not iron deficiency. Elevated B12. 08/26/25 3:00 pm Kallie Rye - Labs reviewed patient notable for a CBC: WBC 13.5; BMP: Bicarb 34.5, Cr 1.4; Liver Panel: T Bili 2.2, AST 130, ALT 80, ALP 647; Lipid Panel: Cholesterol 255, LDL 204, HDL 24; Serology showed positive Hep C back in June 2025. At bedside, patient resting in bed, AOx3, on 4L NC sating at 98%, nurse gave an injection of heparin. Patient has no questions about the treatment plan, however since the duoneb treatment says he feels better. Patient admits to smoking again 3 months ago 2-3 cigarettes/day previously has a 50 pack-yr history. Orderd a nicotine patch 21mg as needed if patient wants it. Exam Vital Signs Temp Pulse Resp BP Pulse Ox O2 Del Method O2 Flow Rate 98.8 F 88 17 130/78 100 Humidified Nasal Cannula 4 08/26/25 02:17 08/26/25 06:28 08/26/25 06:28 08/26/25 05:40 08/26/25 06:28 08/26/25 02:17 08/26/25 06:28 Narrative Exam General: No acute distress, laying in bed supine Eye: PERRL, EOMI, normal conjunctiva, no scleral icterus HENT: Normocephalic, atraumatic, normal hearing, pink and moist mucus membranes, no oral lesions Neck: Supple, non-tender, no JVD, no lymphadenopathy Lungs: Anterior lungs mcnulty exhibit diffuse prolonged expiratory wheezing with productive cough, labored respirations, symmetric chest rise, no use of accessory muscles, spO2 98% on 4L NC Heart: Normal S1 and S2, no S3 or S4 appreciated. Normal rate and regular rhythm, no murmurs, rubs gallops, or edema. Peripheral pulses intact bilaterally, capillary refill > 2 sec Abdomen: Soft, non-tender, non-distended, normal bowel sounds. No guarding or rebound tenderness. Musculoskeletal: Normal range of motion and strength. Skin: Skin is warm, dry, no rashes or lesions. Neurologic: Alert, awake and oriented x3. CN II-XII grossly intact. No focal neuro deficits. Psychiatric: Cooperative, appropriate mood and affect Objective Labs 08/26/25 04:55 08/26/25 04:55 Labs: Laboratory Results - last 24 hr 08/25/25 08/25/25 08/26/25 20:49 21:41 04:55 WBC 13.2 H 13.5 H RBC 2.65 L 2.70 L Hgb 8.7 L 8.7 L Hct 26.7 L 27.5 L MCV 101 H 102 H MCH 32.8 32.2 MCHC 32.6 31.6 RDW Std Deviation 58.9 H 59.3 H Plt Count 149 155 Neut % (Auto) 73 86 H Lymph % (Auto) 14 5 L [place] % (Auto) 10 5 Eos % (Auto) 1 0 Baso % (Auto) 0 0 Neut # (Auto) 9.7 H 11.6 H Lymph # (Auto) 1.8 0.7 L [place] # (Auto) 1.4 H 0.7 Eos # (Auto) 0.1 0.0 Baso # (Auto) 0.1 0.1 Immature Gran # (Auto) 0.20 H 0.29 H Absolute Nucleated RBC 0.03 H 0.03 H Immature Gran % 2 H 2 H Nucleated RBC % 0 0 Sodium 143 141 Potassium 3.8 4.7 D Chloride 99 96 L Carbon Dioxide 35.8 H 34.3 H Anion Gap 8 11 BUN 15 20 Creatinine 1.4 H 1.4 H Estim Creat Clear Calc 52.9 L 52.9 L eGFR 55 L 55 L BUN/Creatinine Ratio 11 L 14 Glucose [address] Glu mg/dL Cancelled Hemoglobin A1c Cancelled Calculated Osmolality 286 287 Calcium 8.9 8.4 Corrected Calcium 9.5 9.1 Phosphorus 3.1 Magnesium 1.6 1.6 Total Bilirubin 2.0 H 2.2 H AST 140 H 130 H ALT 79 H 80 H Alkaline Phosphatase 639 H 647 H Troponin I < 0.020 B-Natriuretic Peptide 267 H Total Protein 6.9 6.2 Albumin 3.2 L 3.1 L Globulin 3.7 H 3.1 Albumin/Globulin Ratio 0.9 L 1.0 L Triglycerides 137 Cholesterol 255 H LDL Cholesterol, Calc 204 H HDL Cholesterol 24 L Cholesterol/HDL Ratio 10.6 H TSH 1.28 Free T4 0.96 Ur Collection Type Clean Catch Urine Color Yellow Urine Clarity Turbid A Urine pH 6.0 Ur Specific [place] 1.022 Urine Protein Trace Urine Glucose (UA) Negative Urine Ketones Negative Urine Blood Trace Urine Nitrite Negative Urine Bilirubin Negative Urine Urobilinogen (Auto) 6.0 Ur Leukocyte Esterase Negative Urine RBC 21 H Urine WBC 4 Ur Squamous Epith Cells 1 Amorphous Crystals Present A Urine Bacteria Rare Hyaline Casts < 1 Ur Culture Indicated? Not Indicated Urine Opiates Screen Positive A Urine Fentanyl Screen Negative Ur Barbiturates Screen Negative U Amphetamin/Meth Scrn Negative U Benzodiazepines Scrn Negative U Cocaine Metab Screen Negative U Marijuana (THC) Screen Negative Quality Measures Quality Measures none Advance care planning discussed with:: patient Assessment & Plan Assessment Current Active Medications: Generic Name Dose Route Start Last Admin Trade Name Freq PRN Reason Stop Dose Admin Acetaminophen 650 mg 08/26/25 04:07 Acetaminophen 325 Mg Tablet PO 09/25/25 04:06 Q6H PRN Fever >100.4 or pain 1-01/23 Hydrocodone Bitart/Acetaminophen 1 tab 08/26/25 04:12 Hydrocodone/Apap 5/325 Tablet PO 08/31/25 04:11 Q6HR PRN PAIN SCALE 4-10(Mod-Sev Albuterol/Ipratropium 3 ml 08/26/25 07:00 08/26/25 06:27 Albuterol/Ipratropium (Duoneb) Rt Sonia 3 Ml Nebu INH 09/25/25 06:59 3 ml Q4HRRT RACHAEL Administration Albuterol/Ipratropium 3 ml 08/26/25 04:07 Albuterol/Ipratropium (Duoneb) Rt Sonia 3 Ml Nebu INH 09/25/25 04:06 Q2HR PRN SHORTNESS OF BREATH OR WHEEZE Guaifenesin 200 mg 08/26/25 04:20 Guaifenesin Syrup 200 Mg/10 Ml Udc PO 09/25/25 04:19 QID PRN COUGH OR CONGESTION Protocol Heparin Sodium (Porcine) 5,000 unit 08/26/25 09:00 Heparin Sod Inj 5000 Unit/Ml Vial SC 09/09/25 08:59 BID [facility] Ceftriaxone Sodium/Dextrose 1 gm in 50 mls @ 100 mls/hr 08/26/25 04:29 08/26/25 05:46 Rocephin/D5w 1gm Iv Premix IV 09/02/25 04:28 Not Given QDAY [facility] Azithromycin 500 mg/ Sodium 250 mls @ 250 mls/hr 08/27/25 09:00 Chloride IV 09/02/25 08:59 QDAY [facility] Magnesium Sulfate 4 gm in 50 mls @ 12.5 mls/hr 08/26/25 04:44 08/26/25 06:00 Magnesium Sulfate Ivpb IV 08/26/25 08:43 12.5 mls/hr X1 ONE Administration Methylprednisolone Sodium Succinate 40 mg 08/26/25 09:00 Methylprednisolone Sod Succ 40 Mg/Ml Vial IVP 09/02/25 08:59 DAILY [facility] Ondansetron HCl 4 mg 08/26/25 04:12 Ondansetron Inj 2 Mg/Ml Inj 2 Ml IVP 09/25/25 04:11 Q6H PRN NAUSEA OR VOMITING Protocol Pantoprazole Sodium 40 mg 08/26/25 09:00 Pantoprazole Inj 40 Mg Vial IVP 09/25/25 08:59 QDAY [facility] Sennosides 1 tab 08/26/25 09:00 Senna Tablet PO 09/25/25 08:59 QDAY [facility] Protocol Plan 69 yo male patient PMHx of COPD, dementia, HTN, and BPH admitted for COPD exacerbation, acute decompensation HF, and PNA #Acute on chronic hypoxic respiratory failure #COPD exacerbation #Community-acquired pneumonia Patient came in with worsening shortness of breath for the past 24 hours, increased oxygen requirement up to 4 L via NC above baseline of 2 L, and DuoNeb treatments more frequently at every 4 hour above baseline of every 6 hours. Admited to fevers and profuse sweating. 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 Pt follows Dr Cruz outpatient. EKG showed NSR Echocardiogram (16 Mar 2025) showed Normal LV and RV size and function with an estimated EF of 55 to 60%. Mild aortic valve sclerosis, MR, and TR and MAC K+ >4 and Mg >2 Plan: - Lasix IV 40 mg x1 --> Lasix PO 20mg daily - Fluid restriction 1500 mL liter daily - Strict I&Os - Daily weights - pending TSH, Hgb A1c #Transaminitis #Fatty Liver #Hx of hepitits C AST 140 --> 130, ALT 79 --> 80, ALP 639 --> 647, possibly due to liver congestion. Abdominal ultrasound on 04/29/2025 showed mild hepatomegaly with fatty infiltration - LFT's show lateralization, no change - ordered liver ultrasound pending #Chronic pain Patient reported chronic low back pain ? Restarted home [place] 5-325 q6hr #RAMON #Suspicion of CKD Creatinine 1.4 unchanged from yesterday, elevated above baseline Cr 1.2 BUN 15 --> 20, BUNs/CR 10, eGFR 55. Renal ultrasound 04/11/2025 showed moderate bilateral renal parenchymal scar formation. ? consider renal ultrasound if renal function test does not improve with inpatient treatment ? Renally dose meds, avoid overdiuresis, or nephrotoxins #Anemia, macrocytic Hgb 8.7 -->unchanged, HCT 26.7 --> 27.5, MCV 101. Patient with history of chronic heavy alcohol use. Consider folate and/or B12 deficiency - outpatient anemia workup #Dementia - Resume home donepazil 10mg PO QHS #BPH ? Resume tamsulosin as taken at home after med rec #Anxiety/Depression - Resume home Zoloft 50mg PO daily - Resume home Buspirone 10mg PO BID Disposition: Telemetry Diet: Cardiac VTE PPX: heparin subQ BID GI PPX: Pantoprazole PO 40mg CODE STATUS: Full code Case was discussed with Attending Dr. Hollingsworth, and Senior Resident Dr. Yin Saul, DO PGY-1
[2025-08-26] MEDS: HEPARIN SOD INJ 5000 UNIT/ML VIAL SC ×2 (09:11→20:08)
--- NOTE | 2025-08-26 09:41 | PC.SS ---
Patient Dario Metz is a 69 Year old male admitted for COPD Exacerbation. SS made contact with patient to discuss discharge plan and verify demographic information. Patient reports he lives at home with his , Denisse Metz who he reports is patient's surrogate decision maker, [phone]. Patient reports he utilizes a Rollator Walker to assist with ambulation. Choice of pharmacy is [facility]. Patient's PCP is Kishan Covington. At time of discharge patient will return back home. Patient family will provide transportation. Discharge plan : Home Next of kin: ,Denisse Metz
[2025-08-26] MEDS: HYDROcodone/APAP 5/325 TABLET 1 TAB PO ×2 (13:55→20:07)
[2025-08-26] MEDS: SERTRALINE HCL 25 MG TABLET 50 MG PO (17:50)
[2025-08-26] MEDS: DONEPEZIL HCL 5 MG TABLET 10 MG PO (20:07)
[2025-08-27] VITALS (7 sets, daily range): BP systolic 114–136; BP diastolic 70–80; PULSE 70–101; RESP 12–21; TEMP 36.1–36.2; O2SAT 95–99
[2025-08-27] MEDS: ALBUTEROL/IPRATROPIUM (Duoneb) RT SOL 3 ML NEBU INH ×2 (02:35→06:56)
[2025-08-27 06:04] LABS: Basophils # (Auto) 0.0 Thou/mm3 (0.0-0.2); Basophils % (Auto) 0 % (0-2.5); Eosinophils # (Auto) 0.0 Thou/mm3 (0.0-0.5); Eosinophils % (Auto) 0 % (0-10); Hematocrit 27.7 % (41.0-53.0); Hemoglobin 8.9 g/dL (13.5-16.0); Immature Granulocytes Auto 0.32 Thou/mm3 (0.00-0.00); Lymphocytes # (Auto) 0.5 Thou/mm3 (1.0-4.8); Lymphocytes % (Auto) 7 % (10-50); Mean Corpuscular HGB Conc 32.1 g/dl (31.0-37.0); Mean Corpuscular Hemoglobin 32.4 pg (25.0-35.0); Mean Corpuscular Volume 101 fL (80-100); Monocytes # (Auto) 0.5 Thou/mm3 (0.0-0.8); Monocytes % (Auto) 7 % (0-12); Neutrophils # (Auto) 6.5 Thou/mm3 (1.8-7.7); Neutrophils % (Auto) 82 % (37-80); Nucleated Red Blood Cell # 0.07 Thou/mm3 (0.00-0.00); Nucleated Red Blood Cell % 1 /100 WBC (0); Platelet Count 156 Thou/mm3 (140-440); RDW Standard Deviation 58.5 fL (35.1-43.9); Red Blood Count 2.75 Miln/mm3 (4.50-5.90); White Blood Count 8.0 Thou/mm3 (3.8-10.6)
[2025-08-27 06:51] LABS: Alanine Aminotransferase 69 U/L (10-49); Albumin, Serum 3.2 gm/dL (3.4-4.8); Albumin/Globulin Ratio 1.0 (1.2-2.2); Alkaline Phosphatase 531 U/L (46-116); Anion Gap 11 (7-16); Aspartate Amino Transferase 106 U/L (0-34); BUN/Creatinine Ratio 17 Ratio (12-20); Bilirubin,Total 1.1 mg/dL (0.3-1.2); Blood Urea Nitrogen 26 mg/dL (9-23); Calcium 8.5 mg/dL (8.3-10.6); Calcium (Corrected) 9.1 mg/dL (8.5-10.1); Carbon Dioxide 33.4 mMol/L (20.0-31.0); Chloride 96 mMol/L (98-107); Creatinine (Component) 1.5 mg/dL (0.6-1.3); Estimated Creatinine Clearance 49.3 mL/min (>60); Globulin 3.2 gm/dL (2.3-3.5); Glucose 132 mg/dL (74-106); Magnesium 2.3 mg/dL (1.6-2.6); Osmolality,Calculated 286 (275-295); Phosphorous 2.7 mg/dL (2.4-5.1); Potassium 4.3 mMol/L (3.4-5.1); Sodium 140 mMol/L (136-145); Total Protein 6.4 gm/dL (5.7-8.2); eGFR 51 See Note
[2025-08-27] MEDS: cefTRIAXone/D5w 1gm IV premix 1 GM/50 ML BAG IV (08:32)
[2025-08-27] MEDS: PANTOPRAZOLE 40 MG TABLET PO (08:33)
[2025-08-27] MEDS: HYDROcodone/APAP 5/325 TABLET 1 TAB PO (08:33)
[2025-08-27] MEDS: HEPARIN SOD INJ 5000 UNIT/ML VIAL SC (08:34)
[2025-08-27] MEDS: AZITHROMYCIN INJ 500 MG in SODIUM CHLORIDE 0.9% 250 ML 250 ML 250 MG IV (08:36)
[2025-08-27] MEDS: SERTRALINE HCL 25 MG TABLET 50 MG PO (08:36)
--- NOTE | 2025-08-27 09:16 | PD.RESPRO ---
Documentation for date of: 08/27/25 Exam Vital Signs Temp Pulse Resp BP Pulse Ox O2 Del Method O2 Flow Rate 97.1 F 91 18 119/75 95 Nasal Cannula 2 08/27/25 08:00 08/27/25 08:42 08/27/25 08:00 08/27/25 08:42 08/27/25 08:00 08/27/25 08:00 08/27/25 08:00 Objective Labs 08/27/25 05:30 08/27/25 05:30 Labs: Laboratory Results - last 24 hr 08/27/25 05:30 WBC 8.0 D RBC 2.75 L Hgb 8.9 L Hct 27.7 L MCV 101 H MCH 32.4 MCHC 32.1 RDW Std Deviation 58.5 H Plt Count 156 Neut % (Auto) 82 H Lymph % (Auto) 7 L [place] % (Auto) 7 Eos % (Auto) 0 Baso % (Auto) 0 Neut # (Auto) 6.5 Lymph # (Auto) 0.5 L [place] # (Auto) 0.5 Eos # (Auto) 0.0 Baso # (Auto) 0.0 Immature Gran # (Auto) 0.32 H Absolute Nucleated RBC 0.07 H Immature Gran % 4 H Nucleated RBC % 1 H Sodium 140 Potassium 4.3 Chloride 96 L Carbon Dioxide 33.4 H Anion Gap 11 BUN 26 H Creatinine 1.5 H Estim Creat Clear Calc 49.3 L eGFR 51 L BUN/Creatinine Ratio 17 Glucose 132 H Calculated Osmolality 286 Calcium 8.5 Corrected Calcium 9.1 Phosphorus 2.7 Magnesium 2.3 Total Bilirubin 1.1 D AST 106 H ALT 69 H Alkaline Phosphatase 531 H D Total Protein 6.4 Albumin 3.2 L Globulin 3.2 Albumin/Globulin Ratio 1.0 L Quality Measures Quality Measures none Assessment & Plan Assessment Current Active Medications: Generic Name Dose Route Start Last Admin Trade Name Freq PRN Reason Stop Dose Admin Acetaminophen 650 mg 08/26/25 04:07 Acetaminophen 325 Mg Tablet PO 09/25/25 04:06 Q6H PRN Fever >100.4 or pain 1-3/10 Hydrocodone Bitart/Acetaminophen 1 tab 08/26/25 04:12 08/27/25 08:33 Hydrocodone/Apap 5/325 Tablet PO 08/31/25 04:11 1 tab Q6HR PRN Administration PAIN SCALE 4-10(Mod-Sev Albuterol/Ipratropium 3 ml 08/26/25 07:00 08/27/25 06:56 Albuterol/Ipratropium (Duoneb) Rt Sonia 3 Ml Nebu INH 09/25/25 06:59 3 ml Q4HRRT RACHAEL Administration Albuterol/Ipratropium 3 ml 08/26/25 04:07 Albuterol/Ipratropium (Duoneb) Rt Sonia 3 Ml Nebu INH 09/25/25 04:06 Q2HR PRN SHORTNESS OF BREATH OR WHEEZE Buspirone HCl 10 mg 08/26/25 21:00 08/27/25 08:34 Buspirone Hcl 5 Mg Tablet PO 09/25/25 20:59 10 mg BID RACHAEL Administration Donepezil HCl 10 mg 08/26/25 21:00 08/26/25 20:07 Donepezil Hcl 5 Mg Tablet PO 09/25/25 20:59 10 mg HS RACHAEL Administration Furosemide 20 mg 08/27/25 09:00 08/27/25 08:42 Furosemide 20 Mg Tablet PO 09/26/25 08:59 20 mg QAM RACHAEL Administration Guaifenesin 200 mg 08/26/25 04:20 Guaifenesin Syrup 200 Mg/10 Ml Udc PO 09/25/25 04:19 QID PRN COUGH OR CONGESTION Protocol Heparin Sodium (Porcine) 5,000 unit 08/26/25 09:00 08/27/25 08:34 Heparin Sod Inj 5000 Unit/Ml Vial SC 09/09/25 08:59 5,000 unit BID RACHAEL Administration Ceftriaxone Sodium/Dextrose 1 gm in 50 mls @ 100 mls/hr 08/26/25 04:29 08/27/25 08:32 Rocephin/D5w 1gm Iv Premix IV 09/02/25 04:28 100 mls/hr QDAY RACHAEL Administration Azithromycin 500 mg/ Sodium 250 mls @ 250 mls/hr 08/27/25 09:00 08/27/25 08:36 Chloride IV 09/02/25 08:59 250 mls/hr QDAY RACHAEL Administration Methylprednisolone Sodium Succinate 40 mg 08/26/25 14:00 08/27/25 05:14 Methylprednisolone Sod Succ 40 Mg/Ml Vial IVP 09/02/25 13:59 40 mg Q8HR RACHAEL Administration Nicotine 21 mg 08/26/25 09:36 Nicotine Patch 21 Mg/24 Hr Patch.Td24 TOP 09/25/25 11:59 QDAY PRN AGITATION (MILD) Ondansetron HCl 4 mg 08/26/25 04:12 Ondansetron Inj 2 Mg/Ml Inj 2 Ml IVP 09/25/25 04:11 Q6H PRN NAUSEA OR VOMITING Protocol Pantoprazole Sodium 40 mg 08/27/25 09:00 08/27/25 08:33 Pantoprazole 40 Mg Tablet PO 09/26/25 08:59 40 mg QDAY RACHAEL Administration Sennosides 1 tab 08/26/25 09:00 08/27/25 08:34 Senna Tablet PO 09/25/25 08:59 1 tab QDAY RACHAEL Administration Protocol Sertraline HCl 50 mg 08/26/25 18:00 08/27/25 08:36 Sertraline Hcl 25 Mg Tablet PO 09/25/25 17:59 50 mg QDAY RACHAEL Administration Plan 69 yo male patient PMHx of COPD, dementia, HTN, and BPH admitted for COPD exacerbation, acute decompensation HF, and PNA #Acute on chronic hypoxic respiratory failure #COPD exacerbation #Community-acquired pneumonia Patient came in with worsening shortness of breath for the past 24 hours, increased oxygen requirement up to 4 L via NC above baseline of 2 L, and DuoNeb treatments more frequently at every 4 hour above baseline of every 6 hours. Admited to fevers and profuse sweating. 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 Pt follows Dr Cruz outpatient. EKG showed NSR Echocardiogram (16 Mar 2025) showed Normal LV and RV size and function with an estimated EF of 55 to 60%. Mild aortic valve sclerosis, MR, and TR and MAC K+ >4 and Mg >2 Plan: - Lasix IV 40 mg x1 --> Lasix PO 20mg daily - Fluid restriction 1500 mL liter daily - Strict I&Os - Daily weights - pending TSH, Hgb A1c #Transaminitis #Fatty Liver #Hx of hepitits C AST 140 --> 130, ALT 79 --> 80, ALP 639 --> 647, possibly due to liver congestion. Abdominal ultrasound on 04/29/2025 showed mild hepatomegaly with fatty infiltration - LFT's show lateralization, no change - ordered liver ultrasound pending #Chronic pain Patient reported chronic low back pain ? Restarted home [place] 5-325 q6hr #RAMON #Suspicion of CKD Creatinine 1.4 unchanged from yesterday, elevated above baseline Cr 1.2 BUN 15 --> 20, BUNs/CR 10, eGFR 55. Renal ultrasound 04/11/2025 showed moderate bilateral renal parenchymal scar formation. ? consider renal ultrasound if renal function test does not improve with inpatient treatment ? Renally dose meds, avoid overdiuresis, or nephrotoxins #Anemia, macrocytic Hgb 8.7 -->unchanged, HCT 26.7 --> 27.5, MCV 101. Patient with history of chronic heavy alcohol use. Consider folate and/or B12 deficiency - outpatient anemia workup #Dementia - Resume home donepazil 10mg PO QHS #BPH ? Resume tamsulosin as taken at home after med rec #Anxiety/Depression - Resume home Zoloft 50mg PO daily - Resume home Buspirone 10mg PO BID Disposition: Telemetry Diet: Cardiac VTE PPX: heparin subQ BID GI PPX: Pantoprazole PO 40mg CODE STATUS: Full code
--- NOTE | 2025-08-27 11:50 | ESDS_ITS ---
<Statement entered by Jovanni Hollingsworth MD - 09/08/25 17:18> I reviewed above note and agree with findings and plans. I have also personally examined the patient with medicine team and went over assessment and plan with medical team including news internship and resident physician. <Statement entered by Dario Neal MD - 08/28/25 05:47> I saw and examined patient personally and supervised PGY 1 resident, Dr. Saul with formulating a management plan. I agree with the documentation with the exceptions as listed below. Patient was treated for acute on chronic respiratory with hypoxia secondary to COPD exacerbation. Will be discharged on a Solu-Medrol Dosepak along with azithromycin 500 mg p.o. for 1 more day. Plan of care discussed with Attending Dr. Darrick Neal MD PGY 2 Disclaimer: This note was dictated by speech recognition. Minor errors in efficiency analyst may be present due to voice recognition software. Planned Discharge Date 08/27/25 DS: Providers Provider Date of admission: 08/26/25 03:35 Primary care physician: Kishan Covington MD Admitting Provider: Gricel Stevens DO Attending Provider on Admission: Gricel Stevens DO Attending Provider on DC: Mary Saul MD Discharging Provider: Mary Saul MD DS: Diagnosis Problem List Completed Was Problem List Reviewed/Reconciled?: Yes Hospital Course Hospital Course Hospital course: Interval history: 69-year-old male with a past medical history of hypertension, CHF HFpEF 55 to 60%- intermediate diastolic function, GERD, BPH, history of chronic hepatitis C, history of recurrent nephrolithiasis, history of macular degeneration, history of depression. ED Course: Patient was an overnight admission on 11/26/2024 secondary to acute hypoxic respiratory failure requiring 6 L of oxygen in the emergency room, likely secondary to COPD exacerbation. VSS: BP 112/70, HR 126, RR 28, T97.6, O2 93% on 4 L via NC Notable labs WBC 13.5, Hgb 8.7, HCT 27.5, MCV 102, BNP 267 CXR showed accentuation of basilar bronchovascular markings, EKG revealed sinus rhythm patient received treatment with DuoNeb 3 mL x 1, and 10 mg dexamethasone in ED. Hospital Course: Admitted for acute on chronic hypoxic respiratory failure secondary to COPD Exacerbation secondary to CAP. Given duonebs q4hr along with q2hr prn and methylprednisilone 40mg BID --> TID for the increased wheezing on physical exam. 1 g rocephin and 500mg azithromycin daily for atypical bacterial coverage. Per the acute decompensation HF, gave lasix 40mg IV stepped down to oral; IM Team did not suspect acute HF as a main clinical cause of patient's current condition. Slight RAMON developed, we continued to monitor BMP and fluids. Patient's condition improved drastically. Corticosteroids discontinued, discharge instructions below contain discharge medications. Patient hemodynamically stable and safe for discharge. Discharge Instructions: - You have been started on a steroid taper. - Take azithromycin for 1 more day. - Follow up with your primary care physician within 1 week of discharge. If you do not have a primary care physician, please follow up with the [facility] Residents clinic ([phone]) ? If you experience any new, worsening or persistent symptoms either call your primary doctor, or dial 911 or present to the emergency department. #Acute on chronic hypoxic respiratory failure #COPD exacerbation #Community-acquired pneumonia #Acute decompensated heart failure, NYHA Class II #HFpEF (EF 55-60%) #Diastolic heart failure #Transaminitis #Fatty Liver #Hx of hepitits C #Chronic pain #RAMON #Suspicion of CKD #Anemia, macrocytic #Dementia #BPH #Anxiety/Depression Case was discussed with Attending Dr. Hollingsworth, and Senior Resident Dr. Ángel Saul, DO PGY-1 Time spent discussing smoking cessation with patient: more than 10 minutes Status at Discharge Functional status at discharge: uses cane/walker Overall status at discharge: patient is back to baseline Time Spent with Patient Time attestation: Total time spent providing and/or coordinating discharge services: Time spent: Greater than 30 minutes Exam Vital Signs Temp Pulse Resp BP Pulse Ox O2 Del Method O2 Flow Rate 97.1 F 91 18 119/75 95 Nasal Cannula 2 08/27/25 08:00 08/27/25 08:42 08/27/25 08:00 08/27/25 08:42 08/27/25 08:00 08/27/25 08:00 08/27/25 08:00 Narrative Exam General: No acute distress, laying in bed supine Eye: PERRL, EOMI, normal conjunctiva, no scleral icterus HENT: Normocephalic, atraumatic, normal hearing, pink and moist mucus membranes, no oral lesions Neck: Supple, non-tender, no JVD, no lymphadenopathy Lungs: Anterior lungs mcnulty exhibit low-pitch expiratory wheezing with vesicular breath sounds, non-labored respirations, symmetric chest rise, no use of accessory muscles, spO2 98% on 2L NC Heart: Normal S1 and S2, no S3 or S4 appreciated. Normal rate and regular rhythm, no murmurs, rubs gallops, or edema. Peripheral pulses intact bilaterally, capillary refill > 2 sec Abdomen: Soft, non-tender, non-distended, normal bowel sounds. No guarding or rebound tenderness. Musculoskeletal: Normal range of motion and strength. Skin: Skin is warm, dry, no rashes or lesions. Neurologic: Alert, awake and oriented x3. CN II-XII grossly intact. No focal neuro deficits. Psychiatric: Cooperative, appropriate mood and affect Discharge Plan Plan Patient Disposition: HOME (Self Care) Care Plan Goals: - You have been started on a steroid taper. - Take azithromycin for 1 more day. - Follow up with your primary care physician within 1 week of discharge. If you do not have a primary care physician, please follow up with the [facility] Residents clinic ([phone]) ? If you experience any new, worsening or persistent symptoms either call your primary doctor, or dial 911 or present to the emergency department. Prescriptions/Referrals Prescriptions/Med Rec: New azithromycin 500 mg tablet 500 mg PO QDAY 1 Days Qty: 1 0RF Rx Instructions: Start from tomorrow methylprednisolone [Medrol (Singh)] 4 mg tablets,dose pack 4 mg PO QDAY Qty: 21 0RF Continued tamsulosin 0.4 mg capsule 0.4 mg PO DAILY donepezil 10 mg tablet 10 mg PO HS hydrocodone-acetaminophen 5-325 mg tablet 1 tab PO Q6H PRN (Reason: pain) Patient Comments: TAKE 1 TABLET BY MOUTH EVERY 6 HOURS NEEDED FOR SEVERE PAIN sertraline [Zoloft] 50 mg tablet 50 mg PO DAILY ipratropium-albuterol 0.5 mg-3 mg(2.5 mg base)/3 mL solution for nebulization 3 ml inhalation Q4H PRN (Reason: shortness of breath) furosemide 20 mg tablet 20 mg PO .QD Patient Comments: TAKE 1 TABLET BY MOUTH ONCE DAILY spironolactone 25 mg tablet 25 mg PO .QD Patient Comments: TAKE 1 TABLET BY MOUTH ONCE DAILY Trelegy Ellipta 100-62.5-25 mcg blister with device 1 ea INHALATION QDAY Rexulti 1 mg tablet 1 mg PO QDAY Patient Comments: Take 1 tablet by mouth once daily omeprazole 40 mg capsule,delayed release(DR/EC) 40 mg PO DAILY Patient Comments: TAKE 1 CAPSULE BY MOUTH ONCE DAILY 30 MINUTES TO ONE HOUR BEFORE MORNING MEAL buspirone 10 mg tablet 15 mg PO BID Patient Comments: TAKE 1 TABLET BY MOUTH TWICE DAILY Referrals: Kishan Covington MD [Primary Care Provider, Family Practice] Patient/Caregiver Discharge Instructions Discharge Activity: activity as tolerated and wear oxygen at all times Education Materials: COPD: Coping with Mucus, COPD: Coping with Fatigue Print Language: Northern Irish Stand Alone Forms: Karen Award Info., Patient Portal Info Letter Discharge Order Discharge Orders: Discharge (Routine); Ordered 08/27/25 Ordered By: Dario Neal Quality Discharge Quality Measures VTE prophylaxis
--- NOTE | 2025-08-27 12:10 | PC.NURSE ---
PT was discharged at 1159 with full packet and forms signed and placed in physical chart. IV and tele box were removed. PT verbalized undertanding with questions answered. PT walked down in WC by staff with 2L NC.
[2025-08-28 07:56] LABS: Misc Send Out* See Sep Rpt
== END 2025-08-27 11:59 | disposition home or self-care (01) | DRG 190 ==
LOC: SERX 08-26 03:08 → SERHOLD 08-26 04:22 → S2NX 08-26 05:27
PROVIDERS: Admitting Provider Internal Medicine; Emergency Provider Emergency Medicine; PCP Family Medicine; Visit Provider Internal Medicine
DX: J44.1 Chronic obstructive pulmonary disease with (acute) exacerbation (principal); I50.33 Acute on chronic diastolic (congestive) heart failure; J96.21 Acute and chronic respiratory failure with hypoxia; J18.9 Pneumonia, unspecified organism; N17.9 Acute kidney failure, unspecified; F03.94 Unspecified dementia, unspecified severity, with anxiety; I11.0 Hypertensive heart disease with heart failure; J44.0 Chronic obstructive pulmonary disease with (acute) lower respiratory infection; F32.A Depression, unspecified; H35.30 Unspecified macular degeneration; N40.0 Benign prostatic hyperplasia without lower urinary tract symptoms; D53.9 Nutritional anemia, unspecified; K76.0 Fatty (change of) liver, not elsewhere classified; M54.50 Low back pain, unspecified; G89.29 Other chronic pain; B18.2 Chronic viral hepatitis C; I35.8 Other nonrheumatic aortic valve disorders; Z71.6 Tobacco abuse counseling; Z79.52 Long term (current) use of systemic steroids; Z79.899 Other long term (current) drug therapy; Z87.442 Personal history of urinary calculi; Z99.81 Dependence on supplemental oxygen; Z88.8 Allergy status to other drugs, medicaments and biological substances
CPT/HCPCS: 36415; 71045; 76705; 80053; 80061; 80307; 81001; 82746; 83036; 83735; 83880; 84100; 84439; 84443; 84484; 85025; 85379; 85610; 85730; 87040; 87077; 87081; 87186; 87205; 87811; 93005; 94640; 94667; 94762; 99285; A9270; J0456; J0696; J1100; J1644; J1938; J2470; J2919; J3475; J3480; J7050

== ENCOUNTER → 2025-09-20 | Outpatient (CLI) | payer MEDICARE, MEDICAID, SELFPAY ==
--- NOTE | 2025-09-20 14:00 | XR_ITS ---
Examination: CT chest, without intravenous contrast. Sagittal and coronal 2-D reconstructions. Exam date and time: September 20, 2025, 1358 hours INDICATIONS: COPD history, 8 mm pulmonary nodule posterior left lung 4 mm pulmonary nodule left lower lobe on CT chest February 27, 2025 CTDI:vol (mGy) 10.4 DLP: (mGycm) 406 Technique: Multiple 3.0 mm axial sections of the chest to been obtained. Bone and lung density settings are obtained. Sagittal and coronal 2-D reconstructions have been obtained. Low dose protocols were performed. One or more of the following dose reduction techniques were used; automated exposure control, adjustment of the mA and/or KV according to patient size, use of iterative reconstruction technique. Findings: No thoracic aortic aneurysmal dilatation No major enlargement pulmonary artery segment No paratracheal tracheobronchial or bronchopulmonary adenopathy Multiple bilateral pulmonary nodules again noted New pulmonary nodule axial image 73, measuring 12 mm, right upper lobe No pneumonia or pulmonary edema No liver or splenic lesion No hydronephrosis IMPRESSION: New 12 mm pulmonary nodule right upper lobe, recommend continued 6-month follow-up CT chest without contrast
[2025-09-20 15:28] LABS: Albumin, Serum 4.1 gm/dL (3.4-4.8); Anion Gap 10 (7-16); BUN/Creatinine Ratio 9 Ratio (12-20); Blood Urea Nitrogen 12 mg/dL (9-23); Calcium 9.2 mg/dL (8.3-10.6); Calcium (Corrected) 9.2 mg/dL (8.5-10.1); Carbon Dioxide 35.2 mMol/L (20.0-31.0); Chloride 97 mMol/L (98-107); Creatinine (Component) 1.3 mg/dL (0.6-1.3); Glucose 86 mg/dL (74-106); Osmolality,Calculated 281 (275-295); Phosphorous 2.9 mg/dL (2.4-5.1); Potassium 4.3 mMol/L (3.4-5.1); Sodium 142 mMol/L (136-145); eGFR > 60 See Note
== END | disposition home or self-care (01) ==
PROVIDERS: PCP Specialist; Referring Provider Specialist; Visit Provider Internal Medicine Cardiovascular Disease
DX: R91.1 Solitary pulmonary nodule (principal); Z01.810 Encounter for preprocedural cardiovascular examination
CPT/HCPCS: 36415; 71250; 80069

== ENCOUNTER → 2025-10-27 | Outpatient (CLI) | payer MEDICARE, MEDICAID, SELFPAY ==
[2025-10-27 12:17] LABS: Basophils # (Auto) 0.1 Thou/mm3 (0.0-0.2); Basophils % (Auto) 1 % (0-2.5); Eosinophils # (Auto) 0.2 Thou/mm3 (0.0-0.5); Eosinophils % (Auto) 2 % (0-10); Hematocrit 35.4 % (41.0-53.0); Hemoglobin 11.3 g/dL (13.5-16.0); Immature Granulocytes Auto 0.03 Thou/mm3 (0.00-0.00); Immature Reticulocyte Fraction 9.1 % (2.3-13.4); Lymphocytes # (Auto) 1.3 Thou/mm3 (1.0-4.8); Lymphocytes % (Auto) 14 % (10-50); Mean Corpuscular HGB Conc 31.9 g/dl (31.0-37.0); Mean Corpuscular Hemoglobin 32.8 pg (25.0-35.0); Mean Corpuscular Volume 103 fL (80-100); Monocytes # (Auto) 0.9 Thou/mm3 (0.0-0.8); Monocytes % (Auto) 10 % (0-12); Neutrophils # (Auto) 6.8 Thou/mm3 (1.8-7.7); Neutrophils % (Auto) 74 % (37-80); Nucleated Red Blood Cell # 0.00 Thou/mm3 (0.00-0.00); Nucleated Red Blood Cell % 0 /100 WBC (0); Platelet Count 225 Thou/mm3 (140-440); RDW Standard Deviation 49.5 fL (35.1-43.9); Red Blood Count 3.45 Miln/mm3 (4.50-5.90); Reticulocyte % (Auto) 1.1 % (0.5-1.5); Reticulocyte Absolute Auto 38.0 Biln/L (25.0-75.0); Reticulocyte Hgb Content 36.7 pg (28.0-35.0); White Blood Count 9.2 Thou/mm3 (3.8-10.6)
[2025-10-27 12:54] LABS: Alanine Aminotransferase 31 U/L (10-49); Albumin, Serum 3.8 gm/dL (3.4-4.8); Albumin/Globulin Ratio 1.2 (1.2-2.2); Alkaline Phosphatase 323 U/L (46-116); Anion Gap 12 (7-16); Aspartate Amino Transferase 67 U/L (0-34); BUN/Creatinine Ratio 14 Ratio (12-20); Bilirubin,Total 0.4 mg/dL (0.3-1.2); Blood Urea Nitrogen 15 mg/dL (9-23); Calcium 9.4 mg/dL (8.3-10.6); Calcium (Corrected) 9.6 mg/dL (8.5-10.1); Carbon Dioxide 34.4 mMol/L (20.0-31.0); Chloride 98 mMol/L (98-107); Creatinine (Component) 1.1 mg/dL (0.6-1.3); Globulin 3.3 gm/dL (2.3-3.5); Glucose 89 mg/dL (74-106); Osmolality,Calculated 286 (275-295); Potassium 4.6 mMol/L (3.4-5.1); Sodium 144 mMol/L (136-145); Thyroid Stimulating Hormone 1.18 uIU/mL (0.55-4.78); Total Protein 7.1 gm/dL (5.7-8.2); eGFR > 60 See Note
[2025-10-27 21:56] LABS: Ferritin 663 ng/mL (10.5-307.3); Iron 181 mcg/dL (65-175); Percent Iron Saturation 69 % (20-55); Total Iron Binding Capacity 262 mcg/dL (250-425); Unsaturated Iron Binding 81 (225-295)
[2025-10-27 22:01] LABS: Vitamin B12 1003 pg/mL (211-911)
== END | disposition home or self-care (01) ==
LOC: COPL 11:16
PROVIDERS: PCP Family Medicine; Referring Provider Specialist; Visit Provider Specialist
DX: D50.0 Iron deficiency anemia secondary to blood loss (chronic) (principal)
CPT/HCPCS: 36415; 80053; 82607; 82728; 83540; 83550; 84443; 85025; 85046